=== PATIENT | female | born 1990 ===

== ENCOUNTER 2020-10-09 16:36 | Emergency (ER) | payer OTHER, SELFPAY ==
--- NOTE | 2020-10-09 18:41 | PC.NURSE ---
Pt ambulating from the waiting room into room 17 with a ortiz/steady gait. Pt changing into hospital attire. Pt assisted to the bathroom to provide a UA. Awaiting primary MD montoya.
--- NOTE | 2020-10-09 18:50 | PC.NURSE ---
at bedside for primary eval.
[2020-10-09 18:51] VITALS: PULSE 90; RESP 16; TEMP 36.7; O2SAT 97; BMI 36.1
--- NOTE | 2020-10-09 19:01 | ED.GENADULT ---
HPI - General Adult General Chief complaint: General Medical Stated complaint: fatique Time Seen by Provider: 10/09/20 18:41 Source: patient Mode of arrival: ambulatory Limitations: no limitations History of Present Illness HPI narrative: Patient been complaining of weakness body aches headache for last 6 months been followed up by her primary care doctor done the labs as outpatient coming here for further evaluation as she is not feeling better complaining of headache for last 5 days. Patient had detail workup with her primary care doctor along with plan to see your under sheriff for positive ARAVIND in 2017 according to records patient has been to different hospital in different doctors for same condition without strict follow-up. Patient denied any rash no fever no joint swelling. Patient has chronic leukocytosis for last 2 years etiology not clear Onset (ago): month(s) (Several) Related Data Allergies Allergy/AdvReac Type Severity Reaction Status Date / Time No Known Allergies Allergy Unverified 08/05/20 15:58 Review of Systems Review of Systems: REVIEW OF SYSTEMS: Pertinent positives and negatives are stated above in the history. GEN: no fevers, chills, fatigue++ HEENT: no nasal congestion, sore throat, ear pain NEURO: no dizziness, focal weakness PULM: no cough, shortness of breath CV: no chest pain, palpitations, LE edema ABD: no abdominal pain, nausea, vomiting, diarrhea : no dysuria, urgency, frequency SKIN: no rash ROS otherwise negative x [facility] Social History Social History Advance Directives: No Advance Directives Information Provided: Yes Physical Exam Vital Signs: Vital Signs: Last Vital Signs Temp 98.1 F 10/09/20 18:51 Pulse 81 10/09/20 20:33 Resp 16 10/09/20 20:33 BP 128/79 10/09/20 20:33 Pulse Ox 100 10/09/20 20:33 Body Mass Index 36.1 Appearance: Alert. Oriented X3. No acute distress. Eyes: Pupils equal, round and reactive to light. ENT: Pharynx normal. Neck: Normal inspection. Neck supple. CVS: Normal heart rate and rhythm. Pulses normal. Respiratory: No respiratory distress. Breath sounds normal. Abdomen: Soft and nontender. Skin: Skin warm and dry. Normal skin color. Normal skin turgor. Extremities: No lower extremity edema. Good range of movement Neuro: Oriented X 3. No motor deficit. No sensory deficit. Course Course Course Narrative: patient detailed workup [place] [address] and positive CRP looks like patient has mixed connective tissue disorder with previous ARAVIND positive in 2017. Patient has a follow-up plan with her primary care doctor and clothing worker advised to follow-up with them at this time patient does not have any bacterial source of infection causing the leukocytosis will add Lyme titers. Also advised patient to follow-up with PCP next week Medical Decision Making Lab Data Result diagrams: 10/09/20 18:57 10/09/20 18:57 Labs: Lab Results 10/09/20 10/09/20 10/09/20 Range/Units 18:57 18:57 18:57 WBC 17.0 H (4.8-10.8) X10*3/uL RBC 5.47 (4.20-5.50) X10*6/uL Hgb 15.5 (12.0-16.0) g/dl Hct 46.6 (37-47) % MCV 85.2 (80-98) fL MCH 28.3 (27.0-33.0) pg MCHC 33.3 (31.0-35.0) g/dl RDW 11.9 (11.0-16.0) % Plt Count 365 (160-400) X10*3/uL MPV 9.3 L (9.4-12.3) fL Immature Gran % (Auto) 0.5 H (0.0-0.4) % Neut % (Auto) 72.6 (45-73) % Lymph % (Auto) 20.9 (20-40) % [place] % (Auto) 5.5 (2-11) % Eos % (Auto) 0.2 (0-4) % Baso % (Auto) 0.3 (0-2) % Lymph # (Auto) 3.6 (1.2-4.9) X10*3/uL [place] # (Auto) 0.9 (0.1-1.2) X10*3/uL Eos # (Auto) 0.0 (0.0-0.4) X10*3/uL Baso # (Auto) 0.1 (0.0-0.2) X10*3/uL Abs Immat Gran (auto) 0.08 H (0.00-0.03) X10*3/uL Absolute Neuts (auto) 12.4 H (2.0-8.3) X10*3/uL Absolute Nucleated RBC 0.000 (0.0-0.012) X10*3/uL Nucleated RBC % (auto) 0.0 (0.0-0.2) /100WBC ESR 29 H (0-20) MM/HR Sodium 137 (135-145) mmol/L Potassium 4.2 (3.3-5.1) mmol/l Chloride 102 (96-108) mmol/L Carbon Dioxide 23 (22-29) mmol/L Anion Gap 16 (12-20) BUN 15 (9-16) mg/dL Creatinine 0.94 (0.5-1.4) mg/dL Estim Creat Clear Calc 117.3 Estimated GFR > 60 Random Glucose 80 (60-115) mg/dL Calcium 9.0 (8.4-10.2) mg/dL C-Reactive Protein 0.80 H (< or = 0.50) mg/dL Urine Color Urine Appearance Urine pH (5.0-8.0) Ur Specific [place] (1.005-1.025) Urine Protein (NEG-TRACE) MG/DL Urine Glucose (UA) (NEG) MG/DL Urine Ketones (NEG) MG/DL Urine Blood (NEG) Urine Nitrite (NEG) Ur Leukocyte Esterase (NEG) Urine RBC (0) /HPF Urine WBC (0-4) /HPF Ur Squamous Epith Cells /LPF Urine Bacteria /LPF Monoscreen (Negative) 10/09/20 10/09/20 Range/Units 19:03 19:52 WBC (4.8-10.8) X10*3/uL RBC (4.20-5.50) X10*6/uL Hgb (12.0-16.0) g/dl Hct (37-47) % MCV (80-98) fL MCH (27.0-33.0) pg MCHC (31.0-35.0) g/dl RDW (11.0-16.0) % Plt Count (160-400) X10*3/uL MPV (9.4-12.3) fL Immature Gran % (Auto) (0.0-0.4) % Neut % (Auto) (45-73) % Lymph % (Auto) (20-40) % [place] % (Auto) (2-11) % Eos % (Auto) (0-4) % Baso % (Auto) (0-2) % Lymph # (Auto) (1.2-4.9) X10*3/uL [place] # (Auto) (0.1-1.2) X10*3/uL Eos # (Auto) (0.0-0.4) X10*3/uL Baso # (Auto) (0.0-0.2) X10*3/uL Abs Immat Gran (auto) (0.00-0.03) X10*3/uL Absolute Neuts (auto) (2.0-8.3) X10*3/uL Absolute Nucleated RBC (0.0-0.012) X10*3/uL Nucleated RBC % (auto) (0.0-0.2) /100WBC ESR (0-20) MM/HR Sodium (135-145) mmol/L Potassium (3.3-5.1) mmol/l Chloride (96-108) mmol/L Carbon Dioxide (22-29) mmol/L Anion Gap (12-20) BUN (9-16) mg/dL Creatinine (0.5-1.4) mg/dL Estim Creat Clear Calc Estimated GFR Random Glucose (60-115) mg/dL Calcium (8.4-10.2) mg/dL C-Reactive Protein (< or = 0.50) mg/dL Urine Color DARK YELLOW Urine Appearance HAZY Urine pH 5.5 (5.0-8.0) Ur Specific [place] >= 1.030 H (1.005-1.025) Urine Protein 3+ H (NEG-TRACE) MG/DL Urine Glucose (UA) NEG (NEG) MG/DL Urine Ketones NEG (NEG) MG/DL Urine Blood 3+ H (NEG) Urine Nitrite NEG (NEG) Ur Leukocyte Esterase NEG (NEG) Urine RBC 76-150 H (0) /HPF Urine WBC 15-29 H (0-4) /HPF Ur Squamous Epith Cells 2+ /LPF Urine Bacteria NONE /LPF Monoscreen Negative (Negative) Discharge Plan Discharge Clinical Impression: Musculoskeletal pain Leukocytosis Qualifiers: Leukocytosis type: unspecified Qualified Code(s): D72.829 - Elevated white blood cell count, unspecified Patient Disposition: Home, Self-Care Instructions: Musculoskeletal Pain (ED) Additional Instructions: follow-up with your PCP and under sheriff. Report to the ER if high-grade fever or not getting better Interventions: ED Discharge Assessment Last Done: 10/09/20 21:03 Discharge Date/Time: 10/09/20 21:05
--- NOTE | 2020-10-09 19:08 | PC.NURSE ---
Labs and UA obtained and sent. Pt very emotional, crying, states she knows something is wrong and noarchanae will listen to her. Awaiting lab results.
[2020-10-09 19:36] LABS: MANUAL DIFF FLAG NO
--- NOTE | 2020-10-09 19:51 | PC.NURSE ---
Pt requesting food/drink, given a sandwich and gingerale. Pt awaiting bloodwork results.
[2020-10-09 19:55] LABS: Basophils Absolute Auto 0.1 X10*3/uL (0.0-0.2); Basophils Percent Auto 0.3 % (0-2); Eosinophils Percent Auto 0.2 % (0-4); Hematocrit 46.6 % (37-47); Hemoglobin 15.5 g/dl (12.0-16.0); Imm Gran Abs Auto 0.08 X10*3/uL (0.00-0.03); Imm Gran Pct Auto 0.5 % (0.0-0.4); Lymphocytes Absolute Auto 3.6 X10*3/uL (1.2-4.9); Lymphocytes Percent Auto 20.9 % (20-40); Mean Corpuscular HGB Conc 33.3 g/dl (31.0-35.0); Mean Corpuscular Hemoglobin 28.3 pg (27.0-33.0); Mean Corpuscular Volume 85.2 fL (80-98); Mean Platelet Volume 9.3 fL (9.4-12.3); Monocytes Absolute Auto 0.9 X10*3/uL (0.1-1.2); Monocytes Percent Auto 5.5 % (2-11); Neutrophils Absolute Auto 12.4 X10*3/uL (2.0-8.3); Neutrophils Percent Auto 72.6 % (45-73); Platelet Count 365 X10*3/uL (160-400); Red Blood Count 5.47 X10*6/uL (4.20-5.50); Red Cell Distribution Width 11.9 % (11.0-16.0)
[2020-10-09 20:00] LABS: Anion Gap 16 (12-20); Blood Urea Nitrogen 15 mg/dL (9-16); Carbon Dioxide 23 mmol/L (22-29); Chloride 102 mmol/L (96-108); Creatinine Clr Calc Pharmacy 117.3; Estimated Glomerular Filt Rate > 60; Glucose Random 80 mg/dL (60-115); Potassium 4.2 mmol/l (3.3-5.1); Sodium 137 mmol/L (135-145)
[2020-10-09 20:14] LABS: Glucose Urine UA NEG (NEG); Leukocyte Esterase Urine NEG (NEG); Nitrite Urine NEG (NEG); PH 5.5 (5.0-8.0); Specific Gravity - Urine >= 1.030 (1.005-1.025); Urine Blood 3+ (NEG); Urine Ketones NEG (NEG); Urine Protein 3+ MG/DL (NEG-TRACE)
[2020-10-09 20:17] LABS: Monotest Negative (Negative)
[2020-10-09 20:20] LABS: Appearance Urine HAZY; Color Urine DARK YELLOW
[2020-10-09 20:33] VITALS: BP 128/79; PULSE 81; RESP 16; O2SAT 100
[2020-10-09 20:50] LABS: Erythrocyte Sedimentation Rate 29 MM/HR (0-20)
--- NOTE | 2020-10-09 20:53 | PC.NURSE ---
at bedside discussing previous outpatient lab results and plan of care to DC to an infectious disease specialist to f/u regarding +ARAVIND for Lupus.
[2020-10-09 20:58] LABS: Squamous Epithelial Cell Urine 2+ /LPF; UACC CULT YES
[2020-10-13 22:12] LABS: Lyme Abs Screen <0.90 index
== END 2020-10-09 21:05 | disposition home or self-care (01) ==
PROVIDERS: Emergency Provider Internal Medicine
DX: M79.10 Myalgia, unspecified site (principal); D72.829 Elevated white blood cell count, unspecified; R53.83 Other fatigue; Z79.899 Other long term (current) drug therapy
CPT/HCPCS: 36415; 80048; 81001; 81003; 85025; 85652; 86140; 86308; 86618; 87086; 99283; 99284

== ENCOUNTER 2020-10-10 06:14 | Emergency (ER) | payer OTHER, SELFPAY ==
[2020-10-10 06:20] VITALS: BP 117/87; PULSE 116; RESP 20; TEMP 36.2; O2SAT 98; BMI 36.1
--- NOTE | 2020-10-10 06:43 | XR_ITS ---
EXAMINATION: CHEST 2 VIEWS CLINICAL INFORMATION: SOB . COMPARISON: 08/16/2020. TECHNIQUE: PA and lateral views of the chest obtained. FINDINGS: The lungs are well expanded. No focal infiltrate, effusion, edema, or pneumothorax. Cardiac and mediastinal silhouettes are within normal limits for technique. No acute bony abnormality seen XR/XR chest 2V IMPRESSION: No evidence of acute disease
--- NOTE | 2020-10-10 06:45 | ED_ITS ---
HPI - General Adult General Chief complaint: General Medical Stated complaint: Sob Time Seen by Provider: 10/10/20 06:39 Source: patient Mode of arrival: ambulatory Limitations: no limitations History of Present Illness HPI narrative: This is a 29 years old female seen yesterday in the emergency department return today complaining of generalized weakness, shortness of breath, dry throat, she has a history of a chronic elevated white cell count, she has history of elevated ARAVIND she is waiting for rheumatology consult. She appeared to be an anxius Onset (ago): day(s) (1) Severity: moderate Relieving factors: none Exacerbating factors: none Associated symptoms: denies other symptoms Treatments prior to arrival: none Related Data Previous Rx's Medication Instructions Recorded lorazepam 1 mg PO BEDTIME PRN #3 tab 10/10/20 Allergies Allergy/AdvReac Type Severity Reaction Status Date / Time No Known Allergies Allergy Verified 10/10/20 06:20 Review of Systems Review of Systems: Denies any nausea, vomiting, diarrhea, denied any cough denies any fever, denies any genital urinary symptoms Yes all other systems are reviewed and are negative [facility] Past Medical History Attestation statement: The following information was validated with the patient. Social History Social History Smoking Status: Former smoker Smoked in Last 30 Days: No Use of substances other than those prescribed or required for medical reasons: No Advance Directives: No Physical Exam Vital Signs: Vital Signs: Last Vital Signs Temp 98.2 F 10/10/20 08:47 Pulse 80 10/10/20 08:47 Resp 16 10/10/20 08:47 BP 104/64 10/10/20 08:47 Pulse Ox 99 10/10/20 08:47 Body Mass Index 36.1 Const: Other: Awake and alert in no acute distress and anxious appearing Orientation/consciousness: oriented to person, oriented to place and oriented to time HENMT: Head: Yes normal to inspection and Yes normocephalic Eyes: General: appearance normal, both eyes and all related structures Neck: Neck: Yes normal visual inspection, Yes full ROM and Yes no lymphadenopathy Chest: Chest palpation & inspection: normal inspection of the chest and normal palpation of entire chest wall Resp: Effort & Inspection: normal respiratory effort and able to speak in complete sentences Cardio: Rate: regular rate GI: Palpation (GI): Soft to palpation, nontender and no guarding Skin: General skin exam: no rashes or lesions noted and no erythema Neuro: General: oriented to person, oriented to place, oriented to time and CN's II-XI intact bilaterally Psych: Appearance: well kempt Mental Status: mental status grossly normal Speech and movement: Clear speech present Affect: Anxious affect present Thought process: Normal thought process present Insight: Good insight present (Psych) Medical Decision Making Lab Data Result diagrams: 10/10/20 06:54 10/10/20 06:54 Labs: Lab Results 10/10/20 10/10/20 10/10/20 Range/Units 06:54 06:54 06:54 WBC 12.9 H (4.8-10.8) X10*3/uL RBC 5.01 (4.20-5.50) X10*6/uL Hgb 14.4 (12.0-16.0) g/dl Hct 42.5 (37-47) % MCV 84.8 (80-98) fL MCH 28.7 (27.0-33.0) pg MCHC 33.9 (31.0-35.0) g/dl RDW 11.9 (11.0-16.0) % Plt Count 334 (160-400) X10*3/uL MPV 9.1 L (9.4-12.3) fL Immature Gran % (Auto) 0.4 (0.0-0.4) % Neut % (Auto) 69.3 (45-73) % Lymph % (Auto) 23.0 (20-40) % [place] % (Auto) 6.6 (2-11) % Eos % (Auto) 0.3 (0-4) % Baso % (Auto) 0.4 (0-2) % Lymph # (Auto) 3.0 (1.2-4.9) X10*3/uL [place] # (Auto) 0.9 (0.1-1.2) X10*3/uL Eos # (Auto) 0.0 (0.0-0.4) X10*3/uL Baso # (Auto) 0.1 (0.0-0.2) X10*3/uL Abs Immat Gran (auto) 0.05 H (0.00-0.03) X10*3/uL Absolute Neuts (auto) 9.0 H (2.0-8.3) X10*3/uL Absolute Nucleated RBC 0.000 (0.0-0.012) X10*3/uL Nucleated RBC % (auto) 0.0 (0.0-0.2) /100WBC D-Dimer NG/ML Sodium 138 (135-145) mmol/L Potassium 4.1 (3.3-5.1) mmol/l Chloride 104 (96-108) mmol/L Carbon Dioxide 26 (22-29) mmol/L Anion Gap 12 (12-20) BUN 14 (9-16) mg/dL Creatinine 0.88 (0.5-1.4) mg/dL Estim Creat Clear Calc 125.3 Estimated GFR > 60 Random Glucose 102 (60-115) mg/dL Calcium 8.8 (8.4-10.2) mg/dL Total Bilirubin 0.4 (0.0-1.0) mg/dL AST 15 (5-31) U/L ALT 22 (0-31) U/L Alkaline Phosphatase 62 (39-117) U/L Total Protein 6.3 L (6.5-8.0) g/dL Albumin 3.6 (3.5-5.0) g/dL Beta HCG, Quant < 2 mIU/mL Coronavirus (PCR) (Negative) Influenza Type A (PCR) (Negative) Influenza Type B (PCR) (Negative) RSV RNA Qual (PCR) (Negative) 10/10/20 10/10/20 Range/Units 06:54 07:50 WBC (4.8-10.8) X10*3/uL RBC (4.20-5.50) X10*6/uL Hgb (12.0-16.0) g/dl Hct (37-47) % MCV (80-98) fL MCH (27.0-33.0) pg MCHC (31.0-35.0) g/dl RDW (11.0-16.0) % Plt Count (160-400) X10*3/uL MPV (9.4-12.3) fL Immature Gran % (Auto) (0.0-0.4) % Neut % (Auto) (45-73) % Lymph % (Auto) (20-40) % [place] % (Auto) (2-11) % Eos % (Auto) (0-4) % Baso % (Auto) (0-2) % Lymph # (Auto) (1.2-4.9) X10*3/uL [place] # (Auto) (0.1-1.2) X10*3/uL Eos # (Auto) (0.0-0.4) X10*3/uL Baso # (Auto) (0.0-0.2) X10*3/uL Abs Immat Gran (auto) (0.00-0.03) X10*3/uL Absolute Neuts (auto) (2.0-8.3) X10*3/uL Absolute Nucleated RBC (0.0-0.012) X10*3/uL Nucleated RBC % (auto) (0.0-0.2) /100WBC D-Dimer < 200 NG/ML Sodium (135-145) mmol/L Potassium (3.3-5.1) mmol/l Chloride (96-108) mmol/L Carbon Dioxide (22-29) mmol/L Anion Gap (12-20) BUN (9-16) mg/dL Creatinine (0.5-1.4) mg/dL Estim Creat Clear Calc Estimated GFR Random Glucose (60-115) mg/dL Calcium (8.4-10.2) mg/dL Total Bilirubin (0.0-1.0) mg/dL AST (5-31) U/L ALT (0-31) U/L Alkaline Phosphatase (39-117) U/L Total Protein (6.5-8.0) g/dL Albumin (3.5-5.0) g/dL Beta HCG, Quant mIU/mL Coronavirus (PCR) NEGATIVE (Negative) Influenza Type A (PCR) NEGATIVE (Negative) Influenza Type B (PCR) NEGATIVE (Negative) RSV RNA Qual (PCR) NEGATIVE (Negative) Discharge Plan Discharge Clinical Impression: Shortness of breath Patient Disposition: Home, Self-Care Instructions: Shortness of Breath (ED) Prescriptions: New lorazepam 1 mg tablet 1 mg PO BEDTIME PRN (Reason: imsomnia) Qty: 3 RF: 0 Interventions: ED Discharge Assessment Last Done: 10/10/20 10:09 Discharge Date/Time: 10/10/20 10:16
[2020-10-10] MEDS: LORazepam 1 MG TABLET PO (06:58)
[2020-10-10 07:01] LABS: MANUAL DIFF FLAG NO
[2020-10-10 07:02] LABS: Basophils Absolute Auto 0.1 X10*3/uL (0.0-0.2); Basophils Percent Auto 0.4 % (0-2); Eosinophils Percent Auto 0.3 % (0-4); Hematocrit 42.5 % (37-47); Hemoglobin 14.4 g/dl (12.0-16.0); Imm Gran Abs Auto 0.05 X10*3/uL (0.00-0.03); Imm Gran Pct Auto 0.4 % (0.0-0.4); Mean Corpuscular HGB Conc 33.9 g/dl (31.0-35.0); Mean Corpuscular Hemoglobin 28.7 pg (27.0-33.0); Mean Corpuscular Volume 84.8 fL (80-98); Mean Platelet Volume 9.1 fL (9.4-12.3); Monocytes Absolute Auto 0.9 X10*3/uL (0.1-1.2); Monocytes Percent Auto 6.6 % (2-11); Neutrophils Percent Auto 69.3 % (45-73); Platelet Count 334 X10*3/uL (160-400); Red Blood Count 5.01 X10*6/uL (4.20-5.50); Red Cell Distribution Width 11.9 % (11.0-16.0); White Blood Count 12.9 X10*3/uL (4.8-10.8)
[2020-10-10 07:17] LABS: D Dimer < 200 NG/ML
[2020-10-10 07:31] LABS: Alanine Aminotransferase 22 U/L (0-31); Albumin Level 3.6 g/dL (3.5-5.0); Alkaline Phosphatase 62 U/L (39-117); Anion Gap 12 (12-20); Aspartate Amino Transferase 15 U/L (5-31); Bilirubin Total 0.4 mg/dL (0.0-1.0); Blood Urea Nitrogen 14 mg/dL (9-16); Calcium 8.8 mg/dL (8.4-10.2); Carbon Dioxide 26 mmol/L (22-29); Chloride 104 mmol/L (96-108); Creatinine Clr Calc Pharmacy 125.3; Estimated Glomerular Filt Rate > 60; Glucose Random 102 mg/dL (60-115); Potassium 4.1 mmol/l (3.3-5.1); Sodium 138 mmol/L (135-145); Total Protein 6.3 g/dL (6.5-8.0)
[2020-10-10 07:33] LABS: HCG Quantitative < 2 mIU/mL
[2020-10-10 08:47] VITALS: BP 104/64; PULSE 80; RESP 16; TEMP 36.8; O2SAT 99
[2020-10-10] MEDS: 0.9 % Sodium Chloride 1,000 ML 999 ML IVCONT (08:49)
[2020-10-10 09:43] LABS: Influenza A PCR NEGATIVE (Negative); Influenza B PCR NEGATIVE (Negative); Resp Syncy Virus RNA Qual PCR NEGATIVE (Negative); SARS COV2 PCR INHOUSE NEGATIVE (Negative)
== END 2020-10-10 10:16 | disposition home or self-care (01) ==
PROVIDERS: Emergency Provider Emergency Medicine
DX: R06.02 Shortness of breath (principal); Z79.899 Other long term (current) drug therapy; Z87.891 Personal history of nicotine dependence; Z20.828 Contact with and (suspected) exposure to other viral communicable diseases
CPT/HCPCS: 0241U; 36415; 71046; 80053; 84702; 85025; 85379; 87040; 96360; 99284

== ENCOUNTER 2020-10-11 21:25 | Emergency (ER) | payer OTHER, SELFPAY ==
[2020-10-11 21:28] VITALS: BP 145/80; PULSE 101; RESP 18; TEMP 37.3; O2SAT 98; BMI 36.1
[2020-10-11 22:36] LABS: MANUAL DIFF FLAG NO
[2020-10-11 22:37] LABS: Basophils Absolute Auto 0.1 X10*3/uL (0.0-0.2); Basophils Percent Auto 0.3 % (0-2); Eosinophils Absolute Auto 0.1 X10*3/uL (0.0-0.4); Eosinophils Percent Auto 0.5 % (0-4); Hematocrit 41.5 % (37-47); Hemoglobin 13.8 g/dl (12.0-16.0); Imm Gran Abs Auto 0.07 X10*3/uL (0.00-0.03); Imm Gran Pct Auto 0.4 % (0.0-0.4); Lymphocytes Absolute Auto 3.8 X10*3/uL (1.2-4.9); Lymphocytes Percent Auto 24.3 % (20-40); Mean Corpuscular HGB Conc 33.3 g/dl (31.0-35.0); Mean Corpuscular Hemoglobin 28.7 pg (27.0-33.0); Mean Corpuscular Volume 86.3 fL (80-98); Mean Platelet Volume 8.9 fL (9.4-12.3); Monocytes Absolute Auto 1.1 X10*3/uL (0.1-1.2); Monocytes Percent Auto 6.7 % (2-11); Neutrophils Absolute Auto 10.7 X10*3/uL (2.0-8.3); Neutrophils Percent Auto 67.8 % (45-73); Platelet Count 318 X10*3/uL (160-400); Red Blood Count 4.81 X10*6/uL (4.20-5.50); Red Cell Distribution Width 11.9 % (11.0-16.0); White Blood Count 15.7 X10*3/uL (4.8-10.8)
--- NOTE | 2020-10-11 22:56 | ED_ITS ---
HPI - General Adult General Chief complaint: General Medical Stated complaint: Multiple complaints Time Seen by Provider: 10/11/20 22:00 Source: patient Mode of arrival: ambulatory History of Present Illness HPI narrative: 29-year-old female seen here multiple times this week secondary to lower back pain generalized weakness. Patient denies urinary symptoms denies fevers or chills denies nausea vomiting. Patient states worsening with m ovement. Denies urinary incontinence denies bowel incontinence or constipation. Patient states has gotten COVID test which was negative. Patient states has been dealing with this for months to years secondary to possible rheumatologic illness. Patient also has a chronic elevation in white blood cells. Patient states went to primary care doctor today and got laboratory work. Patient states just tired of this Onset (ago): month(s) Severity: mild Severity scale (1-10): 3 Related Data Previous Rx's Medication Instructions Recorded lorazepam 1 mg PO BEDTIME PRN #3 tab 10/10/20 Allergies Allergy/AdvReac Type Severity Reaction Status Date / Time No Known Allergies Allergy Verified 10/11/20 21:28 Review of Systems Review of Systems: Constitutional : No Weight loss, No Fever, No Chills, No Night Sweats, No Fatigue, No Malaise ENT/Mouth : No Hearing loss, No Ear Pain, No Nasal Congestion, No Sinus Pain, No Hoarseness, No sore throat, No Rhinorrhea, No Swallowing Difficulty Eyes: No Eye Pain, No Swelling, No Redness, No Foreign Body, No Discharge, No Vision Changes Cardiovascular : No Chest Pain, No SOB, No Dyspnea on Exertion, No Orthopnea, No Edema, No Palpitations Respiratory : No Cough, No Sputum, No Wheezing, No Smoke Exposure, No Dyspnea Gastrointestinal : No Nausea, No Vomiting, No Diarrhea, No Constipation, No a bdominal Pain, No Hematochezia, No Melena Genitourinary : no irregular bleeding, No Dysuria, No Urinary Frequency, No Hematuria, No Urinary Incontinence, No Urgency, No Flank Pain, No Urinary Flow Changes, No Hesitancy Musculoskeletal : No joint pain, No Myalgias, No Joint Swelling positive back pain Skin : No Skin Lesions, No rash Neuro : No Weakness, No Numbness, No Paresthesias, No Loss of Consciousness, No Dizziness, No Headache Psych : No Anxiety/Panic, No Depression, No SI/HI/AH/VH, No Social Issues, Heme/Lymph: No Bruising, No Bleeding,No Lymphadenopathy Endocrine : No Polyuria, No Polydipsia, No Temperature Intolerance [facility] Past Medical History Medical History Healthy adult Family History Family History (Updated 10/11/20 @ 22:58 by Nj Hernandez DO) Other Family history non-contributory Social History Social History Alcohol intake: never Smoking Status: Former smoker Smoked in Last 30 Days: No Use of substances other than those prescribed or required for medical reasons: No Advance Directives: No Advance Directives Information Provided: Yes Physical Exam 2 Vital Signs: Vital Signs: Last Vital Signs Temp 98.2 F 10/11/20 23:18 Pulse 73 10/11/20 23:18 Resp 20 10/11/20 23:18 BP 107/60 10/11/20 23:18 Pulse Ox 98 10/11/20 21:28 Body Mass Index 36.1 Melody signs reviewed 98% room air pulse ox. Interpreted by me. Normal Appearance: Alert. Oriented X3. No acute distress. Eyes: Pupils equal, round and reactive to light. ENT: Pharynx normal. Neck: Normal inspection. Neck supple. No lymph nodes noted. No crepitus CVS: Normal heart rate and rhythm. Pulses normal. Normal S1 and S2 Respiratory: No respiratory distress. Breath sounds normal. No Wheezing. No rales Abdomen: Soft and nontender. No rigidity. No distention. good BS x4 Skin: Skin warm and dry. Normal skin color. Normal skin turgor. Extremities: No lower extremity edema. Neurovascular intact to all extremities. No Lacerations. No Rash Neuro: Oriented X 3. No motor deficit. No sensory deficit. Moving all extermities. No slurred speech. Back: No CVA tenderness no midline tenderness no step-off no abscess Course Course Course Narrative: Differential diagnosis includes UTI pyelonephritis Medical Decision Making MDM Narrative Medical decision making narrative: 29-year-old female with chronic leukocytosis. Labs and urine negative. Recent blood culture done negative at 24 hours. Patient's shows no signs of current infection however could be acute exacerbation of her chronic illness that needs to be followed up in diagnosed by her primary care doctor patient tolerating p.o. his ambulatory without dysfunction Medical Records Medical records reviewed: Yes I reviewed the patient's medical records. Medical records narrative: Reviewed previous 2 ER visits with similar complaints. Reviewed and compare laboratory work w today. Lab Data Lab results reviewed: Yes I reviewed the patient's lab results. Result diagrams: 10/11/20 22:29 10/11/20 22:29 Labs: Lab Results 10/11/20 10/11/20 10/11/20 Range/Units 22:29 22:29 23:24 WBC 15.7 H (4.8-10.8) X10*3/uL RBC 4.81 (4.20-5.50) X10*6/uL Hgb 13.8 (12.0-16.0) g/dl Hct 41.5 (37-47) % MCV 86.3 (80-98) fL MCH 28.7 (27.0-33.0) pg MCHC 33.3 (31.0-35.0) g/dl RDW 11.9 (11.0-16.0) % Plt Count 318 (160-400) X10*3/uL MPV 8.9 L (9.4-12.3) fL Immature Gran % (Auto) 0.4 (0.0-0.4) % Neut % (Auto) 67.8 (45-73) % Lymph % (Auto) 24.3 (20-40) % [place] % (Auto) 6.7 (2-11) % Eos % (Auto) 0.5 (0-4) % Baso % (Auto) 0.3 (0-2) % Lymph # (Auto) 3.8 (1.2-4.9) X10*3/uL [place] # (Auto) 1.1 (0.1-1.2) X10*3/uL Eos # (Auto) 0.1 (0.0-0.4) X10*3/uL Baso # (Auto) 0.1 (0.0-0.2) X10*3/uL Abs Immat Gran (auto) 0.07 H (0.00-0.03) X10*3/uL Absolute Neuts (auto) 10.7 H (2.0-8.3) X10*3/uL Absolute Nucleated RBC 0.000 (0.0-0.012) X10*3/uL Nucleated RBC % (auto) 0.0 (0.0-0.2) /100WBC Sodium 138 (135-145) mmol/L Potassium 3.8 (3.3-5.1) mmol/l Chloride 105 (96-108) mmol/L Carbon Dioxide 24 (22-29) mmol/L Anion Gap 13 (12-20) BUN 12 (9-16) mg/dL Creatinine 0.81 (0.5-1.4) mg/dL Estim Creat Clear Calc 136.2 Estimated GFR > 60 Random Glucose 82 (60-115) mg/dL Calcium 8.4 (8.4-10.2) mg/dL Total Bilirubin 0.4 (0.0-1.0) mg/dL Direct Bilirubin 0.2 (0.0-0.5) mg/dL AST 13 (5-31) U/L ALT 20 (0-31) U/L Alkaline Phosphatase 56 (39-117) U/L Total Protein 6.0 L (6.5-8.0) g/dL Albumin 3.4 L (3.5-5.0) g/dL Lipase 20 (8-78) U/L Urine Color YELLOW Urine Appearance CLEAR Urine pH 6.0 (5.0-8.0) Ur Specific [place] 1.015 (1.005-1.025) Urine Protein 2+ H (NEG-TRACE) MG/DL Urine Glucose (UA) NEG (NEG) MG/DL Urine Ketones NEG (NEG) MG/DL Urine Blood 1+ H (NEG) Urine Nitrite NEG (NEG) Ur Leukocyte Esterase NEG (NEG) Urine RBC 0 (0) /HPF Urine WBC 0-2 (0-4) /HPF Ur Squamous Epith Cells 2+ /LPF Urine Bacteria TRACE /LPF Urine Mucus TRACE /LPF Urine Test NEGATIVE (NEGATIVE) Discharge Plan Discharge Clinical Impression: Malaise Back pain Qualifiers: Back pain location: low back pain Chronicity: unspecified Back pain laterality: bilateral Patient Disposition: Home, Self-Care Instructions: Weakness (ED) Additional Instructions: Thank you for visiting the emergency department today. If your symptoms worsen or do not resolve completely please return to the emergency department immediately or call 911. if he have any questions please call your primary care physician Prescriptions: No Action lorazepam 1 mg tablet 1 mg PO BEDTIME PRN (Reason: imsomnia) Qty: 3 RF: 0 Referrals: [facility] [Provider Group] - 2 days
[2020-10-11 23:15] LABS: Alanine Aminotransferase 20 U/L (0-31); Albumin Level 3.4 g/dL (3.5-5.0); Alkaline Phosphatase 56 U/L (39-117); Anion Gap 13 (12-20); Aspartate Amino Transferase 13 U/L (5-31); Bilirubin Direct 0.2 mg/dL (0.0-0.5); Bilirubin Total 0.4 mg/dL (0.0-1.0); Blood Urea Nitrogen 12 mg/dL (9-16); Calcium 8.4 mg/dL (8.4-10.2); Carbon Dioxide 24 mmol/L (22-29); Chloride 105 mmol/L (96-108); Creatinine Clr Calc Pharmacy 136.2; Estimated Glomerular Filt Rate > 60; Glucose Random 82 mg/dL (60-115); Lipase 20 U/L (8-78); Potassium 3.8 mmol/l (3.3-5.1); Sodium 138 mmol/L (135-145)
[2020-10-11 23:18] VITALS: BP 107/60; PULSE 73; RESP 20; TEMP 36.8
[2020-10-11 23:38] LABS: Appearance Urine CLEAR; Color Urine YELLOW; Glucose Urine UA NEG (NEG); Leukocyte Esterase Urine NEG (NEG); Nitrite Urine NEG (NEG); Specific Gravity - Urine 1.015 (1.005-1.025); Urine Blood 1+ (NEG); Urine Ketones NEG (NEG); Urine Protein 2+ MG/DL (NEG-TRACE)
[2020-10-11 23:40] LABS: UPreg QC Valid YES; Urine Pregnancy NEGATIVE (NEGATIVE)
[2020-10-11 23:48] LABS: Bacteria Urine TRACE /LPF; Mucus Urine TRACE /LPF; RBC Urine 0 /HPF (0); Squamous Epithelial Cell Urine 2+ /LPF; WBC Urine 0-2 /HPF (0-4)
[2020-10-12] MEDS: Ibuprofen 600 MG TABLET PO (00:44)
== END 2020-10-12 00:51 | disposition home or self-care (01) ==
PROVIDERS: Emergency Provider Emergency Medicine
DX: R53.81 Other malaise (principal); M54.5 Low back pain; Z87.891 Personal history of nicotine dependence; Z79.899 Other long term (current) drug therapy
CPT/HCPCS: 36415; 80048; 80076; 81001; 81025; 83690; 85025; 96372; 99284

== ENCOUNTER 2020-10-15 20:54 | Emergency (ER) | payer OTHER, SELFPAY ==
[2020-10-15 20:57] VITALS: BP 149/67; PULSE 92; RESP 18; TEMP 37.1; O2SAT 99; BMI 36.1
--- NOTE | 2020-10-15 21:51 | ECG_ITS ---
Test Reason : ANXIETY Blood Pressure : / mmHG Vent. Rate : 084 BPM Atrial Rate : 084 BPM P-R Int : 164 ms QRS Dur : 082 ms QT Int : 378 ms P-R-T Axes : 034 043 039 degrees QTc Int : 446 ms Normal sinus rhythm RSR' or QR pattern in V1 suggests right ventricular conduction delay Low voltage QRS Borderline ECG When compared with ECG of 16-AUG-2020 16:59, No significant change was found Referred By: Ysabel Veliz Electronically Signed By:ABIGAIL VALE MD
[2020-10-15] MEDS: Ketorolac Tromethamine 15 MG/ML VIAL IVPUSH (22:40)
[2020-10-15] MEDS: hydrOXYzine HCL 50 MG TABLET PO (22:40)
[2020-10-15] MEDS: 0.9 % Sodium Chloride 1,000 ML 1000 ML IV (22:40)
--- NOTE | 2020-10-15 22:40 | PC.NURSE ---
PT REFUSED TYLENOL STATING IT GIVES ME THE JITTERS . PT C/O CHEST PRESSURE, L SIDED ABD AND ARM PAIN, BUT STATES ONGOING FATIGUE IS WHAT CONTINUES TO BOTHER HER THE MOST.
[2020-10-15 22:46] LABS: Basophils Absolute Auto 0.1 X10*3/uL (0.0-0.2); Basophils Percent Auto 0.4 % (0-2); Eosinophils Absolute Auto 0.1 X10*3/uL (0.0-0.4); Eosinophils Percent Auto 0.6 % (0-4); Hematocrit 42.4 % (37-47); Hemoglobin 14.2 g/dl (12.0-16.0); Imm Gran Abs Auto 0.09 X10*3/uL (0.00-0.03); Imm Gran Pct Auto 0.5 % (0.0-0.4); Mean Corpuscular HGB Conc 33.5 g/dl (31.0-35.0); Mean Corpuscular Hemoglobin 28.6 pg (27.0-33.0); Mean Corpuscular Volume 85.3 fL (80-98); Monocytes Absolute Auto 1.1 X10*3/uL (0.1-1.2); Neutrophils Absolute Auto 12.2 X10*3/uL (2.0-8.3); Neutrophils Percent Auto 65.5 % (45-73); Platelet Count 364 X10*3/uL (160-400); Red Blood Count 4.97 X10*6/uL (4.20-5.50); Red Cell Distribution Width 11.8 % (11.0-16.0); SCAN SMEAR FLAG 1; White Blood Count 18.6 X10*3/uL (4.8-10.8)
[2020-10-15 22:48] LABS: MANUAL DIFF FLAG NO
--- NOTE | 2020-10-15 22:59 | ED.GENADULT ---
HPI - General Adult General Chief complaint: Anxiety Stated complaint: ?Anxiety Time Seen by Provider: 10/15/20 21:48 Source: patient Mode of arrival: ambulatory Limitations: no limitations History of Present Illness HPI narrative: This is a 29-year-old female who presents with persistent concerns regarding fatigue, chest pressure, few episodes diarrhea yesterday that have improved in consistency today and is not associated with any fevers, chills, sore throat, recent travel, palpitations, shortness of breath, nausea, vomiting, urinary pain/ burning / frequency. Patient has been seen here on 10/10 and 10/11 on the review of documentation at that time was not found to have pneumonia or PE at that time and has a chronically elevated leukocytosis. In addition, patient has had chronic proteinuria for which she has previously been evaluated by Nephrology. She is currently being referred to Rheumatology for possible autoimmune etiology. Related Data Previous Rx's Medication Instructions Recorded lorazepam 1 mg PO BEDTIME PRN #3 tab 10/10/20 Allergies Allergy/AdvReac Type Severity Reaction Status Date / Time No Known Allergies Allergy Verified 10/15/20 20:56 Review of Systems Review of Systems: Pertinent positives and negatives as stated in HPI 10 point review of systems is otherwise negative. PMFSH Past Medical History Source: nursing notes reviewed Medical History Healthy adult Family History Family History Other Family history non-contributory Social History Social History Alcohol intake: current Alcohol intake frequency: holidays/special occasions only Smoking Status: Former smoker Smoked in Last 30 Days: No Use of substances other than those prescribed or required for medical reasons: No Advance Directives: No Advance Directives Information Provided: Yes Physical Exam Vital Signs: Vital Signs: Last Vital Signs Temp 98.8 F 10/15/20 20:57 Pulse 76 10/16/20 00:54 Resp 16 10/16/20 00:54 BP 114/64 10/16/20 00:54 Pulse Ox 100 10/16/20 00:54 Body Mass Index 36.1 VITAL SIGNS: Reviewed. GENERAL: Well developed, well nourished, in no acute distress. HEAD: Normocephalic/atraumatic, EYES: PERRLA, EOMI intact without pain, no nystagmus/pallor/icterus noted EARS: Ext canals without abnormality, TMs non-bulging and non-erythematous NOSE: Nares patent bilateral OROPHARYNX: no oral lesions noted, posterior pharynx clear and non-erythematous without noted tonsillar enlargement/erythema/exudates NECK: Supple, no adenopathy LUNGS: Normal breath sounds. No adventitious sounds or accessory muscle use. SpO2<100> CARDIOVASCULAR: Regular rate and rhythm without noted murmurs, no JVD or lower extremity edema. ABDOMEN: Soft, non-tender, non-distended with bowel sounds. No rigidity. No guarding. No palpable masses or hernias noted MUSCULOSKELETAL: No tenderness, deformities, or effusions noted on gross inspection. EXTREMITIES: No cyanosis, clubbing or edema. SKIN: Inspection of the skin reveals no rashes, ulcerations, jaundice, pallor, or petechiae. NEUROLOGIC: Alert and oriented x 4. Strength and sensation to light touch were grossly intact x 4. Course Course Course Narrative: This is a 29-year-old female with history and clinical presentation and will have infection, anemia, electrolyte, and metabolic etiologies to be ruled out. on review of all investigations patient has chronically elevated leukocytes and chemistries are within normal limits as well as chronically stable urinalysis results without evidence of infection. TSH results reviewed and will be followed up by primary care provider. EKG is without acute findings when compared to EKG 07/2020. All results and findings were discussed with the patient at bedside. Medical Decision Making Lab Data Result diagrams: 10/15/20 22:30 10/15/20 22:30 Labs: Lab Results 10/15/20 10/15/20 10/16/20 Range/Units 22:30 22:30 00:19 WBC 18.6 H (4.8-10.8) X10*3/uL RBC 4.97 (4.20-5.50) X10*6/uL Hgb 14.2 (12.0-16.0) g/dl Hct 42.4 (37-47) % MCV 85.3 (80-98) fL MCH 28.6 (27.0-33.0) pg MCHC 33.5 (31.0-35.0) g/dl RDW 11.8 (11.0-16.0) % Plt Count 364 (160-400) X10*3/uL MPV 9.0 L (9.4-12.3) fL Immature Gran % (Auto) 0.5 H (0.0-0.4) % Neut % (Auto) 65.5 (45-73) % Lymph % (Auto) 27.0 (20-40) % Kimball % (Auto) 6.0 (2-11) % Eos % (Auto) 0.6 (0-4) % Baso % (Auto) 0.4 (0-2) % Lymph # (Auto) 5.0 H (1.2-4.9) X10*3/uL Kimball # (Auto) 1.1 (0.1-1.2) X10*3/uL Eos # (Auto) 0.1 (0.0-0.4) X10*3/uL Baso # (Auto) 0.1 (0.0-0.2) X10*3/uL Abs Immat Gran (auto) 0.09 H (0.00-0.03) X10*3/uL Absolute Neuts (auto) 12.2 H (2.0-8.3) X10*3/uL Absolute Nucleated RBC 0.000 (0.0-0.012) X10*3/uL Nucleated RBC % (auto) 0.0 (0.0-0.2) /100WBC Sodium 139 (135-145) mmol/L Potassium 4.0 (3.3-5.1) mmol/l Chloride 107 (96-108) mmol/L Carbon Dioxide 23 (22-29) mmol/L Anion Gap 13 (12-20) BUN 14 (9-16) mg/dL Creatinine 0.95 (0.5-1.4) mg/dL Estim Creat Clear Calc 116.0 Estimated GFR > 60 Random Glucose 83 (60-115) mg/dL Calcium 8.4 (8.4-10.2) mg/dL Total Bilirubin 0.4 (0.0-1.0) mg/dL AST 13 (5-31) U/L ALT 20 (0-31) U/L Alkaline Phosphatase 58 (39-117) U/L Total Protein 6.5 (6.5-8.0) g/dL Albumin 3.7 (3.5-5.0) g/dL TSH 6.98 H (0.32-4.0) mIU/mL Free T4 0.89 (0.71-1.85) ng/dL Urine Color YELLOW Urine Appearance CLEAR Urine pH 6.0 (5.0-8.0) Ur Specific [place] >= 1.030 H (1.005-1.025) Urine Protein 2+ H (NEG-TRACE) MG/DL Urine Glucose (UA) NEG (NEG) MG/DL Urine Ketones NEG (NEG) MG/DL Urine Blood 1+ H (NEG) Urine Nitrite NEG (NEG) Ur Leukocyte Esterase NEG (NEG) Urine RBC 0-2 (0) /HPF Urine WBC 1-4 (0-4) /HPF Ur Squamous Epith Cells 3+ /LPF Urine Bacteria 2+ /LPF Urine Mucus 2+ /LPF ECG Data Attestation: I personally reviewed and interpreted this ECG as follows: Prior ECG tracings: available for review ( 08/16/2020 no acute changes on comparison) Interpretation: sinus rhythm, HR - 84, no evidence of acute ischemia, ND/QRS/QTC are within normal limits Discharge Plan Discharge Clinical Impression: History of leukocytosis Fatigue Qualifiers: Fatigue type: unspecified Qualified Code(s): R53.83 - Other fatigue Patient Disposition: Home, Self-Care Instructions: Chronic Fatigue Syndrome (ED) Additional Instructions: 1. Resume all home medications as prescribed. 2. Increase fluid hydration especially with water. 3. Please call both the specialist as well as your primary care provider on Sunday morning to arrange for follow-up. The patient and/or family acknowledge understanding of results (as applicable), diagnosis, treatment plan, need for follow up, and symptoms that should prompt a return to the emergency room. Prescriptions: No Action lorazepam 1 mg tablet 1 mg PO BEDTIME PRN (Reason: imsomnia) Qty: 3 RF: 0 Referrals: [facility] [Outside] - 2 days (Re-evaluation management of patient's symptoms of fatigue.)
[2020-10-15 23:06] LABS: Alanine Aminotransferase 20 U/L (0-31); Albumin Level 3.7 g/dL (3.5-5.0); Alkaline Phosphatase 58 U/L (39-117); Anion Gap 13 (12-20); Aspartate Amino Transferase 13 U/L (5-31); Bilirubin Total 0.4 mg/dL (0.0-1.0); Blood Urea Nitrogen 14 mg/dL (9-16); Calcium 8.4 mg/dL (8.4-10.2); Carbon Dioxide 23 mmol/L (22-29); Chloride 107 mmol/L (96-108); Estimated Glomerular Filt Rate > 60; Glucose Random 83 mg/dL (60-115); Sodium 139 mmol/L (135-145); Total Protein 6.5 g/dL (6.5-8.0)
[2020-10-15 23:26] LABS: TSH reflex Free T4 6.98 mIU/mL (0.32-4.0)
[2020-10-15 23:59] LABS: Free T4 (Free Thyroxine) 0.89 ng/dL (0.71-1.85)
[2020-10-16 00:27] LABS: Glucose Urine UA NEG (NEG); Leukocyte Esterase Urine NEG (NEG); Nitrite Urine NEG (NEG); Specific Gravity - Urine >= 1.030 (1.005-1.025); Urine Blood 1+ (NEG); Urine Ketones NEG (NEG); Urine Protein 2+ MG/DL (NEG-TRACE)
--- NOTE | 2020-10-16 00:27 | PC.NURSE ---
PT A&O, COMPLAINING OF WEAK AND NOT HER SELF LATELY. PT HAS ANXIETY . CARE TEAM IN TO SPEAK TO PT. LABS AND UA SENT. PT RESTING IN BED.
[2020-10-16 00:28] LABS: Appearance Urine CLEAR; Color Urine YELLOW
[2020-10-16 00:33] LABS: Bacteria Urine 2+ /LPF; Mucus Urine 2+ /LPF; RBC Urine 0-2 /HPF (0); Squamous Epithelial Cell Urine 3+ /LPF
[2020-10-16 00:54] VITALS: BP 114/64; PULSE 76; RESP 16; O2SAT 100
--- NOTE | 2020-10-16 01:15 | MHC.CARE ---
CARE team support requested for 29 year old female who has presented to ED 3x in the past week for complaints of chest tightness, shortness of breath, palpitations, and general discomfort. Pt had contacted hospital following her previous ED visit and was transferred to CARE team due to pt requesting support. This screen writer spoke with pt at that time and is familiar with pt's situation. Pt reported that she has been experiencing various medical complaints for the past 6 years, and as they have been worsening pt's PCP has been running labs and tests to rule out various causes for the symptoms she has been experiencing. Pt has been referred to a fbi sharpshooter to determine if pt has an autoimmune disorder. Pt stated that she has been dealing with this for years, however the past two weeks have been awful. For example, seemingly without a particular cause pt will become significantly fatigued, heart racing, and like there's a heavy weight on her chest. Pt does not feel that she is experiencing anxiety, stating that she knows what anxiety feels like. This screen writer discussed the possibility that pt may be having a panic attack, which pt is hesitant to accept as a possible cause. Pt reported that her doctor recently prescribed her hydroxyzine to help with the anxiety, however pt hadn't taken it yet out of fear for what possible side effects there may be. Pt was administered hydroxyzine earlier in the ED visit, and remarked I guess it didn't help then when told that she had been given the medication already. Pt recently began working with a therapist, after being told several times that the cause of her physical distress is anxiety, which pt has not found to be helpful despite practicing coping skills and techniques that her therapist has been working with her on. This screen writer discussed recent changes to pt's life, with regards to the current pandemic and life events in general. Pt identified that she has always worked two jobs, however when covid-19 began to accelerate it's impact pt was unable to work at one of her jobs. Pt reported that she enjoys working, and in addition to losing one of her jobs that there is also the financial loss. 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 After identifying main stressors, the link between stress and mental health and physical well being was discussed, as well as the role that stress can play in the exacerbation of a possible autoimmune disorder. FMLA was discussed with pt, and information and paperwork were provided to pt. Pt was encouraged to schedule an appt with her PCP to begin the process of applying for FMLA (intermittent). Pt was previously given the phone number for [facility] crisis and the CARE team, which pt stated she has in her phone.
== END 2020-10-16 01:33 | disposition home or self-care (01) ==
PROVIDERS: Emergency Provider Student in an Organized Health Care Education/Training Program
DX: R53.82 Chronic fatigue, unspecified (principal); R19.7 Diarrhea, unspecified; Z87.891 Personal history of nicotine dependence; Z79.899 Other long term (current) drug therapy
CPT/HCPCS: 36415; 80053; 81001; 84439; 84443; 85025; 93005; 96361; 96374; 99284; J1885

== ENCOUNTER 2020-10-18 15:32 | Outpatient (REF) | payer OTHER, SELFPAY ==
--- NOTE | 2020-10-18 15:37 | US_ITS ---
EXAMINATION: PELVIC ULTRASOUND CLINICAL INFORMATION: Irregular menses COMPARISON: None TECHNIQUE: Transabdominal and transvaginal pelvic ultrasound was performed. Transvaginal exam was performed for better visualization of the uterus and ovaries. FINDINGS: The uterus is anteverted and measures 8.5 x 3.5 x 4.9 cm in dimension. There is a 0.5 x 0.5 x 0.7 cm hypoechoic lesion in the anterior lower uterine segment/upper cervix with low-level echoes questionable for a small fibroid versus complex nabothian cyst. No other focal uterine lesion is seen. There may be an arcuate type uterus. Endometrial thickness measures 0.4 to 0.5 cm. The right ovary is normal-appearing and measures 3 x 1.7 x 1.8 cm. The left ovary is enlarged and measures 4 x 3.3 x 4.5 cm. There is a 2.7 x 2.3 x 3.1 cm slightly complex left ovarian cyst with thickened wall and some internal echoes. There is no fluid in the pelvis. US/US transvaginal IMPRESSION: Question arcuate-type uterus. Small anterior lower uterine segment fibroid versus complex nabothian cyst. Enlarged left ovary. 2.7 x 2.3 x 3.1 cm complex left ovarian cyst.
--- NOTE | 2020-10-18 15:37 | US_ITS ---
EXAMINATION: PELVIC ULTRASOUND CLINICAL INFORMATION: Irregular menses COMPARISON: None TECHNIQUE: Transabdominal and transvaginal pelvic ultrasound was performed. Transvaginal exam was performed for better visualization of the uterus and ovaries. FINDINGS: The uterus is anteverted and measures 8.5 x 3.5 x 4.9 cm in dimension. There is a 0.5 x 0.5 x 0.7 cm hypoechoic lesion in the anterior lower uterine segment/upper cervix with low-level echoes questionable for a small fibroid versus complex nabothian cyst. No other focal uterine lesion is seen. There may be an arcuate type uterus. Endometrial thickness measures 0.4 to 0.5 cm. The right ovary is normal-appearing and measures 3 x 1.7 x 1.8 cm. The left ovary is enlarged and measures 4 x 3.3 x 4.5 cm. There is a 2.7 x 2.3 x 3.1 cm slightly complex left ovarian cyst with thickened wall and some internal echoes. There is no fluid in the pelvis. US/US pelvic complete IMPRESSION: Question arcuate-type uterus. Small anterior lower uterine segment fibroid versus complex nabothian cyst. Enlarged left ovary. 2.7 x 2.3 x 3.1 cm complex left ovarian cyst.
== END 2020-10-18 15:33 | disposition home or self-care (01) ==
LOC: HO.HMGCX 15:32
PROVIDERS: PCP Emergency Medicine; Visit Provider Emergency Medicine
DX: N92.6 Irregular menstruation, unspecified (principal)
CPT/HCPCS: 76830; 76856

== ENCOUNTER 2020-10-22 11:31 | Outpatient (REF) | payer OTHER, SELFPAY ==
[2020-10-22 12:33] LABS: Rheumatoid Factor < 15.0 IU/mL (<15.0)
== END 2020-10-22 11:32 | disposition home or self-care (01) ==
LOC: HO.LAB 11:31
PROVIDERS: PCP Nurse Practitioner Family; Visit Provider Nurse Practitioner Family
DX: M19.90 Unspecified osteoarthritis, unspecified site (principal); D89.9 Disorder involving the immune mechanism, unspecified
CPT/HCPCS: 36415; 86038; 86039; 86431

== ENCOUNTER 2020-11-03 10:08 | Outpatient (REF) | payer OTHER, SELFPAY | END 2020-11-03 10:09 | disposition home or self-care (01) | LOC: HO.LAB 10:08 | PROVIDERS: Visit Provider Internal Medicine | DX: Z20.828 Contact with and (suspected) exposure to other viral communicable diseases (principal) | CPT/HCPCS: C9803; U0003 ==

== ENCOUNTER → 2020-11-08 15:08 | Outpatient (REF) | payer OTHER, SELFPAY ==
--- NOTE | 2020-11-08 15:00 | CA_ITS ---
Transthoracic Echocardiogram Patient (Last, First, Middle): Krupa Santos Y Gender: Female Date of : 1990 Age: 29 Procedure Date: 11/08/2020 Procedure Type: Transthoracic Echocardiogram Location: OP Height: 175.26 cm Weight: 108.86 kg BSA: 2.23 m2 Heart Rate: bpm BP: 134 / [address] Sales [address] Driver: GLEN Referring MD: Ade Wallace NP Aeronautical Project Engineer: Thomas Harris MD Symptoms: UN SPEC CHEST PAIN R07.9 Study Quality: Fair,good view on Apical ECG Rhythm: Sinus Conclusions: - Overall normal study with possibility of PFO. Findings Left Ventricle Normal left ventricular size, thickness, systolic function, and wall motion. The visually estimated ejection fraction is between 60-65%. Diastolic function is normal for age. Right Ventricle Normal right ventricular cavity size and systolic function. Atria Both atria are normal in size. Patent foramen ovale detected using by color Doppler. There is evidence of a patent foramen ovale with left to right shunting. Aortic Valve Normal aortic valve structure and function. There is no aortic valve stenosis. There is no aortic valve regurgitation. Mitral Valve Normal mitral valve structure and function. There is trace mitral valve regurgitation. There is no mitral valve stenosis. Pulmonic Valve The pulmonic valve is normal. There is trace pulmonic valve regurgitation. Tricuspid Valve Normal tricuspid valve structure. There is trace tricuspid valve regurgitation. The right ventricular systolic pressure is normal. The right ventricular systolic pressure is 17 mmHg. Normal right atrial pressure. There is no evidence of pulmonary hypertension. Great Vessels All visible segments of the aorta are normal in size. The pulmonary artery was not well visualized. Venous The inferior vena cava is normal in size and collapses greater than 50% with inspiration. Pericardium/Pleural There is no evidence of pericardial effusion. Prior Study Comparison No prior study available for comparison. Recommendations, Care & Conclusions Recommend contrast study to evaluate intracardiac shunting. Measurements 2D Linear Measurements IVSd: 0.86 0.6-0.9/0.6-1.0 cm LVIDd: 5.10 3.9-5.3/4.2-5.9 cm LVIDd Index: 2.29 2.4-3.2/2.2-3.1 cm/m2 LVIDs: 3.24 2.0-3.6 cm LVPWd: 0.80 0.7-1.1 cm Ao Root: 3.40 2.1-3.5 cm LA Diam: 3.30 2.7-3.8/3.0-4.0 cm LAIDs Index: 1.48 1.5-2.3 cm/m2 LV Mass: 183.60 67-162/88-224 g LV Mass Index: 82.33 43-95/49-115 g/m2 LVOT Diam: 2.40 3.0+(-)1.3 cm 2D Systolic Function EF 4C: 67.30 >55% EF 2C: 60.70 >55% EF BiP: 63.60 >55% Mitral Valve MV Pk E: 0.86 MV PK A: 0.71 MV Decel Time: 194.00 E/A: 1.20 E'Lateral: 11.90 E'Medial: 6.77 E/E' Med: 12.70 E/E' Lat: 7.20 PHT: 57.00 MVA PHT: 3.86 Decel Comanche: 4.43 Aortic Valve AoV Pk Nestor: 1.50 AoV Mn Nestor: 0.90 AoV VTI: 0.29 AoV Pk Grad: 9.00 Aov Mn Grad: 4.00 VÍCTOR Cont.VTI: 3.56 LVOT LVOT Pk Nestor: 1.16 LVOT Mn Nestor: 0.75 LVOT VTI: 0.23 LVOT Pk Grad: 5.00 LVOT Mn Grad: 3.00 LVOT Diam: 2.40 LVOT Area: 4.52 Diastolic Function MV Pk E: 0.86 MV Pk A: 0.71 E/A: 1.20 E'Medial: 6.77 E/E' Med: 12.70 E' Laterial: 11.90 E/E' Lat: 7.20 Tricuspid Valve TR Pk Nestor: 1.85 TR Pk Grad: 14.00 RA Press: 3.00 RVSP: 17.00 Great Vessels Aorta Ao Root-2D: 3.40 2.0-3.7 cm Ao Asc: 3.10 2.1-3.4 cm Pulmonary Valve PV Pk Nestor: 1.08 Peak PV Grad: 5.00 Updated in Other Vendor System with Status of Final Thomas Harris MD electronically signed on 11/08/2020 6:42:03 PM with status of Final
[2020-11-08 16:14] LABS: MANUAL DIFF FLAG NO
[2020-11-08 16:19] LABS: Basophils Absolute Auto 0.1 X10*3/uL (0.0-0.2); Basophils Percent Auto 0.4 % (0-2); Eosinophils Absolute Auto 0.1 X10*3/uL (0.0-0.4); Eosinophils Percent Auto 0.6 % (0-4); Hematocrit 42.7 % (37-47); Hemoglobin 14.1 g/dl (12.0-16.0); Imm Gran Abs Auto 0.06 X10*3/uL (0.00-0.03); Imm Gran Pct Auto 0.4 % (0.0-0.4); Lymphocytes Absolute Auto 4.5 X10*3/uL (1.2-4.9); Mean Corpuscular Hemoglobin 28.3 pg (27.0-33.0); Mean Corpuscular Volume 85.7 fL (80-98); Mean Platelet Volume 9.1 fL (9.4-12.3); Monocytes Percent Auto 7.1 % (2-11); Neutrophils Absolute Auto 8.3 X10*3/uL (2.0-8.3); Neutrophils Percent Auto 59.5 % (45-73); Platelet Count 358 X10*3/uL (160-400); Red Blood Count 4.98 X10*6/uL (4.20-5.50); Red Cell Distribution Width 11.9 % (11.0-16.0)
[2020-11-08 16:41] LABS: Alanine Aminotransferase 17 U/L (0-31); Albumin Level 3.6 g/dL (3.5-5.0); Alkaline Phosphatase 60 U/L (39-117); Anion Gap 10 (12-20); Aspartate Amino Transferase 16 U/L (5-31); Bilirubin Total 0.5 mg/dL (0.0-1.0); Blood Urea Nitrogen 10 mg/dL (9-16); Carbon Dioxide 29 mmol/L (22-29); Chloride 105 mmol/L (96-108); Estimated Glomerular Filt Rate > 60; Glucose Fasting 82 mg/dL (60-99); Potassium 3.8 mmol/l (3.3-5.1); Sodium 140 mmol/L (135-145); Total Protein 6.3 g/dL (6.5-8.0)
[2020-11-08 17:00] LABS: TSH reflex Free T4 3.16 mIU/mL (0.32-4.0)
== END | disposition home or self-care (01) ==
LOC: HO.CARD 15:08
PROVIDERS: Nurse Practitioner Family; Visit Provider Emergency Medicine
DX: R07.9 Chest pain, unspecified (principal); E03.9 Hypothyroidism, unspecified
CPT/HCPCS: 36415; 80053; 84443; 85025; 93306

== ENCOUNTER → 2020-11-22 08:04 | Outpatient (BNVA) | payer OTHER, SELFPAY | PROVIDERS: PCP Internal Medicine; Visit Provider Advanced Practice Midwife | DX: Z30.09 Encounter for other general counseling and advice on contraception (principal); N93.9 Abnormal uterine and vaginal bleeding, unspecified; N83.202 Unspecified ovarian cyst, left side | CPT/HCPCS: Q3014 ==

== ENCOUNTER → 2020-11-29 11:47 | Outpatient (BNVA) | payer OTHER, SELFPAY | PROVIDERS: PCP Internal Medicine; Visit Provider Advanced Practice Midwife | DX: Z30.09 Encounter for other general counseling and advice on contraception (principal) | CPT/HCPCS: Q3014 ==

== ENCOUNTER → 2020-12-14 14:11 | Outpatient (BNVA) | payer OTHER, SELFPAY | PROVIDERS: PCP Internal Medicine; Visit Provider Internal Medicine | DX: Q21.1 Atrial septal defect (principal); R00.2 Palpitations | CPT/HCPCS: 99202 ==

== ENCOUNTER 2020-12-31 11:14 | Outpatient (REF) | payer OTHER, SELFPAY ==
[2020-12-31 12:23] LABS: SARS COV2 IgG Negative (Negative)
== END 2020-12-31 11:15 | disposition home or self-care (01) ==
LOC: HO.LAB 11:14
PROVIDERS: PCP Internal Medicine; Visit Provider Internal Medicine
DX: Z11.9 Encounter for screening for infectious and parasitic diseases, unspecified (principal); Z20.822 Contact with and (suspected) exposure to COVID-19
CPT/HCPCS: 36415; 86769

== ENCOUNTER → 2021-01-14 07:40 | Outpatient (REF) | payer OTHER, SELFPAY ==
--- NOTE | 2021-01-14 07:44 | ECG_ITS ---
Hook-up date: 2021-01-14 09:03:00 Duration: 47:59:00 Test Indications: Palpitations Medications: [id number] QRS complexes 1 Ventricular ectopics which represent <1 % of total QRS comp. 1 Supraventricular ectopics which represent <1 % of total QRS comp. * Paced QRS complexs which represent % of total QRS comp. VENTRICULAR ECTOPY 1 Isolated 0 Bigeminal Cycles 0 Couplets 0 Runs 0 Beats in Runs * Beats LONGEST at * BPM at :: -- * Beats FASTEST at * BPM at :: -- SUPRAVENTRICULAR ECTOPY 1 Isolated 0 Couplets 0 Runs 0 Beats in Runs * Beats LONGEST at * BPM at :: -- * Beats FASTEST at * BPM at :: -- HEART RATES 57 MIN at 08:19:57 2021-01-15 87 AVG 169 MAX at 16:22:52 2021-01-14 LONGEST RR 1.1200 secs at 06:04:30 2021-01-15 S-T LEVELS Channel 1 - 128 mm at 09:03:00 2021-01-14 - 128 mm at 09:03:00 2021-01-14 Channel 2 - 128 mm at 09:03:00 2021-01-14 - 128 mm at 09:03:00 2021-01-14 Channel 3 - 128 mm at 02:82:21 -- - 128 mm at 02:82:21 Basic rhythm Normal sinus rhythm No long pause or profound bradycardia No dangerous dysrhythm periods Patient did not report any symptoms in the diary Referred By: Gallito Fisher Overread By: MISAEL BALTAZAR MD
--- NOTE | 2021-01-14 07:44 | CA_ITS ---
Transthoracic Echocardiogram Patient (Last, First, Middle): Krupa Santos Y Gender: Female Date of : 1990 Age: 30 Procedure Date: 01/14/2021 Procedure Type: Transthoracic Echocardiogram Location: OP Height: 175.26 cm Weight: 111.13 kg BSA: 2.25 m2 Heart Rate: bpm BP: 122 / 60 mmHg Wood Carver: Referring MD: Gallito Fisher MD Symptoms: Q21.1 - Atrial septal defect, BUBBLE STUDY TO BE DONE Study Quality: Good ECG Rhythm: Sinus Conclusions: - No evidence of PFO Findings Atria There is no evidence of interatrial shunt by agitated saline. Updated in Other Vendor System with Status of Final Thomas Harris MD electronically signed on 01/15/2021 2:05:11 PM with status of Final
== END ==
LOC: HO.CARD 07:40
PROVIDERS: Visit Provider Internal Medicine
DX: Q21.1 Atrial septal defect (principal); R00.2 Palpitations; Z30.46 Encounter for surveillance of implantable subdermal contraceptive
CPT/HCPCS: 11982; 93225; 93226; 93308

== ENCOUNTER → 2021-01-21 09:53 | Outpatient (BNVA) | payer OTHER, SELFPAY | PROVIDERS: PCP Internal Medicine; Visit Provider Nurse Practitioner Family | DX: Z13.89 Encounter for screening for other disorder (principal) | CPT/HCPCS: 99212 ==

== ENCOUNTER → 2021-01-21 09:53 | Outpatient (BNVA) | payer OTHER, SELFPAY | PROVIDERS: PCP Internal Medicine; Visit Provider Nurse Practitioner Family | DX: R00.2 Palpitations (principal); Q21.1 Atrial septal defect ==

== ENCOUNTER → 2021-01-21 09:53 | Outpatient (BNVA) | payer OTHER, SELFPAY | PROVIDERS: PCP Internal Medicine; Visit Provider Nurse Practitioner Family | DX: R00.2 Palpitations (principal); Q21.1 Atrial septal defect ==

== ENCOUNTER 2021-01-31 10:56 | Outpatient (REF) | payer OTHER, SELFPAY ==
--- NOTE | ~2021-01-31 | US_ITS ---
EXAMINATION: PELVIC ULTRASOUND CLINICAL INFORMATION: Follow-up left ovarian cyst COMPARISON: Previous pelvic ultrasound September 2020 TECHNIQUE: Transabdominal and transvaginal pelvic ultrasound was performed. Transvaginal exam was performed for better visualization of the uterus and ovaries. FINDINGS: The uterus is anteverted and measures 8 x 3.4 x 4.2 cm in dimension. No focal uterine lesion is seen. Endometrial thickness is normal measuring 0.5 cm. There is a nabothian cyst in the cervix. The ovaries are normal-appearing. The right ovary measures 3.5 x 2.4 x 2.4 cm and the left ovary measures 3.2 x 2.9 x 2 cm. The previously identified complex left ovarian cyst on September 2020 exam has resolved. There is no fluid in the pelvis. US/US pelvic complete IMPRESSION: Normal pelvic ultrasound.
--- NOTE | ~2021-01-31 | US_ITS ---
EXAMINATION: PELVIC ULTRASOUND CLINICAL INFORMATION: Follow-up left ovarian cyst COMPARISON: Previous pelvic ultrasound September 2020 TECHNIQUE: Transabdominal and transvaginal pelvic ultrasound was performed. Transvaginal exam was performed for better visualization of the uterus and ovaries. FINDINGS: The uterus is anteverted and measures 8 x 3.4 x 4.2 cm in dimension. No focal uterine lesion is seen. Endometrial thickness is normal measuring 0.5 cm. There is a nabothian cyst in the cervix. The ovaries are normal-appearing. The right ovary measures 3.5 x 2.4 x 2.4 cm and the left ovary measures 3.2 x 2.9 x 2 cm. The previously identified complex left ovarian cyst on September 2020 exam has resolved. There is no fluid in the pelvis. US/US transvaginal IMPRESSION: Normal pelvic ultrasound.
== END 2021-01-31 10:57 | disposition home or self-care (01) ==
LOC: HO.US 10:56
PROVIDERS: Visit Provider Advanced Practice Midwife
DX: N83.202 Unspecified ovarian cyst, left side (principal)
CPT/HCPCS: 76830; 76856

== ENCOUNTER 2021-02-02 09:28 | Outpatient (REF) | payer OTHER, SELFPAY ==
[2021-02-02 14:23] LABS: CT PCR NOT DETECTED (Not Detect.); NG PCR NOT DETECTED (Not Detect.)
[2021-02-03 09:52] LABS: BV Int Neg Control Negative (Negative); BV Int Pos Control Positive (Positive)
== END 2021-02-02 09:29 | disposition home or self-care (01) ==
LOC: HO.LAB 09:28
PROVIDERS: PCP Internal Medicine; Visit Provider Advanced Practice Midwife
DX: R10.2 Pelvic and perineal pain (principal); Z71.2 Person consulting for explanation of examination or test findings; Z20.2 Contact with and (suspected) exposure to infections with a predominantly sexual mode of transmission
CPT/HCPCS: 87480; 87491; 87510; 87591; 87660; 99212

== ENCOUNTER → 2021-02-17 12:50 | Outpatient (REF) | payer OTHER, SELFPAY ==
--- NOTE | 2021-02-17 12:55 | HM_ITS ---
REQUESTING PROVIDER: Margy Lagos NP. INDICATION FOR THE TEST: Palpitation. TECHNIQUE: The patient was hooked up to cardiac event monitor from 02/17/2021 to 03/19/2021. The patient was continuously monitored during this time. FINDINGS: Baseline rhythm was normal sinus rhythm with heart rate varying from 80 beats per minute to 132 beats per minute, sinus tachycardia. There are no ectopies noted. There are no tachy or bradyarrhythmias noted. The patient reported multiple events of chest pain, shortness of breath, and palpitations, all of this correlated with sinus rhythm. CONCLUSION: Event monitor is remarkable. 1. Baseline normal sinus rhythm. 2. No significant arrhythmias. 3. Patient reported symptoms correlated with sinus rhythm. Thomas Harris MD NRS/MODL / [id number]
[2021-02-24 12:11] LABS: Vitamin D 25-OH, D2 <4 ng/mL; Vitamin D 25-OH, D3 19 ng/mL; Vitamin D 25-OH, Total 19 ng/mL (30-100)
== END ==
LOC: HO.CARD 12:50
PROVIDERS: Absent Provider Internal Medicine; PCP Internal Medicine; Visit Provider Nurse Practitioner Family
DX: R00.2 Palpitations (principal)
CPT/HCPCS: 36415; 82306; 93270; 93272

== ENCOUNTER 2021-03-04 09:03 | Outpatient (REF) | payer OTHER, SELFPAY ==
--- NOTE | ~2021-03-04 | CT_ITS ---
CT head/brain wo con CLINICAL INFORMATION: Reason for Exam R51.9 - Headache, unspecified COMPARISON: No prior CT scan available for comparison. TECHNIQUE: Department standard protocol. This CT examination was performed using dose optimization techniques as appropriate, variously including the following: *Automated exposure control *Adjustment of mA and/or kV according to patient size (this includes techniques or standardized protocols for targeted exams where dose is matched to indication/reason for exam; i.e. extremities or head) *Use of iterative reconstruction technique DLP: 729 mGy-cm FINDINGS: CEREBRAL HEMISPHERES: There is no evidence of intra-axial or extra-axial mass, hemorrhage or acute infarct. BRAIN PARENCHYMA: Normal amanda-white matter differentiation. SUBDURAL SPACE: No bleed. BASAL GANGLIA AND PINEAL GLAND: Unremarkable VENTRICLES: Symmetric and normal in size. CEREBELLUM AND BRAINSTEM: No space-occupying mass, hemorrhage or acute infarct. CEREBELLOPONTINE ANGLES: No lesion found. ORBITS: No intraorbital mass. VESSELS: Unremarkable SKULL BASE: Unremarkable INCLUDED SINUSES AT SKULL BASE: Clear SKULL AND SKIN: No fracture or bone lesion found. CT/CT head/brain wo con IMPRESSION: Normal CT head. No CT evidence of intracranial space-occupying mass, bleed or infarct.
== END 2021-03-04 09:04 | disposition home or self-care (01) ==
LOC: HO.CT 09:03
PROVIDERS: Visit Provider Internal Medicine
DX: R51.9 Headache, unspecified (principal)
CPT/HCPCS: 70450

== ENCOUNTER 2021-03-16 17:00 | Outpatient (RCR) | payer OTHER, SELFPAY | END 2021-03-30 17:29 | disposition home or self-care (01) | LOC: HO.PT 17:00 | PROVIDERS: Visit Provider Internal Medicine | DX: M54.2 Cervicalgia (principal) | CPT/HCPCS: 97110; 97140; 97161 ==

== ENCOUNTER → 2021-04-04 10:10 | Outpatient (BNVA) | payer OTHER, SELFPAY | PROVIDERS: PCP Internal Medicine; Visit Provider Nurse Practitioner Family | DX: R00.2 Palpitations (principal); Q21.1 Atrial septal defect; R07.9 Chest pain, unspecified | CPT/HCPCS: Q3014 ==

== ENCOUNTER 2021-05-27 21:36 | Emergency (ER) | payer OTHER, SELFPAY ==
--- NOTE | ~2021-05-27 | CT_ITS ---
EXAMINATION: CT ABDOMEN AND PELVIS WITH CONTRAST CLINICAL INFORMATION: Right lower quadrant abdominal pain COMPARISON: 113 7 2 TECHNIQUE: Multidetector volumetric images were obtained from the superior aspect of the liver through the pubic symphysis following administration 137 mL of Omnipaque 350 intravenous contrast. Sagittal and coronal reformatted images were obtained on the technologist's workstation. Oral contrast: No This CT examination was performed using dose optimization techniques as appropriate, variously including the following: *Automated exposure control *Adjustment of mA and/or kV according to patient size (this includes techniques or standardized protocols for targeted exams where dose is matched to indication/reason for exam; i.e. extremities or head) *Use of iterative reconstruction technique DLP: 762 mGy-cm FINDINGS: LUNG BASES: The visualized lung bases are unremarkable. LIVER, GALLBLADDER, AND BILIARY TREE: The liver is normal in size, shape, and attenuation. No focal hepatic lesion or biliary ductal dilatation is present. The gallbladder is unremarkable with no evidence of radiopaque gallstones, gallbladder wall thickening, or obvious pericholecystic inflammatory changes. PANCREAS: Unremarkable. SPLEEN: Unremarkable. ADRENAL GLANDS: Unremarkable. KIDNEYS AND URETERS: The kidneys are normal in size, shape, and attenuation. No hydronephrosis, hydroureter, or calculi seen. No perinephric stranding. There is a right upper pole 0.8 cm fat attenuation lesion, likely an angiomyolipoma. BLADDER: Unremarkable. GASTROINTESTINAL TRACT: The stomach is unremarkable. Normal caliber small bowel. There is no obstruction. Normal appendix. No colonic wall thickening or acute inflammatory change. No free air or free fluid. ABDOMINAL WALL: No significant hernia is appreciated. LYMPH NODES: Normal. VASCULAR: Unremarkable. PELVIC VISCERA: Anteverted uterus. No adnexal mass. OSSEOUS STRUCTURES: No acute or suspicious osseous abnormality. CT/CT abdomen pelvis w con IMPRESSION: No acute findings of the abdomen or pelvis. No inflammatory changes. Normal appendix.
[2021-05-27 22:11] VITALS: BP 131/77; PULSE 96; RESP 16; TEMP 36.9; O2SAT 98; BMI 38.2
[2021-05-27 23:07] LABS: Glucose Urine UA NEG (NEG); Leukocyte Esterase Urine NEG (NEG); Nitrite Urine NEG (NEG); PH 6.5 (5.0-8.0); Specific Gravity - Urine 1.025 (1.005-1.025); Urine Blood TRACE (NEG); Urine Ketones NEG (NEG); Urine Protein 3+ MG/DL (NEG-TRACE)
[2021-05-27 23:08] LABS: Appearance Urine CLEAR; Color Urine YELLOW
[2021-05-27 23:13] LABS: Bacteria Urine 1+ /LPF; Mucus Urine 1+ /LPF; RBC Urine 0-2 /HPF (0); Squamous Epithelial Cell Urine 2+ /LPF; WBC Urine 0-2 /HPF (0-4)
[2021-05-28] VITALS: BP 130/70; PULSE 82; RESP 18; TEMP 36.9; O2SAT 97
--- NOTE | 2021-05-28 00:07 | ED.ABDPAIN ---
HPI - Abdominal Pain General Chief Complaint: Abdominal Pain Stated Complaint: Lower abdominal pain Time Seen by Provider: 05/28/21 00:04 History of Present Illness HPI narrative: Patient is 30 years old complaining of abdominal pain in the right lower quadrant radiating to the back. Patient never had kidney stones in the past. Positive decreased appetite. No vomiting. Positive bowel movement. No cough no congestion or upper respiratory symptom. Patient's pain wraps around goes from the right lower quadrant to the right flank subsequently radiates to the left flank. There is no history of kidney stone. Patient denies any fever chills. No vaginal bleeding. Patient is not sexually active. No vaginal discharge. Pain is been ongoing for about a day. Related Data Previous Rx's Medication Instructions Recorded levothyroxine 25 mcg capsule 25 mcg PO DAILY 90 Days #90 cap 03/31/21 doxycycline hyclate 100 mg tablet 100 mg PO BID #14 tab 04/29/21 prednisone 20 mg tablet 20 mg PO .COMPLEX #18 tab 04/29/21 Allergies Allergy/AdvReac Type Severity Reaction Status Date / Time No Known Allergies Allergy Verified 05/27/21 22:16 Review of Systems Review of Systems Constitutional: No Weight loss, No Fever, No Chills, No Night Sweats, No Fatigue, No Malaise ENT/Mouth: No Hearing loss, No Ear Pain, No Nasal Congestion, No Sinus Pain, No Hoarseness, No sore throat, No Rhinorrhea, No Swallowing Difficulty Eyes: No Eye Pain, No Swelling, No Redness, No Foreign Body, No Discharge, No Vision Changes Cardiovascular: No Chest Pain, No SOB, No Dyspnea on Exertion, No Orthopnea, No Edema, No Palpitations Respiratory: No Cough, No Sputum, No Wheezing, No Smoke Exposure, No Dyspnea Gastrointestinal: Positive Nausea, No Vomiting, No Diarrhea, No Constipation, positive abdominal Pain, No Hematochezia, No Melena Genitourinary: no irregular bleeding, No Dysuria, No Urinary Frequency, No Hematuria, No Urinary Incontinence, No Urgency, No Flank Pain, No Urinary Flow Changes, No Hesitancy Musculoskeletal: No joint pain, No Myalgias, No Joint Swelling Skin: No Skin Lesions, No rash Neuro: No Weakness, No Numbness, No Paresthesias, No Loss of Consciousness, No Dizziness, No Headache Psych: No Anxiety/Panic, No Depression, No SI/HI/AH/VH, No Social Issues, Heme/Lymph: No Bruising, No Bleeding,No Lymphadenopathy Endocrine: No Polyuria, No Polydipsia, No Temperature Intolerance Physical Exam Vital Signs: Vital Signs: Last Vital Signs Temp 98.4 F 05/27/21 22:11 Pulse 96 05/27/21 22:11 Resp 16 05/27/21 22:11 BP 131/77 05/27/21 22:11 Pulse Ox 98 05/27/21 22:11 Body Mass Index 38.2 Appearance: Alert. Oriented X3. No acute distress. Eyes: Pupils equal, round and reactive to light. ENT: Pharynx normal. Neck: Normal inspection. Neck supple. No lymph nodes noted. No crepitus CVS: Normal heart rate and rhythm. Pulses normal. Normal S1 and S2 Respiratory: No respiratory distress. Breath sounds normal. No Wheezing. No rales Abdomen: Soft and nontender. No rigidity. No distention. good BS x4 Skin: Skin warm and dry. Normal skin color. Normal skin turgor. Extremities: No lower extremity edema. Neurovascular intact to all extremities. No Lacerations. No Rash Neuro: Oriented X 3. No motor deficit. No sensory deficit. Moving all extermities. No slurred speech MDM - Abdominal Pain MDM Narrative Medical decision making narrative: Well-appearing no acute distress will get CT scan of the abdomen to check for appendicitis. Will monitor carefully. Will check status. Liver profile pending. test negative. Urine negative for infection. CT scan of the abdomen showed no evidence of appendicitis, kidney stone. Kidney functions normal. Will discharge patient home. Close follow-up outpatient basis. Lab Data Result diagrams: 05/28/21 01:41 05/28/21 01:41 Labs: Lab Results 05/27/21 05/28/21 05/28/21 Range/Units 23:02 01:41 01:41 WBC 15.7 H (4.8-10.8) X10*3/uL RBC 5.18 (4.20-5.50) X10*6/uL Hgb 14.6 (12.0-16.0) g/dl Hct 44.2 (37-47) % MCV 85.3 (80-98) fL MCH 28.2 (27.0-33.0) pg MCHC 33.0 (31.0-35.0) g/dl RDW 11.9 (11.0-16.0) % Plt Count 364 (160-400) X10*3/uL MPV 9.1 L (9.4-12.3) fL Immature Gran % (Auto) 0.4 (0.0-0.4) % Neut % (Auto) 62.0 (45-73) % Lymph % (Auto) 30.5 (20-40) % [place] % (Auto) 5.8 (2-11) % Eos % (Auto) 1.0 (0-4) % Baso % (Auto) 0.3 (0-2) % Lymph # (Auto) 4.8 (1.2-4.9) X10*3/uL [place] # (Auto) 0.9 (0.1-1.2) X10*3/uL Eos # (Auto) 0.2 (0.0-0.4) X10*3/uL Baso # (Auto) 0.0 (0.0-0.2) X10*3/uL Abs Immat Gran (auto) 0.07 H (0.00-0.03) X10*3/uL Absolute Neuts (auto) 9.8 H (2.0-8.3) X10*3/uL Absolute Nucleated RBC 0.000 (0.0-0.012) X10*3/uL Nucleated RBC % (auto) 0.0 (0.0-0.2) /100WBC Sodium 139 (135-145) mmol/L Potassium 4.7 (3.3-5.1) mmol/L Chloride 106 (96-108) mmol/L Carbon Dioxide 24 (22-29) mmol/L Anion Gap 14 (12-20) BUN 14 (9-16) mg/dL Creatinine 0.86 (0.5-1.4) mg/dL Estim Creat Clear Calc 130.9 Estimated GFR > 60 Random Glucose 93 (60-115) mg/dL Calcium 9.2 (8.4-10.2) mg/dL Total Bilirubin (0.0-1.0) mg/dL Direct Bilirubin (0.0-0.5) mg/dL AST (5-31) U/L ALT (0-31) U/L Alkaline Phosphatase (39-117) U/L Total Protein (6.5-8.0) g/dL Albumin (3.5-5.0) g/dL Lipase (8-78) U/L Beta HCG, Quant mIU/mL Urine Color YELLOW Urine Appearance CLEAR Urine pH 6.5 (5.0-8.0) Ur Specific [place] 1.025 (1.005-1.025) Urine Protein 3+ H (NEG-TRACE) MG/DL Urine Glucose (UA) NEG (NEG) MG/DL Urine Ketones NEG (NEG) MG/DL Urine Blood TRACE (NEG) Urine Nitrite NEG (NEG) Ur Leukocyte Esterase NEG (NEG) Urine RBC 0-2 (0) /HPF Urine WBC 0-2 (0-4) /HPF Ur Squamous Epith Cells 2+ /LPF Urine Bacteria 1+ /LPF Urine Mucus 1+ /LPF 05/28/21 Range/Units 01:41 WBC (4.8-10.8) X10*3/uL RBC (4.20-5.50) X10*6/uL Hgb (12.0-16.0) g/dl Hct (37-47) % MCV (80-98) fL MCH (27.0-33.0) pg MCHC (31.0-35.0) g/dl RDW (11.0-16.0) % Plt Count (160-400) X10*3/uL MPV (9.4-12.3) fL Immature Gran % (Auto) (0.0-0.4) % Neut % (Auto) (45-73) % Lymph % (Auto) (20-40) % [place] % (Auto) (2-11) % Eos % (Auto) (0-4) % Baso % (Auto) (0-2) % Lymph # (Auto) (1.2-4.9) X10*3/uL [place] # (Auto) (0.1-1.2) X10*3/uL Eos # (Auto) (0.0-0.4) X10*3/uL Baso # (Auto) (0.0-0.2) X10*3/uL Abs Immat Gran (auto) (0.00-0.03) X10*3/uL Absolute Neuts (auto) (2.0-8.3) X10*3/uL Absolute Nucleated RBC (0.0-0.012) X10*3/uL Nucleated RBC % (auto) (0.0-0.2) /100WBC Sodium (135-145) mmol/L Potassium (3.3-5.1) mmol/L Chloride (96-108) mmol/L Carbon Dioxide (22-29) mmol/L Anion Gap (12-20) BUN (9-16) mg/dL Creatinine (0.5-1.4) mg/dL Estim Creat Clear Calc Estimated GFR Random Glucose (60-115) mg/dL Calcium (8.4-10.2) mg/dL Total Bilirubin 0.4 (0.0-1.0) mg/dL Direct Bilirubin < 0.2 (0.0-0.5) mg/dL AST 14 (5-31) U/L ALT 15 (0-31) U/L Alkaline Phosphatase 57 (39-117) U/L Total Protein 6.5 (6.5-8.0) g/dL Albumin 3.5 (3.5-5.0) g/dL Lipase 31 (8-78) U/L Beta HCG, Quant < 2 mIU/mL Urine Color Urine Appearance Urine pH (5.0-8.0) Ur Specific [place] (1.005-1.025) Urine Protein (NEG-TRACE) MG/DL Urine Glucose (UA) (NEG) MG/DL Urine Ketones (NEG) MG/DL Urine Blood (NEG) Urine Nitrite (NEG) Ur Leukocyte Esterase (NEG) Urine RBC (0) /HPF Urine WBC (0-4) /HPF Ur Squamous Epith Cells /LPF Urine Bacteria /LPF Urine Mucus /LPF Discharge Plan Discharge Clinical Impression: Abdominal pain in female Patient Disposition: Home, Self-Care Instructions: Abdominal Pain (ED) Prescriptions: No Action levothyroxine [Tirosint] 25 mcg capsule 25 mcg PO DAILY 90 Days Qty: 90 RF: 0 prednisone 20 mg tablet 20 mg PO .COMPLEX Qty: 18 RF: 0 doxycycline hyclate 100 mg tablet 100 mg PO BID Qty: 14 RF: 0 Referrals: Terrell Short MD [Primary Care Provider] - 2 days [facility] Past Medical History Medical History Abnormal laboratory test Arthritis Depression Healthy adult History of cardiac disorder Hypothyroidism Immune disorder Insomnia Migraine Surgical History History of delivery Family History Family History Mother Diabetes Maternal Grandmother Diabetes Sister HTN (hypertension) Social History Social History Housing: Apartment Alcohol intake: former Tobacco use type: Smokeless Tobacco (vaping) e-Cigarette/Vaping Use: Currently Using Advance Directives: No Advance Directives Information Provided: No Patient : No Current occupational status: employed
[2021-05-28 01:46] LABS: MANUAL DIFF FLAG NO
[2021-05-28 01:47] LABS: Basophils Percent Auto 0.3 % (0-2); Eosinophils Absolute Auto 0.2 X10*3/uL (0.0-0.4); Hematocrit 44.2 % (37-47); Hemoglobin 14.6 g/dl (12.0-16.0); Imm Gran Abs Auto 0.07 X10*3/uL (0.00-0.03); Imm Gran Pct Auto 0.4 % (0.0-0.4); Lymphocytes Absolute Auto 4.8 X10*3/uL (1.2-4.9); Lymphocytes Percent Auto 30.5 % (20-40); Mean Corpuscular Hemoglobin 28.2 pg (27.0-33.0); Mean Corpuscular Volume 85.3 fL (80-98); Mean Platelet Volume 9.1 fL (9.4-12.3); Monocytes Absolute Auto 0.9 X10*3/uL (0.1-1.2); Monocytes Percent Auto 5.8 % (2-11); Neutrophils Absolute Auto 9.8 X10*3/uL (2.0-8.3); Platelet Count 364 X10*3/uL (160-400); Red Blood Count 5.18 X10*6/uL (4.20-5.50); Red Cell Distribution Width 11.9 % (11.0-16.0); White Blood Count 15.7 X10*3/uL (4.8-10.8)
[2021-05-28] MEDS: Ketorolac Tromethamine 15 MG/ML VIAL IVPUSH (01:47)
[2021-05-28 02:09] LABS: Anion Gap 14 (12-20); Blood Urea Nitrogen 14 mg/dL (9-16); Calcium 9.2 mg/dL (8.4-10.2); Carbon Dioxide 24 mmol/L (22-29); Chloride 106 mmol/L (96-108); Creatinine Clr Calc Pharmacy 130.9; Estimated Glomerular Filt Rate > 60; Glucose Random 93 mg/dL (60-115); Potassium 4.7 mmol/L (3.3-5.1); Sodium 139 mmol/L (135-145)
[2021-05-28 02:10] LABS: Alanine Aminotransferase 15 U/L (0-31); Albumin Level 3.5 g/dL (3.5-5.0); Alkaline Phosphatase 57 U/L (39-117); Aspartate Amino Transferase 14 U/L (5-31); Bilirubin Direct < 0.2 mg/dL (0.0-0.5); Bilirubin Total 0.4 mg/dL (0.0-1.0); Lipase 31 U/L (8-78); Total Protein 6.5 g/dL (6.5-8.0)
[2021-05-28 03:18] LABS: HCG Quantitative < 2 mIU/mL
[2021-05-28 04:00] VITALS: BP 129/72; PULSE 72; RESP 18; O2SAT 98
[2021-05-28] MEDS: iohexoL 350 MG/ML 100 ML INFUS..BTL 85 ML IV (04:19)
== END 2021-05-28 05:38 | disposition home or self-care (01) ==
PROVIDERS: Emergency Provider Emergency Medicine Emergency Medical Services; PCP Internal Medicine
DX: R10.31 Right lower quadrant pain (principal); F17.290 Nicotine dependence, other tobacco product, uncomplicated; Z79.899 Other long term (current) drug therapy; Z71.6 Tobacco abuse counseling
CPT/HCPCS: 36415; 74177; 80048; 80076; 81001; 83690; 84702; 85025; 96365; 96375; 99284; J1885; Q9967

== ENCOUNTER 2021-11-21 12:52 | Outpatient (REF) | payer OTHER, SELFPAY ==
--- NOTE | ~2021-11-21 | XR_ITS ---
EXAMINATION: XR LUMBOSACRAL SPINE CLINICAL INFORMATION: Low back pain. COMPARISON: CT abdomen and pelvis 05/28/2021 TECHNIQUE: Three views of the lumbosacral spine. FINDINGS: The vertebral bodies and posterior elements are normal. The disc spaces are preserved and the vertebral alignment is normal. There is mild straightening of the thoracolumbar curvature which may be positional. The paraspinal soft tissues are normal. XR/XR lumbar spine 2-3V IMPRESSION: Unremarkable examination.
== END 2021-11-21 12:53 | disposition home or self-care (01) ==
LOC: HO.XRAY 12:52
PROVIDERS: PCP Internal Medicine; Visit Provider Physician Assistant
DX: M54.50 Low back pain, unspecified (principal)
CPT/HCPCS: 72100

== ENCOUNTER 2021-11-27 09:14 | Emergency (ER) | payer OTHER, SELFPAY ==
--- NOTE | ~2021-11-27 | CT_ITS ---
EXAMINATION: CT ANGIOGRAM OF THE CHEST WITH AND WITHOUT CONTRAST (CT PULMONARY ANGIOGRAM FOR PE) CLINICAL INFORMATION: Reason for Exam sob, covid, hypoxic COMPARISON: None TECHNIQUE: Prior to contrast administration, noncontrast localization images were obtained. Subsequently, multidetector volumetric imaging was performed from the thoracic inlet to below the diaphragms following the administration of 80 mL Omnipaque 350 intravenous contrast. No contrast reaction reported Sagittal, coronal, and MIP oblique sagittal reformatted images were obtained on the CT workstation, uploaded to PACS, and reviewed. This CT examination was performed using dose optimization techniques as appropriate, variously including the following: *Automated exposure control *Adjustment of mA and/or kV according to patient size (this includes techniques or standardized protocols for targeted exams where dose is matched to indication/reason for exam; i.e. extremities or head) *Use of iterative reconstruction technique Total exam dose-length product 300 mGy-cm FINDINGS: QUALITY OF STUDY/CONTRAST BOLUS: Satisfactory. PULMONARY ARTERIES: No central or segmental pulmonary emboli. THORACIC AORTA: No aneurysm or dissection. LUNG: The lungs are well-expanded without acute pneumonic process. There is patchy groundglass attenuation seen in both lower lobes and both upper lobes with no consolidation. No pulmonary nodule or mass. PLEURA: No pleural effusion or pneumothorax. MEDIASTINUM: Heart size and the great vessels are normal caliber. No pericardial effusion seen. Central trachea and the bronchi widely patent. The thyroid lobes are symmetric and normal. No abnormal size mediastinal or hilar lymphadenopathy seen. No evidence of septal bowing or right heart strain. CHEST WALL/AXILLA: No axillary or internal mammary lymphadenopathy. OSSEOUS STRUCTURES: No lytic or sclerotic process seen. The paravertebral soft tissues are normal. UPPER ABDOMEN: Visualized liver, spleen, pancreas and bilateral adrenal glands unremarkable. No radiopaque gallstone seen. No reflux of contrast into the hepatic veins to suggest elevated right heart pressures. CT/CT angio chest PE protocol IMPRESSION: No evidence of PE. No evidence aortic dissection or aneurysm. Groundglass attenuation seen in both upper and lower lobes, nonspecific. This may represent developing underlying inflammatory or infectious process. No consolidation seen. VTE: negative i.e.
[2021-11-27 09:30] VITALS: BP 123/82; PULSE 108; RESP 18; TEMP 36.7; O2SAT 95; BMI 36.9
--- NOTE | 2021-11-27 10:49 | ED_ITS ---
HPI - URI/Sore Throat General Chief Complaint: Upper Respiratory Symptoms Stated Complaint: Covid+, SOB Time Seen by Provider: 11/27/21 10:47 Source: patient Mode of arrival: ambulatory Limitations: no limitations History of Present Illness HPI Narrative: This is a 31-year-old female who presents to the emergency de partment with shortness of breath, chest pain, malaise and body aches X3 days she tells me that yesterday she tested positive for COVID at home. She tells me that she is also experiencing pleuritic chest pain, she tells me it is worse with inspiration. She also mentions that she has been having a fever since yesterday. Nobody else at home is sick. She is partially vaccinated, she has 1 dose of the [employer] vaccine. Patient denies headache, dizziness, vision changes, weakness, nausea, vomiting, abdominal pain. No known medical history MD elicited complaint: fever Onset (ago): day(s) (3) Consistency: constant Severity: moderate Able to tolerate fluids by mouth: Yes Exacerbating factors: nothing Relieving factors: nothing Associated symptoms: fever, chills, myalgias and sore throat Treatments prior to arrival: none Related Data Previous Rx's Medication Instructions Recorded diclofenac sodium 50 mg 50 mg PO BID 7 Days #14 tab 11/17/21 tablet,delayed release azithromycin 250 mg tablet See Rx Instructions .ROUTE 11/27/21 .COMPLEX #6 tab Allergies Allergy/AdvReac Type Severity Reaction Status Date / Time No Known Allergies Allergy Verified 11/17/21 09:06 Review of Systems Review of Systems: Constitutional : No Weight loss, No Fever, No Chills, + Fatigue, + Malaise ENT/Mouth : + sore throat, No Rhinorrhea Eyes: No Eye Pain, No Swelling, No Redness Cardiovascular : + Chest Pain, + SOB, + Dyspnea on Exertion, No Orthopnea, No Edema, No Palpitations Respiratory : No Cough, No Sputum, No Wheezing Gastrointestinal : No Nausea, No Vomiting, No Diarrhea, No Constipation, No abdominal Pain, No Hematochezia, No Melena Genitourinary : No Dysuria, No Urinary Frequency, No Hematuria, Musculoskeletal : No joint pain, + Myalgias, No Joint Swelling Skin : No Skin Lesions, No rash Neuro : No Weakness, No Numbness, No Dizziness, No Headache All other systems reviewed and are negative Yes all other systems are reviewed and are negative [facility] Past Medical History Attestation statement: The following information was validated with the patient. Source: old records reviewed and nursing notes reviewed Medical History Abnormal laboratory test Arthritis Depression Healthy adult History of cardiac disorder Hypothyroidism Immune disorder Insomnia Migraine Surgical History History of delivery Family History Family History Mother Diabetes Maternal Grandmother Diabetes Sister HTN (hypertension) Social History Social History Housing: Apartment Alcohol intake: current Alcohol intake frequency: holidays/special occasions only Tobacco use type: Smokeless Tobacco (vaping) e-Cigarette/Vaping Use: Currently Using Advance Directives: No Advance Directives Information Provided: Yes Patient : No Current occupational status: employed Physical Exam Vital Signs: Vital Signs: Last Vital Signs Temp 98.5 F 11/27/21 12:34 Pulse 83 11/27/21 12:34 Resp 16 11/27/21 12:34 BP 120/77 11/27/21 12:34 Pulse Ox 97 11/27/21 12:34 BMI result Body Mass Index 36.9 VSS Appearance: Alert.? Oriented X3.? No acute distress.? Head: Normocephalic, atraumatic, no step-offs or deformities Eyes: Pupils equal, round and reactive to light.? ENT: Pharynx normal.? Neck: Normal inspection.? Neck supple.? CVS: raid heart rate and normal rhythm.? Pulses normal.? Respiratory: No respiratory distress.? Breath sounds normal.? Abdomen: Soft and nontender.? Skin: Skin warm and dry.? Normal skin color.? Normal skin turgor.? Extremities: No lower extremity edema.? No calf ttp. 5/5 strength to bilateral upper and lower extremities Back: No midline tenderness, no C-spine tenderness, full range of motion, no CV A tenderness bilaterally Neuro: Oriented X 3.? No motor deficit.? No sensory deficit. Course Reevaluation(s) Reevaluation #1: No acute findings on laboratory studies. No acute electrolyte abnormalities. Troponin negative. EKG without ischemia. Unlikely ACS. Time: 11:51 Reevaluation #2: CTA shows no PE/VTE, there are ground-glass opacities noted consistent with COVID pneumonia. Patient saturating well on room air she is now 97-98% on room air. In no acute distress. At this time I feel comfortable with discharging patient home. I will give her a Z-Jett for viral pneumonia. I have given her strict return precautions and have advised her to return if new or worsening symptoms. Time: 14:05 MDM - URI/Sore Throat MDM Narrative Medical decision making narrative: 1129 31 yo F no pmhx presents to ed w/ pleuritic CP, SOB, malaise, covid + at home yesterday. Partially vaccinated. Physical examination significant for rapid regular rhythm likely sinus tachycardia. Lungs clear. Abdomen soft nontender nondistended. No calf tenderness on palpation Plan at this time is to obtain a CTA, basic labs, EKG and troponin. Medical Records Attestation: I reviewed the patient's medical records. Lab Data Attestation: I reviewed the patient's lab results. Result diagrams: 11/27/21 11:10 11/27/21 11:11 Labs: Lab Results 11/27/21 11/27/21 11/27/21 Range/Units 11:10 11:10 11:10 WBC 7.0 (4.8-10.8) X10*3/uL RBC 5.51 H (4.20-5.50) X10*6/uL Hgb 15.5 (12.0-16.0) g/dl Hct 47.6 H (37.0-47.0) % MCV 86.4 (80.0-98.0) fL MCH 28.1 (27.0-33.0) pg MCHC 32.6 (31.0-35.0) g/dl RDW 12.4 (11.0-16.0) % Plt Count 309 (160-400) X10*3/uL MPV 8.9 L (9.4-12.3) fL Immature Gran % (Auto) 0.4 (0.0-0.4) % Neut % (Auto) 53.4 (45-73) % Lymph % (Auto) 32.2 (20-40) % [place] % (Auto) 13.5 H (2-11) % Eos % (Auto) 0.1 (0-4) % Baso % (Auto) 0.4 (0-2) % Lymph # (Auto) 2.3 (1.2-4.9) X10*3/uL [place] # (Auto) 0.9 (0.1-1.2) X10*3/uL Eos # (Auto) 0.0 (0.0-0.4) X10*3/uL Baso # (Auto) 0.0 (0.0-0.2) X10*3/uL Abs Immat Gran (auto) 0.03 (0.00-0.03) X10*3/uL Absolute Neuts (auto) 3.7 (2.0-8.3) x10*3/uL Absolute Nucleated RBC 0.000 (0.0-0.012) X10*3/uL Nucleated RBC % (auto) 0.0 (0.0-0.2) /100WBC Sodium (135-145) mmol/L Potassium (3.3-5.1) mmol/L Chloride (96-108) mmol/L Carbon Dioxide (22-29) mmol/L Anion Gap (12-20) BUN (9-16) mg/dL Creatinine (0.5-1.4) mg/dL Estim Creat Clear Calc Estimated GFR Random Glucose (60-115) mg/dL Calcium (8.4-10.2) mg/dL Total Bilirubin (0.0-1.0) mg/dL AST (5-31) U/L ALT (0-31) U/L Alkaline Phosphatase (39-117) U/L Troponin I High Sens < 3.5 (<3.5-17.0) ng/L Total Protein (6.5-8.0) g/dL Albumin (3.5-5.0) g/dL Beta HCG, Quant mIU/mL COVID-19 ([facility]) Positive A (Negative) COVID-19 Clin Com See Note 11/27/21 Range/Units 11:11 WBC (4.8-10.8) X10*3/uL RBC (4.20-5.50) X10*6/uL Hgb (12.0-16.0) g/dl Hct (37.0-47.0) % MCV (80.0-98.0) fL MCH (27.0-33.0) pg MCHC (31.0-35.0) g/dl RDW (11.0-16.0) % Plt Count (160-400) X10*3/uL MPV (9.4-12.3) fL Immature Gran % (Auto) (0.0-0.4) % Neut % (Auto) (45-73) % Lymph % (Auto) (20-40) % [place] % (Auto) (2-11) % Eos % (Auto) (0-4) % Baso % (Auto) (0-2) % Lymph # (Auto) (1.2-4.9) X10*3/uL [place] # (Auto) (0.1-1.2) X10*3/uL Eos # (Auto) (0.0-0.4) X10*3/uL Baso # (Auto) (0.0-0.2) X10*3/uL Abs Immat Gran (auto) (0.00-0.03) X10*3/uL Absolute Neuts (auto) (2.0-8.3) x10*3/uL Absolute Nucleated RBC (0.0-0.012) X10*3/uL Nucleated RBC % (auto) (0.0-0.2) /100WBC Sodium 137 (135-145) mmol/L Potassium 4.9 (3.3-5.1) mmol/L Chloride 105 (96-108) mmol/L Carbon Dioxide 24 (22-29) mmol/L Anion Gap 13 (12-20) BUN 13 (9-16) mg/dL Creatinine 0.88 (0.5-1.4) mg/dL Estim Creat Clear Calc 124.4 Estimated GFR > 60 Random Glucose 92 (60-115) mg/dL Calcium 9.4 (8.4-10.2) mg/dL Total Bilirubin 0.2 (0.0-1.0) mg/dL AST 25 D (5-31) U/L ALT 24 (0-31) U/L Alkaline Phosphatase 60 (39-117) U/L Troponin I High Sens (<3.5-17.0) ng/L Total Protein 6.8 (6.5-8.0) g/dL Albumin 3.5 (3.5-5.0) g/dL Beta HCG, Quant < 2 mIU/mL COVID-19 ([facility]) (Negative) COVID-19 Clin Com Imaging Data CTA: Attestation: I personally reviewed and interpreted this imaging study as follows: Radiologist's impression: CT/CT angio chest PE protocol IMPRESSION: No evidence of PE. No evidence aortic dissection or aneurysm. ? Groundglass attenuation seen in both upper and lower lobes, nonspecific. This may represent developing underlying inflammatory or infectious process. No consolidation seen. ? VTE: negative i.e. Critical Care Time Critical Care Time Critical Care Time: No Discharge Plan Discharge Clinical Impression: COVID-19 Patient Disposition: Home, Self-Care Instructions: COVID-19 (Coronavirus Disease 2019) (ED) Additional Instructions: Take your medications as prescribed. If you were prescribed antibiotics today, it is important that you take your medication to their entirety, do not skip any doses, do not finish them early. Today you tested positive for COVID-19. Take Ibuprofen or Tylenol as needed for fevers or body aches. Quarantine for 7 days and ensure you wear a mask. After 7 days you should wear a mask for 3 days after that. Practice social distancing and good hand hygiene. Drink plenty of fluids. Follow-up with your primary care provider this week. Return to the emergency department with new or worsening symptoms. Such as chest pain, shortness of breath, fevers, chills, nausea or vomiting. In case of emergency call 911 You can purchase a pulse oximeter from your local pharmacy or grocery store, and monitor your oxygen saturation if it goes below 94% you should return to the emergency department for further evaluation. If You Test Positive for COVID-19 (Isolate) Everyone, regardless of vaccination status. * Stay home for 5 days. * If you have no symptoms or your symptoms are resolving after 5 days, you can leave your house. * Continue to wear a mask around others for 5 additional days. If you have a fever, continue to stay home until your fever resolves. If You Were Exposed to Someone with COVID-19 (Quarantine) If you: Have been boosted OR Completed the primary series of Pfizer or Moderna vaccine within the last 6 months OR Completed the primary series of J&J vaccine within the last 2 months * Wear a mask around others for 10 days. * Test on day 5, if possible. If you develop symptoms get a test and stay home. If you: Completed the primary series of Pfizer or Moderna vaccine over 6?months ago and are not boosted OR Completed the primary series of J&J over 2 months ago and are not boosted OR Are unvaccinated * Stay home for 5 days. After that continue to wear a mask around others for 5 additional days. * If you can?t quarantine you must wear a mask for 10 days. * Test on day 5 if possible. If you develop symptoms get a test and stay home Prescriptions: New azithromycin 250 mg tablet See Rx Instructions .ROUTE .COMPLEX Qty: 6 RF: 0 No Action diclofenac sodium 50 mg tablet,delayed release (DR/EC) 50 mg PO BID 7 Days Qty: 14 RF: 0 Referrals: Terrell Short MD [Primary Care Provider] - 2 days Stand Alone Forms: Work/School Release
--- NOTE | 2021-11-27 10:50 | ECG_ITS ---
Test Reason : upper respiratory Blood Pressure : / mmHG Vent. Rate : 087 BPM Atrial Rate : 087 BPM P-R Int : 164 ms QRS Dur : 080 ms QT Int : 344 ms P-R-T Axes : 034 036 035 degrees QTc Int : 413 ms Normal sinus rhythm Normal ECG When compared with ECG of 15-OCT-2020 22:19, No significant change was found Referred By: Rica Caballero Electronically Signed By:MICHAEL NEWBY
[2021-11-27 11:16] LABS: MANUAL DIFF FLAG NO
[2021-11-27 11:17] LABS: Basophils Percent Auto 0.4 % (0-2); Eosinophils Percent Auto 0.1 % (0-4); Hematocrit 47.6 % (37.0-47.0); Hemoglobin 15.5 g/dl (12.0-16.0); Imm Gran Abs Auto 0.03 X10*3/uL (0.00-0.03); Imm Gran Pct Auto 0.4 % (0.0-0.4); Lymphocytes Absolute Auto 2.3 X10*3/uL (1.2-4.9); Lymphocytes Percent Auto 32.2 % (20-40); Mean Corpuscular HGB Conc 32.6 g/dl (31.0-35.0); Mean Corpuscular Hemoglobin 28.1 pg (27.0-33.0); Mean Corpuscular Volume 86.4 fL (80.0-98.0); Mean Platelet Volume 8.9 fL (9.4-12.3); Monocytes Absolute Auto 0.9 X10*3/uL (0.1-1.2); Monocytes Percent Auto 13.5 % (2-11); Neutrophils Absolute Auto 3.7 x10*3/uL (2.0-8.3); Neutrophils Percent Auto 53.4 % (45-73); Platelet Count 309 X10*3/uL (160-400); Red Blood Count 5.51 X10*6/uL (4.20-5.50); Red Cell Distribution Width 12.4 % (11.0-16.0)
[2021-11-27 11:20] VITALS: BP 111/84; PULSE 92; RESP 15; TEMP 37.1; O2SAT 98
[2021-11-27 11:26] LABS: COVID-19 Test Positive (Negative)
[2021-11-27 11:40] LABS: Troponin-I High Sensitivity < 3.5 ng/L (<3.5-17.0)
[2021-11-27 11:42] LABS: Alanine Aminotransferase 24 U/L (0-31); Albumin Level 3.5 g/dL (3.5-5.0); Alkaline Phosphatase 60 U/L (39-117); Anion Gap 13 (12-20); Aspartate Amino Transferase 25 U/L (5-31); Bilirubin Total 0.2 mg/dL (0.0-1.0); Blood Urea Nitrogen 13 mg/dL (9-16); Calcium 9.4 mg/dL (8.4-10.2); Carbon Dioxide 24 mmol/L (22-29); Chloride 105 mmol/L (96-108); Creatinine Clr Calc Pharmacy 124.4; Estimated Glomerular Filt Rate > 60; Glucose Random 92 mg/dL (60-115); Potassium 4.9 mmol/L (3.3-5.1); Sodium 137 mmol/L (135-145); Total Protein 6.8 g/dL (6.5-8.0)
[2021-11-27 12:16] LABS: HCG Quantitative < 2 mIU/mL
[2021-11-27 12:34] VITALS: BP 120/77; PULSE 83; RESP 16; TEMP 36.9; O2SAT 97
[2021-11-27] MEDS: iohexoL 350 MG/ML 100 ML INFUS..BTL IV (13:19)
== END 2021-11-27 14:26 | disposition home or self-care (01) ==
PROVIDERS: Physician Assistant; Emergency Provider Internal Medicine; PCP Internal Medicine
DX: U07.1 COVID-19 (principal); R06.02 Shortness of breath
CPT/HCPCS: 36415; 71275; 80053; 84484; 84702; 85025; 87635; 93005; 99284; Q9967

== ENCOUNTER 2021-11-28 20:11 | Emergency (ER) | payer OTHER, SELFPAY ==
--- NOTE | ~2021-11-28 | XR_ITS ---
EXAMINATION: XR CHEST CLINICAL INFORMATION: Chest tightness. Shortness of breath. COMPARISON: Chest x-ray 10/10/2020 TECHNIQUE: Frontal view of the chest was obtained. 8:34 PM FINDINGS: No significant abnormality is noted involving the heart, lungs, mediastinum, bony thorax or soft tissues. XR/XR chest 1V IMPRESSION: Unremarkable examination.
[2021-11-28 20:19] VITALS: BP 146/88; PULSE 97; RESP 20; TEMP 36.1; O2SAT 97; BMI 36.9
--- NOTE | 2021-11-28 20:25 | ECG_ITS ---
Test Reason : dyspnea Blood Pressure : / mmHG Vent. Rate : 088 BPM Atrial Rate : 088 BPM P-R Int : 176 ms QRS Dur : 080 ms QT Int : 370 ms P-R-T Axes : 067 032 033 degrees QTc Int : 447 ms Normal sinus rhythm Normal ECG When compared with ECG of 27-NOV-2021 11:14, No significant change was found Referred By: Generic ED Physician Electronically Signed By:MICHAEL NEWBY
[2021-11-28 21:37] LABS: Basophils Percent Auto 0.1 % (0-2); Eosinophils Percent Auto 0.4 % (0-4); Hematocrit 44.2 % (37.0-47.0); Hemoglobin 14.7 g/dl (12.0-16.0); Imm Gran Abs Auto 0.03 X10*3/uL (0.00-0.03); Imm Gran Pct Auto 0.3 % (0.0-0.4); Lymphocytes Absolute Auto 2.7 X10*3/uL (1.2-4.9); MANUAL DIFF FLAG NO; Mean Corpuscular HGB Conc 33.3 g/dl (31.0-35.0); Mean Corpuscular Hemoglobin 28.5 pg (27.0-33.0); Mean Corpuscular Volume 85.7 fL (80.0-98.0); Mean Platelet Volume 8.9 fL (9.4-12.3); Monocytes Percent Auto 9.8 % (2-11); Neutrophils Absolute Auto 6.5 x10*3/uL (2.0-8.3); Neutrophils Percent Auto 63.4 % (45-73); Platelet Count 322 X10*3/uL (160-400); Red Blood Count 5.16 X10*6/uL (4.20-5.50); Red Cell Distribution Width 12.3 % (11.0-16.0); White Blood Count 10.2 X10*3/uL (4.8-10.8)
[2021-11-28 21:37] LABS: COVID-19 Test Positive (Negative)
[2021-11-28 21:44] LABS: D Dimer High Sensitivity 247 NG/ML
[2021-11-28 21:49] LABS: Anion Gap 10 (12-20); Blood Urea Nitrogen 13 mg/dL (9-16); Calcium 8.4 mg/dL (8.4-10.2); Carbon Dioxide 26 mmol/L (22-29); Chloride 107 mmol/L (96-108); Creatinine Clr Calc Pharmacy 124.4; Estimated Glomerular Filt Rate > 60; Glucose Random 107 mg/dL (60-115); Potassium 3.9 mmol/L (3.3-5.1); Sodium 139 mmol/L (135-145)
[2021-11-28 21:53] LABS: Troponin-I High Sensitivity < 3.5 ng/L (<3.5-17.0)
[2021-11-28 22:59] VITALS: BP 123/87; PULSE 91; RESP 16; TEMP 36.8; O2SAT 98
--- NOTE | 2021-11-28 22:59 | ED_ITS ---
HPI - SOB/Dyspnea General Chief Complaint: Dyspnea Stated Complaint: Covid + Time Seen by Provider: 11/28/21 20:28 Source: patient Mode of arrival: ambulatory Limitations: no limitations History of Present Illness HPI Narrative: 31-year-old female who is known COVID positive here with reports of chest tightness, shortness of breath noted over the last few days. Patient tells me on Sunday she started to have symptoms of COVID. She did a home test Sunday morning and then was seen here in our emergency department for further evaluation. She had labs and a CT of the chest which was negative for PE. She was discharged home with strict return precautions. Patient tells me that she has some shortness of breath when she is moving around with associated chest tightness. She also has a slight cough. She reports she had fever the 1st day but no fever since then. No vomiting, diarrhea, leg swelling or pain. Related Data Previous Rx's Medication Instructions Recorded diclofenac sodium 50 mg 50 mg PO BID 7 Days #14 tab 11/17/21 tablet,delayed release azithromycin 250 mg tablet See Rx Instructions .ROUTE 11/27/21 .COMPLEX #6 tab Allergies Allergy/AdvReac Type Severity Reaction Status Date / Time No Known Allergies Allergy Verified 11/17/21 09:06 Review of Systems Review of Systems: Yes all other systems are reviewed and are negative Constitutional: Constitutional: Reports no additional constitutional complaints, Denies body ache(s), Denies chills, Denies fever(s), Denies headache(s) and Denies weakness Eyes: Eyes: Reports no additional eye complaints and Denies change in vision ENT: Reports system reviewed and no additional complaints, except as documented, Denies dizziness, Denies headache(s), Denies nasal congestion, Denies nasal discharge and Denies neck pain Cardiovascular: Cardiovascular: Reports no additional cardiovascular complaints, Reports chest pain (Tightness), Denies leg edema and Reports dyspnea Respiratory: Respiratory: Reports no additional respiratory complaints, Denies cough and Reports dyspnea Gastrointestinal: Gastrointestinal: Reports no additional gastrointestinal complaints, Denies abdominal pain, Denies diarrhea, Denies nausea and Denies vomiting Genitourinary: Genitourinary: Reports no additional female genitourinary complaints and Denies urinary incontinence Musculoskeletal: Musculoskeletal: Reports no additional musculoskeletal complaints, Denies back pain, Denies arthralgias, Denies joint swelling, Denies neck pain, Denies numbness and Denies tingling Integumentary/Breasts: Skin/Breast: Reports system reviewed and no additional complaints, except as docu and Denies rash Neurologic: Reports system reviewed and no additional complaints, except as documented, Denies Abnormal speech present, Denies dizziness, Denies headache(s), Denies numbness, Denies tingling and Denies weakness PMF Past Medical History Attestation statement: The following information was validated with the patient. Source: old records reviewed and nursing notes reviewed Medical History Abnormal laboratory test Arthritis Depression Healthy adult History of cardiac disorder Hypothyroidism Immune disorder Insomnia Migraine Surgical History History of delivery Family History Family History Mother Diabetes Maternal Grandmother Diabetes Sister HTN (hypertension) Social History Social History Housing: Apartment Alcohol intake: current Alcohol intake frequency: holidays/special occasions only Tobacco use type: Smokeless Tobacco (vaping) e-Cigarette/Vaping Use: Currently Using Advance Directives: No Advance Directives Information Provided: Yes Patient : No Current occupational status: employed Physical Exam Vital Signs: Vital Signs: Last Vital Signs Temp 97 F 11/28/21 20:19 Pulse 97 11/28/21 20:19 Resp 20 11/28/21 20:19 BP 146/88 H 11/28/21 20:19 Pulse Ox 97 11/28/21 20:19 BMI result Body Mass Index 36.9 Const: General: cooperative, healthy appearing, comfortable and no acute distress Orientation/consciousness: patient oriented x3 Limitations: no limitations HENMT: Head: Yes normal to inspection Ears: hearing grossly normal bilaterally and TM's normal bilaterally General nose exam: Normal external nose present Face and sinus: Yes normal facial exam Mouth: Normal oral and palatal mucosa present Throat: Yes posterior oropharynx normal, Yes tonsils normal and Yes uvula midline Eyes: General: appearance normal, both eyes and all related structures Pupils: Equal, round and reactive pupils present Neck: Neck: Yes normal visual inspection, Yes full ROM and Yes no lymphadenopathy Chest: Chest palpation & inspection: normal inspection of the chest Resp: Effort & Inspection: normal respiratory effort Auscultation: clear to auscultation bilaterally Cardio: Rate: regular rate Rhythm: regular rhythm Peripheral pulses: Peripheral pulses 2+ throughout GI: Inspection: Yes normal to inspection Palpation (GI): Soft to palpation and nontender Auscultation: normal bowel sounds Back/Spine/Pelvis: Thoracic/Lumbar Spine: thoracic and lumbar spine normal to inspection Skin: General skin exam: no rashes or lesions noted Neuro: General: patient oriented x3, no focal motor deficits and normal sensation to monofilament Cranial nerves: Yes Equal, round and reactive pupils present Cognition (Neuro): normal cognition Speech: No Abnormal speech present Gait exam (Neuro): Normal gait present Motor exam (neuro): 5/5 motor strength present throughout Extrem: General: Yes normal to inspection, Yes no pedal edema and Yes no calf tenderness Course Course Course Narrative: 31-year-old female known COVID positive here with reports of chest tightness, shortness of breath with exertion and cough. Patient diagnosed on November 26 since seen here in the emergency department on November 27. She had labs and a CT of the chest which was negative for pulmonary embolism. It did show some ground-glass opacities on the left consistent with a viral pneumonia. Patient was discharged home with a course of azithromycin. Patient returns today for continued symptoms. On arrival the patient's vital signs are stable. Her labs and chest x-ray show no acute finding. She does continue to past positive for COVID. She has received COVID vaccine x1 of [employer]. The patient is ambulatory oxygen saturation is 98%. I did recommend she p urchase a pulse oximeter which she tells me she does have home. I explained to her that her symptoms are likely secondary to the ground glass opacities seen on CT scan and I do not think the patient needs to have a repeat CT scan less than 24 hours later. Recommend she continue her quarantine and antibiotics. Reviewed worrisome signs and symptoms of when to return to the emergency department. Comfortable discharge home. MDM - SOB/Dyspnea MDM Narrative Medical decision making narrative: Less likely PE with negative CTA less than 24 hours ago, with no hypoxia or tachypnea or clinical findings concerning for DVT Medical Records Attestation: I reviewed the patient's medical records. Lab Data Attestation: I reviewed the patient's lab results. Result diagrams: 11/28/21 21:28 11/28/21 21:28 Labs: Lab Results 11/28/21 11/28/21 11/28/21 Range/Units 21:01 21:20 21:28 WBC 10.2 (4.8-10.8) X10*3/uL RBC 5.16 (4.20-5.50) X10*6/uL Hgb 14.7 (12.0-16.0) g/dl Hct 44.2 (37.0-47.0) % MCV 85.7 (80.0-98.0) fL MCH 28.5 (27.0-33.0) pg MCHC 33.3 (31.0-35.0) g/dl RDW 12.3 (11.0-16.0) % Plt Count 322 (160-400) X10*3/uL MPV 8.9 L (9.4-12.3) fL Immature Gran % (Auto) 0.3 (0.0-0.4) % Neut % (Auto) 63.4 (45-73) % Lymph % (Auto) 26.0 (20-40) % [place] % (Auto) 9.8 (2-11) % Eos % (Auto) 0.4 (0-4) % Baso % (Auto) 0.1 (0-2) % Lymph # (Auto) 2.7 (1.2-4.9) X10*3/uL [place] # (Auto) 1.0 (0.1-1.2) X10*3/uL Eos # (Auto) 0.0 (0.0-0.4) X10*3/uL Baso # (Auto) 0.0 (0.0-0.2) X10*3/uL Abs Immat Gran (auto) 0.03 (0.00-0.03) X10*3/uL Absolute Neuts (auto) 6.5 (2.0-8.3) x10*3/uL Absolute Nucleated RBC 0.000 (0.0-0.012) X10*3/uL Nucleated RBC % (auto) 0.0 (0.0-0.2) /100WBC D-Dimer High Sensitivty NG/ML Sodium (135-145) mmol/L Potassium (3.3-5.1) mmol/L Chloride (96-108) mmol/L Carbon Dioxide (22-29) mmol/L Anion Gap (12-20) BUN (9-16) mg/dL Creatinine (0.5-1.4) mg/dL Estim Creat Clear Calc Estimated GFR Random Glucose (60-115) mg/dL Calcium (8.4-10.2) mg/dL Troponin I High Sens < 3.5 (<3.5-17.0) ng/L COVID-19 ([facility]) Positive A (Negative) COVID-19 Clin Com See Note 11/28/21 11/28/21 Range/Units 21:28 21:28 WBC (4.8-10.8) X10*3/uL RBC (4.20-5.50) X10*6/uL Hgb (12.0-16.0) g/dl Hct (37.0-47.0) % MCV (80.0-98.0) fL MCH (27.0-33.0) pg MCHC (31.0-35.0) g/dl RDW (11.0-16.0) % Plt Count (160-400) X10*3/uL MPV (9.4-12.3) fL Immature Gran % (Auto) (0.0-0.4) % Neut % (Auto) (45-73) % Lymph % (Auto) (20-40) % [place] % (Auto) (2-11) % Eos % (Auto) (0-4) % Baso % (Auto) (0-2) % Lymph # (Auto) (1.2-4.9) X10*3/uL [place] # (Auto) (0.1-1.2) X10*3/uL Eos # (Auto) (0.0-0.4) X10*3/uL Baso # (Auto) (0.0-0.2) X10*3/uL Abs Immat Gran (auto) (0.00-0.03) X10*3/uL Absolute Neuts (auto) (2.0-8.3) x10*3/uL Absolute Nucleated RBC (0.0-0.012) X10*3/uL Nucleated RBC % (auto) (0.0-0.2) /100WBC D-Dimer High Sensitivty 247 NG/ML Sodium 139 (135-145) mmol/L Potassium 3.9 D (3.3-5.1) mmol/L Chloride 107 (96-108) mmol/L Carbon Dioxide 26 (22-29) mmol/L Anion Gap 10 L (12-20) BUN 13 (9-16) mg/dL Creatinine 0.88 (0.5-1.4) mg/dL Estim Creat Clear Calc 124.4 Estimated GFR > 60 Random Glucose 107 (60-115) mg/dL Calcium 8.4 D (8.4-10.2) mg/dL Troponin I High Sens (<3.5-17.0) ng/L COVID-19 ([facility]) (Negative) COVID-19 Clin Com Imaging Data Chest x-ray: Attestation: I personally reviewed and interpreted this imaging study as follows: Radiologist's impression: ion Number(s): [id number] cc: Generic ED Physician~ EXAMINATION: XR CHEST CLINICAL INFORMATION: Chest tightness. Shortness of breath. COMPARISON: Chest x-ray 10/10/2020 TECHNIQUE: Frontal view of the chest was obtained. 8:34 PM FINDINGS: No significant abnormality is noted involving the heart, lungs, mediastinum, bony thorax or soft tissues. XR/XR chest 1V IMPRESSION: Unremarkable examination. ? ECG Data Attestation: I personally reviewed and interpreted this ECG as follows: ECG interpretation date: 11/28/21 ECG interpretation time: 20:55 Interpretation: Normal sinus rhythm with a rate 88, normal MI, normal QRS, normal QT Discharge Plan Discharge Clinical Impression: COVID-19 Patient Disposition: Home, Self-Care Instructions: COVID-19 (Coronavirus Disease 2019) (ED) Additional Instructions: Continue quarantine Increase fluids, rest Motrin or tylenol for pain or fever Prescriptions: No Action azithromycin 250 mg tablet See Rx Instructions .ROUTE .COMPLEX Qty: 6 RF: 0 diclofenac sodium 50 mg tablet,delayed release (DR/EC) 50 mg PO BID 7 Days Qty: 14 RF: 0 Referrals: Terrell Short MD [Primary Care Provider] - 2 days
--- NOTE | 2021-11-28 23:05 | PC.NURSE ---
WALKING 02SAT 98%.
== END 2021-11-28 23:10 | disposition home or self-care (01) ==
PROVIDERS: Emergency Provider Internal Medicine; PCP Internal Medicine
DX: U07.1 COVID-19 (principal); R06.02 Shortness of breath; F17.290 Nicotine dependence, other tobacco product, uncomplicated
CPT/HCPCS: 36415; 71045; 80048; 84484; 85025; 85379; 87635; 93005; 99284

== ENCOUNTER 2021-12-04 09:19 | Emergency (ER) | payer OTHER, SELFPAY ==
--- NOTE | ~2021-12-04 | XR_ITS ---
EXAMINATION: XR CHEST CLINICAL INFORMATION: Cough COMPARISON: 11/28/2021 TECHNIQUE: 2 views of the chest were obtained. FINDINGS: No significant abnormality is noted involving the heart, lungs, mediastinum, bony thorax or soft tissues. XR/XR chest 2V IMPRESSION: Normal examination.
[2021-12-04 09:26] VITALS: BP 139/83; PULSE 82; RESP 18; TEMP 36.1; O2SAT 99; BMI 36.9
--- NOTE | 2021-12-04 09:34 | ED_ITS ---
HPI - URI/Sore Throat General Chief Complaint: Upper Respiratory Symptoms Stated Complaint: covid symptoms Time Seen by Provider: 12/04/21 09:34 Source: patient Mode of arrival: ambulatory Limitations: no limitations History of Present Illness HPI Narrative: 31-year-old female who was diagnosed with COVID on November 27, 2021 presents to the emergency department with chest tightness, malaise, fatigue, intermittent dry cough, nausea and diarrhea times 7 days. Patient tells me that she has been doing a lot of research about COVID online, and she knows that COVID can cause permanent damage so she would like a workup to ensure that COVID has not caused any damage. She also wants to ensure that she does not have a pneumonia. She also tells me she is having diffuse abdominal pain, worse when she has diarrhea. She does not smoke. She has 1 dose of the Pfizer vaccine. She denies shortness of breath, chest pain, calf pain,vomiting, headache, dizziness, leg swelling. She states this diagnosis is making her very anxious. MD elicited complaint: cough and other (diarrhea) Onset (ago): day(s) (8) Consistency: constant Severity: mild Able to tolerate fluids by mouth: Yes Exacerbating factors: nothing Relieving factors: nothing Associated symptoms: denies other symptoms Treatments prior to arrival: none Related Data Previous Rx's Medication Instructions Recorded diclofenac sodium 50 mg 50 mg PO BID 7 Days #14 tab 11/17/21 tablet,delayed release azithromycin 250 mg tablet See Rx Instructions .ROUTE 11/27/21 .COMPLEX #6 tab benzonatate 100 mg capsule 100 mg PO BID PRN #20 cap 12/04/21 ondansetron 4 mg disintegrating 4 mg PO BEDTIME #8 tab 12/04/21 tablet Allergies Allergy/AdvReac Type Severity Reaction Status Date / Time No Known Allergies Allergy Verified 11/17/21 09:06 Review of Systems Review of Systems: Constitutional : + Fever, + Chills, + fatigue, + Malaise ENT/Mouth : No sore throat, No runny nose Eyes: No Discharge Cardiovascular : No Chest Pain, No SOB, + chest tightness Respiratory : No Cough, No Sputum Gastrointestinal : No Nausea, No Vomiting, + Diarrhea, + abdominal pain Genitourinary : No Dysuria, No Urinary Frequency Musculoskeletal : positive Myalgia Skin : No rash Neuro : No Headache Yes all other systems are reviewed and are negative [facility] Past Medical History Attestation statement: The following information was validated with the patient. Source: old records reviewed and nursing notes reviewed Medical History Abnormal laboratory test Arthritis Depression Healthy adult History of cardiac disorder Hypothyroidism Immune disorder Insomnia Migraine Surgical History History of delivery Family History Family History Mother Diabetes Maternal Grandmother Diabetes Sister HTN (hypertension) Social History Social History Housing: Apartment Alcohol intake: current Alcohol intake frequency: holidays/special occasions only Tobacco use type: Smokeless Tobacco (vaping) e-Cigarette/Vaping Use: Currently Using Current occupational status: employed Physical Exam Vital Signs: Vital Signs: Last Vital Signs Temp 97 F 12/04/21 09:26 Pulse 82 12/04/21 09:26 Resp 18 12/04/21 09:26 BP 139/83 12/04/21 09:26 Pulse Ox 99 12/04/21 09:26 BMI result Body Mass Index 36.9 VSS Appearance: Alert.? Oriented X3.? No acute distress.? No use of accessory muscles. Patient appears anxious however. Head: Normocephalic, atraumatic, no step-offs or deformities Eyes: Pupils equal, round and reactive to light.? Neck: Normal inspection.? Neck supple.? CVS: Normal heart rate and rhythm.? Pulses normal.? Respiratory: No respiratory distress.? Breath sounds normal.? Abdomen: Soft and nontender.? Skin: Skin warm and dry.? Normal skin color.? Normal skin turgor.? Extremities: No lower extremity edema.? No calf ttp. 5/5 strength to bilateral upper and lower extremities Neuro: Oriented X 3.? No motor deficit.? No sensory deficit. Course Reevaluation(s) Reevaluation #1: CXR neagative. Patient is known to be COVID positive on 11/27/2021.? Vital signs are stable however.? I have given patient strict return precautions.? I have educated on diagnosis and treatment plan.? I have given them red flag symptoms and have told him to return with new or worsening symptoms.? I have outlined these on their discharge. Unlikely that this is ACS, patient denies chest pain. Lungs are clear unlikely pneumonia and negative CXR Patient's vital signs stable, patient is not tachycardic, tachypneic or hypoxic, no calf tenderness to palpation, unlikely PE. Time: 10:08 MDM - URI/Sore Throat MDM Narrative Medical decision making narrative: 09 31 year old female presents with COVID like symptoms x8 days. Vaccinated with 1 dose of Pfizer. She was seen here on 2 different occasions with similar symptoms on November 27, 2021 and November 28, 2021. She has gotten a CTA with no evidence of PE/DVT she is also going chest x-rays. She also got a full cardiac workup which was also negative. At this time there is no need for further evaluation as the symptoms are likely secondary to COVID- 19. No risk factors for ACS. PERC 0, < 2% change of PE. Physical examination benign. Negative makayla bilaterally. VSS. Plan at this time is to obtain a chest x-ray to rule out pneumonia Medical Records Attestation: I reviewed the patient's medical records. Lab Data Attestation: I reviewed the patient's lab results. Critical Care Time Critical Care Time Critical Care Time: No Discharge Plan Discharge Clinical Impression: COVID, Gastroenteritis Patient Disposition: Home, Self-Care Instructions: Gastroenteritis (ED), COVID-19 (Coronavirus Disease 2019) (ED) Additional Instructions: Take your medications as prescribed. If you were prescribed antibiotics today, it is important that you take your medication to their entirety, do not skip any doses, do not finish them early. On 11/27/2021 you tested positive for COVID-19 however you are still symptomatic. Take Ibuprofen or Tylenol as needed for fevers or body aches. Quarantine for 5 days and ensure you wear a mask. After 5 days you should wear a mask for 5 days after that. Practice social distancing and good hand hygiene. Drink plenty of fluids. Follow-up with your primary care provider this week. Return to the emergency department with new or worsening symptoms. In case of emergency call 911 You can purchase a pulse oximeter from your local pharmacy or grocery store, and monitor your oxygen saturation if it goes below 94% you should return to the emergency department for further evaluation. Prescriptions: New benzonatate 100 mg capsule 100 mg PO BID PRN (Reason: cough) Qty: 20 RF: 0 ondansetron 4 mg tablet,disintegrating 4 mg PO BEDTIME Qty: 8 RF: 0 No Action azithromycin 250 mg tablet See Rx Instructions .ROUTE .COMPLEX Qty: 6 RF: 0 diclofenac sodium 50 mg tablet,delayed release (DR/EC) 50 mg PO BID 7 Days Qty: 14 RF: 0
[2021-12-04 10:27] LABS: OBS Int Ctl Valid YES; OBS1 NEGATIVE (NEGATIVE)
[2021-12-04 10:45] LABS: COVID-19 Test Negative (Negative)
== END 2021-12-04 10:37 | disposition home or self-care (01) ==
LOC: HO.ED 10:18
PROVIDERS: Physician Assistant; Emergency Provider Emergency Medicine; PCP Internal Medicine
DX: U07.1 COVID-19 (principal); R05.9 Cough, unspecified; M79.10 Myalgia, unspecified site; Z79.899 Other long term (current) drug therapy
CPT/HCPCS: 71046; 82272; 87635; 99283

== ENCOUNTER 2021-12-22 12:09 | Outpatient (REF) | payer OTHER, SELFPAY ==
[2021-12-22 18:28] LABS: CT PCR NOT DETECTED (Not Detect.); NG PCR NOT DETECTED (Not Detect.)
[2021-12-23 08:47] LABS: BV Int Neg Control Negative (Negative); BV Int Pos Control Positive (Positive)
== END 2021-12-22 12:10 | disposition home or self-care (01) ==
LOC: HO.LAB 12:09
PROVIDERS: Visit Provider Obstetrics & Gynecology
DX: Z30.09 Encounter for other general counseling and advice on contraception (principal); N39.0 Urinary tract infection, site not specified
CPT/HCPCS: 87086; 87088; 87186; 87480; 87491; 87510; 87591; 87660; 99212

== ENCOUNTER 2021-12-30 07:57 | Outpatient (REF) | payer OTHER, SELFPAY ==
[2021-12-30 08:22] LABS: MANUAL DIFF FLAG NO
[2021-12-30 08:42] LABS: Basophils Absolute Auto 0.1 X10*3/uL (0.0-0.2); Basophils Percent Auto 0.5 % (0-2); Eosinophils Absolute Auto 0.1 X10*3/uL (0.0-0.4); Eosinophils Percent Auto 0.9 % (0-4); Hematocrit 44.6 % (37.0-47.0); Hemoglobin 14.9 g/dl (12.0-16.0); Imm Gran Abs Auto 0.09 X10*3/uL (0.00-0.03); Imm Gran Pct Auto 0.7 % (0.0-0.4); Lymphocytes Absolute Auto 3.7 X10*3/uL (1.2-4.9); Lymphocytes Percent Auto 29.7 % (20-40); Mean Corpuscular HGB Conc 33.4 g/dl (31.0-35.0); Mean Corpuscular Hemoglobin 28.6 pg (27.0-33.0); Mean Corpuscular Volume 85.6 fL (80.0-98.0); Monocytes Absolute Auto 0.8 X10*3/uL (0.1-1.2); Neutrophils Absolute Auto 7.8 x10*3/uL (2.0-8.3); Neutrophils Percent Auto 62.2 % (45-73); Platelet Count 340 X10*3/uL (160-400); Red Blood Count 5.21 X10*6/uL (4.20-5.50); Red Cell Distribution Width 12.3 % (11.0-16.0); White Blood Count 12.6 X10*3/uL (4.8-10.8)
[2021-12-30 08:59] LABS: Alanine Aminotransferase 22 U/L (0-31); Albumin Level 3.5 g/dL (3.5-5.0); Alkaline Phosphatase 58 U/L (39-117); Anion Gap 10 (12-20); Aspartate Amino Transferase 13 U/L (5-31); Bilirubin Total 0.6 mg/dL (0.0-1.0); Blood Urea Nitrogen 10 mg/dL (9-16); Calcium 9.1 mg/dL (8.4-10.2); Carbon Dioxide 24 mmol/L (22-29); Chloride 108 mmol/L (96-108); Estimated Glomerular Filt Rate > 60; Glucose Random 99 mg/dL (60-115); Potassium 4.2 mmol/L (3.3-5.1); Sodium 138 mmol/L (135-145); Total Protein 6.3 g/dL (6.5-8.0)
[2021-12-30 09:17] LABS: HBsAGNum1 0.22 S/CO (0.00-0.99); Hepatitis B Surface Antigen Negative (Negative); ~HepC Num1 0.11 S/CO (0.00-0.79); ~Hepatitis C Antibody Nonreactive (Nonreactive)
[2021-12-30 09:21] LABS: HIV AB/AG Nonreactive (Nonreactive); HIV Num 1 0.05 S/CO (0.00-0.99)
[2021-12-30 10:38] LABS: Syphilis Screen Nonreactive (Nonreactive)
[2021-12-31 14:24] LABS: BV Int Neg Control Negative (Negative); BV Int Pos Control Positive (Positive)
[2021-12-31 18:32] LABS: CT PCR NOT DETECTED (Not Detect.); NG PCR NOT DETECTED (Not Detect.)
== END 2021-12-30 07:58 | disposition home or self-care (01) ==
LOC: HO.LAB 07:57
PROVIDERS: Advanced Practice Midwife; Absent Provider Nurse Practitioner Acute Care; PCP Internal Medicine; Visit Provider Obstetrics & Gynecology
DX: Z01.419 Encounter for gynecological examination (general) (routine) without abnormal findings (principal); N39.0 Urinary tract infection, site not specified; N36.8 Other specified disorders of urethra; N36.1 Urethral diverticulum; N76.0 Acute vaginitis; B96.89 Other specified bacterial agents as the cause of diseases classified elsewhere; K64.9 Unspecified hemorrhoids; Z79.899 Other long term (current) drug therapy; Z87.448 Personal history of other diseases of urinary system; Z20.2 Contact with and (suspected) exposure to infections with a predominantly sexual mode of transmission
CPT/HCPCS: 36415; 80053; 85025; 86780; 86803; 87340; 87389; 87480; 87491; 87510; 87591; 87660; 99212

== ENCOUNTER → 2022-01-04 10:13 | Outpatient (BNVA) | payer OTHER, SELFPAY | PROVIDERS: PCP Internal Medicine; Visit Provider Obstetrics & Gynecology | DX: N36.1 Urethral diverticulum (principal) | CPT/HCPCS: 99212 ==

== ENCOUNTER 2022-01-04 10:45 | Emergency (ER) | payer OTHER, SELFPAY ==
--- NOTE | ~2022-01-04 | FL_ITS ---
EXAMINATION: XR URETHROCYSTOGRAPHY CLINICAL INFORMATION: Cyst versus urethral diverticulum. Difficulty voiding uterine. COMPARISON: Ultrasound pelvis 01/04/2022 performed earlier today. TECHNIQUE: Through an existing Suarez's catheter approximately 500 mL of Urografin was inserted by Dr. Bhandari. Images were obtained in AP and oblique view. Subsequently the Suarez's catheter is deflated and removed. A voiding cystourethrogram was performed in upright view with patient semierect right. FINDINGS: There is lateral without any intraluminal filling defects seen. On voiding cystourethrogram there is a good ossification of the entire urethra with no extravasation of contrast or diverticulum visualized. No mass effect or narrowing identified within the urethra. FLUOROSCOPY TIME: 5.0 minutes DOSE AREA PRODUCT: 71 Gy-cm2 (cm squared) FL/FL cystogram IMPRESSION: Normal widely urethrogram with no urethral diverticulum or extravasation of contrast seen. The bladder is unremarkable.
--- NOTE | ~2022-01-04 | US_ITS ---
EXAMINATION: US PELVIS, LIMITED/FOLLOW UP CLINICAL INFORMATION: Urethral diverticulum. Unable to urinate COMPARISON: None TECHNIQUE: Transabdominal and translabial ultrasound FINDINGS: There appears be slight prominence of the urethra. There is noted to be a complex cystic structure adjacent to the urethra measuring approximately 1.3 x 1.2 x 1.6 cm in size consistent with a Matthew's cyst. There may be small amount of mass effect on the urethra related to this. No definite urethral diverticulum identified. US/US pelvic limited IMPRESSION: Complex Cystic structure adjacent to the left side of the urethra with the appearance of a Matthew's cyst.
[2022-01-04 10:59] VITALS: BP 130/93; PULSE 94; RESP 16; TEMP 36.6; O2SAT 98; BMI 36.9
[2022-01-04 11:48] LABS: MANUAL DIFF FLAG NO
[2022-01-04 11:52] LABS: Basophils Percent Auto 0.3 % (0-2); Eosinophils Absolute Auto 0.1 X10*3/uL (0.0-0.4); Eosinophils Percent Auto 0.4 % (0-4); Hematocrit 44.2 % (37.0-47.0); Hemoglobin 14.5 g/dl (12.0-16.0); Imm Gran Abs Auto 0.07 X10*3/uL (0.00-0.03); Imm Gran Pct Auto 0.5 % (0.0-0.4); Lymphocytes Absolute Auto 3.7 X10*3/uL (1.2-4.9); Lymphocytes Percent Auto 26.5 % (20-40); Mean Corpuscular HGB Conc 32.8 g/dl (31.0-35.0); Mean Corpuscular Hemoglobin 28.3 pg (27.0-33.0); Mean Corpuscular Volume 86.2 fL (80.0-98.0); Mean Platelet Volume 8.7 fL (9.4-12.3); Monocytes Absolute Auto 0.8 X10*3/uL (0.1-1.2); Monocytes Percent Auto 5.8 % (2-11); Neutrophils Absolute Auto 9.3 x10*3/uL (2.0-8.3); Neutrophils Percent Auto 66.5 % (45-73); Platelet Count 341 X10*3/uL (160-400); Red Blood Count 5.13 X10*6/uL (4.20-5.50); Red Cell Distribution Width 12.2 % (11.0-16.0); White Blood Count 13.9 X10*3/uL (4.8-10.8)
[2022-01-04 11:53] VITALS: BP 126/69; PULSE 84; RESP 18; TEMP 37; O2SAT 100
--- NOTE | 2022-01-04 11:56 | PC.NURSE ---
patient a&ox3, pt c/o abd/back pain 07/29, bladder scanned for 87, ultrasound at bedside, vitals stable, call hogan within reach will continue to monitor.
[2022-01-04 12:06] LABS: Alanine Aminotransferase 19 U/L (0-31); Albumin Level 3.6 g/dL (3.5-5.0); Alkaline Phosphatase 59 U/L (39-117); Anion Gap 12 (12-20); Aspartate Amino Transferase 16 U/L (5-31); Bilirubin Total 0.4 mg/dL (0.0-1.0); Blood Urea Nitrogen 12 mg/dL (9-16); Calcium 9.4 mg/dL (8.4-10.2); Carbon Dioxide 26 mmol/L (22-29); Chloride 106 mmol/L (96-108); Creatinine Clr Calc Pharmacy 131.8; Estimated Glomerular Filt Rate > 60; Glucose Random 95 mg/dL (60-115); Magnesium 1.8 mg/dL (1.6-2.6); Potassium 4.7 mmol/L (3.3-5.1); Sodium 139 mmol/L (135-145); Total Protein 6.6 g/dL (6.5-8.0)
[2022-01-04 12:12] LABS: HCG Quantitative < 2 mIU/mL
--- NOTE | 2022-01-04 12:52 | ED_ITS ---
HPI - Female Genitourinary General Chief complaint: Urogenital-Female Stated complaint: unable to urinate abscess Time Seen by Provider: 01/04/22 11:23 Source: patient Mode of arrival: ambulatory Limitations: no limitations History of Present Illness HPI Narrative: 31-year-old female with a past medical history of arthritis, depression, hypothyroidism, immune disorder, insomnia, migraine headaches who was just seen by Dr. 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 She also reports microscopic hematuria Reports that Dr. Vaca be told her to come here for further evaluation treatment if she was having worsening pain. Although I discussed this patient with Dr. Lio Clements and he reported to me that he told her if she was having severe pain to go to the emergency department although he did not tell her to come here today and he told her that she would need urology follow-up. Although patient reports that she did not want await for a long time for urology follow-up therefore this is why she came here right after seeing Dr. Vaca at the OBGYN office. She denies any fevers, chills, dizziness, headaches, neck pain/stiffness, trouble swallowing or breathing, sore throat, cough, chest pain or shortness of breath, dizziness or cecum orthopnea, palpitations from paresthesias, nausea/vomiting/diarrhea constipation, black or bloody stools, dysuria, abnormal vaginal discharge, rashes or any other symptoms complaints or concerns at this time MD elicited complaint: other (Possible urethral diverticulum pain) Onset (ago): day(s) Location of symptoms: urethra Severity: moderate Female Urogenital Radiation: Non-Radiating Quality of pain: sharp Consistency: constant and progressively worsening Vaginal discharge: none Vaginal bleeding: none Urinary symptoms: Hematuria Exacerbating factors: urination Relieving factors: none Associated symptoms: denies other symptoms Treatment prior to arrival: none Patient : No Related Data Previous Rx's Medication Instructions Recorded metronidazole 0.75 % vaginal gel 1 appful VAGINAL BEDTIME 5 Days 12/23/21 (Metrogel Vaginal) #70 g metronidazole 500 mg tablet 500 mg PO BID 7 Days #14 tab 12/23/21 sitz bath (Carex Sitz Bath) #1 ea 12/26/21 doxycycline hyclate 100 mg tablet 100 mg PO BID 14 Days #28 tab 01/04/22 ibuprofen 800 mg tablet 800 mg PO Q8H PRN #14 tab 01/04/22 oxycodone 5 mg tablet 5 mg PO Q6H PRN #14 tab 01/04/22 Allergies Allergy/AdvReac Type Severity Reaction Status Date / Time No Known Allergies Allergy Verified 12/30/21 09:27 Review of Systems Review of Systems: Constitutional : No Weight loss, No Fever, No Chills, No Night Sweats, No Fatigue, No Malaise ENT/Mouth : No Hearing loss, No Ear Pain, No Nasal Congestion, No Sinus Pain, No Hoarseness, No sore throat, No Rhinorrhea, No Swallowing Difficulty Eyes: No Eye Pain, No Swelling, No Redness, No Foreign Body, No Discharge, No Vision Changes Cardiovascular : No Chest Pain, No SOB, No Dyspnea on Exertion, No Orthopnea, No Edema, No Palpitations Respiratory : No Cough, No Sputum, No Wheezing, No Smoke Exposure, No Dyspnea Gastrointestinal : No Nausea, No Vomiting, No Diarrhea, No Constipation, No abdominal Pain, No Hematochezia, No Melena Genitourinary : + hematuria/urethral swelling/with urinary flow changes unable to urinate like she normally does, no irregular bleeding, No Dysuria, No Urinary Frequency, No Urinary Incontinence, No Urgency, No Flank Pain, No Hesitancy Musculoskeletal : No joint pain, No Myalgias, No Joint Swelling Skin : No Skin Lesions, No rash Neuro : No Weakness, No Numbness, No Paresthesias, No Loss of Consciousness, No Dizziness, No Headache Psych : No Anxiety/Panic, No Depression, No SI/HI/AH/VH, No Social Issues, Heme/Lymph: No Bruising, No Bleeding,No Lymphadenopathy Endocrine : No Polyuria, No Polydipsia, No Temperature Intolerance Yes all other systems are reviewed and are negative [facility] Past Medical History Attestation statement: The following information was validated with the patient. Medical History Abnormal laboratory test Arthritis Depression Healthy adult History of cardiac disorder Hypothyroidism Immune disorder Insomnia Migraine Surgical History History of delivery Family History Family History Mother Diabetes Maternal Grandmother Diabetes Sister HTN (hypertension) Social History Social History Housing: Apartment Alcohol intake: never Patient Tobacco Use Status: Current everyday Tobacco user Tobacco use type: Smokeless Tobacco (vaping) Smoked in Last 30 Days: Yes e-Cigarette/Vaping Use: Currently Using Use of substances other than those prescribed or required for medical reasons: No Advance Directives: No Advance Directives Information Provided: Yes Patient : No service: No Current occupational status: employed Cognitive needs: No Hearing needs: No Vision needs: No Physical Exam Vital Signs: Vital Signs: Last Vital Signs Temp 98.9 F 01/04/22 14:22 Pulse 96 01/04/22 15:47 Resp 18 01/04/22 15:47 BP 123/76 01/04/22 15:47 Pulse Ox 96 01/04/22 15:47 BMI result Body Mass Index 36.9 Vital signs reviewed and blood pressure 130/93. Pulse 94. Respirations 16. Temperature 98.0 degrees. Oxygen 98% on room air. Appearance: Alert. Oriented X3. No acute distress. Head: Normal external exam. Normocephalic. Atraumatic. Eyes: PERRLA. EOMI. Conjunctiva and sclera normal. Eyelids normal. ENT: Pharynx normal. Uvula midline. Moist mucous membranes. Neck: Normal inspection. Neck supple. FROM. No adenopathy. Thyroid Normal. No meningeal signs. No neck mass noted. CVS: Normal heart rate and rhythm. Heart sound normal. No murmurs noted. Pulses normal throughout. Respiratory: No respiratory distress. Painless inspiration. Breath sounds normal. No wheezes/rales/rhonchi noted. Chest nontender. No accessory muscle usage noted or decreased air movement noted. Abdomen: Soft and nontender. Bowel sounds normal in all 4 quadrants. No distention noted. No organomegaly noted. No visible injury noted. : Supervised by BOBBY Grace. Normal appearance of vagina, normal palpation, normal vaginal discharge, not erythematous although patient is noted to have a 3 cm anterior vaginal wall urethral diverticulum, nontender. Otherwise no other abnormalities are noted. Back: No CVA tenderness. Full range of motion noted. Skin: Skin warm and dry. Normal skin color. Normal skin turgor. No rashes/lesions/lacerations noted. Extremities: Extremities exhibit normal range of motion. Extremities nontender. Neuro: Oriented X 3. No motor deficit. No sensory deficit. Reflexes normal. Course Course Course Narrative: 11:30am - 31-year-old female with a past medical history of arthritis, depression, hypothyroidism, immune disorder, insomnia, migraine headaches who was just seen by Dr. 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 She also reports microscopic hematuria. Patient was seen by Dr. Vaca and referred to urologist although patient came here for further evaluation treatment due to she was unable to urinate since 03:00 Plan: Bladder scan, labs, UA, UHCG, ultrasound. I also discussed this case with Dr. Lio Clements and he reported that as she discussed this case with Dr. Kenney the urologist and I discussed this case with Dr. Kenney and he recommended placing a catheter and outpatient follow-up along with p.o. antibiotics. Reevaluation(s) Reevaluation #1: - labs reviewed and patient with an elevated white blood cell count at 13,000. Otherwise all other labs are within normal limits. She has +2 protein in her urine otherwise no evidence of UTI. Patient negative for by blood test. - pelvic ultrasound revealed complex cystic structure adjacent to the left side of the urethra with the appearance of a Matthew's Cyst. - although I discussed this with Dr. Vaca and he does not agree with this diagnosis therefore he recommended further imaging therefore will obtain an MRI with and without contrast for further evaluation treatment. Patient was updated at this time - patient is much more comfortable now that she has a Suarez catheter in place Time: 14:03 Reevaluation #2: - I discussed this with the radiology Dr. Caputo and they are going to do an IR intervention to differentiate. patient is updated and she agrees with this plan Time: 14:26 Reevaluation #3: Patient is now status post drainage of Matthew's cyst. She had purulent drainage. I cultured this. She tolerated procedure well. No complications. Dr. Kenney reports that he will still come and see the patient. Otherwise will re-evaluate and possible discharge with p.o. antibiotics and symptomatic treatment along with instructions follow-up with Dr. Vaca and Dr. Kenney as an outpatient basis. Patient understands agrees with this plan Time: 16:[address] [facility] - Female Genitourinary Medical Records Attestation: I reviewed the patient's medical records. Lab Data Attestation: I reviewed the patient's lab results. Result diagrams: 01/04/22 11:45 01/04/22 11:45 Labs: Lab Results 01/04/22 01/04/22 01/04/22 Range/Units 11:45 11:45 13:15 WBC 13.9 H (4.8-10.8) X10*3/uL RBC 5.13 (4.20-5.50) X10*6/uL Hgb 14.5 (12.0-16.0) g/dl Hct 44.2 (37.0-47.0) % MCV 86.2 (80.0-98.0) fL MCH 28.3 (27.0-33.0) pg MCHC 32.8 (31.0-35.0) g/dl RDW 12.2 (11.0-16.0) % Plt Count 341 (160-400) X10*3/uL MPV 8.7 L (9.4-12.3) fL Immature Gran % (Auto) 0.5 H (0.0-0.4) % Neut % (Auto) 66.5 (45-73) % Lymph % (Auto) 26.5 (20-40) % Ramsey % (Auto) 5.8 (2-11) % Eos % (Auto) 0.4 (0-4) % Baso % (Auto) 0.3 (0-2) % Lymph # (Auto) 3.7 (1.2-4.9) X10*3/uL Ramsey # (Auto) 0.8 (0.1-1.2) X10*3/uL Eos # (Auto) 0.1 (0.0-0.4) X10*3/uL Baso # (Auto) 0.0 (0.0-0.2) X10*3/uL Abs Immat Gran (auto) 0.07 H (0.00-0.03) X10*3/uL Absolute Neuts (auto) 9.3 H (2.0-8.3) x10*3/uL Absolute Nucleated RBC 0.000 (0.0-0.012) X10*3/uL Nucleated RBC % (auto) 0.0 (0.0-0.2) /100WBC Sodium 139 (135-145) mmol/L Potassium 4.7 (3.3-5.1) mmol/L Chloride 106 (96-108) mmol/L Carbon Dioxide 26 (22-29) mmol/L Anion Gap 12 (12-20) BUN 12 (9-16) mg/dL Creatinine 0.83 (0.5-1.4) mg/dL Estim Creat Clear Calc 131.8 Estimated GFR > 60 Random Glucose 95 (60-115) mg/dL Calcium 9.4 (8.4-10.2) mg/dL Magnesium 1.8 (1.6-2.6) mg/dL Total Bilirubin 0.4 (0.0-1.0) mg/dL AST 16 (5-31) U/L ALT 19 (0-31) U/L Alkaline Phosphatase 59 (39-117) U/L Total Protein 6.6 (6.5-8.0) g/dL Albumin 3.6 (3.5-5.0) g/dL Beta HCG, Quant < 2 mIU/mL Urine Color YELLOW Urine Appearance CLEAR Urine pH 6.0 (5.0-8.0) Ur Specific [place] >= 1.030 H (1.005-1.025) Urine Protein 2+ H (NEG-TRACE) MG/DL Urine Glucose (UA) NEG (NEG) MG/DL Urine Ketones NEG (NEG) MG/DL Urine Blood TRACE (NEG) Urine Nitrite NEG (NEG) Ur Leukocyte Esterase NEG (NEG) Urine RBC 0-2 (0) /HPF Urine WBC 0 (0-4) /HPF Ur Squamous Epith Cells 1+ /LPF Urine Bacteria NONE /LPF Urine Mucus 1+ /LPF Imaging Data Pelvis ultrasound limited: Attestation: I personally reviewed and interpreted this imaging study as follows: Radiologist's impression: FINDINGS: There appears be slight prominence of the urethra. There is noted to be a complex cystic structure adjacent to the urethra measuring approximately 1.3 x 1.2 x 1.6 cm in size consistent with a Matthew's cyst. There may be small amount of mass effect on the urethra related to this. No definite urethral diverticulum identified.? US/US pelvic limited IMPRESSION: Complex Cystic structure adjacent to the left side of the urethra with the appearance of a Matthew's cyst.? XR Urethrocystography: Attestation: I personally reviewed and interpreted this imaging study as follows: Radiologist's impression: FINDINGS: There is lateral without any intraluminal filling defects seen. On voiding cystourethrogram there is a good ossification of the entire urethra with no extravasation of contrast or diverticulum visualized. No mass effect or narrowing identified within the urethra. FLUOROSCOPY TIME: 5.0 minutes DOSE AREA PRODUCT: 71 Gy-cm2 (cm squared) FL/FL cystogram IMPRESSION: Normal widely urethrogram with no urethral diverticulum or extravasation of contrast seen. The bladder is unremarkable. Critical Care Time Critical Care Time Critical Care Time: Yes Total Critical Care Time: 60 Attestation: I personally attest to this time spent taking care of the patient Discharge Plan Discharge Clinical Impression: Matthew's duct cyst Patient Disposition: Home, Self-Care Instructions: Cyst (ED) Prescriptions: New oxycodone 5 mg tablet 5 mg PO Q6H PRN (Reason: pain) Qty: 14 0RF ibuprofen 800 mg tablet 800 mg PO Q8H PRN (Reason: pain) Qty: 14 0RF doxycycline hyclate 100 mg tablet 100 mg PO BID 14 Days Qty: 28 0RF No Action metronidazole 500 mg tablet 500 mg PO BID 7 Days Qty: 14 0RF metronidazole [Metrogel Vaginal] 0.75 % gel 1 appful vaginal BEDTIME 5 Days Qty: 70 0RF (DME) Carex Sitz Bath Kit See Rx Instructions .Route Qty: 1 0RF Rx Instructions: As directed, twice a day Referrals: Miles Kenney MD [Physician] - 2 days Terrell Short MD [Primary Care Provider] - 2 days Chris Vaca MD [Physician] - 2 days Stand Alone Forms: Work/School Release Print Language: Tamazight
[2022-01-04 13:29] LABS: Appearance Urine CLEAR; Color Urine YELLOW; Glucose Urine UA NEG (NEG); Leukocyte Esterase Urine NEG (NEG); Nitrite Urine NEG (NEG); Specific Gravity - Urine >= 1.030 (1.005-1.025); UACC Culture Trigger NO; Urine Blood TRACE (NEG); Urine Ketones NEG (NEG); Urine Protein 2+ MG/DL (NEG-TRACE)
[2022-01-04 13:38] LABS: Mucus Urine 1+ /LPF; RBC Urine 0-2 /HPF (0); Squamous Epithelial Cell Urine 1+ /LPF; WBC Urine 0 /HPF (0-4)
[2022-01-04 14:22] VITALS: BP 128/74; PULSE 87; RESP 14; TEMP 37.2; O2SAT 99
--- NOTE | 2022-01-04 14:30 | PC.NURSE ---
patient to intervential radiology
--- NOTE | 2022-01-04 15:28 | PM.GYNCN ---
[employer] - CN: HPI Data of Consult Consult date: 01/04/22 Primary Care Provider: Terrell Short MD Consult Narrative Narrative: Krupa Santos is a 31 year old female presented emergency room after her office visit complaining of vaginal lump of a week duration associated with difficulty voiding. Patient was diagnosed recently with a UTI and finished a course of Macrobid and her dysuria has improved markedly. cc:: CC: [employer] - Review of Systems Review of Systems ROS Unobtainable: All systems reviewed & are unremarkable except as noted in HPI and below Cardiovascular: Denies Palpatations, Loss of consciousness or Chest pain Respiratory: Denies Cough, Wheezing or Shortness of breath Musculoskeletal: Denies Low back pain Gastrointestinal: Denies Heartburn, Constipation, Diarrhea, Nausea or Vomiting Genitourinary: Denies Pain with urination, Burning with urination or Urinary frequency Neurological: Denies Migranes Psychological: Denies Depression OB PMFSH Past Medical History Medical History Abnormal laboratory test Arthritis Depression Healthy adult History of cardiac disorder Hypothyroidism Immune disorder Insomnia Migraine Family History Family History Mother Diabetes Maternal Grandmother Diabetes Sister HTN (hypertension) Surgical History Surgical History History of delivery Social History Social History Housing: Apartment Alcohol intake: never Patient Tobacco Use Status: Current everyday Tobacco user Tobacco use type: Smokeless Tobacco (vaping) Smoked in Last 30 Days: Yes e-Cigarette/Vaping Use: Currently Using Use of substances other than those prescribed or required for medical reasons: No Advance Directives: No Advance Directives Information Provided: Yes Patient : No service: No Current occupational status: employed Cognitive needs: No Hearing needs: No Vision needs: No Meds Allergies Allergy/AdvReac Type Severity Reaction Status Date / Time No Known Allergies Allergy Verified 12/30/21 09:27 [employer] Physical Exam Vitals Vital signs: Temp Pulse Resp BP Pulse Ox 98.9 F 87 14 128/74 99 01/04/22 14:22 01/04/22 14:22 01/04/22 14:22 01/04/22 14:22 01/04/22 14:22 BMI result Body Mass Index 36.9 Constitutional General Appearance: Healthy appearing, Well-nourished and Well-developed Psychiatric Mood and Affect: active and alert, normal mood and normal affect Skin Appearance: No rashes and No lesions Lungs Respiratory Effort: No intercostal retractions Auscultation: Clear to auscultation Cardiovascular Auscultation: RRR Abdomen Auscultation/Inspection/Palpation: Normal bowel sounds, Soft, Non-distended and No tenderness Female Genitalia (Pelvic) Bladder/Urethra: Normal meatus Vagina: Cyst (Anterior vaginal wall cyst 2 cm tender posterior to the urethra) Adnexa/Parametria: Adnexal Tenderness: None, Adnexal Mass: None and Parametrial Tenderness: None [employer] - Results Labs CBC & Chem 7: 01/04/22 11:45 01/04/22 11:45 Labs: Short CBC 01/04/22 Range/Units 11:45 WBC 13.9 H (4.8-10.8) X10*3/uL Hgb 14.5 (12.0-16.0) g/dl Hct 44.2 (37.0-47.0) % Plt Count 341 (160-400) X10*3/uL BMP 01/04/22 11:45 Sodium 139 Potassium 4.7 Chloride 106 Carbon Dioxide 26 BUN 12 Creatinine 0.83 Calcium 9.4 Liver Function 01/04/22 Range/Units 11:45 Total Bilirubin 0.4 (0.0-1.0) mg/dL AST 16 (5-31) U/L ALT 19 (0-31) U/L Alkaline Phosphatase 59 (39-117) U/L Albumin 3.6 (3.5-5.0) g/dL Urine 01/04/22 Range/Units 13:15 Urine Color YELLOW Urine Appearance CLEAR Urine pH 6.0 (5.0-8.0) Ur Specific [place] >= 1.030 H (1.005-1.025) Urine Protein 2+ H (NEG-TRACE) MG/DL Urine Glucose (UA) NEG (NEG) MG/DL Imaging US - abdomen: Radiologist's impression: ITS Impressions Pelvis Ultrasound 01/04/22 11:59 IMPRESSION: Complex Cystic structure adjacent to the left side of the urethra with the appearance of a Matthew's cyst. Assessment and Plan (1) Vaginal cyst: Status: Acute Discussed with the patient differential diagnosis of anterior vaginal wall posterior to the urethra including vaginal wall inclusion cyst and urethral diverticulum. Discussed the case with Dr. Caputo, interventional radiologist, he recommended retrograde voiding urethrogram to rule out urethral diverticulum. I assisted on the retrograde voiding urethrogram which ruled out urethral diverticulum. Recommended to Mikael Omalley in the emergency room vaginal cyst aspiration with a syringe or I&D, if no fluid drained out and it is not deflated to refer back to the office for vaginal wall mass biopsy to rule out possible vaginal myoma or neoplastic process
[2022-01-04] MEDS: Ibuprofen 400 MG TABLET PO (15:44)
[2022-01-04] MEDS: Lidocaine HCl 2 % MPF 5 ML VIAL SUBCUT (15:45)
[2022-01-04 15:47] VITALS: BP 123/76; PULSE 96; RESP 18; O2SAT 96
== END 2022-01-04 17:04 | disposition home or self-care (01) ==
PROVIDERS: Physician Assistant Medical; Emergency Provider Emergency Medicine; PCP Internal Medicine
DX: Q52.4 Other congenital malformations of vagina (principal); B95.1 Streptococcus, group B, as the cause of diseases classified elsewhere; N76.0 Acute vaginitis; R39.11 Hesitancy of micturition; F17.200 Nicotine dependence, unspecified, uncomplicated
CPT/HCPCS: 36415; 51600; 51702; 51798; 56405; 74455; 76857; 80053; 81001; 83735; 84702; 85025; 87071; 87147; 87205; 99285; 99291

== ENCOUNTER 2022-01-09 11:20 | Outpatient (REF) | payer OTHER, SELFPAY ==
--- NOTE | 2022-01-09 11:24 | ECG_ITS ---
Test Reason : palpitations Blood Pressure : / mmHG Vent. Rate : 082 BPM Atrial Rate : 082 BPM P-R Int : 166 ms QRS Dur : 080 ms QT Int : 360 ms P-R-T Axes : 068 055 043 degrees QTc Int : 420 ms Normal sinus rhythm Normal ECG When compared with ECG of 28-NOV-2021 20:55, No significant change was found Referred By: Clyde Davalos Electronically Signed By:MICHAEL NEWBY
[2022-01-09 11:47] LABS: MANUAL DIFF FLAG NO
[2022-01-09 12:36] LABS: Basophils Percent Auto 0.3 % (0-2); Eosinophils Absolute Auto 0.1 X10*3/uL (0.0-0.4); Eosinophils Percent Auto 0.7 % (0-4); Hematocrit 45.8 % (37.0-47.0); Imm Gran Abs Auto 0.05 X10*3/uL (0.00-0.03); Imm Gran Pct Auto 0.4 % (0.0-0.4); Lymphocytes Absolute Auto 3.3 X10*3/uL (1.2-4.9); Lymphocytes Percent Auto 27.8 % (20-40); Mean Corpuscular HGB Conc 32.8 g/dl (31.0-35.0); Mean Corpuscular Hemoglobin 28.2 pg (27.0-33.0); Mean Corpuscular Volume 86.3 fL (80.0-98.0); Mean Platelet Volume 9.2 fL (9.4-12.3); Monocytes Absolute Auto 0.8 X10*3/uL (0.1-1.2); Monocytes Percent Auto 6.2 % (2-11); Neutrophils Absolute Auto 7.8 x10*3/uL (2.0-8.3); Neutrophils Percent Auto 64.6 % (45-73); Platelet Count 402 X10*3/uL (160-400); Red Blood Count 5.31 X10*6/uL (4.20-5.50); Red Cell Distribution Width 12.2 % (11.0-16.0)
[2022-01-09 12:59] LABS: Alanine Aminotransferase 20 U/L (0-31); Albumin Level 3.8 g/dL (3.5-5.0); Alkaline Phosphatase 59 U/L (39-117); Anion Gap 12 (12-20); Aspartate Amino Transferase 16 U/L (5-31); Bilirubin Total 0.6 mg/dL (0.0-1.0); Blood Urea Nitrogen 15 mg/dL (9-16); Calcium 9.6 mg/dL (8.4-10.2); Carbon Dioxide 27 mmol/L (22-29); Chloride 104 mmol/L (96-108); Estimated Glomerular Filt Rate > 60; Glucose Random 89 mg/dL (60-115); Potassium 4.5 mmol/L (3.3-5.1); Sodium 138 mmol/L (135-145); Total Protein 6.9 g/dL (6.5-8.0)
[2022-01-09 13:16] LABS: HBsAGNum1 0.22 S/CO (0.00-0.99); Hepatitis B Surface Antigen Negative (Negative)
[2022-01-09 13:17] LABS: Syphilis Screen Nonreactive (Nonreactive)
[2022-01-09 13:18] LABS: HIV AB/AG Nonreactive (Nonreactive); HIV Num 1 0.07 S/CO (0.00-0.99); ~HepC Num1 0.13 S/CO (0.00-0.79); ~Hepatitis C Antibody Nonreactive (Nonreactive)
[2022-01-09 13:20] LABS: TSH reflex Free T4 2.85 uIU/mL (0.32-4.0)
[2022-01-09 13:35] LABS: Erythrocyte Sedimentation Rate 26 MM/HR (0-20)
== END 2022-01-09 11:21 | disposition home or self-care (01) ==
LOC: HO.LAB 11:20
PROVIDERS: Obstetrics & Gynecology; PCP Internal Medicine; Visit Provider Internal Medicine
DX: R00.2 Palpitations (principal); D72.829 Elevated white blood cell count, unspecified; N76.0 Acute vaginitis; B96.89 Other specified bacterial agents as the cause of diseases classified elsewhere; Z11.3 Encounter for screening for infections with a predominantly sexual mode of transmission
CPT/HCPCS: 36415; 80053; 84443; 85025; 85652; 86780; 86803; 87340; 87389; 93005

== ENCOUNTER 2022-01-11 09:52 | Outpatient (REF) | payer OTHER, SELFPAY ==
[2022-01-11 15:36] LABS: CT PCR NOT DETECTED (Not Detect.); NG PCR NOT DETECTED (Not Detect.)
== END 2022-01-11 09:53 | disposition home or self-care (01) ==
LOC: HO.LAB 09:52
PROVIDERS: Visit Provider Obstetrics & Gynecology
DX: Z11.3 Encounter for screening for infections with a predominantly sexual mode of transmission (principal); N89.8 Other specified noninflammatory disorders of vagina
CPT/HCPCS: 87491; 87591; 99212

== ENCOUNTER 2022-01-15 22:29 | Emergency (ER) | payer OTHER, SELFPAY ==
[2022-01-15 22:42] VITALS: BP 134/88; PULSE 100; RESP 16; TEMP 36.6; O2SAT 98; BMI 36.9
[2022-01-16 00:45] VITALS: BP 129/84; PULSE 83; RESP 16; O2SAT 99
--- NOTE | 2022-01-16 00:54 | ED_ITS ---
HPI - Abdominal Pain General Chief Complaint: Abdominal Pain Stated Complaint: right side pain Time Seen by Provider: 01/16/22 00:53 Source: patient Mode of arrival: ambulatory Limitations: no limitations History of Present Illness HPI narrative: Patient recently has taken multiple antibiotics for Matthew duct cyst, urethral diverticulum since she should patient has taken antibiotics feeling stomach upset with nausea increased gas and diarrhea no vomiting seen her PCP on 01/09 advised to stop antibiotics patient still feeling same complaining of pain in epigastric right upper quadrant area. Patient has CT scan done earlier last year which was negative for any gallstones no fever no chills no urinary symptoms Related Data Previous Rx's Medication Instructions Recorded metronidazole 0.75 % vaginal gel 1 appful VAGINAL BEDTIME 5 Days 12/23/21 (Metrogel Vaginal) #70 g sitz bath ([facility] Sitz Bath) #1 ea 12/26/21 amoxicillin 500 mg tablet 500 mg PO TID 10 Days #30 tab 01/07/22 metronidazole 500 mg tablet 500 mg PO BID 10 Days #20 tab 01/07/22 cefuroxime axetil 500 mg tablet 500 mg PO BID 7 Days #14 tab 01/09/22 omeprazole 40 mg capsule,delayed 40 mg PO DAILY #20 cap 01/16/22 release sucralfate 1 gram tablet 1 g PO TID #30 tab 01/16/22 tramadol 50 mg tablet 50 mg PO Q6H PRN #20 tab 01/16/22 Allergies Allergy/AdvReac Type Severity Reaction Status Date / Time No Known Allergies Allergy Verified 01/15/22 22:42 Review of Systems Review of Systems Yes all other systems are reviewed and are negative [facility] Past Medical History Medical History Abnormal laboratory test Arthritis Depression Healthy adult History of cardiac disorder Hypothyroidism Immune disorder Insomnia Migraine Obesity (BMI 30-39.9) Smoker Surgical History History of delivery Family History Family History Mother Diabetes Maternal Grandmother Diabetes Sister HTN (hypertension) Social History Social History Housing: Apartment Alcohol intake: never Patient Tobacco Use Status: Former Tobacco user Tobacco use type: Cigarette e-Cigarette/Vaping Use: Currently Using Second Hand Smoke Exposure: Yes Advance Directives: No Advance Directives Information Provided: Yes Patient : No service: No Current occupational status: employed Cognitive needs: No Hearing needs: No Vision needs: No Physical Exam ED Vital Signs: Vital Signs - 24 hr 01/15/22 22:42 01/16/22 00:45 Temperature 97.8 F Pulse Rate 100 83 Respiratory Rate 16 16 Blood Pressure 134/88 129/84 Pulse Oximetry 98 99 BMI result Body Mass Index 36.9 Appearance: Alert. Oriented X3. No acute distress. Eyes: No pallor or icterus ENT: Pharynx normal. Oral Mucosa moist Neck: Normal inspection. Neck supple. CVS: Normal heart rate and rhythm. Pulses normal. Respiratory: No respiratory distress. Equal air entry bilateral, no wheezing/rales/rhonchi Abdomen: Soft and mild tenderness epigastric and right upper quadrant area no rebound tenderness guarding Bowel sounds are present, no mass palpable, no CVA tenderness Skin: Skin warm and dry. Normal skin color. Normal skin turgor. Extremities: No lower extremity edema. No calf tenderness Neuro: Oriented X 3. 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 Labs: Lab Results 01/16/22 Range/Units 01:09 Urine Color YELLOW Urine Appearance HAZY Urine pH 6.0 (5.0-8.0) Ur Specific Rogers >= 1.030 H (1.005-1.025) Urine Protein 3+ H (NEG-TRACE) MG/DL Urine Glucose (UA) NEG (NEG) MG/DL Urine Ketones NEG (NEG) MG/DL Urine Blood TRACE (NEG) Urine Nitrite NEG (NEG) Ur Leukocyte Esterase NEG (NEG) Discharge Plan Discharge Clinical Impression: Gastritis Patient Disposition: Home, Self-Care Instructions: Gastritis (ED) Additional Instructions: Take medication as advised and follow with PCP if not better Prescriptions: New omeprazole 40 mg capsule,delayed release(DR/EC) 40 mg PO DAILY Qty: 20 0RF sucralfate 1 gram tablet 1 g PO TID Qty: 30 0RF tramadol 50 mg tablet 50 mg PO Q6H PRN (Reason: pain) Qty: 20 0RF No Action metronidazole [Metrogel Vaginal] 0.75 % gel 1 appful vaginal BEDTIME 5 Days Qty: 70 0RF metronidazole 500 mg tablet 500 mg PO BID 10 Days Qty: 20 0RF amoxicillin 500 mg tablet 500 mg PO TID 10 Days Qty: 30 0RF (DME) [facility]x Sitz Bath Kit See Rx Instructions .Route Qty: 1 0RF Rx Instructions: As directed, twice a day cefuroxime axetil 500 mg tablet 500 mg PO BID 7 Days Qty: 14 0RF
[2022-01-16] MEDS: Magnesium Hydrox/Alum Hydrox 30 ML ORAL.SUSP PO (01:15)
[2022-01-16] MEDS: Omeprazole 40 MG CAPSULE.DR PO (01:15)
[2022-01-16 01:16] LABS: Appearance Urine HAZY; Color Urine YELLOW; Glucose Urine UA NEG (NEG); Leukocyte Esterase Urine NEG (NEG); Nitrite Urine NEG (NEG); Specific Gravity - Urine >= 1.030 (1.005-1.025); UACC Culture Trigger NO; Urine Blood TRACE (NEG); Urine Ketones NEG (NEG); Urine Protein 3+ MG/DL (NEG-TRACE)
[2022-01-16 01:25] LABS: Bacteria Urine 2+ /LPF; Hyaline Casts Urine 0-2 /LPF; Mucus Urine 2+ /LPF; Squamous Epithelial Cell Urine 2+ /LPF; UACC CULT YES
[2022-01-16] MEDS: traMADoL HCL 50 MG TABLET PO (01:30)
--- NOTE | 2022-01-16 01:39 | PC.NURSE ---
pt a&o, no sob or chest pain. pt reports having a bowel movement today. no n/v. Medicated per jan. Reviewed discharge instructions. Pt verbalized understanding.
== END 2022-01-16 01:42 | disposition home or self-care (01) ==
PROVIDERS: Emergency Provider Internal Medicine
DX: K29.70 Gastritis, unspecified, without bleeding (principal); R10.11 Right upper quadrant pain; F17.210 Nicotine dependence, cigarettes, uncomplicated; Z79.899 Other long term (current) drug therapy; Z71.6 Tobacco abuse counseling
CPT/HCPCS: 81001; 87086; 87147; 99284; 99285

== ENCOUNTER → 2022-01-17 13:06 | Outpatient (BNVA) | payer OTHER, SELFPAY | PROVIDERS: PCP Internal Medicine; Visit Provider Urology | DX: N39.0 Urinary tract infection, site not specified (principal); R39.12 Poor urinary stream | CPT/HCPCS: 99202 ==

== ENCOUNTER 2022-01-25 09:54 | Outpatient (REF) | payer OTHER, SELFPAY ==
[2022-01-25 10:57] LABS: Leukocytes Stool Qualitative NEGATIVE (NEGATIVE)
== END 2022-01-25 09:55 | disposition home or self-care (01) ==
LOC: HO.LNP 09:54
PROVIDERS: Visit Provider Nurse Practitioner Family
DX: R10.84 Generalized abdominal pain (principal); R19.8 Other specified symptoms and signs involving the digestive system and abdomen; R14.2 Eructation; R14.0 Abdominal distension (gaseous)
CPT/HCPCS: 87045; 87046; 87338; 89055

== ENCOUNTER → 2022-01-30 08:05 | Outpatient (BNVA) | payer OTHER, SELFPAY | PROVIDERS: PCP Physician Assistant; Visit Provider Obstetrics & Gynecology | DX: N89.8 Other specified noninflammatory disorders of vagina (principal) | CPT/HCPCS: 99212 ==

== ENCOUNTER → 2022-02-01 08:45 | Outpatient (REF) | payer OTHER, SELFPAY ==
--- NOTE | 2022-02-01 08:51 | ECG_ITS ---
Test Reason : ck rhyrhm Blood Pressure : / mmHG Vent. Rate : 091 BPM Atrial Rate : 091 BPM P-R Int : 166 ms QRS Dur : 082 ms QT Int : 358 ms P-R-T Axes : 060 048 036 degrees QTc Int : 440 ms Normal sinus rhythm Normal ECG When compared with ECG of 09-JAN-2022 11:25, No significant change was found Referred By: Francisca Rehman Electronically Signed By:MICHAEL NEWBY
== END ==
LOC: HO.CARD 08:45
PROVIDERS: PCP Physician Assistant; Visit Provider Nurse Practitioner Family
DX: R07.9 Chest pain, unspecified (principal); K64.9 Unspecified hemorrhoids
CPT/HCPCS: 46600; 93005; 99202

== ENCOUNTER → 2022-02-06 11:04 | Outpatient (BNVA) | payer OTHER, SELFPAY | PROVIDERS: PCP Physician Assistant; Visit Provider Obstetrics & Gynecology | DX: Z30.09 Encounter for other general counseling and advice on contraception (principal); N89.8 Other specified noninflammatory disorders of vagina | CPT/HCPCS: 99212 ==

== ENCOUNTER 2022-02-09 08:35 | Outpatient (REF) | payer OTHER, SELFPAY ==
--- NOTE | ~2022-02-09 | CT_ITS ---
EXAMINATION: CT ABDOMEN AND PELVIS WITH CONTRAST CLINICAL INFORMATION: Abdominal pain. COMPARISON: Previous CT of the abdomen and pelvis May 2021. TECHNIQUE: Multidetector volumetric images were obtained from the superior aspect of the liver through the pubic symphysis following administration 85 mL of Omnipaque 350 intravenous contrast. Sagittal and coronal reformatted images were obtained on the technologist's workstation. Oral contrast: Yes This CT examination was performed using dose optimization techniques as appropriate, variously including the following: *Automated exposure control *Adjustment of mA and/or kV according to patient size (this includes techniques or standardized protocols for targeted exams where dose is matched to indication/reason for exam; i.e. extremities or head) *Use of iterative reconstruction technique DLP: 674 mGy-cm FINDINGS: LUNG BASES: The visualized lung bases are unremarkable. LIVER, GALLBLADDER, AND BILIARY TREE: The liver is normal in size, shape, and attenuation. No focal hepatic lesion or biliary ductal dilatation is present. The gallbladder is unremarkable with no evidence of radiopaque gallstones, gallbladder wall thickening, or obvious pericholecystic inflammatory changes. PANCREAS: Unremarkable. SPLEEN: Unremarkable. ADRENAL GLANDS: Unremarkable. KIDNEYS AND URETERS: There is a 1 cm predominately fatty lesion in the upper pole of the right kidney. This may be slightly increased in size from previous exam when this measured 8 mm. There are areas of bilateral upper pole renal cortical thinning or scarring. The kidneys are otherwise unremarkable. BLADDER: Not optimally distended. GASTROINTESTINAL TRACT: The small and large bowel are unremarkable. The appendix is unremarkable. ABDOMINAL WALL: No significant hernia is appreciated. LYMPH NODES: Normal. VASCULAR: Unremarkable. PELVIC VISCERA: Unremarkable. OSSEOUS STRUCTURES: Unremarkable. CT/CT abdomen pelvis w con IMPRESSION: Question slight interval increase in size in the now 1 cm fatty lesion in the upper pole of the right kidney probably representing an angiomyolipoma. Fleischner guidelines were followed.
[2022-02-09] MEDS: iohexoL 350 MG/ML 100 ML INFUS..BTL IV (11:17)
[2022-02-09] MEDS: Barium Sulfate Oral (Vanilla) 450 ML ORAL.SUSP 900 ML PO (11:18)
== END 2022-02-09 08:36 | disposition home or self-care (01) ==
LOC: HO.CT 08:35
PROVIDERS: Visit Provider Nurse Practitioner Family
DX: R10.84 Generalized abdominal pain (principal); R14.0 Abdominal distension (gaseous); R14.2 Eructation; R19.8 Other specified symptoms and signs involving the digestive system and abdomen
CPT/HCPCS: 74177; Q9967

== ENCOUNTER → 2022-02-16 10:32 | Outpatient (BNVA) | payer OTHER, SELFPAY | PROVIDERS: PCP Physician Assistant; Visit Provider Urology | DX: N39.0 Urinary tract infection, site not specified (principal) | CPT/HCPCS: Q3014 ==

== ENCOUNTER 2022-02-27 15:59 | Outpatient (REF) | payer OTHER, SELFPAY ==
[2022-02-27 16:52] LABS: Hematocrit 47.4 % (37.0-47.0); Hemoglobin 15.4 g/dl (12.0-16.0); Mean Corpuscular HGB Conc 32.5 g/dl (31.0-35.0); Mean Corpuscular Hemoglobin 28.2 pg (27.0-33.0); Mean Corpuscular Volume 86.7 fL (80.0-98.0); Platelet Count 396 X10*3/uL (160-400); Red Blood Count 5.47 X10*6/uL (4.20-5.50); Red Cell Distribution Width 12.1 % (11.0-16.0); White Blood Count 13.8 X10*3/uL (4.8-10.8)
[2022-02-27 17:24] LABS: Lipase 30 U/L (8-78); Rheumatoid Factor < 15.0 IU/mL (<15.0)
[2022-02-28 10:01] LABS: Complement C3 140 mg/dL (83-193)
[2022-03-01 15:06] LABS: Anti Nuclear Antibody Screen NEGATIVE (NEGATIVE)
[2022-03-02 16:05] LABS: Cyclic Citrullinated Peptide <16 UNITS
== END 2022-02-27 16:00 | disposition home or self-care (01) ==
LOC: HO.LAB 15:59
PROVIDERS: PCP Physician Assistant; Visit Provider Physician Assistant
DX: R14.0 Abdominal distension (gaseous) (principal); D89.9 Disorder involving the immune mechanism, unspecified
CPT/HCPCS: 36415; 83690; 85027; 86038; 86039; 86160; 86200; 86431

== ENCOUNTER → 2022-02-28 08:45 | Outpatient (BNVA) | payer OTHER, SELFPAY | PROVIDERS: PCP Physician Assistant; Visit Provider Obstetrics & Gynecology | DX: Z30.430 Encounter for insertion of intrauterine contraceptive device (principal) | CPT/HCPCS: 58300; 81025 ==

== ENCOUNTER 2022-03-01 14:45 | Emergency (ER) | payer OTHER, SELFPAY | END 2022-03-01 19:32 | disposition left against medical advice (07) | PROVIDERS: Emergency Provider Emergency Medicine; PCP Physician Assistant | DX: T83.9XXA Unspecified complication of genitourinary prosthetic device, implant and graft, initial encounter (principal); Y76.8 Miscellaneous obstetric and gynecological devices associated with adverse incidents, not elsewhere classified; Y92.9 Unspecified place or not applicable | CPT/HCPCS: 99212 ==

== ENCOUNTER 2022-03-01 15:50 | Outpatient (REF) | payer OTHER, SELFPAY ==
--- NOTE | ~2022-03-01 | US_ITS ---
EXAMINATION: US PELVIC AND TRANSVAGINAL CLINICAL INFORMATION: Pelvic and perineal pain. IUD inserted yesterday. COMPARISON: None TECHNIQUE: Ultrasound of the pelvis is performed using both transabdominal and transvaginal transducers along with Doppler. Transvaginal imaging is performed due to inadequate visualization transabdominally. FINDINGS: UTERUS: The uterus is anteverted, anteflexed and measures 7.7 x 3.6 x 4.2 cm. The double wall endometrial thickness is not visualized due to IUD. IUD appears to be in correct position within the endometrial canal.. The uterus is smooth in contour and has normal myometrial echogenicity. No visible fibroid. There is a complex nabothian cyst in the cervix measuring 0.8 x 0.7 x 0.7 cm. ADNEXA: Both ovaries are visualized. There is normal color flow to the adnexa. There is no ovarian torsion. There is no pelvic ascites or fluid collection. Right ovary measures 3.4 x 2.8 x 3.1 cm and volume 15.5 mL. There are small follicular cysts seen. Previously right ovary measured 3.5 x 2.4 x 2.4 cm. Left ovary measures 3.1 x 1.8 x 2.0 cm and volume 5.8 mL. There is a complex cyst with septation measuring 1.0 x 1.3 x 0.8 cm. US/US pelvic and transvaginal IMPRESSION: IUD is in correct position within the endometrial canal. Endometrial thickness cannot be measured due to IUD. The uterus is unremarkable. Small follicular cysts seen in the right ovary. There is a complex cyst with septation in the left ovary. There is no free fluid in cul-de-sac.
== END 2022-03-01 15:51 | disposition home or self-care (01) ==
LOC: HO.US 15:50
PROVIDERS: PCP Physician Assistant; Visit Provider Obstetrics & Gynecology
DX: R10.2 Pelvic and perineal pain (principal)
CPT/HCPCS: 76830; 76856

== ENCOUNTER 2022-03-09 16:14 | Outpatient (REF) | payer OTHER, SELFPAY ==
[2022-03-11 09:31] LABS: CA 125 New Method 9 U/mL (<35); CA-125 9 U/mL (<35)
== END 2022-03-09 16:15 | disposition home or self-care (01) ==
LOC: HO.LAB 16:14
PROVIDERS: PCP Physician Assistant; Visit Provider Obstetrics & Gynecology
DX: N83.299 Other ovarian cyst, unspecified side (principal)
CPT/HCPCS: 36415; 86304

== ENCOUNTER → 2022-03-13 14:29 | Outpatient (BNVA) | payer OTHER, SELFPAY | PROVIDERS: Visit Provider Obstetrics & Gynecology | DX: Z13.89 Encounter for screening for other disorder (principal) ==

== ENCOUNTER 2022-03-21 17:16 | Outpatient (REF) | payer OTHER, SELFPAY ==
[2022-03-21 17:31] LABS: MANUAL DIFF FLAG NO
[2022-03-21 17:54] LABS: Appearance Urine HAZY; Color Urine YELLOW; Glucose Urine UA NEG (NEG); Leukocyte Esterase Urine NEG (NEG); Nitrite Urine NEG (NEG); PH 5.5 (5.0-8.0); Specific Gravity - Urine >= 1.030 (1.005-1.025); UACC Culture Trigger NO; Urine Blood 3+ (NEG); Urine Ketones NEG (NEG); Urine Protein 3+ MG/DL (NEG-TRACE)
[2022-03-21 18:02] LABS: Squamous Epithelial Cell Urine 2+ /LPF
[2022-03-21 18:03] LABS: Bacteria Urine 1+ /LPF
[2022-03-21 18:04] LABS: WBC Urine 0 /HPF (0-4)
[2022-03-21 18:10] LABS: Creatinine Urine 240.58 mg/dL
[2022-03-21 18:11] LABS: Anion Gap 13 (12-20); Blood Urea Nitrogen 16 mg/dL (9-16); Calcium 9.5 mg/dL (8.4-10.2); Carbon Dioxide 23 mmol/L (22-29); Chloride 107 mmol/L (96-108); Estimated Glomerular Filt Rate > 60; Iron 36 mcg/dL (30-160); Percent Iron Saturation 14 % (15-50); Potassium 4.3 mmol/L (3.3-5.1); Sodium 139 mmol/L (135-145); Total Iron Binding Capacity 266 mcg/dL (228-428); Total Protein 6.7 g/dL (6.5-8.0); Unsaturated Iron Binding 230 ug/dL
[2022-03-21 18:17] LABS: Basophils Absolute Auto 0.1 X10*3/uL (0.0-0.2); Basophils Percent Auto 0.4 % (0-2); Eosinophils Absolute Auto 0.1 X10*3/uL (0.0-0.4); Eosinophils Percent Auto 0.7 % (0-4); Hematocrit 43.3 % (37.0-47.0); Hemoglobin 14.5 g/dl (12.0-16.0); Imm Gran Abs Auto 0.09 X10*3/uL (0.00-0.03); Imm Gran Pct Auto 0.6 % (0.0-0.4); Lymphocytes Absolute Auto 4.5 X10*3/uL (1.2-4.9); Lymphocytes Percent Auto 30.5 % (20-40); Mean Corpuscular HGB Conc 33.5 g/dl (31.0-35.0); Mean Corpuscular Hemoglobin 28.5 pg (27.0-33.0); Mean Corpuscular Volume 85.2 fL (80.0-98.0); Mean Platelet Volume 9.2 fL (9.4-12.3); Monocytes Absolute Auto 0.9 X10*3/uL (0.1-1.2); Monocytes Percent Auto 6.1 % (2-11); Neutrophils Absolute Auto 9.2 x10*3/uL (2.0-8.3); Neutrophils Percent Auto 61.7 % (45-73); Platelet Count 393 X10*3/uL (160-400); Red Blood Count 5.08 X10*6/uL (4.20-5.50); Red Cell Distribution Width 12.1 % (11.0-16.0); White Blood Count 14.8 X10*3/uL (4.8-10.8)
[2022-03-21 18:32] LABS: Ferritin 45 ng/mL (10-122)
== END 2022-03-21 17:17 | disposition home or self-care (01) ==
LOC: HO.LAB 17:16
PROVIDERS: PCP Physician Assistant; Visit Provider Internal Medicine Nephrology
DX: R80.8 Other proteinuria (principal)
CPT/HCPCS: 36415; 80051; 81001; 82310; 82565; 82728; 83540; 84155; 84520; 85025

== ENCOUNTER → 2022-03-29 08:40 | Outpatient (BNVA) | payer OTHER, SELFPAY | PROVIDERS: PCP Physician Assistant; Visit Provider Obstetrics & Gynecology | DX: Z30.431 Encounter for routine checking of intrauterine contraceptive device (principal) | CPT/HCPCS: 81025; 99212 ==

== ENCOUNTER 2022-04-26 08:47 | Outpatient (REF) | payer OTHER, SELFPAY ==
[2022-04-26 15:10] LABS: CT PCR NOT DETECTED (Not Detect.); NG PCR NOT DETECTED (Not Detect.)
[2022-04-27 12:29] LABS: BV Int Neg Control Negative (Negative); BV Int Pos Control Positive (Positive)
== END 2022-04-26 08:48 | disposition home or self-care (01) ==
LOC: HO.LAB 08:47
PROVIDERS: PCP Physician Assistant; Visit Provider Advanced Practice Midwife
DX: R30.0 Dysuria (principal); R35.0 Frequency of micturition; Z30.431 Encounter for routine checking of intrauterine contraceptive device; Z32.02 Encounter for pregnancy test, result negative; Z87.440 Personal history of urinary (tract) infections; Z20.2 Contact with and (suspected) exposure to infections with a predominantly sexual mode of transmission
CPT/HCPCS: 81003; 81025; 87086; 87480; 87491; 87510; 87591; 87660; 99212

== ENCOUNTER 2022-05-01 14:40 | Outpatient (REF) | payer OTHER, SELFPAY ==
[2022-05-01 15:08] LABS: Binax Internal Control QC Valid; Binax Now Covid-19 Ag Negative (Negative)
== END 2022-05-01 14:41 | disposition home or self-care (01) ==
LOC: HO.HMGCLDS 14:40
PROVIDERS: Visit Provider Physician Assistant
DX: J02.9 Acute pharyngitis, unspecified (principal); Z20.822 Contact with and (suspected) exposure to COVID-19
CPT/HCPCS: 87811; C9803

== ENCOUNTER 2022-05-05 10:24 | Outpatient (REF) | payer OTHER, SELFPAY ==
--- NOTE | ~2022-05-05 | XR_ITS ---
EXAMINATION: XR ABDOMEN WITH DECUBITUS VIEWS CLINICAL INDICATION: Chronic idiopathic constipation. COMPARISON: None TECHNIQUE: CT abdomen 02/09/2022. FINDINGS: There is moderate stool and gas seen throughout the colon without any significant distention. There is no organomegaly. No radiopaque calculi. No gross bony abnormality. Incidental finding of an IUD in the pelvis is noted. XR/XR abdomen w decubitus IMPRESSION: Unremarkable KUB.
[2022-05-05 13:00] LABS: Alanine Aminotransferase 18 U/L (0-31); Albumin Level 3.7 g/dL (3.5-5.0); Alkaline Phosphatase 54 U/L (39-117); Anion Gap 11 (12-20); Aspartate Amino Transferase 13 U/L (5-31); Bilirubin Total 0.7 mg/dL (0.0-1.0); Blood Urea Nitrogen 13 mg/dL (9-16); Calcium 9.3 mg/dL (8.4-10.2); Carbon Dioxide 26 mmol/L (22-29); Chloride 105 mmol/L (96-108); Estimated Glomerular Filt Rate > 60; Glucose Random 84 mg/dL (60-115); Lipase 31 U/L (8-78); Potassium 4.3 mmol/L (3.3-5.1); Sodium 138 mmol/L (135-145); Total Protein 6.5 g/dL (6.5-8.0)
[2022-05-05 13:07] LABS: TSH reflex Free T4 2.06 uIU/mL (0.32-4.0)
== END 2022-05-05 10:25 | disposition home or self-care (01) ==
LOC: HO.LAB 10:24
PROVIDERS: PCP Physician Assistant; Visit Provider Nurse Practitioner
DX: R11.2 Nausea with vomiting, unspecified (principal); R63.4 Abnormal weight loss; K59.04 Chronic idiopathic constipation
CPT/HCPCS: 36415; 74021; 80053; 83690; 84443; 99202

== ENCOUNTER 2022-05-15 12:51 | Outpatient (REF) | payer OTHER, SELFPAY ==
--- NOTE | ~2022-05-15 | US_ITS ---
EXAMINATION: US PELVIS CLINICAL INFORMATION: Ovarian cyst. COMPARISON: 03/01/2022. TECHNIQUE: Ultrasound of the pelvis is performed using both transabdominal and transvaginal transducers along with Doppler. Transvaginal imaging is performed due to inadequate visualization transabdominally. FINDINGS: Uterus: The uterus is anteverted and measures 8.2 x 3.9 x 4.5 cm. Numerous nabothian cysts are present with a few containing some echoes consistent with complex cysts. IUD is seen in place and appears to be normal in position. The uterus is smooth in contour and has normal myometrial echogenicity. No visible fibroid. Adnexa: Both ovaries are visualized. There is normal color flow to the adnexa. There is no ovarian torsion. There is no pelvic ascites or fluid collection. Right ovary measures 3.4 x 2.0 x 2.5 cm. Volume of 8.9 mL with no abnormality appreciated. Left ovary measures 3.5 x 1.9 x 2.5 cm. Volume of 8.7 mL. No remarkable left adnexal findings. US/US pelvic and transvaginal IMPRESSION: Complex nabothian cyst. No adnexal cysts identified.
== END 2022-05-15 12:52 | disposition home or self-care (01) ==
LOC: HO.US 12:51
PROVIDERS: Visit Provider Obstetrics & Gynecology
DX: N83.299 Other ovarian cyst, unspecified side (principal)
CPT/HCPCS: 76830; 76856

== ENCOUNTER 2022-06-16 10:25 | Outpatient (REF) | payer MEDICAID, SELFPAY ==
[2022-06-20 07:32] LABS: Transglutaminase Ab IgG <1.0 U/mL; Transglutaminase IgA <1.0 U/mL
== END 2022-06-16 10:26 | disposition home or self-care (01) ==
LOC: HO.LAB 10:25
PROVIDERS: Absent Provider Nurse Practitioner; PCP Physician Assistant; Visit Provider Physician Assistant
DX: K59.04 Chronic idiopathic constipation (principal); K21.9 Gastro-esophageal reflux disease without esophagitis; K64.9 Unspecified hemorrhoids; R63.4 Abnormal weight loss; R14.0 Abdominal distension (gaseous)
CPT/HCPCS: 36415; 86003; 86364; 99212

== ENCOUNTER → 2022-07-03 11:05 | Outpatient (BNVA) | payer OTHER, SELFPAY | PROVIDERS: PCP Physician Assistant; Visit Provider Obstetrics & Gynecology | DX: N94.6 Dysmenorrhea, unspecified (principal); Z30.9 Encounter for contraceptive management, unspecified | CPT/HCPCS: 99212 ==

== ENCOUNTER → 2022-07-07 11:00 | Outpatient (BNVA) | payer OTHER, SELFPAY | PROVIDERS: PCP Physician Assistant; Visit Provider Nurse Practitioner | DX: R14.0 Abdominal distension (gaseous) (principal); K59.04 Chronic idiopathic constipation; K21.9 Gastro-esophageal reflux disease without esophagitis; K64.9 Unspecified hemorrhoids | CPT/HCPCS: 99212 ==

== ENCOUNTER → 2022-07-13 14:34 | Outpatient (BNVA) | payer OTHER, SELFPAY | PROVIDERS: PCP Physician Assistant; Visit Provider Obstetrics & Gynecology | DX: Z30.432 Encounter for removal of intrauterine contraceptive device (principal); F33.2 Major depressive disorder, recurrent severe without psychotic features | CPT/HCPCS: 58301; 99212 ==

== ENCOUNTER → 2022-08-18 10:45 | Outpatient (BNVA) | payer OTHER, SELFPAY | PROVIDERS: PCP Physician Assistant; Referring Provider Physician Assistant; Visit Provider Nurse Practitioner | DX: K59.04 Chronic idiopathic constipation (principal); K21.9 Gastro-esophageal reflux disease without esophagitis; R14.0 Abdominal distension (gaseous); K64.9 Unspecified hemorrhoids; R10.10 Upper abdominal pain, unspecified | CPT/HCPCS: 99212 ==

== ENCOUNTER → 2022-08-25 07:55 | Outpatient (REF) | payer OTHER, SELFPAY ==
--- NOTE | ~2022-08-25 | NM_ITS ---
EXAMINATION: BILIARY TRACT IMAGING STUDY WITH CCK CLINICAL INFORMATION: Upper abdominal pain, unspecified.. COMPARISON: CT of the abdomen and pelvis done on 02/09/2022.. TECHNIQUE: Serial gamma scintillation camera images were obtained over the abdomen for a total observation period of 60 minutes following the intravenous administration of 5 mCi Tc-99m mebrofenin. FINDINGS: There is good concentration of activity in the liver by 5 minutes post injection. Biliary activity is visualized by 15 minutes. The gallbladder is well visualized by 61 minutes. Small bowel is well visualized by 20 minutes. At 120 minutes post radiopharmaceutical injection, a 30-minute infusion of 2.1 micrograms Sincalide was then begun and an additional 40 minutes of images were obtained. There is good emptying of the gallbladder. By the end of the study there is good clearance of activity from the liver and visualization of diffuse small bowel activity. The calculated gallbladder ejection fraction is 80% (normal gallbladder ejection fraction is greater than 35%). NM/NM hepatobiliary w pharm IMPRESSION: Visualization of the gallbladder is evidence of a patent cystic duct and strong evidence against the diagnosis of acute cholecystitis. The common bile duct is patent. Gallbladder emptying and ejection fraction are normal. Liver function appears normal.
--- NOTE | ~2022-08-25 | XR_ITS ---
EXAMINATION: XR CERVICAL SPINE CLINICAL INFORMATION: Segment on somatic dysfunction COMPARISON: None TECHNIQUE: 3 views of the cervical spine were obtained. FINDINGS: There is normal cervical lordosis. The vertebral heights, alignment and disc heights are normal. On oblique view the neural foramina are patent. No lytic or sclerotic process seen. The prevertebral soft tissues are normal. XR/XR cervical spine 4V IMPRESSION: Unremarkable cervical spine exam.
== END ==
LOC: HO.NUCMED 07:55
PROVIDERS: Absent Provider Physician Assistant; PCP Physician Assistant; Visit Provider Nurse Practitioner
DX: M99.01 Segmental and somatic dysfunction of cervical region (principal); R10.10 Upper abdominal pain, unspecified
CPT/HCPCS: 72050; 78227; A9537; J2805

== ENCOUNTER 2022-08-27 15:40 | Emergency (ER) | payer OTHER, SELFPAY ==
--- NOTE | ~2022-08-27 | CT_ITS ---
EXAMINATION: NONCONTRAST HEAD CT NONCONTRAST CERVICAL SPINE CT INDICATION INFORMATION: Headache and chronic neck pain and numbness COMPARISON: Head CT 03/04/2021 TECHNIQUE: Separate noncontrast CT examinations of the head and cervical spine were performed. Coronal and sagittal images were created for each examination at the technologist workstation. This CT examination was performed using dose optimization techniques as appropriate, variously including the following: *Automated exposure control *Adjustment of mA and/or kV according to patient size (this includes techniques or standardized protocols for targeted exams where dose is matched to indication/reason for exam; i.e. extremities or head) *Use of iterative reconstruction technique DLP: 1226 mGy-cm FINDINGS: HEAD: No intra or extra-axial fluid collection, hemorrhage, or mass. No ventriculomegaly. No midline shift or herniation. Basal cisterns are patent. Simpson-white matter differentiation is maintained. No territorial encephalomalacia. No significant volume loss. There is no abnormal attenuation within the brain parenchyma. No calvarial fracture or soft tissue abnormality. The mastoid air cells and visualized portions of the paranasal sinuses are well aerated. CERVICAL SPINE: Alignment: Normal. No subluxation. Vertebra: No acute fracture. No prevertebral soft tissue swelling. Degenerative disc disease: No significant. Preserved intervertebral disc heights. No gross disc herniation-limited assessment. Other findings: No cervical lymphadenopathy. Visualized lung apices are clear. Irregular hypoattenuation throughout the thyroid gland. CT/CT cervical spine wo IV con IMPRESSION: 1. No acute intracranial pathology. 2. No subluxation or fracture in the cervical spine. 3. No cervical disc degenerative change. No gross disc herniation and the cervical spine-limited assessment. 4. Abnormal thyroid gland which may be due to multinodular goiter or underlying diffuse thyroid disease. Correlate with history and prior workup.
[2022-08-27 15:43] VITALS: BP 132/76; PULSE 103; RESP 18; TEMP 36.3; O2SAT 98; BMI 34.7
[2022-08-27 21:40] LABS: MANUAL DIFF FLAG NO
[2022-08-27 21:41] LABS: Basophils Absolute Auto 0.1 X10*3/uL (0.0-0.2); Basophils Percent Auto 0.5 % (0-2); Eosinophils Absolute Auto 0.1 X10*3/uL (0.0-0.4); Hematocrit 43.6 % (37.0-47.0); Hemoglobin 14.6 g/dl (12.0-16.0); Imm Gran Abs Auto 0.03 X10*3/uL (0.00-0.03); Imm Gran Pct Auto 0.2 % (0.0-0.4); Lymphocytes Absolute Auto 4.4 X10*3/uL (1.2-4.9); Mean Corpuscular HGB Conc 33.5 g/dl (31.0-35.0); Mean Corpuscular Hemoglobin 28.2 pg (27.0-33.0); Mean Corpuscular Volume 84.2 fL (80.0-98.0); Mean Platelet Volume 8.7 fL (9.4-12.3); Monocytes Absolute Auto 0.7 X10*3/uL (0.1-1.2); Monocytes Percent Auto 5.9 % (2-11); Neutrophils Absolute Auto 7.2 x10*3/uL (2.0-8.3); Neutrophils Percent Auto 57.4 % (45-73); Platelet Count 361 X10*3/uL (160-400); Red Blood Count 5.18 X10*6/uL (4.20-5.50); Red Cell Distribution Width 12.1 % (11.0-16.0); White Blood Count 12.6 X10*3/uL (4.8-10.8)
[2022-08-27 21:57] LABS: Alanine Aminotransferase 16 U/L (0-31); Albumin Level 3.8 g/dL (3.5-5.0); Alkaline Phosphatase 56 U/L (39-117); Anion Gap 14 (12-20); Aspartate Amino Transferase 15 U/L (5-31); Bilirubin Total 0.4 mg/dL (0.0-1.0); Blood Urea Nitrogen 14 mg/dL (9-16); Calcium 8.9 mg/dL (8.4-10.2); Carbon Dioxide 24 mmol/L (22-29); Chloride 106 mmol/L (96-108); Creatinine Clr Calc Pharmacy 124.6; Estimated Glomerular Filt Rate > 60; Glucose Random 96 mg/dL (60-115); Potassium 4.1 mmol/L (3.3-5.1); Sodium 140 mmol/L (135-145); Total Protein 6.7 g/dL (6.5-8.0)
[2022-08-27 22:38] VITALS: BP 117/74; PULSE 76; RESP 14; TEMP 36.8; O2SAT 100
--- NOTE | 2022-08-27 22:40 | ED.GENADULT ---
HPI - General Adult General Chief complaint: General Medical Stated complaint: Severe neck pain Time Seen by Provider: 08/27/22 22:40 Source: patient Mode of arrival: ambulatory Limitations: no limitations History of Present Illness HPI narrative: 31-year-old female presents for evaluation of shooting pain to bilateral sides of her neck and back, loss of balance, brain fog, and overall feeling of unwellness. She states that she does have some numbness going down her arms, and feels that her chronic neck pain has been worsening. She does have chronic abdominal pain with bloating, and she follows with Gastroenterology on a regular basis. She does have a history of recurrent UTIs. she does not report fevers or chills, denies chest pain and pressure, palpitations, shortness of breath, abdominal distention, dysuria, hematuria, symptoms indicating cauda equina, recent viral syndrome, or trauma. Onset (ago): week(s) Location: neck, back and abdomen Radiation: extremity Severity: severe Severity scale (1-10): 9 Quality: stabbing and aching Pain Consistency: intermittent and colicky Relieving factors: none Exacerbating factors: movement Treatments prior to arrival: NSAID Related Data Home Medications Medication Instructions Recorded Confirmed dicyclomine 20 mg tablet 20 mg PO TID PRN abdominal pain 07/07/22 Previous Rx's Medication Instructions Recorded ondansetron 8 mg disintegrating 8 mg PO Q12H PRN nausea and 06/08/22 tablet vomiting 10 days #20 tabs hydrocortisone 2.5 % topical cream 1 appl [place] BID hemorrhoids #30 grams 06/16/22 with perineal applicator (Proctosol HC) linaclotide 145 mcg capsule 145 mcg PO QAM #30 caps 06/16/22 (Linzess) pantoprazole 40 mg tablet,delayed 40 mg PO DAILY 30 days #30 tabs 06/16/22 release nitrofurantoin 100 mg PO Q12H 5 days #10 caps 08/28/22 monohydrate/macrocrystals 100 mg capsule (Macrobid) Allergies Allergy/AdvReac Type Severity Reaction Status Date / Time codeine Allergy Intermediate Shakiness Verified 08/18/22 10:59 bees Allergy Unknown Swelling Uncoded 08/14/22 15:10 hornet Allergy Unknown Swelling Uncoded 08/14/22 15:10 Review of Systems Review of Systems: Constitutional: Positive brain fog, No Fever, No Chills ENT/Mouth: No Ear Pain, No Hoarseness, No sore throat Eyes: No Eye Pain, No Swelling, No Redness, No Foreign Body Cardiovascular: No Chest Pain, No SOB Respiratory: No Cough, No Dyspnea Gastrointestinal: No Nausea, No Vomiting, No Diarrhea, No abdominal Pain Genitourinary: No Dysuria, No Hematuria Musculoskeletal: positive neck, back pain, No Myalgias, No Joint Swelling Skin: No Skin lacerations, No rash Neuro: No Weakness, positive bilateral upper extremity intermittent Numbness, positive loss of balance, No Paresthesias, No Loss of Consciousness, No Dizziness, No Headache Psych: No Anxiety/Panic, No Depression Heme/Lymph: no easy bruising, no Lymphadenopathy Endocrine: No Polyuria, No Polydipsia Yes all other systems are reviewed and are negative [facility] Past Medical History Attestation statement: The following information was validated with the patient. Source: old records reviewed Medical History Abnormal laboratory test Arthritis Bleeding hemorrhoids Depression Healthy adult History of cardiac disorder Hypothyroidism Immune disorder Insomnia Migraine Obesity (BMI 30-39.9) Postprandial abdominal bloating Smoker Surgical History History of delivery Family History Family History Mother Diabetes Maternal Grandmother Diabetes Sister HTN (hypertension) Social History Social History Housing: Apartment Alcohol intake: never Patient Tobacco Use Status: Current everyday Tobacco user Tobacco use type: Cigarette Years Smoked: 10 years e-Cigarette/Vaping Use: Currently Using Second Hand Smoke Exposure: Yes Advance Directives: No Advance Directives Information Provided: No service: No Current occupational status: employed Current occupational exposures/hazards: No Cognitive needs: No Hearing needs: No Vision needs: Yes Physical Exam ED Vital Signs: Vital Signs - 24 hr 08/27/22 15:43 08/27/22 22:38 Temperature 97.4 F 98.3 F Pulse Rate 103 H 76 Respiratory Rate 18 14 Blood Pressure 132/76 117/74 Pulse Oximetry 98 100 Oxygen Delivery Method Room Air Room Air BMI result Body Mass Index 34.7 Appearance: Alert. Oriented X3. No acute distress. Eyes: Pupils equal, round and reactive to light. ENT: Pharynx normal. Neck: Normal inspection. Neck supple. CVS: Normal heart rate and rhythm. Pulses normal. Respiratory: No respiratory distress. Breath sounds normal. Abdomen: Soft and nontender. Skin: Skin warm and dry. Normal skin color. Normal skin turgor. Extremities: No lower extremity edema. Gait well-balanced well coordinated. Neuro: No motor deficit. No sensory deficit. Cranial nerves 2-12 intact. Course Course Course Narrative: 31-year-old female presents with chronic worsening neck and back pain, upper extremity numbness that radiates from her neck to her shoulders, loss of balance, brain fog, and chronic abdominal pain. Review of records indicates the patient has had several neck pain evaluations over the past few years . Patient is neurovascularly intact, is able to move all extremities without difficulty, and has even and steady gait. Patient's lab values are within normal limits, urinalysis indicates UTI. At this time will order CT scan of neck and head as she does report a [place]ner neuro complaints the upper extremities. CT scan of head and neck are negative for acute findings. 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 However she must follow-up with Endocrine for primary care for further evaluation to rule out possibility of malignancy. While patient's CT scan is negative, I do feel that patient's chronic pain and numbness, that patient should have an outpatient MRI. Will treat for UTI with Macrobid, I did discuss nonsurgical options for pain management, like yoga and to continue with measures that she states alleviates her symptoms like chiropractic treatments. Patient verbalized understanding of and agrees to plan of care discharge home. Verbalized understanding of signs and symptoms indicating need for emergent intervention. Medical Decision Making Differential Diagnosis Differential Diagnosis: Degenerative disc disease, disc herniation, muscle spasm Medical Records Medical records reviewed: Yes I reviewed the patient's medical records. Lab Data Lab results reviewed: Yes I reviewed the patient's lab results. Result diagrams: 08/27/22 21:36 08/27/22 21:36 Labs: Lab Results 08/27/22 08/27/22 08/27/22 Range/Units 21:36 21:36 22:46 WBC 12.6 H (4.8-10.8) X10*3/uL RBC 5.18 (4.20-5.50) X10*6/uL Hgb 14.6 (12.0-16.0) g/dl Hct 43.6 (37.0-47.0) % MCV 84.2 (80.0-98.0) fL MCH 28.2 (27.0-33.0) pg MCHC 33.5 (31.0-35.0) g/dl RDW 12.1 (11.0-16.0) % Plt Count 361 (160-400) X10*3/uL MPV 8.7 L (9.4-12.3) fL Immature Gran % (Auto) 0.2 (0.0-0.4) % Neut % (Auto) 57.4 (45-73) % Lymph % (Auto) 35.0 (20-40) % [place] % (Auto) 5.9 (2-11) % Eos % (Auto) 1.0 (0-4) % Baso % (Auto) 0.5 (0-2) % Lymph # (Auto) 4.4 (1.2-4.9) X10*3/uL [place] # (Auto) 0.7 (0.1-1.2) X10*3/uL Eos # (Auto) 0.1 (0.0-0.4) X10*3/uL Baso # (Auto) 0.1 (0.0-0.2) X10*3/uL Abs Immat Gran (auto) 0.03 (0.00-0.03) X10*3/uL Absolute Neuts (auto) 7.2 (2.0-8.3) x10*3/uL Absolute Nucleated RBC 0.000 (0.0-0.012) X10*3/uL Nucleated RBC % (auto) 0.0 (0.0-0.2) /100WBC Sodium 140 (135-145) mmol/L Potassium 4.1 (3.3-5.1) mmol/L Chloride 106 (96-108) mmol/L Carbon Dioxide 24 (22-29) mmol/L Anion Gap 14 (12-20) BUN 14 (9-16) mg/dL Creatinine 0.85 (0.5-1.4) mg/dL Estim Creat Clear Calc 124.6 Estimated GFR > 60 Random Glucose 96 (60-115) mg/dL Calcium 8.9 (8.4-10.2) mg/dL Total Bilirubin 0.4 (0.0-1.0) mg/dL AST 15 (5-31) U/L ALT 16 (0-31) U/L Alkaline Phosphatase 56 (39-117) U/L Total Protein 6.7 (6.5-8.0) g/dL Albumin 3.8 (3.5-5.0) g/dL Urine Color Yellow Urine Appearance Cloudy Urine pH 5.5 (5.0-9.0) Ur Specific [place] 1.020 (1.005-1.025) Urine Protein 300 (3+) H (Neg-Trace) mg/dL Urine Glucose (UA) Negative (Negative) mg/dL Urine Ketones Negative (Negative) mg/dL Urine Blood Trace H (Negative) Urine Nitrite Negative (Negative) Ur Leukocyte Esterase Moderate (2+) H (Negative) Urine RBC 0-2 (0-2) /HPF Urine WBC >50 H (0-5) /HPF Urine WBC Clumps Ur Squamous Epith Cells 11-20 (0-2) /HPF Ur Transition Epith Cell Ur Renal Epithelial Cell Calcium Oxalate Crystal Leucine Crystals Cystine Crystals Tyrosine Crystals Other Crystals Urine Bacteria 3+ (None Seen) Urine Parasites Bilirubin Casts Epithelial Casts Fatty Casts Hyaline Casts 0-2 (0-2) /LPF Granular Casts Waxy Casts Broad Casts RBC Casts WBC Casts Other Casts Urine Trichomonas Urine Yeast 08/27/22 Range/Units 22:46 WBC (4.8-10.8) X10*3/uL RBC (4.20-5.50) X10*6/uL Hgb (12.0-16.0) g/dl Hct (37.0-47.0) % MCV (80.0-98.0) fL MCH (27.0-33.0) pg MCHC (31.0-35.0) g/dl RDW (11.0-16.0) % Plt Count (160-400) X10*3/uL MPV (9.4-12.3) fL Immature Gran % (Auto) (0.0-0.4) % Neut % (Auto) (45-73) % Lymph % (Auto) (20-40) % [place] % (Auto) (2-11) % Eos % (Auto) (0-4) % Baso % (Auto) (0-2) % Lymph # (Auto) (1.2-4.9) X10*3/uL [place] # (Auto) (0.1-1.2) X10*3/uL Eos # (Auto) (0.0-0.4) X10*3/uL Baso # (Auto) (0.0-0.2) X10*3/uL Abs Immat Gran (auto) (0.00-0.03) X10*3/uL Absolute Neuts (auto) (2.0-8.3) x10*3/uL Absolute Nucleated RBC (0.0-0.012) X10*3/uL Nucleated RBC % (auto) (0.0-0.2) /100WBC Sodium (135-145) mmol/L Potassium (3.3-5.1) mmol/L Chloride (96-108) mmol/L Carbon Dioxide (22-29) mmol/L Anion Gap (12-20) BUN (9-16) mg/dL Creatinine (0.5-1.4) mg/dL Estim Creat Clear Calc Estimated GFR Random Glucose (60-115) mg/dL Calcium (8.4-10.2) mg/dL Total Bilirubin (0.0-1.0) mg/dL AST (5-31) U/L ALT (0-31) U/L Alkaline Phosphatase (39-117) U/L Total Protein (6.5-8.0) g/dL Albumin (3.5-5.0) g/dL Urine Color Cancelled Urine Appearance Cancelled Urine pH Cancelled (5.0-9.0) Ur Specific [place] Cancelled (1.005-1.025) Urine Protein Cancelled (Neg-Trace) mg/dL Urine Glucose (UA) Cancelled (Negative) mg/dL Urine Ketones Cancelled (Negative) mg/dL Urine Blood Cancelled (Negative) Urine Nitrite Cancelled (Negative) Ur Leukocyte Esterase Cancelled (Negative) Urine RBC Cancelled (0-2) /HPF Urine WBC Cancelled (0-5) /HPF Urine WBC Clumps Cancelled Ur Squamous Epith Cells Cancelled (0-2) /HPF Ur Transition Epith Cell Cancelled Ur Renal Epithelial Cell Cancelled Calcium Oxalate Crystal Cancelled Leucine Crystals Cancelled Cystine Crystals Cancelled Tyrosine Crystals Cancelled Other Crystals Cancelled Urine Bacteria Cancelled (None Seen) Urine Parasites Cancelled Bilirubin Casts Cancelled Epithelial Casts Cancelled Fatty Casts Cancelled Hyaline Casts Cancelled (0-2) /LPF Granular Casts Cancelled Waxy Casts Cancelled Broad Casts Cancelled RBC Casts Cancelled WBC Casts Cancelled Other Casts Cancelled Urine Trichomonas Cancelled Urine Yeast Cancelled Imaging Data CT head neck: Attestation: I personally reviewed and interpreted this imaging study as follows: Radiologist's impression: HEAD: No intra or extra-axial fluid collection, hemorrhage, or mass. No ventriculomegaly. No midline shift or herniation. Basal cisterns are patent. Simpson-white matter differentiation is maintained. No territorial encephalomalacia. ?No significant volume loss. There is no abnormal attenuation within the brain parenchyma. No calvarial fracture or soft tissue abnormality. ?The mastoid air cells and visualized portions of the paranasal sinuses are well aerated. CERVICAL SPINE: Alignment: Normal. No subluxation. Vertebra: No acute fracture. No prevertebral soft tissue swelling. Degenerative disc disease: No significant. Preserved intervertebral disc heights. No gross disc herniation-limited assessment. Other findings: No cervical lymphadenopathy. Visualized lung apices are clear. Irregular hypoattenuation throughout the thyroid gland. CT/CT cervical spine wo IV con IMPRESSION: ? 1. No acute intracranial pathology. 2. No subluxation or fracture in the cervical spine. 3. No cervical disc degenerative change. No gross disc herniation and the cervical spine-limited assessment. 4. Abnormal thyroid gland which may be due to multinodular goiter or underlying diffuse thyroid disease. Correlate with history and prior workup. Discharge Plan Discharge Clinical Impression: Chronic pain, Neck pain, UTI (urinary tract infection) Patient Disposition: Home, Self-Care Instructions: Urinary Tract Infection in Women (ED), Chronic Pain (ED) Additional Instructions: You were evaluated for neck pain, loss of balance, and brain fog. CT scan of head and neck are negative for acute findings requiring emergent intervention. They did find incidental findings of an abnormal thyroid. Please follow-up with your primary care physician and endocrinology for further workup. 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 Given that your CT scan of her head and neck are negative for acute findings, please follow-up with primary care physician for outpatient MRI of your neck. Urinalysis is positive for UTI. We will treat you with Macrobid 100 mg twice a day for the next 5 days. Please drink plenty of fluids. Your white count is mildly elevated at 12.6, which is consistent with and better than your prior values. Thank you for choosing this emergency department for evaluation. Please follow-up with primary care physician as needed. Return to the emergency department for any new, concerning, or worsening symptoms. Prescriptions: New nitrofurantoin monohyd/m-cryst [Macrobid] 100 mg capsule 100 mg PO Q12H 5 Days Qty: 10 0RF Rx Instructions: must administer with a meal/food No Action ondansetron 8 mg tablet,disintegrating 8 mg PO Q12H PRN (Reason: nausea and vomiting) 10 Days Qty: 20 0RF Mirena 20 mcg/24 hours (7 yrs) 52 mg intrauterine device 1 device intrauterine ONCE Qty: 1 0RF dicyclomine 20 mg tablet 20 mg PO TID PRN (Reason: abdominal pain) Linzess 145 mcg capsule 145 mcg PO QAM Qty: 30 3RF hydrocortisone [Proctosol HC] 2.5 % cream with perineal applicator 1 appl [place] BID Qty: 30 3RF pantoprazole 40 mg tablet,delayed release (DR/EC) 40 mg PO DAILY 30 Days Qty: 30 3RF Interventions: ED Discharge Assessment Last Done: 08/28/22 00:47 Discharge Date/Time: 08/28/22 00:48
[2022-08-27 22:56] LABS: Appearance Urine Cloudy; Color Urine Yellow; Glucose Urine UA Negative (Negative); Leukocyte Esterase Urine Moderate (2+) (Negative); Nitrite Urine Negative (Negative); PH 5.5 (5.0-9.0); UMIC TRIGGER UACC YES; Urine Blood Trace (Negative); Urine Ketones Negative (Negative); Urine Protein 300 (3+) mg/dL (Neg-Trace)
[2022-08-27 23:01] LABS: Bacteria Urine 3+ (None Seen); Hyaline Casts Urine 0-2 /LPF (0-2); RBC Urine 0-2 /HPF (0-2); UACC Culture Trigger YES; WBC Urine >50 /HPF (0-5)
[2022-08-28] MEDS: Nitrofurantoin Monohyd/M-Cryst 100 MG CAPSULE PO (00:46)
== END 2022-08-28 00:48 | disposition home or self-care (01) ==
PROVIDERS: Emergency Provider Emergency Medicine; PCP Physician Assistant
DX: M54.2 Cervicalgia (principal); N39.0 Urinary tract infection, site not specified; R51.9 Headache, unspecified; Z79.899 Other long term (current) drug therapy; F17.210 Nicotine dependence, cigarettes, uncomplicated; Z71.6 Tobacco abuse counseling
CPT/HCPCS: 36415; 70450; 72125; 80053; 81001; 85025; 87086; 99283

== ENCOUNTER 2022-09-08 12:04 | Outpatient (REF) | payer OTHER, SELFPAY ==
[2022-09-08 13:32] LABS: Appearance Urine Clear; Color Urine Yellow; Glucose Urine UA Negative (Negative); Leukocyte Esterase Urine Trace (Negative); Nitrite Urine Negative (Negative); PH 5.5 (5.0-9.0); UMIC TRIGGER UACC YES; Urine Blood Trace (Negative); Urine Ketones Negative (Negative); Urine Protein 300 (3+) mg/dL (Neg-Trace)
[2022-09-08 13:37] LABS: Bacteria Urine 1+ (None Seen); Hyaline Casts Urine 0-2 /LPF (0-2); RBC Urine 0-2 /HPF (0-2); WBC Urine 0-5 /HPF (0-5)
[2022-09-08 14:05] LABS: TSH reflex Free T4 2.38 uIU/mL (0.32-4.0)
== END 2022-09-08 12:05 | disposition home or self-care (01) ==
LOC: HO.LAB 12:04
PROVIDERS: Absent Provider Obstetrics & Gynecology; PCP Physician Assistant; Visit Provider Physician Assistant
DX: F33.2 Major depressive disorder, recurrent severe without psychotic features (principal)
CPT/HCPCS: 36415; 81001; 84443

== ENCOUNTER 2022-09-13 11:03 | Outpatient (REF) | payer OTHER, SELFPAY ==
--- NOTE | ~2022-09-13 | MR_ITS ---
EXAMINATION: MR CERVICAL SPINE WITHOUT CONTRAST CLINICAL INFORMATION: Neck pain. COMPARISON: None. TECHNIQUE: MRI of the cervical spine was obtained using routine sequences without contrast. FINDINGS: There are very mild posterior disc bulges at the C5-C6 and C6-C7 levels. The remaining cervical discs are well hydrated and normal in appearance. There is no central canal stenosis or foraminal narrowing. No focal disc protrusions are visible. The imaged upper thoracic spine is unremarkable. The facet joints are normal. There are no subluxations. The craniovertebral junction and imaged portions of the brain parenchyma appear normal. No cord signal abnormality is seen. The marrow signal is homogeneous. The vertebral artery flow voids are maintained. The paraspinal soft tissues are unremarkable. The imaged lung apices are grossly clear. MR/MR cervical spine wo con IMPRESSION: Very mild posterior disc bulges at the C5-C6 and C6-C7 levels. Otherwise, relatively normal MRI of the cervical spine.
[2022-09-13 13:15] LABS: Appearance Urine Clear; Color Urine Yellow; Glucose Urine UA Negative (Negative); Leukocyte Esterase Urine Trace (Negative); Nitrite Urine Negative (Negative); Specific Gravity - Urine 1.015 (1.005-1.025); UMIC TRIGGER UACC YES; Urine Blood Negative (Negative); Urine Ketones Negative (Negative); Urine Protein 300 (3+) mg/dL (Neg-Trace)
[2022-09-13 13:20] LABS: Bacteria Urine 1+ (None Seen); Hyaline Casts Urine 0-2 /LPF (0-2); RBC Urine 0-2 /HPF (0-2); UACC Culture Trigger YES
[2022-09-13 13:40] LABS: Anion Gap 17 (12-20); Blood Urea Nitrogen 13 mg/dL (9-16); Calcium 9.8 mg/dL (8.4-10.2); Carbon Dioxide 22 mmol/L (22-29); Chloride 105 mmol/L (96-108); Estimated Glomerular Filt Rate > 60; Glucose Random 85 mg/dL (60-115); Potassium 4.5 mmol/L (3.3-5.1); Sodium 139 mmol/L (135-145)
== END 2022-09-13 11:04 | disposition home or self-care (01) ==
LOC: HO.MRI 11:03
PROVIDERS: Physician Assistant; Visit Provider Nurse Practitioner Family
DX: M54.2 Cervicalgia (principal); N39.0 Urinary tract infection, site not specified; N06 Isolated proteinuria with specified morphological lesion
CPT/HCPCS: 36415; 72141; 80048; 81001; 87086

== ENCOUNTER → 2022-09-20 15:23 | Outpatient (BNVA) | payer OTHER, SELFPAY | PROVIDERS: PCP Physician Assistant; Visit Provider Obstetrics & Gynecology | DX: F32.81 Premenstrual dysphoric disorder (principal); F17.210 Nicotine dependence, cigarettes, uncomplicated; U07.0 Vaping-related disorder | CPT/HCPCS: 99212 ==

== ENCOUNTER 2022-10-09 15:36 | Outpatient (REF) | payer OTHER, SELFPAY ==
--- NOTE | ~2022-10-09 | US_ITS ---
EXAMINATION: US THYROID CLINICAL INFORMATION: Abnormal thyroid function test. COMPARISON: None TECHNIQUE: Linear transducer grayscale and color Doppler examination with attention to the region of the thyroid. FINDINGS: SIZE: Measurements of the thyroid lobes and nodules are given in sagittal, anteroposterior and transverse dimensions respectively. Right Thyroid Lobe: 5.6 x 2.1 x 2.3 cm, volume 14.6 mL. Previously measured 5.8 x 2.2 x 2.1 cm and volume 13.5 mL. Parenchyma: The gland echotexture is heterogeneous. Thyroid vascularity is hypervascular. Left Thyroid Lobe: 5.7 x 1.9 x 2.0 cm, volume 10.9 mL. Previously measured 5.4 x 2.1 x 2.4 cm and volume 14.5 mL. Parenchyma: The gland echotexture is heterogeneous. Thyroid vascularity is hypervascular. Isthmus: 0.6 cm in maximum AP dimension. Previously measured 0.8 cm. Estimated total number of nodules greater than or equal to 1 cm: None Director Ship nodules are described as follows: 1. Location: Left Midpole. Size: 0.5 x 0.4 x 0.5 cm, volume 0.05 mL. Previously measured 0.5 x 0.4 x 0.5 cm and volume 0.05 mL Nodule characteristics: Composition: Solid (2). Echogenicity: Hyperechoic (1). Shape: Wider Margins: Smooth (0). Echogenic Foci: None (0). ACR TI-RADS total points: 3 ACR TI-RADS category: 3 2. Location: Left Lower pole. Size: 0.7 x 0.5 x 0.5 cm, volume 0.09 mL. Previously measured 1.1 x 1.0 x 1.5 cm and volume 0.9 mL Nodule characteristics: Composition: Solid (2). Echogenicity: Isoechoic (1). Shape: Wider Margins: Smooth (0). Echogenic Foci: None (0). ACR TI-RADS total points: 3 ACR TI-RADS category: 3 3. Location: Left Lower pole. Size: 0.8 x 0.7 x 1.1 cm, volume 0.3 mL. Previously measured 0.7 x 0.6 x 1.2 cm and volume 0.3 mL. Nodule characteristics: Composition: Solid (2). Echogenicity: Isoechoic (1). Shape: Wider Margins: Smooth (0). Echogenic Foci: None (0). ACR TI-RADS total points: 3 ACR TI-RADS category: 3 4. Location: Left upper pole. Size: 0.9 x 0.6 x 0.5 cm, volume 0.13 mL. New nodule Nodule characteristics: Composition: Solid (2). Echogenicity: Hyperechoic (1). Shape: Taller Margins: Smooth (0). Echogenic Foci: Macrocalcifications (1). ACR TI-RADS total points: 7 ACR TI-RADS category: 5 NODES: No lymphadenopathy is seen in the tissue surrounding the thyroid gland. US/US thyroid IMPRESSION: Stable nodules left lower and midpole with new nodules seen in the mid and upper pole. The new nodule in the midpole is suspicious based on TI-RADS category. However it is smaller than 1 cm and can be followed up. ACR TI-RADS RECOMMENDATION REFERENCE: Ultrasound-guided fine-needle aspiration, followup ultrasound, no further follow up. * TR1 (0 point) and TR 2 (2 points): No FNA or follow up. * TR3 (3 points): FNA if more than or equal to 2.5 cm in maximum dimension, followup ultrasound in 1, 3 and 5 years if 1.5 to 2.4 cm in maximum dimension. * TR4 (4-6 points): FNA if more than or equal to 1.5 cm in maximum dimension, followup ultrasound in 1, 2, 3 and 5 years if 1 to 1.4 cm in maximum dimension. * TR5 (more than or equal to 7 points): FNA if more than or equal to 1 cm in maximum dimension, followup ultrasound every year for 5 years if 0.5 to 0.9 cm in maximum dimension. * TR3, TR4 or TR5 nodules that are below the size threshold for followup receive no follow up.
== END 2022-10-09 15:37 | disposition home or self-care (01) ==
LOC: HO.US 15:36
PROVIDERS: Visit Provider Nurse Practitioner Family
DX: R94.6 Abnormal results of thyroid function studies (principal)
CPT/HCPCS: 76536

== ENCOUNTER 2022-10-11 14:55 | Outpatient (REF) | payer OTHER, SELFPAY ==
--- NOTE | ~2022-10-11 | US_ITS ---
EXAMINATION: US PELVIS LIMITED (BLADDER) CLINICAL INFORMATION: Isolated proteinuria with C3 glomerulonephritis. COMPARISON: X-ray abdomen 05/05/2022. CT abdomen and pelvis 02/09/2022. TECHNIQUE: Real-time imaging of the bladder. FINDINGS: BLADDER: Well distended and normal. Bilateral ureteral jets are demonstrated. Prevoid bladder volume is 124 mL. Postvoid bladder volume is 13.9 mL. No bladder wall thickening or focal lesion seen. The kidney US/US bladder IMPRESSION: Small postvoid residual bladder volume.
== END 2022-10-11 14:56 | disposition home or self-care (01) ==
LOC: HO.US 14:55
PROVIDERS: Visit Provider Physician Assistant
DX: N06 Isolated proteinuria with specified morphological lesion (principal)
CPT/HCPCS: 76857; 99212

== ENCOUNTER 2022-10-30 13:28 | Emergency (ER) | payer OTHER, SELFPAY ==
[2022-10-30 13:45] VITALS: BP 136/79; PULSE 92; RESP 18; TEMP 36.6; O2SAT 99; BMI 36.0
--- NOTE | 2022-10-30 13:45 | ECG_ITS ---
Test Reason : palpitations Blood Pressure : / mmHG Vent. Rate : 096 BPM Atrial Rate : 096 BPM P-R Int : 158 ms QRS Dur : 076 ms QT Int : 332 ms P-R-T Axes : 044 024 035 degrees QTc Int : 419 ms Normal sinus rhythm Normal ECG When compared with ECG of 01-FEB-2022 08:53, No significant change was found Referred By: Dorothy Fuller Electronically Signed By:MICHAEL NEWBY
--- NOTE | 2022-10-30 13:45 | ED.ARRPALP ---
HPI - Arrhythmia/Palpitations General Chief Complaint: Arrhythmia/Palpitations <Dorothy Fuller NP - Last Filed: 10/30/22 13:48> Stated Complaint: palpitations <Dorothy Fuller NP - Last Filed: 10/30/22 13:48> Time Seen by Provider: 10/30/22 15:51 <Dorothy Fuller NP - Last Filed: 10/30/22 13:48> Source: patient <Joie Martinez MD - Last Filed: 10/30/22 17:00> Mode of arrival: ambulatory <Joie Martinez MD - Last Filed: 10/30/22 17:00> Limitations: no limitations <Joie Martinez MD - Last Filed: 10/30/22 17:00> History of Present Illness HPI narrative: Patient comes to the emergency room complaining palpitations. Patient states that she has a multiple times palpitations, she has had a Holter monitor evaluation that lasted for a month. 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 When patient arrived, patient's heart rate was in the low 90s, patient asymptomatic. Patient denies chest pain or shortness of breath. <Joie Martinez MD - Last Filed: 10/30/22 17:00> Related Data Home Medications: Previous Rx's Medication Instructions Recorded sennosides 8.6 mg capsule (senna) 17.2 mg PO BEDTIME constipation 30 10/11/22 days #60 caps <Dorothy Fuller NP - Last Filed: 10/30/22 13:48> Allergies/Adverse Reactions: Allergies Allergy/AdvReac Type Severity Reaction Status Date / Time codeine Allergy Intermediate Shakiness Verified 10/30/22 13:43 bees Allergy Unknown Swelling Uncoded 10/30/22 13:10 hornet Allergy Unknown Swelling Uncoded 10/30/22 13:10 <Dorothy Fuller NP - Last Filed: 10/30/22 13:48> Review of Systems Review of Systems: Constitutional : No Weight loss, No Fever, No Chills, No Night Sweats, No Fatigue, No Malaise ENT/Mouth : No Hearing loss, No Ear Pain, No Nasal Congestion, No Sinus Pain, No Hoarseness, No sore throat, No Rhinorrhea, No Swallowing Difficulty Eyes: No Eye Pain, No Swelling, No Redness, No Foreign Body, No Discharge, No Vision Changes Cardiovascular : No Chest Pain, No SOB, No Dyspnea on Exertion, No Orthopnea, no edema, complaining of palpitations and rapid heart rate intermittently Respiratory : No Cough, No Sputum, No Wheezing, No Smoke Exposure, No Dyspnea Gastrointestinal : No Nausea, No Vomiting, No Diarrhea, No Constipation, No abdominal Pain, No Hematochezia, No Melena Genitourinary : no irregular bleeding, No Dysuria, No Urinary Frequency, No Hematuria, No Urinary Incontinence, No Urgency, No Flank Pain, No Urinary Flow Changes, No Hesitancy Musculoskeletal : No joint pain, No Myalgias, No Joint Swelling Skin : No Skin Lesions, No rash Neuro : No Weakness, No Numbness, No Paresthesias, No Loss of Consciousness, No Dizziness, No Headache Psych : No Anxiety/Panic, No Depression, No SI/HI/AH/VH, No Social Issues, Heme/Lymph: No Bruising, No Bleeding,No Lymphadenopathy Endocrine : No Polyuria, No Polydipsia, No Temperature Intolerance <Joie Martinez MD - Last Filed: 10/30/22 17:00> [facility] Past Medical History Medical History: Medical History Abdominal bloating Abnormal laboratory test Arthritis Bleeding hemorrhoids Chest pain Depression Healthy adult History of cardiac disorder Hypothyroidism Immune disorder Insomnia Migraine Multinodular thyroid Obesity (BMI 30-39.9) Postprandial abdominal bloating Smoker <Dorothy Fuller NP - Last Filed: 10/30/22 13:48> Surgical History: Surgical History History of delivery <Dorothy Fuller NP - Last Filed: 10/30/22 13:48> Family History Family History: Family History Mother Diabetes Maternal Grandmother Diabetes Sister HTN (hypertension) Maternal Uncle Thyroid cancer <Dorothy Fuller NP - Last Filed: 10/30/22 13:48> Social History Social History: Social History Housing: Apartment Alcohol intake: never Patient Tobacco Use Status: Current everyday Tobacco user Tobacco use type: Cigarette Years Smoked: 10 years e-Cigarette/Vaping Use: Currently Using Second Hand Smoke Exposure: Yes Advance Directives: No Advance Directives Information Provided: No service: No Current occupational status: employed Current occupational exposures/hazards: No Cognitive needs: No Hearing needs: No Vision needs: Yes <Dorothy Fuller NP - Last Filed: 10/30/22 13:48> Physical Exam Vital Signs: Vital Signs: Last Vital Signs Temp 97.8 F 10/30/22 13:45 Pulse 86 10/30/22 15:53 Resp 18 10/30/22 15:53 BP 136/79 10/30/22 13:45 Pulse Ox 100 10/30/22 15:53 O2 Del Method 10/30/22 15:53 BMI result Body Mass Index 36.0 <Dorothy Fuller NP - Last Filed: 10/30/22 13:48> Vital Signs: Last Vital Signs Temp 97.8 F 10/30/22 13:45 Pulse 86 10/30/22 15:53 Resp 18 10/30/22 15:53 BP 136/79 10/30/22 13:45 Pulse Ox 100 10/30/22 15:53 O2 Del Method 10/30/22 15:53 BMI result Body Mass Index 36.0 <Joie Martinez MD - Last Filed: 10/30/22 17:00> Const: Other: Appearance: Alert. Oriented X3. No acute distress. Eyes: Pupils equal, round and reactive to light. ENT: Pharynx normal. Neck: Normal inspection. Neck supple. No lymph nodes noted. No crepitus CVS: Normal heart rate and rhythm. Pulses normal. Normal S1 and S2 Respiratory: No respiratory distress. Breath sounds normal. No Wheezing. No rales Abdomen: Soft and nontender. No rigidity. No distention. Skin: Skin warm and dry. Normal skin color. Normal skin turgor. Extremities: No lower extremity edema. No Lacerations. No Rash Neuro: Oriented X 3. No motor deficit. No sensory deficit. Moving all extremities. No slurred speech. CN 2 through 12 grossly intact Psych: calm, cooperative, normal affect <Joie Martinez MD - Last Filed: 10/30/22 17:00> Course Course Course Narrative: This is a rapid medical exam. Deferred additional HPI, ROS, PE to primary provider. 31 yo female with history of thyroid nodules coming from endocrine office and sent in for elevated hear rate of 120's. HR here 90's. Patient reprots intermittent episodes of heart fluttering. No other symptoms. VSS. WIll check labs, EKG. <Dorothy Fuller NP - Last Filed: 10/30/22 13:48> This is a rapid medical exam. Deferred additional HPI, ROS, PE to primary provider. 31 yo female with history of thyroid nodules coming from endocrine office and sent in for elevated hear rate of 120's. HR here 90's. Patient reprots intermittent episodes of heart fluttering. No other symptoms. VSS. WIll check labs, EKG. In the emergency room, patient's heart rate has been controlled, all labs within normal limits. I discussed with the patient that she tended to be started on metoprolol low dose and follow-up with Cardiology. However, patient states that at this time she prefers not to be started on any medications. Also, I discussed with the patient that she may need another Holter monitor evaluation and possible follow-up with Cardiology. Patient requesting to have her urine tested for UTI, states that she is prone to UTIs. I discussed the results with the patient, shows a mild UTI but patient has no symptoms. I reviewed patient's urinalysis reports, patient always has protein and leukocyte esterase in the urine. I reviewed the patient's last 5 urine cultures, which are all grew mixed jaciel. The last 2 urinary tract infection was in December of this year. At this time, patient has no UTI symptoms such as hematuria, dysuria, abdominal or flank pain, fever for chills. Antibiotics not indicated. <Joie Martinez MD - Last Filed: 10/30/22 17:00> Medical Decision Making Differential Diagnosis Differential Diagnoses: The differential diagnosis associated with the presentation includes (Hyperthyroidism, SVT, normal sinus tachycardia) <Joie Martinez MD - Last Filed: 10/30/22 17:00> Lab Data MDM Lab Attestation statement: I reviewed the patient's lab results. <Joie Martinez MD - Last Filed: 10/30/22 17:00> Result Diagrams: : 10/30/22 14:06 10/30/22 14:06 <Dorothy Fuller, SUPERINTENDENT STEVEDORING - Last Filed: 10/30/22 13:48> Labs: Lab Results 10/30/22 10/30/22 10/30/22 Range/Units 14:06 14:06 14:06 WBC 13.2 H (4.8-10.8) X10*3/uL RBC 5.26 (4.20-5.50) X10*6/uL Hgb 15.1 (12.0-16.0) g/dl Hct 44.5 (37.0-47.0) % MCV 84.6 (80.0-98.0) fL MCH 28.7 (27.0-33.0) pg MCHC 33.9 (31.0-35.0) g/dl RDW 12.1 (11.0-16.0) % Plt Count 358 (160-400) X10*3/uL MPV 8.8 L (9.4-12.3) fL Immature Gran % (Auto) 0.4 (0.0-0.4) % Neut % (Auto) 65.4 (45-73) % Lymph % (Auto) 27.3 (20-40) % [place] % (Auto) 6.0 (2-11) % Eos % (Auto) 0.5 (0-4) % Baso % (Auto) 0.4 (0-2) % Lymph # (Auto) 3.6 (1.2-4.9) X10*3/uL [place] # (Auto) 0.8 (0.1-1.2) X10*3/uL Eos # (Auto) 0.1 (0.0-0.4) X10*3/uL Baso # (Auto) 0.1 (0.0-0.2) X10*3/uL Abs Immat Gran (auto) 0.05 H (0.00-0.03) X10*3/uL Absolute Neuts (auto) 8.7 H (2.0-8.3) x10*3/uL Absolute Nucleated RBC 0.000 (0.0-0.012) X10*3/uL Nucleated RBC % (auto) 0.0 (0.0-0.2) /100WBC Sodium 139 (135-145) mmol/L Potassium 4.4 (3.3-5.1) mmol/L Chloride 106 (96-108) mmol/L Carbon Dioxide 26 (22-29) mmol/L Anion Gap 11 L (12-20) BUN 13 (9-16) mg/dL Creatinine 1.14 (0.5-1.4) mg/dL Estim Creat Clear Calc 94.8 Estimated GFR 56 Random Glucose 87 (60-115) mg/dL Calcium 9.3 (8.4-10.2) mg/dL Magnesium 1.7 (1.6-2.6) mg/dL Total Bilirubin 0.7 (0.0-1.0) mg/dL Direct Bilirubin 0.2 (0.0-0.5) mg/dL AST 14 (5-31) U/L ALT 18 (0-31) U/L Alkaline Phosphatase 62 (39-117) U/L Troponin I High Sens < 3.5 (<3.5-17.0) ng/L Total Protein 6.6 (6.5-8.0) g/dL Albumin 3.8 (3.5-5.0) g/dL TSH 2.67 (0.32-4.0) uIU/mL Urine Color Urine Appearance Urine pH (5.0-9.0) Ur Specific [place] (1.005-1.025) Urine Protein (Neg-Trace) mg/dL Urine Glucose (UA) (Negative) mg/dL Urine Ketones (Negative) mg/dL Urine Blood (Negative) Urine Nitrite (Negative) Ur Leukocyte Esterase (Negative) Urine RBC (0-2) /HPF Urine WBC (0-5) /HPF Ur Squamous Epith Cells (0-2) /HPF Urine Bacteria (None Seen) Hyaline Casts (0-2) /LPF Urine Test (NEGATIVE) COVID-19 ([facility]) (Negative) COVID-19 Clin Com 10/30/22 10/30/22 10/30/22 Range/Units 14:06 16:34 16:34 WBC (4.8-10.8) X10*3/uL RBC (4.20-5.50) X10*6/uL Hgb (12.0-16.0) g/dl Hct (37.0-47.0) % MCV (80.0-98.0) fL MCH (27.0-33.0) pg MCHC (31.0-35.0) g/dl RDW (11.0-16.0) % Plt Count (160-400) X10*3/uL MPV (9.4-12.3) fL Immature Gran % (Auto) (0.0-0.4) % Neut % (Auto) (45-73) % Lymph % (Auto) (20-40) % [place] % (Auto) (2-11) % Eos % (Auto) (0-4) % Baso % (Auto) (0-2) % Lymph # (Auto) (1.2-4.9) X10*3/uL [place] # (Auto) (0.1-1.2) X10*3/uL Eos # (Auto) (0.0-0.4) X10*3/uL Baso # (Auto) (0.0-0.2) X10*3/uL Abs Immat Gran (auto) (0.00-0.03) X10*3/uL Absolute Neuts (auto) (2.0-8.3) x10*3/uL Absolute Nucleated RBC (0.0-0.012) X10*3/uL Nucleated RBC % (auto) (0.0-0.2) /100WBC Sodium (135-145) mmol/L Potassium (3.3-5.1) mmol/L Chloride (96-108) mmol/L Carbon Dioxide (22-29) mmol/L Anion Gap (12-20) BUN (9-16) mg/dL Creatinine (0.5-1.4) mg/dL Estim Creat Clear Calc Estimated GFR Random Glucose (60-115) mg/dL Calcium (8.4-10.2) mg/dL Magnesium (1.6-2.6) mg/dL Total Bilirubin (0.0-1.0) mg/dL Direct Bilirubin (0.0-0.5) mg/dL AST (5-31) U/L ALT (0-31) U/L Alkaline Phosphatase (39-117) U/L Troponin I High Sens (<3.5-17.0) ng/L Total Protein (6.5-8.0) g/dL Albumin (3.5-5.0) g/dL TSH (0.32-4.0) uIU/mL Urine Color Yellow Urine Appearance Clear Urine pH 5.5 (5.0-9.0) Ur Specific [place] 1.020 (1.005-1.025) Urine Protein 300 (3+) H (Neg-Trace) mg/dL Urine Glucose (UA) Negative (Negative) mg/dL Urine Ketones Trace (Negative) mg/dL Urine Blood Negative (Negative) Urine Nitrite Negative (Negative) Ur Leukocyte Esterase Small (1+) H (Negative) Urine RBC 0-2 (0-2) /HPF Urine WBC 21-50 H (0-5) /HPF Ur Squamous Epith Cells 3-5 (0-2) /HPF Urine Bacteria 2+ (None Seen) Hyaline Casts 0-2 (0-2) /LPF Urine Test NEGATIVE (NEGATIVE) COVID-19 ([facility]) Negative (Negative) COVID-19 Clin Com See Note <Dorothy Fuller NP - Last Filed: 10/30/22 13:48> Lab Results 10/30/22 10/30/22 10/30/22 Range/Units 14:06 14:06 14:06 WBC 13.2 H (4.8-10.8) X10*3/uL RBC 5.26 (4.20-5.50) X10*6/uL Hgb 15.1 (12.0-16.0) g/dl Hct 44.5 (37.0-47.0) % MCV 84.6 (80.0-98.0) fL MCH 28.7 (27.0-33.0) pg MCHC 33.9 (31.0-35.0) g/dl RDW 12.1 (11.0-16.0) % Plt Count 358 (160-400) X10*3/uL MPV 8.8 L (9.4-12.3) fL Immature Gran % (Auto) 0.4 (0.0-0.4) % Neut % (Auto) 65.4 (45-73) % Lymph % (Auto) 27.3 (20-40) % [place] % (Auto) 6.0 (2-11) % Eos % (Auto) 0.5 (0-4) % Baso % (Auto) 0.4 (0-2) % Lymph # (Auto) 3.6 (1.2-4.9) X10*3/uL [place] # (Auto) 0.8 (0.1-1.2) X10*3/uL Eos # (Auto) 0.1 (0.0-0.4) X10*3/uL Baso # (Auto) 0.1 (0.0-0.2) X10*3/uL Abs Immat Gran (auto) 0.05 H (0.00-0.03) X10*3/uL Absolute Neuts (auto) 8.7 H (2.0-8.3) x10*3/uL Absolute Nucleated RBC 0.000 (0.0-0.012) X10*3/uL Nucleated RBC % (auto) 0.0 (0.0-0.2) /100WBC Sodium 139 (135-145) mmol/L Potassium 4.4 (3.3-5.1) mmol/L Chloride 106 (96-108) mmol/L Carbon Dioxide 26 (22-29) mmol/L Anion Gap 11 L (12-20) BUN 13 (9-16) mg/dL Creatinine 1.14 (0.5-1.4) mg/dL Estim Creat Clear Calc 94.8 Estimated GFR 56 Random Glucose 87 (60-115) mg/dL Calcium 9.3 (8.4-10.2) mg/dL Magnesium 1.7 (1.6-2.6) mg/dL Total Bilirubin 0.7 (0.0-1.0) mg/dL Direct Bilirubin 0.2 (0.0-0.5) mg/dL AST 14 (5-31) U/L ALT 18 (0-31) U/L Alkaline Phosphatase 62 (39-117) U/L Troponin I High Sens < 3.5 (<3.5-17.0) ng/L Total Protein 6.6 (6.5-8.0) g/dL Albumin 3.8 (3.5-5.0) g/dL TSH 2.67 (0.32-4.0) uIU/mL Urine Color Urine Appearance Urine pH (5.0-9.0) Ur Specific [place] (1.005-1.025) Urine Protein (Neg-Trace) mg/dL Urine Glucose (UA) (Negative) mg/dL Urine Ketones (Negative) mg/dL Urine Blood (Negative) Urine Nitrite (Negative) Ur Leukocyte Esterase (Negative) Urine RBC (0-2) /HPF Urine WBC (0-5) /HPF Ur Squamous Epith Cells (0-2) /HPF Urine Bacteria (None Seen) Hyaline Casts (0-2) /LPF Urine Test (NEGATIVE) COVID-19 ([facility]) (Negative) COVID-19 Clin Com 10/30/22 10/30/22 10/30/22 Range/Units 14:06 16:34 16:34 WBC (4.8-10.8) X10*3/uL RBC (4.20-5.50) X10*6/uL Hgb (12.0-16.0) g/dl Hct (37.0-47.0) % MCV (80.0-98.0) fL MCH (27.0-33.0) pg MCHC (31.0-35.0) g/dl RDW (11.0-16.0) % Plt Count (160-400) X10*3/uL MPV (9.4-12.3) fL Immature Gran % (Auto) (0.0-0.4) % Neut % (Auto) (45-73) % Lymph % (Auto) (20-40) % [place] % (Auto) (2-11) % Eos % (Auto) (0-4) % Baso % (Auto) (0-2) % Lymph # (Auto) (1.2-4.9) X10*3/uL [place] # (Auto) (0.1-1.2) X10*3/uL Eos # (Auto) (0.0-0.4) X10*3/uL Baso # (Auto) (0.0-0.2) X10*3/uL Abs Immat Gran (auto) (0.00-0.03) X10*3/uL Absolute Neuts (auto) (2.0-8.3) x10*3/uL Absolute Nucleated RBC (0.0-0.012) X10*3/uL Nucleated RBC % (auto) (0.0-0.2) /100WBC Sodium (135-145) mmol/L Potassium (3.3-5.1) mmol/L Chloride (96-108) mmol/L Carbon Dioxide (22-29) mmol/L Anion Gap (12-20) BUN (9-16) mg/dL Creatinine (0.5-1.4) mg/dL Estim Creat Clear Calc Estimated GFR Random Glucose (60-115) mg/dL Calcium (8.4-10.2) mg/dL Magnesium (1.6-2.6) mg/dL Total Bilirubin (0.0-1.0) mg/dL Direct Bilirubin (0.0-0.5) mg/dL AST (5-31) U/L ALT (0-31) U/L Alkaline Phosphatase (39-117) U/L Troponin I High Sens (<3.5-17.0) ng/L Total Protein (6.5-8.0) g/dL Albumin (3.5-5.0) g/dL TSH (0.32-4.0) uIU/mL Urine Color Yellow Urine Appearance Clear Urine pH 5.5 (5.0-9.0) Ur Specific [place] 1.020 (1.005-1.025) Urine Protein 300 (3+) H (Neg-Trace) mg/dL Urine Glucose (UA) Negative (Negative) mg/dL Urine Ketones Trace (Negative) mg/dL Urine Blood Negative (Negative) Urine Nitrite Negative (Negative) Ur Leukocyte Esterase Small (1+) H (Negative) Urine RBC 0-2 (0-2) /HPF Urine WBC 21-50 H (0-5) /HPF Ur Squamous Epith Cells 3-5 (0-2) /HPF Urine Bacteria 2+ (None Seen) Hyaline Casts 0-2 (0-2) /LPF Urine Test NEGATIVE (NEGATIVE) COVID-19 ([facility]) Negative (Negative) COVID-19 Clin Com See Note <Joie Martinez MD - Last Filed: 10/30/22 17:00> External Record Review External record reviewed: Office record <Joie Martinez MD - Last Filed: 10/30/22 17:00> Endocrinology notes reviewed, patient has history of multinodular thyroid, patient will need a fine-needle biopsy. <Joie Martinez MD - Last Filed: 10/30/22 17:00> Prescription Management I considered prescription management with: Other (Low-dose metoprolol was consider. However, patient prefers to follow-up with her primary care physician, she has an appointment tomorrow, patient states that she does not like to take medications and would like to avoid doing so.) <Joie Martinez MD - Last Filed: 10/30/22 17:00> Chronic Conditions Patient?s care impacted by: Other (Multinodular thyroid) <Joie Martinez MD - Last Filed: 10/30/22 17:00> Patient will need a fine-needle biopsy, already addressed by Endocrinology <Joie Martinez MD - Last Filed: 10/30/22 17:00> Discharge Plan Discharge Clinical Impression: Palpitation <Dorothy Fuller NP - Last Filed: 10/30/22 13:48> Patient Disposition: Home, Self-Care <Dorothy Fuller NP - Last Filed: 10/30/22 13:48> Instructions: Heart Palpitations (ED) <Dorothy Fuller NP - Last Filed: 10/30/22 13:48> Additional Instructions: Please follow-up with your primary care physician tomorrow. If you have any worsening or new symptoms, please return to the emergency room or call 911 <Dorothy Fuller NP - Last Filed: 10/30/22 13:48> Prescriptions: No Action Mirena 20 mcg/24 hours (7 yrs) 52 mg intrauterine device 1 device intrauterine ONCE Qty: 1 0RF senna 8.6 mg capsule 17.2 mg PO BEDTIME 30 Days Qty: 60 3RF <Dorothy uFller NP - Last Filed: 10/30/22 13:48>
[2022-10-30 14:20] LABS: MANUAL DIFF FLAG NO
[2022-10-30 14:23] LABS: Basophils Absolute Auto 0.1 X10*3/uL (0.0-0.2); Basophils Percent Auto 0.4 % (0-2); Eosinophils Absolute Auto 0.1 X10*3/uL (0.0-0.4); Eosinophils Percent Auto 0.5 % (0-4); Hematocrit 44.5 % (37.0-47.0); Hemoglobin 15.1 g/dl (12.0-16.0); Imm Gran Abs Auto 0.05 X10*3/uL (0.00-0.03); Imm Gran Pct Auto 0.4 % (0.0-0.4); Lymphocytes Absolute Auto 3.6 X10*3/uL (1.2-4.9); Lymphocytes Percent Auto 27.3 % (20-40); Mean Corpuscular HGB Conc 33.9 g/dl (31.0-35.0); Mean Corpuscular Hemoglobin 28.7 pg (27.0-33.0); Mean Corpuscular Volume 84.6 fL (80.0-98.0); Mean Platelet Volume 8.8 fL (9.4-12.3); Monocytes Absolute Auto 0.8 X10*3/uL (0.1-1.2); Neutrophils Absolute Auto 8.7 x10*3/uL (2.0-8.3); Neutrophils Percent Auto 65.4 % (45-73); Platelet Count 358 X10*3/uL (160-400); Red Blood Count 5.26 X10*6/uL (4.20-5.50); Red Cell Distribution Width 12.1 % (11.0-16.0); White Blood Count 13.2 X10*3/uL (4.8-10.8)
[2022-10-30 14:42] LABS: Troponin-I High Sensitivity < 3.5 ng/L (<3.5-17.0)
[2022-10-30 14:50] LABS: COVID-19 Test Negative (Negative); IDNOW Serial# 16C4AD1C
[2022-10-30 15:02] LABS: Alanine Aminotransferase 18 U/L (0-31); Albumin Level 3.8 g/dL (3.5-5.0); Alkaline Phosphatase 62 U/L (39-117); Anion Gap 11 (12-20); Aspartate Amino Transferase 14 U/L (5-31); Bilirubin Direct 0.2 mg/dL (0.0-0.5); Bilirubin Total 0.7 mg/dL (0.0-1.0); Blood Urea Nitrogen 13 mg/dL (9-16); Calcium 9.3 mg/dL (8.4-10.2); Carbon Dioxide 26 mmol/L (22-29); Chloride 106 mmol/L (96-108); Creatinine Clr Calc Pharmacy 94.8; Estimated Glomerular Filt Rate 56; Glucose Random 87 mg/dL (60-115); Magnesium 1.7 mg/dL (1.6-2.6); Potassium 4.4 mmol/L (3.3-5.1); Sodium 139 mmol/L (135-145); Thyroid Stimulating Hormone 2.67 uIU/mL (0.32-4.0); Total Protein 6.6 g/dL (6.5-8.0)
[2022-10-30 15:53] VITALS: PULSE 86; RESP 18; O2SAT 100
[2022-10-30 16:44] LABS: Appearance Urine Clear; Color Urine Yellow; Glucose Urine UA Negative (Negative); Leukocyte Esterase Urine Small (1+) (Negative); Nitrite Urine Negative (Negative); PH 5.5 (5.0-9.0); UMIC TRIGGER UACC YES; Urine Blood Negative (Negative); Urine Ketones Trace mg/dL (Negative); Urine Protein 300 (3+) mg/dL (Neg-Trace)
[2022-10-30 16:47] LABS: UPreg QC Valid YES; Urine Pregnancy NEGATIVE (NEGATIVE)
[2022-10-30 16:49] LABS: Bacteria Urine 2+ (None Seen); Hyaline Casts Urine 0-2 /LPF (0-2); RBC Urine 0-2 /HPF (0-2); UACC Culture Trigger YES; WBC Urine 21-50 /HPF (0-5)
== END 2022-10-30 17:10 | disposition home or self-care (01) ==
PROVIDERS: Nurse Practitioner Family; Emergency Provider Emergency Medicine; PCP Physician Assistant
DX: R00.2 Palpitations (principal); Z20.822 Contact with and (suspected) exposure to COVID-19; F17.210 Nicotine dependence, cigarettes, uncomplicated
CPT/HCPCS: 80048; 80076; 81001; 81025; 83735; 84443; 84484; 85025; 87086; 87635; 93005; 99202; 99283

== ENCOUNTER → 2022-11-09 07:54 | Outpatient (REF) | payer OTHER, SELFPAY ==
--- NOTE | ~2022-11-09 | NM_ITS ---
EXAMINATION: NM RADIONUCLIDE SOLID FOOD GASTRIC EMPTYING 4-HOUR STUDY CLINICAL INFORMATION: Chronic idiopathic constipation. COMPARISON: None TECHNIQUE: A standard meal consisting of 4 oz of Egg Beaters brand tagged with 860 ingestion counts.
== END ==
LOC: HO.NUCMED 07:54
PROVIDERS: PCP Physician Assistant; Visit Provider Nurse Practitioner
DX: K59.04 Chronic idiopathic constipation (principal)
CPT/HCPCS: 78264; A9541

== ENCOUNTER → 2022-11-14 09:41 | Outpatient (BNVA) | payer OTHER, SELFPAY | PROVIDERS: PCP Physician Assistant; Visit Provider Nurse Practitioner | DX: K59.04 Chronic idiopathic constipation (principal); K21.9 Gastro-esophageal reflux disease without esophagitis; R14.0 Abdominal distension (gaseous) | CPT/HCPCS: 99212 ==

== ENCOUNTER 2022-11-22 15:28 | Outpatient (REF) | payer OTHER, SELFPAY | END 2022-11-22 15:29 | disposition home or self-care (01) | LOC: HO.LNP 15:28 | PROVIDERS: PCP Physician Assistant; Visit Provider Obstetrics & Gynecology | DX: Z30.012 Encounter for prescription of emergency contraception (principal) | CPT/HCPCS: 99212 ==

== ENCOUNTER 2022-11-22 16:12 | Outpatient (REF) | payer OTHER, SELFPAY ==
[2022-11-23 09:30] LABS: CT PCR NOT DETECTED (Not Detect.); NG PCR NOT DETECTED (Not Detect.)
[2022-11-24 08:57] LABS: Syphilis Screen Nonreactive (Nonreactive)
[2022-11-24 09:24] LABS: HBsAGNum1 0.29 S/CO (0.00-0.99); HIV AB/AG Nonreactive (Nonreactive); HIV Num 1 0.05 S/CO (0.00-0.99); Hepatitis B Surface Antigen Negative (Negative); ~Hepatitis C Antibody Nonreactive (Nonreactive)
[2022-11-24 14:06] LABS: BV Int Neg Control Negative (Negative); BV Int Pos Control Positive (Positive)
== END 2022-11-22 16:13 | disposition home or self-care (01) ==
LOC: HO.LAB 16:12
PROVIDERS: PCP Physician Assistant; Visit Provider Obstetrics & Gynecology
DX: Z11.3 Encounter for screening for infections with a predominantly sexual mode of transmission (principal); Z11.4 Encounter for screening for human immunodeficiency virus [HIV]
CPT/HCPCS: 0353U; 86780; 86803; 87340; 87389; 87480; 87510; 87660

== ENCOUNTER → 2022-12-05 13:55 | Outpatient (BNVA) | payer OTHER, SELFPAY | PROVIDERS: PCP Physician Assistant; Visit Provider Urology | DX: N39.0 Urinary tract infection, site not specified (principal); R80.9 Proteinuria, unspecified; F17.210 Nicotine dependence, cigarettes, uncomplicated; U07.0 Vaping-related disorder | CPT/HCPCS: 99212 ==

== ENCOUNTER → 2022-12-20 14:41 | Outpatient (BNVA) | payer OTHER, SELFPAY | PROVIDERS: PCP Physician Assistant; Visit Provider Urology | DX: Z13.89 Encounter for screening for other disorder (principal) ==

== ENCOUNTER → 2023-01-10 15:31 | Outpatient (BNVA) | payer OTHER, SELFPAY | PROVIDERS: PCP Physician Assistant; Visit Provider Nurse Practitioner | DX: R10.31 Right lower quadrant pain (principal); R14.0 Abdominal distension (gaseous); K59.04 Chronic idiopathic constipation; K21.9 Gastro-esophageal reflux disease without esophagitis; K58.9 Irritable bowel syndrome, unspecified | CPT/HCPCS: 99212 ==

== ENCOUNTER 2023-01-11 07:51 | Outpatient (REF) | payer OTHER, SELFPAY ==
--- NOTE | 2023-01-11 08:47 | PM.OP ---
Brief Operative Note Date of Service: 01/11/23 Pre-op diagnosis: Multinodular Thyroid Procedure: This is doctor Natali Greenberg. This is an ultrasound-guided fine-needle aspiration report. Date of Examination: 01/11/2023 Indication: Multinodular Thyroid Porcedure: Procedure was explained to the patient. Alternatives, the risk and benefits were discussed. Written consent was obtained. A time-out was also obtained. After sterile preparation, fine-needle aspiration of a right mid pole 1.0 cm thyroid nodule was performed using direct ultrasound guidance to confirm accurate needle placement. Four aspirations were made using 27 gauge needles. Samples were submitted for cytology. One pass was dedicated for [employer] Gene sequencing manager heavy duty testing. The patient tolerated the procedure well. Aftercare instructions were provided. Impression: Uncomplicated fine needle aspiration biopsy of a right mid pole 1.0 cm thyroid nodule under ultrasound guidance. Surgeon: Natali Greenberg, DO Was an Senior Materials Planner used for this Procedure?: No Estimated blood loss (mL): 0
[2023-01-11] MEDS: Lidocaine HCl 1 % MPF 5 ML VIAL SUBCUT (09:05)
== END 2023-01-11 07:52 | disposition home or self-care (01) ==
LOC: HO.US 07:51
PROVIDERS: Visit Provider Internal Medicine
DX: E04.2 Nontoxic multinodular goiter (principal)
CPT/HCPCS: 10005; 88172; 88173; 88177

== ENCOUNTER → 2023-01-12 11:00 | Outpatient (BNVA) | payer OTHER, SELFPAY | PROVIDERS: PCP Physician Assistant; Visit Provider Urology | DX: Z13.89 Encounter for screening for other disorder (principal) ==

== ENCOUNTER → 2023-01-17 15:46 | Outpatient (BNVA) | payer OTHER, SELFPAY | PROVIDERS: PCP Physician Assistant; Visit Provider Urology | DX: N39.0 Urinary tract infection, site not specified (principal); D72.828 Other elevated white blood cell count; R80.9 Proteinuria, unspecified; N05.9 Unspecified nephritic syndrome with unspecified morphologic changes; U07.0 Vaping-related disorder; F17.210 Nicotine dependence, cigarettes, uncomplicated | CPT/HCPCS: 99212 ==

== ENCOUNTER → 2023-01-25 12:48 | Outpatient (BNVA) | payer OTHER, SELFPAY | PROVIDERS: PCP Physician Assistant; Visit Provider Internal Medicine | DX: E04.2 Nontoxic multinodular goiter (principal); R13.10 Dysphagia, unspecified; U07.0 Vaping-related disorder; F17.210 Nicotine dependence, cigarettes, uncomplicated | CPT/HCPCS: 99212 ==

== ENCOUNTER 2023-01-26 08:20 | Emergency (ER) | payer OTHER, SELFPAY ==
[2023-01-26 08:28] VITALS: BP 134/93; PULSE 118; RESP 18; TEMP 36.6; O2SAT 98; BMI 36.9
--- NOTE | 2023-01-26 08:37 | MHC.EDTECH ---
Labs collected and sent
[2023-01-26 08:41] LABS: MANUAL DIFF FLAG NO
[2023-01-26 08:46] LABS: Basophils Absolute Auto 0.1 X10*3/uL (0.0-0.2); Basophils Percent Auto 0.6 % (0-2); Eosinophils Absolute Auto 0.1 X10*3/uL (0.0-0.4); Eosinophils Percent Auto 0.8 % (0-4); Hematocrit 47.1 % (37.0-47.0); Hemoglobin 15.6 g/dl (12.0-16.0); Imm Gran Abs Auto 0.05 X10*3/uL (0.00-0.03); Imm Gran Pct Auto 0.4 % (0.0-0.4); Lymphocytes Absolute Auto 3.3 X10*3/uL (1.2-4.9); Lymphocytes Percent Auto 28.2 % (20-40); Mean Corpuscular HGB Conc 33.1 g/dl (31.0-35.0); Mean Corpuscular Hemoglobin 28.4 pg (27.0-33.0); Mean Corpuscular Volume 85.6 fL (80.0-98.0); Mean Platelet Volume 8.8 fL (9.4-12.3); Monocytes Absolute Auto 0.6 X10*3/uL (0.1-1.2); Monocytes Percent Auto 5.5 % (2-11); Neutrophils Absolute Auto 7.4 x10*3/uL (2.0-8.3); Neutrophils Percent Auto 64.5 % (45-73); Platelet Count 358 X10*3/uL (160-400); White Blood Count 11.5 X10*3/uL (4.8-10.8)
--- NOTE | 2023-01-26 09:05 | ED.GENADULT ---
HPI - General Adult General Chief complaint: Headache Stated complaint: severe headache Time Seen by Provider: 01/26/23 09:03 Source: patient Mode of arrival: ambulatory Limitations: no limitations History of Present Illness HPI narrative: Patient is a 32 year old assigned female at with a history of PMDD, GERD, chronic UTI, and migraines presenting to the emergency department today with left sided neck pain and a left sided headache. Patient states that for a week she has had left sided neck pain that radiates up the left side of her head to behind her eye. Patient states that at times, even her eye alanis. Patient states that she has been having minimal relief from OTC pain relievers but the pain comes back. Patient denies any dizziness, lightheadedness, abdominal pain, nausea, vomiting, fever, chills, blurry vision, double vision, loss of vision, chest pain, difficulty breathing, shortness of breath, back pain, night sweats, pain with urination, increased urinary frequency, increased urinary urgency, blood in her urine or stool, syncope or a near syncopal episode, recent trauma or falls, bowel incontinence, bladder incontinence, bowel retention, bladder retention, or any other complaints at this time. Onset (ago): week(s) (1) Location: head and neck Severity: mild Severity scale (1-10): 3 Relieving factors: none Exacerbating factors: none Associated symptoms: denies other symptoms Treatments prior to arrival: none Related Data Previous Rx's Medication Instructions Recorded peg 3350-electrolytes 236 240 ml PO Q10M 1 day #4,000 mL 01/10/23 gram-22.74 gram-6.74 gram-5.86 gram solution (Golytely) levofloxacin 500 mg tablet 500 mg PO daily 5 days #5 tabs 01/17/23 nitrofurantoin macrocrystal 50 mg 50 mg PO BEDTIME 90 days #90 caps 01/17/23 capsule cyclobenzaprine 5 mg tablet 5 mg PO TID PRN muscle spasm 7 01/26/23 days #21 tabs Allergies Allergy/AdvReac Type Severity Reaction Status Date / Time codeine Allergy Intermediate Shakiness Verified 01/25/23 13:00 bees Allergy Unknown Swelling Uncoded 01/25/23 13:00 hornet Allergy Unknown Swelling Uncoded 01/25/23 13:00 Review of Systems Constitutional: Constitutional: Reports no additional constitutional complaints, Denies chills, Denies fever(s), Reports headache(s) and Denies night sweats Eyes: Eyes: Reports no additional eye complaints, Denies blurry vision, Denies change in vision, Denies diplopia, Denies eye discharge, Denies loss of vision and Denies eye pain ENT: Denies dizziness, Reports headache(s) and Reports neck pain Cardiovascular: Cardiovascular: Reports no additional cardiovascular complaints, Denies chest pain, Denies lightheadedness, Denies Loss of Consciousness and Denies dyspnea Respiratory: Respiratory: Reports no additional respiratory complaints and Denies dyspnea Gastrointestinal: Gastrointestinal: Reports no additional gastrointestinal complaints, Denies abdominal pain, Denies melena, Denies hematochezia, Denies change in bowel habits and Denies change in stool character Genitourinary: Genitourinary: Denies hematuria, Denies urinary frequency, Denies dysuria, Denies urinary incontinence, Denies urinary hesitancy and Denies urinary urgency Musculoskeletal: Musculoskeletal: Reports no additional musculoskeletal complaints, Reports neck pain, Denies numbness and Denies tingling Neurologic: Denies dizziness, Reports headache(s), Denies loss of vision, Denies numbness and Denies tingling Psychiatric: Psychiatric: Reports no additional psychiatric complaints Endocrine: Endocrine: Reports no additional endocrine complaints Hematologic/Lymphatic: Hematologic/Lymphatic: Reports no additional hematologic/lymphatic complaints Allergic/Immunologic: Allergic/Immunologic: Reports no additional allergic/immunologic complaints [facility] Past Medical History Attestation statement: The following information was validated with the patient. Source: old records reviewed and nursing notes reviewed Medical History Abdominal bloating Abnormal laboratory test Abnormal thyroid scan Arthritis control counseling Bleeding hemorrhoids Cellulitis Chest pain Complex ovarian cyst Contraceptive management COVID COVID-19 Depression Dog bite Encounter for IUD insertion Encounter for IUD removal Family planning Family planning Matthew's duct cyst Generalized abdominal pain Headache Healthy adult Heart palpitations Hemorrhoids History of cardiac disorder History of leukocytosis Hx of hematuria Hypothyroidism Immune disorder Insomnia IUD check up Migraine Morning after pill advice and prescription Multinodular thyroid Neck pain Obese Obesity (BMI 30-39.9) Palpitation Pelvic cramping Postprandial abdominal bloating Rash Recurrent UTI Screen for STD (sexually transmitted disease) Screen for STD (sexually transmitted disease) Screening examination for infectious disease Smoker Thyroid nodule Urethral diverticulum UTI (urinary tract infection) Vaginal cyst Surgical History History of delivery Hx of ultrasound guided needle biopsy Family History Family History Mother Diabetes Maternal Grandmother Diabetes Sister HTN (hypertension) Maternal Uncle Thyroid cancer Social History Social History Housing: Apartment Alcohol intake: never Patient Tobacco Use Status: Current everyday Tobacco user Tobacco use type: Cigarette Years Smoked: 10 years e-Cigarette/Vaping Use: Currently Using Second Hand Smoke Exposure: Yes Advance Directives: No Advance Directives Information Provided: Yes service: No Current occupational status: employed Current occupational exposures/hazards: No Cognitive needs: No Hearing needs: No Vision needs: Yes Physical Exam ED Vital Signs: Vital Signs - 24 hr 01/26/23 08:28 Temperature 98 F Pulse Rate 118 H Respiratory Rate 18 Blood Pressure 134/93 H Pulse Oximetry 98 Oxygen Delivery Method Room Air BMI result Body Mass Index 36.9 Const General: cooperative, no acute distress, alert and awake Nutritional Appearance: well nourished Orientation/consciousness: patient oriented x3 Limitations: no limitations HENMT Head: Yes normal to inspection and Yes atraumatic Ears: hearing grossly normal bilaterally and external ears normal General nose exam: Normal external nose present, no nasal discharge noted and no epistaxis Face and sinus: Yes normal facial exam, No abrasion and No laceration Mouth: Normal oral and palatal mucosa present, no drooling and no muffled voice Eyes General: appearance normal, both eyes and all related structures Periorbital: periorbital findings normal Eyelids: Yes eyelids normal Conjunctivae: conjunctivae normal Pupils: Equal, round and reactive pupils present EOM: EOMs intact bilaterally Neck Neck: Yes normal visual inspection, Yes full ROM and Yes no lymphadenopathy Chest Chest palpation & inspection: normal inspection of the chest Resp Effort & Inspection: normal respiratory effort and able to speak in complete sentences GI Inspection: Yes normal to inspection Back/Spine/Pelvis Cervical Spine: normal cervical lordosis and cervical ROM normal Thoracic/Lumbar Spine: thoraco-lumbar ROM normal Neuro General: patient oriented x3 and moves all extremities Cranial nerves: Yes Equal, round and reactive pupils present Cognition (Neuro): normal cognition Motor exam (neuro): 5/5 motor strength present throughout Sensory Exam: Normal double simultaneous stimulation for sensation Coordination: [id number] test normal Extrem General: Yes normal to inspection, Yes full ROM and Yes capillary refill normal Psych Appearance: grossly normal Mental Status: mental status grossly normal Affect: normal affect Attitude: cooperative Thought process: Normal thought process present Thought content: Normal thought content present Insight: Good insight present (Psych) Medications Administered Discontinued Medications Generic Name Dose Route Start Last Admin Trade Name Brayan PRN Reason Stop Dose Admin Cyclobenzaprine HCl 5 mg 01/26/23 09:56 01/26/23 10:41 Cyclobenzaprine Hcl 5 Mg Tablet PO 01/26/23 09:57 Not Given ONCE ONE Ketorolac Tromethamine 15 mg 01/26/23 09:56 01/26/23 10:40 Ketorolac Tromethamine 15 Mg/Ml Vial IM 01/26/23 09:57 Not Given ONCE ONE Medical Decision Making Medical Decision Making MDM Narrative: Patient is a 32 year old assigned female at with a history of PMDD, migraines, GERD, and chronic UTIs presenting to the emergency department today with left sided neck pain and left sided headache. Patient's physical exam was unremarkable. Patient's blood work was unremarkable. Patient's clinical presentation is most consistent with cervical radiculopathy. I explained my physical exam findings as well as all test results to the patient. I answered all questions asked by the patient. I offered the patient IM Toradol and PO Flexeril - both of which she refused. I discussed, in depth, all treatment options and testing modalities with the patient. We discussed what an x-ray, CT scan, and MRI would show and that given her current clinical presentation, imaging is not recommended. I stressed the importance of the patient taking her medication as prescribed. I stressed the importance of the patient following up with her primary care provider and a economic specialist. I stressed the importance of the patient returning to the emergency department immediately if her symptoms were to worsen or if she were to develop any dizziness, shortness of breath, difficulty breathing, chest pain, blurry vision, loss of vision, nausea, vomiting, abdominal pain, fever, chills, back pain, or any other complaints. Patient verbalized agreement and understanding with this treatment plan and discharge. Differential Diagnosis Differential Diagnoses: The differential diagnosis associated with the presentation includes neck pain, headache, cervical radiculopathy Lab Data MDM Lab Attestation statement: I reviewed the patient's lab results. 01/26/23 08:35 01/26/23 08:35 Labs: Lab Results 01/26/23 01/26/23 Range/Units 08:35 08:35 WBC 11.5 H (4.8-10.8) X10*3/uL RBC 5.50 (4.20-5.50) X10*6/uL Hgb 15.6 (12.0-16.0) g/dl Hct 47.1 H (37.0-47.0) % MCV 85.6 (80.0-98.0) fL MCH 28.4 (27.0-33.0) pg MCHC 33.1 (31.0-35.0) g/dl RDW 12.0 (11.0-16.0) % Plt Count 358 (160-400) X10*3/uL MPV 8.8 L (9.4-12.3) fL Immature Gran % (Auto) 0.4 (0.0-0.4) % Neut % (Auto) 64.5 (45-73) % Lymph % (Auto) 28.2 (20-40) % [place] % (Auto) 5.5 (2-11) % Eos % (Auto) 0.8 (0-4) % Baso % (Auto) 0.6 (0-2) % Lymph # (Auto) 3.3 (1.2-4.9) X10*3/uL [place] # (Auto) 0.6 (0.1-1.2) X10*3/uL Eos # (Auto) 0.1 (0.0-0.4) X10*3/uL Baso # (Auto) 0.1 (0.0-0.2) X10*3/uL Abs Immat Gran (auto) 0.05 H (0.00-0.03) X10*3/uL Absolute Neuts (auto) 7.4 (2.0-8.3) x10*3/uL Absolute Nucleated RBC 0.000 (0.0-0.012) X10*3/uL Nucleated RBC % (auto) 0.0 (0.0-0.2) /100WBC Sodium 139 (135-145) mmol/L Potassium 4.0 (3.3-5.1) mmol/L Chloride 106 (96-108) mmol/L Carbon Dioxide 24 (22-29) mmol/L Anion Gap 13 (12-20) BUN 12 (9-16) mg/dL Creatinine 0.87 (0.5-1.4) mg/dL Estim Creat Clear Calc 124.6 Estimated GFR > 60 Random Glucose 114 (60-115) mg/dL Calcium 8.8 (8.4-10.2) mg/dL Total Bilirubin 0.7 (0.0-1.0) mg/dL AST 15 (5-31) U/L ALT 21 (0-31) U/L Alkaline Phosphatase 63 (39-117) U/L Total Protein 6.7 (6.5-8.0) g/dL Albumin 3.8 (3.5-5.0) g/dL Beta HCG, Quant < 2 mIU/mL Discharge Plan Discharge Clinical Impression: Cervical radiculopathy Patient Disposition: Home, Self-Care Instructions: Cervical Radiculopathy (ED) Additional Instructions: Follow up with your primary care provider and a economic specialist. Return to the emergency department immediately if your symptoms worsen or if you develop any dizziness, shortness of breath, difficulty breathing, chest pain, blurry vision, loss of vision, nausea, vomiting, abdominal pain, fever, chills, back pain, or any other complaints. Prescriptions: New cyclobenzaprine 5 mg tablet 5 mg PO TID PRN (Reason: muscle spasm) 7 Days Qty: 21 0RF No Action peg 3350-electrolytes [Golytely] 236-22.74-6.74 -5.86 gram recon soln 240 ml PO Q10M 1 Days Qty: 4000 0RF Rx Instructions: until fecal effluent is clear; do not exceed a total volume of 2,000 mL levofloxacin 500 mg tablet 500 mg PO daily 5 Days Qty: 5 0RF nitrofurantoin macrocrystal 50 mg capsule 50 mg PO BEDTIME 90 Days Qty: 90 1RF Rx Instructions: must administer with a meal/food Referrals: [facility] [Provider Group] (Call to establish and follow up with a economic specialist. ) Admas Pereira PA-C [Primary Care Provider] - Interventions: ED Discharge Assessment Last Done: 01/26/23 10:41 Discharge Date/Time: 01/26/23 10:41 Print Language: Cuban
[2023-01-26 09:10] LABS: Alanine Aminotransferase 21 U/L (0-31); Albumin Level 3.8 g/dL (3.5-5.0); Alkaline Phosphatase 63 U/L (39-117); Anion Gap 13 (12-20); Aspartate Amino Transferase 15 U/L (5-31); Bilirubin Total 0.7 mg/dL (0.0-1.0); Blood Urea Nitrogen 12 mg/dL (9-16); Calcium 8.8 mg/dL (8.4-10.2); Carbon Dioxide 24 mmol/L (22-29); Chloride 106 mmol/L (96-108); Creatinine Clr Calc Pharmacy 124.6; Estimated Glomerular Filt Rate > 60; Glucose Random 114 mg/dL (60-115); Sodium 139 mmol/L (135-145); Total Protein 6.7 g/dL (6.5-8.0)
[2023-01-26 09:15] LABS: HCG Quantitative < 2 mIU/mL
== END 2023-01-26 10:41 | disposition home or self-care (01) ==
PROVIDERS: Emergency Provider Emergency Medicine; PCP Physician Assistant
DX: R51.9 Headache, unspecified (principal); M54.12 Radiculopathy, cervical region; M54.2 Cervicalgia; F32.81 Premenstrual dysphoric disorder; K21.9 Gastro-esophageal reflux disease without esophagitis
CPT/HCPCS: 36415; 80053; 84702; 85025; 99282; 99283

== ENCOUNTER → 2023-03-07 13:06 | Outpatient (BNVA) | payer OTHER, SELFPAY | PROVIDERS: PCP Physician Assistant; Visit Provider Nurse Practitioner | DX: K21.9 Gastro-esophageal reflux disease without esophagitis (principal); K59.04 Chronic idiopathic constipation; R14.0 Abdominal distension (gaseous); K64.9 Unspecified hemorrhoids | CPT/HCPCS: 99212 ==

== ENCOUNTER 2023-08-07 11:56 | Outpatient (AMB) | payer OTHER, SELFPAY ==
--- NOTE | 2023-08-07 12:02 | MHC.OFFVIS ---
Intake Intake Visit Reasons: follow up UTI? Intake Note: Patient presents for recurrent uti Urology Medications: macrobid Blood Thinner: none PVR: 38ml's Guitar Instructor Required: No Accompanied by: Self / Same As Patient Allergies codeine Allergy (Intermediate, Verified 08/07/23 19:52) Shakiness bees Allergy (Unknown, Uncoded 08/07/23 19:52) Swelling hornet Allergy (Unknown, Uncoded 08/07/23 19:52) Swelling Medication List - Last Reconciled 08/07/23 by JACKIE Estrada nitrofurantoin macrocrystal 100 mg PO BID 14 days HPI HPI Comments History of Present Illness Details Krupa is a very pleasant 32 year old female patient of Dr. Pereira. She has a past medical history of insomnia, migraines, abnormal uterine bleeding, left ovarian cysts, hypothyroidism, obesity, recurrent chronic urinary tract infections, GERD, bleeding hemorrhoids, chronic pain, chronic idiopathic constipation, depression, anxiety, and abdominal bloating. She presents to the office today for follow-up of her recurrent urinary tract infections. In discussion with the patient today she reports feeling frustrated with her ongoing urological and gastroenterointestinal issues. She reports feeling urinary tract infection like symptoms for approximately 2 months now however was hesitant to call office as she states I was trying to flush it out with some water . She also reports not wanting to follow up because she feels every time she sees medical providers she is always prescribed medications. She reports that although she knows at times medications are needed she does not like taking them. She discusses her frustration regarding her 8-9 year history of constipation, abdominal bloating, and overall gassiness. She reports ever since the of her child she feels she continues with issues related to constipation and recurrent urinary tract infections. In office urinalysis results reviewed with the patient today. 3+ leukocytes negative nitrates. Patient reports noting increased frequency, urgency, and dysuria upon urination for weeks. Discussed at length potential causes for urinary tract infections as well as prevention. Discussed obtaining retroperitoneal ultrasound for further assessment evaluation. Discussed and stressed the importance of following up with Gastroenterology for further assessment evaluation as constipation can lead to recurrent urinary tract infections. She otherwise denies incontinence, hematuria, foul smelling urine, changes to urinary stream, flank pain, fever, and or chills. PVR 38 mLs. [facility] Medical History (Updated 08/07/23 @ 20:02 [facility] UTI (urinary tract infection) Morning after pill advice and prescription Screen for STD (sexually transmitted disease) Chest pain Multinodular thyroid Thyroid nodule Abnormal thyroid scan Hemorrhoids Encounter for IUD removal Contraceptive management Abdominal bloating IUD check up Complex ovarian cyst Pelvic cramping Encounter for IUD insertion Postprandial abdominal bloating Obese Recurrent UTI Family planning Bleeding hemorrhoids Generalized abdominal pain Obesity (BMI 30-39.9) Smoker Matthew's duct cyst Vaginal cyst Urethral diverticulum Hx of hematuria Family planning Screen for STD (sexually transmitted disease) COVID COVID-19 Dog bite Rash Cellulitis Headache Palpitation Neck pain Screening examination for infectious disease Heart palpitations control counseling History of cardiac disorder Depression Migraine Insomnia Abnormal laboratory test Hypothyroidism Arthritis Immune disorder Healthy adult History of leukocytosis Surgical History Hx of ultrasound guided needle biopsy History of delivery Family History Mother Diabetes Maternal Grandmother Diabetes Sister HTN (hypertension) Maternal Uncle Thyroid cancer Social History Housing: Apartment Alcohol intake: current Alcohol intake frequency: holidays/special occasions only Patient Tobacco Use Status: Former Tobacco user Tobacco use type: Cigarette Years Smoked: 10 years e-Cigarette/Vaping Use: Currently Using Second Hand Smoke Exposure: Yes service: No Current occupational status: unemployed Cognitive needs: No Hearing needs: No Vision needs: Yes Female Reproductive History Menstrual Age of Menarche: 11 Review of Systems Const Reports as per HPI Eyes Reports no additional complaints ENT Reports no additional complaints Card Reports no additional complaints Resp Reports no additional complaints GI Reports as per HPI Reports as per HPI Musc Reports as per HPI Neuro Reports as per HPI Psych Reports as per HPI Endo Reports as per HPI Physical Exam Const General: cooperative, comfortable, no acute distress, well developed, alert and awake Nutritional Appearance: overweight Orientation/consciousness: patient oriented x3 Limitations: no limitations HEENT Head: Yes normal to inspection, Yes normocephalic and Yes atraumatic Ears: hearing grossly normal bilaterally Eyes General: appearance normal, both eyes and all related structures Neck Neck: Yes normal visual inspection and Yes trachea midline Chest Chest palpation & inspection: normal inspection of the chest Resp Effort & Inspection: normal respiratory effort and able to speak in complete sentences Cardio Rate: regular rate GI Inspection: Yes normal to inspection General: Yes no CVA tenderness External Female Exam: normal external appearance and normal appearance of the urethra Speculum Exam - Vagina: normal appearance of the vagina Back/Spine/Pelvis Back: no CVA tenderness Skin General skin exam: no rashes or lesions noted Neuro General: patient oriented x3 Extrem General: Yes normal to inspection Psych Appearance: grossly normal and well kempt Mental Status: mental status grossly normal Speech and movement: Normal speech and movement present and Clear speech present Affect: normal affect Attitude: cooperative Thought process: Normal thought process present Thought content: Normal thought content present Office Procedures Post Void Residual Post Residual Void Post Void Residual (PVR): 38 [id number] Void Residual by ultrasound Results AMB Urinalysis, Automated UA Leukoctes 500 Adeel/uL Last Edit by [employer] Albertolatisha on 08/07/23 12:25 UA Nitrite Negative Last Edit by Loki Albertolatisha on 08/07/23 12:25 UA Urobilinogen 0.2 mg/dL Last Edit by Loki Albertolatisha on 08/07/23 12:25 UA Protein 100 mg/dL Last Edit by [employer] on 08/07/23 12:25 UA pH 8.5 Last Edit by Loki Albertolatisha on 08/07/23 12:25 UA Blood 10 Miguel/uL Last Edit by [employer] Dolly[employer] on 08/07/23 12:25 UA Specific [place] 1.015 Last Edit by [employer] on 08/07/23 12:25 UA Ketone Negative Last Edit by Ang[employer]is Albertolatisha on 08/07/23 12:25 UA Bilirubin 0 mg/dL Last Edit by [employer] on 08/07/23 12:25 UA Glucose 0 mg/dL Last Edit by [employer] on 08/07/23 12:25 Results Reviewed Results Reviewed: Laboratory Last Values Urine pH (Auto) 8.5 08/07/23 12:04 Specific [place] (Auto) 1.015 08/07/23 12:04 Urine Protein (Auto) 100 mg/dL 08/07/23 12:04 Glucose (UA)(Auto) 0 mg/dL 08/07/23 12:04 Urine Ketones (Auto) Negative 08/07/23 12:04 Urine Blood (Auto) 10 Miguel/uL 08/07/23 12:04 Urine Nitrite (Auto) Negative 08/07/23 12:04 Urine Bilirubin (Auto) 0 mg/dL 08/07/23 12:04 Urine Urobilinogen (Auto) 0.2 mg/dL 08/07/23 12:04 Leukocyte Esterase (Auto) 500 Adeel/uL 08/07/23 12:04 Assessment & Plan Assessment & Plan (1) Chronic UTI (urinary tract infection): Code(s): N39.0 - Urinary tract infection, site not specified (2) UTI (urinary tract infection): Code(s): N39.0 - Urinary tract infection, site not specified Plan In office urinalysis results reviewed with the patient today; as noted above; will send for urine culture. PVR 38 mLs Will obtain retroperitoneal ultrasound for further assessment evaluation. Start Macrobid as discussed and prescribed. Discussed UTI prevention with D mannose supplement, vitamin-C, increasing fluid intake, behavioral therapy with timed voiding, perineal hygiene and postcoital voiding, and management of constipation with stool softeners and increased fiber intake. Discussed near future in office cystoscopy for further assessment evaluation. Follow-up in 1 month with imaging to be completed prior; or sooner with any issues, concerns, and or questions. Orders: Orders AMB Urinalysis Automated Today Z13.9 - Encounter for screening, unspecified AMB Post Void Residual by ultrasound Today N39.0 - Urinary tract infection, site not specified Urine Culture Today N39.0 - Urinary tract infection, site not specified US retroperitoneal comp Today N39.0 - Urinary tract infection, site not specified Medications: New nitrofurantoin macrocrystal 100 mg PO BID 14 days 28 caps 0RF R32 - Unspecified urinary incontinence Patient Instructions: The patient had an opportunity to ask questions regarding the treatment plan. All questions were answered. Physical exam, labs, and imaging were discussed and reviewed in detail. As well as risks, benefits, and discussion of treatment choices. No major barriers to understanding were identified. The patient expressed understanding and agreement with the above treatment plan. The patient was made aware they should contact our office by phone for worsening of their current condition, the appearance of new symptoms, or with any questions or concerns. Compliance is encouraged with any medications and follow up testing that is ordered. It is a privilege to be allowed the opportunity to participate in? your urological care.? Again, if you have any questions or concerns If you have any questions or concerns please do not hesitate to contact me. The office is [phone]. This note is constructed using voice recognition software. While every effort has been made to ensure accuracy brand designer errors may have been included. Yours sincerely, YOLI Estrada Coding Level of Care Code Est Pt Level 4 (15000) Diagnoses Chronic UTI (urinary tract infection) N39.0 UTI (urinary tract infection) N39.0 CPT Codes Post Residual Void - PVR CPT Code: 62123-Obsm Void Residual by ultrasound ([id number])
== END 2023-08-07 13:29 | disposition home or self-care (01) ==
PROVIDERS: PCP Physician Assistant; Visit Provider Nurse Practitioner Family
DX: Z13.9 Encounter for screening, unspecified (principal); N39.0 Urinary tract infection, site not specified
CPT/HCPCS: 99214

== ENCOUNTER 2023-08-07 11:56 | Outpatient (REF) | payer OTHER, SELFPAY | END 2023-08-07 11:57 | disposition home or self-care (01) | LOC: HO.LNP 11:56 | PROVIDERS: PCP Physician Assistant; Visit Provider Nurse Practitioner Family | DX: N39.0 Urinary tract infection, site not specified (principal) | CPT/HCPCS: 51798; 81003; 87086; 99212 ==

== ENCOUNTER → 2023-08-15 10:58 | Outpatient (BNVA) | payer OTHER, SELFPAY | PROVIDERS: PCP Physician Assistant; Visit Provider Nurse Practitioner Family ==

== ENCOUNTER 2023-08-22 11:52 | Outpatient (AMB) | payer OTHER, SELFPAY ==
--- NOTE | 2023-08-22 11:54 | A.OFFVIS_ITS ---
Intake Vital Signs 08/22/23 11:58 Height 5 ft 9 in Weight 262 lb 5.601 oz BMI 38.7 BP 131/68 Blood Pressure Location Lt brachial Position Sitting Pulse 94 Intake Visit Reasons: pt req appointment Intake Note: Patient presents to clinic today in follow up of abdominal pain and GERD. CC: Pt continues to have constipation, diarrhea, abdominal pain, feeling like the food stays stuck in her esophagus and she has to throw up. Patient reports she was told by urology that she keeps getting UTIs d/t constipation. 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 COLONOSCOPY not yet scheduled BIOPSY ? TODAY'S VISIT The thyroid biopsy was normal. She recently was given abx for a sore throat and she developed thrush. She is using Nystatin swish and swallow. This makes me think about possible systemic sunil, as this can cause bloating and diarrhea as well. she is frequently on and off of abx for UTIs.? I think will try treating her with a 14 day course of Diflucan which of course will help her oral Sunil as well. She has not yet heard re: colonoscopy. She has a lot of rectal bleeding which she assumed was from a hemorrhoid, but could be from systemic sunil. She has intermittent HB and usually takes TUMS. ROV 4 weeks. (2) Abdominal bloating: ?Code(s): R14.0 - Abdominal distension (gaseous) (3) Chronic idiopathic constipation: ?Code(s): K59.04 - Chronic idiopathic constipation (4) Bleeding hemorrhoids: ?Code(s): K64.9 - Unspecified hemorrhoids (5) GERD (gastroesophageal reflux diseas e): ?Code(s): K21.9 - Gastro-esophageal reflux disease without esophagitis ?Qualifiers: ?Esophagitis presence:?without esophagitis? Qualified Code(s):?K21.9 - Gastro-esophageal reflux disease without esophagitis ? ? ? Medications: New fluconazole (Diflu can) 150 mg? PO DAILY 1 4 days 14 tabs 0RF B37.0 - Candidal s tomatitis, B37.81 - Candidal esophag itis ? TODAY'S VISIT She continues to have a great deal of trouble with her stomach. She really struggles with constipation and so far she has tried fiber, MiraLax, and smooth move tea without really good results. When she drinks too much of the smooth move she will have reactive diarrhea. She continues to have a great deal of dyspepsia and belching with heartburn. This is worse when she is constipated. She does not want to take pills and she really feels like there should be ?a test? that tells with the underlying problem is. She expresses concerns that we are simply treating the symptom. I try to educate her that this is, in essence, correct. Because the intestines respond to a variety of micro stimuli internally and externally we just treat constipation as a symptom because finding 1 reversible factor is usually not reasonable. However, I do think an endoscopy and a colonoscopy would put her mind better 80s. I will try to get 1 ordered paola. She has had quite a lot of CT testing for a variety of conditions and asks about a CT, but I think that more radiation would not be in her best interest at this time. I will get an ultrasound of the abdomen to see if there is anything concerning such as a brewing appendicitis. I am also going to get a TSH a RAST panel and pancreatic a last taste. She is very concerned because she has been losing employment because of her frequent bathroom breaks and she had also seems to have a great deal of health anxiety. While she has a variety of reversible factors metabolic in psychogenic contributors should be seriously considered. ROV 6 weeks. ? EGD/COLONOSCOPY not yet scheduled BIOPSY ? [facility] [place] Medical History (Updated 08/22/23 @ 12:23 by JAN Vizcaino) Hypothyroidism UTI (urinary tract infection) Morning after pill advice and prescription Screen for STD (sexually transmitted disease) Chest pain Multinodular thyroid Thyroid nodule Abnormal thyroid scan Hemorrhoids Encounter for IUD removal Contraceptive management Abdominal bloating IUD check up Complex ovarian cyst Pelvic cramping Encounter for IUD insertion Postprandial abdominal bloating Obese Recurrent UTI Family planning Bleeding hemorrhoids Generalized abdominal pain Obesity (BMI 30-39.9) Smoker Matthew's duct cyst Vaginal cyst Urethral diverticulum Hx of hematuria Family planning Screen for STD (sexually transmitted disease) COVID COVID-19 Dog bite Rash Cellulitis Headache Palpitation Neck pain Screening examination for infectious disease Heart palpitations control counseling History of cardiac disorder Depression Migraine Insomnia Abnormal laboratory test Arthritis Immune disorder Healthy adult History of leukocytosis Surgical History Hx of ultrasound guided needle biopsy History of delivery Family History Mother Diabetes Maternal Grandmother Diabetes Sister HTN (hypertension) Maternal Uncle Thyroid cancer Social History Housing: Apartment Alcohol intake: current Alcohol intake frequency: holidays/special occasions only Patient Tobacco Use Status: Former Tobacco user Tobacco use type: Cigarette Years Smoked: 10 years e-Cigarette/Vaping Use: Currently Using Second Hand Smoke Exposure: Yes service: No Current occupational status: unemployed Cognitive needs: No Hearing needs: No Vision needs: Yes Female Reproductive History Menstrual Age of Menarche: 11 Review of Systems Const Denies fatigue, Denies fever(s), Denies night sweats, Denies poor appetite and Denies weight loss Eyes Details: glasses Reports requires corrective lenses ENT Reports Normal hearing present, Denies dental pain, Denies dysphagia, Denies hearing loss, Denies mouth pain, Reports neck pain, Denies odynophagia, Reports disequilibrium, Denies throat swelling, Denies tongue swelling and Reports other (Dentition adequate) Card Reports chest pain and Reports lightheadedness Resp Reports no additional complaints GI Reports abdominal pain, Reports belching, Denies melena, Reports bloating, Denies hematochezia, Reports constipation, Denies GI cramping, Denies dysphagia, Denies excessive flatus, Denies early satiety, Reports heartburn, Reports diarrhea, Reports nausea, Denies odynophagia, Reports vomiting and Denies hematemesis Musc Reports back pain, Reports myalgias and Reports neck pain Skin/Breast Denies pruritus, Denies lesions, Denies rash and Denies jaundice Neuro Reports Normal hearing present, Denies Abnormal speech present, Reports memory loss and Reports disequilibrium Psych Reports anxiety and Reports memory loss Endo Denies fatigue Aller/Immun Denies throat swelling and Denies tongue swelling Physical Exam Vital Signs: Last Vital Signs Pulse 94 08/22/23 11:58 BP 131/68 08/22/23 11:58 BMI result Body Mass Index 38.7 Const General: cooperative, no acute distress, well developed and well groomed Nutritional Appearance: well nourished and obese Orientation/consciousness: oriented to person, oriented to place and oriented to time Limitations: No language barrier HEENT Head: Yes normocephalic and Yes atraumatic Eyes General: appearance normal, both eyes and all related structures Pupils: Equal, round and reactive pupils present Neck Neck: Yes normal visual inspection and Yes no lymphadenopathy Thyroid: Thyroid normal Resp Effort & Inspection: normal respiratory effort and able to speak in complete sentences Auscultation: clear to auscultation bilaterally Cardio Rate: regular rate Rhythm: regular rhythm Heart sounds: Normal, physiologic split S2 sound present Peripheral pulses: radial pulses present and posterior tibial pulses present GI Inspection: No distended, Yes Abdominal panniculus present and Yes obesity Palpation (GI): Soft to palpation, nontender, no guarding, not rigid and No hepatosplenomegaly present Percussion: Yes normal to percussion Auscultation: normal bowel sounds Rectal Exam - Female: deferred Skin General skin exam: no rashes or lesions noted, turgor normal, skin not dry, no jaundice, No spider nevi and no striae Rashes: no rashes Nails: normal Neuro General: oriented to person, oriented to place and oriented to time Cranial nerves: Yes Equal, round and reactive pupils present and Yes Normal hearing present Speech: No Abnormal speech present Extrem General: Yes normal to inspection, No clubbing, No cyanosis and No edema Psych Appearance: grossly normal and well kempt Mental Status: mental status grossly normal Speech and movement: Pressured speech present Affect: Animated affect present and Anxious affect present Attitude: cooperative Thought process: not confabulating, Perseverating thought process present, Tangential thought process present and Racing thoughts present Thought content: Normal thought content present Insight: Limited insight present (Psych) Judgement: Limited judgement present (Psych) Assessment & Plan Assessment & Plan (1) Chronic idiopathic constipation: Code(s): K59.04 - Chronic idiopathic constipation Plan: She continues to have a great deal of trouble with her stomach. She really struggles with constipation and so far she has tried fiber, MiraLax, and smooth move tea without really good results. When she drinks too much of the smooth move she will have reactive diarrhea. She continues to have a great deal of dyspepsia and belching with heartburn. This is worse when she is constipated. She does not want to take pills and she really feels like there should be ?a test? that tells with the underlying problem is. She expresses concerns that we are simply treating the symptom. I try to educate her that this is, in essence, correct. Because the intestines respond to a variety of micro stimuli internally and externally we just treat constipation as a symptom because finding 1 reversible factor is usually not reasonable. However, I do think an endoscopy and a colonoscopy would put her mind better 80s. I will try to get 1 ordered paola. She has had quite a lot of CT testing for a variety of conditions and asks about a CT, but I think that more radiation would not be in her best interest at this time. I will get an ultrasound of the abdomen to see if there is anything concerning such as a brewing appendicitis. I am also going to get a TSH a RAST panel and pancreatic a last taste. She is very concerned because she has been losing employment because of her frequent bathroom breaks and she had also seems to have a great deal of health anxiety. While she has a variety of reversible factors metabolic in psychogenic contributors should be seriously considered. ROV 6 weeks. ? EGD/COLONOSCOPY not yet scheduled BIOPSY ? (2) Abdominal pain: Code(s): R10.9 - Unspecified abdominal pain (3) Nausea and vomiting: Code(s): R11.2 - Nausea with vomiting, unspecified (4) Abdominal bloating: Code(s): R14.0 - Abdominal distension (gaseous) (5) GERD (gastroesophageal reflux disease): Code(s): K21.9 - Gastro-esophageal reflux disease without esophagitis Qualifiers: Esophagitis presence: without esophagitis Qualified Code(s): K21.9 - Gastro-esophageal reflux disease without esophagitis (6) Hypothyroidism: Code(s): E03.9 - Hypothyroidism, unspecified Qualifiers: Hypothyroidism type: unspecified Qualified Code(s): E03.9 - Hypothyroidism, unspecified (7) Upper abdominal pain: Code(s): R10.10 - Upper abdominal pain, unspecified Orders: Orders TSH reflex Free T4 Today E03.9 - Hypothyroidism, unspecified, K59.04 - Chronic idiopathic constipation EGD/[place] Combo - GI Use Only Today K59.04 - Chronic idiopathic constipation, R10.9 - Unspecified abdominal pain, R11.2 - Nausea with vomiting, unspecified US abdomen complete Today K59.04 - Chronic idiopathic constipation, R10.9 - Un specified abdominal pain, R11.2 - Nausea with vomiting, unspecified TSH reflex Free T4 6 Months E04.2 - Nontoxic multinodular goiter Pancreatic Elastase-1 Today E03.9 - Hypothyroidism, unspecified, K59.04 - Chronic idiopathic constipation Rast Allergen Today R10.10 - Upper abdominal pain, unspecified Medications: New bisacodyl (Dulcolax (bisacodyl)) 10 mg (2 x 5 mg) PO BEDTIME 2 days 4 tabs 0RF Coding Level of Care Code Est Pt Level 3 (03836) Diagnoses Chronic idiopathic constipation K59.04 Abdominal pain R10.9 Nausea and vomiting R11.2 Abdominal bloating R14.0 Gastroesophageal reflux disease without esophagitis K21.9 Esophagitis presence: without esophagitis Hypothyroidism, unspecified type E03.9 Hypothyroidism type: unspecified Upper abdominal pain R10.10
[2023-08-22 11:58] VITALS: BP 131/68; PULSE 94; BMI 38.7
== END 2023-08-22 13:15 | disposition home or self-care (01) ==
PROVIDERS: PCP Physician Assistant; Visit Provider Nurse Practitioner
DX: K59.04 Chronic idiopathic constipation (principal); R10.9 Unspecified abdominal pain; R11.2 Nausea with vomiting, unspecified; R14.0 Abdominal distension (gaseous); K21.9 Gastro-esophageal reflux disease without esophagitis; E03.9 Hypothyroidism, unspecified; R10.10 Upper abdominal pain, unspecified
CPT/HCPCS: 99213

== ENCOUNTER → 2023-08-22 11:52 | Outpatient (BNVA) | payer OTHER, SELFPAY | PROVIDERS: PCP Physician Assistant; Visit Provider Nurse Practitioner | DX: R10.10 Upper abdominal pain, unspecified (principal); R11.2 Nausea with vomiting, unspecified; R14.0 Abdominal distension (gaseous); K59.04 Chronic idiopathic constipation; K21.9 Gastro-esophageal reflux disease without esophagitis; E03.9 Hypothyroidism, unspecified | CPT/HCPCS: 99212 ==

== ENCOUNTER 2023-08-23 12:28 | Outpatient (REF) | payer OTHER, SELFPAY ==
[2023-08-23 15:09] LABS: TSH reflex Free T4 2.99 uIU/mL (0.32-4.0)
== END 2023-08-23 12:29 | disposition home or self-care (01) ==
LOC: HO.US 12:28
PROVIDERS: Absent Provider Nurse Practitioner; PCP Physician Assistant; Visit Provider Nurse Practitioner Family
DX: N39.0 Urinary tract infection, site not specified (principal); R10.10 Upper abdominal pain, unspecified; K59.04 Chronic idiopathic constipation; E03.9 Hypothyroidism, unspecified
CPT/HCPCS: 36415; 76770; 84443; 86003

== ENCOUNTER 2023-09-05 10:48 | Outpatient (REF) | payer OTHER, SELFPAY ==
[2023-09-14 02:03] LABS: Pancreatic Elastase-1 >500 mcg/g
== END 2023-09-05 10:49 | disposition home or self-care (01) ==
LOC: HO.LNP 10:48
PROVIDERS: Visit Provider Nurse Practitioner
DX: K59.04 Chronic idiopathic constipation (principal); E03.9 Hypothyroidism, unspecified
CPT/HCPCS: 82656

== ENCOUNTER 2023-09-07 13:25 | Outpatient (AMB) | payer OTHER, SELFPAY ==
--- NOTE | 2023-09-07 13:28 | MHC.OFFVIS ---
Intake Intake Visit Reasons: one month U/S(set) Intake Note: Patient presents for recurrent uti Urology Medications: none Blood Thinner: none PVR: 25ml's Wool Shearer Required: No Accompanied by: Self / Same As Patient Allergies codeine Allergy (Intermediate, Verified 09/09/23 19:37) Shakiness bees Allergy (Unknown, Uncoded 09/09/23 19:37) Swelling hornet Allergy (Unknown, Uncoded 09/09/23 19:37) Swelling Medication List - Last Reconciled 09/09/23 by YOLI Estrada No Known Home Meds HPI HPI Comments History of Present Illness Details Krupa is a very pleasant 32 year old female patient of Dr. Pereira. She has a past medical history of insomnia, migraines, abnormal uterine bleeding, left ovarian cysts, hypothyroidism, obesity, recurrent chronic urinary tract infections, GERD, bleeding hemorrhoids, chronic pain, chronic idiopathic constipation, depression, anxiety, and abdominal bloating. She presents to the office today for follow-up of her recurrent urinary tract infections. In discussion with the patient today she reports continuing to feel frustrated with her ongoing urological and gastroenterointestinal issues. She discusses getting a call from the office regarding her microgen results and recommendations were made for antibiotic therapy however, patient reports she does not wish to take any more antibiotics at this time as she feels they make her worse. She reports feeling frustrated regarding this issue as she does not appreciate treating issues with medications. She expresses at length her approach to all her health issues is over the counter remidies and or vitamins. I discussed at length lifestyle modifications for recurrent urinary tract infections such as avoiding bladder triggers/irritants, D mannose supplement vitamin-C, increasing fluid intake, behavioral therapy with timed voiding, perineal hygiene and postcoital voiding, and management of constipation with stool softeners and increased fiber intake. She discusses having her upcoming endoscopy/colonoscopy. She currently denies any UTI like symptoms. However, she does report having intermittent lower urinary tract symptoms from time to time. She discusses when experiencing lower urinary tract like symptoms she will increase her fluid intake and drink cranberry juice and feels this helps significantly. She continues to discuss disliking prescribed medications and feels this is not a healthy way of taking care of her medical issues as they tend to have many side effects including . Again, reinforced lifestyle modifications patient can practice to assist with UTI prevention. She currently denies urinary urgency, urinary frequency, incontinence, nocturia, hematuria, dysuria, foul smelling urine, changes to urinary stream, flank pain, fever, and or chills. She is happy with her current voiding parameters. In office urinalysis results reviewed with the patient today. PVR 25 mL. Recent retroperitoneal ultrasound results reviewed with the patient today. Right kidney with 1.7 x 1.4 x 1.5 cm echogenic lesion in the upper pole of the right kidney. This corresponds to a partially fatty lesion in the upper pole of the right kidney on January 2022 CT scan and likely represents a benign angiomyolipoma. This measured 1.5 cm January 2022 and is not appreciably changed in size. No calculi or focal parenchymal lesions. No hydronephrosis. Left kidney with no calculi, lesions, and or hydronephrosis. The bladder is well distended and normal. Bilateral ureteral jets are demonstrated. Pre void bladder volume is approximately 200 mL. Postvoid bladder volume is approximately 5 mL. She otherwise offers no other issues or concerns at this time. [facility] Medical History Hypothyroidism UTI (urinary tract infection) Morning after pill advice and prescription Screen for STD (sexually transmitted disease) Chest pain Multinodular thyroid Thyroid nodule Abnormal thyroid scan Hemorrhoids Encounter for IUD removal Contraceptive management Abdominal bloating IUD check up Complex ovarian cyst Pelvic cramping Encounter for IUD insertion Postprandial abdominal bloating Obese Recurrent UTI Family planning Bleeding hemorrhoids Generalized abdominal pain Obesity (BMI 30-39.9) Smoker Matthew's duct cyst Vaginal cyst Urethral diverticulum Hx of hematuria Family planning Screen for STD (sexually transmitted disease) COVID COVID-19 Dog bite Rash Cellulitis Headache Palpitation Neck pain Screening examination for infectious disease Heart palpitations control counseling History of cardiac disorder Depression Migraine Insomnia Abnormal laboratory test Arthritis Immune disorder Healthy adult History of leukocytosis Surgical History Hx of ultrasound guided needle biopsy History of delivery Family History Mother Diabetes Maternal Grandmother Diabetes Sister HTN (hypertension) Maternal Uncle Thyroid cancer Social History Housing: Apartment Alcohol intake: current Alcohol intake frequency: holidays/special occasions only Patient Tobacco Use Status: Former Tobacco user Tobacco use type: Cigarette Years Smoked: 10 years e-Cigarette/Vaping Use: Currently Using Second Hand Smoke Exposure: Yes service: No Current occupational status: unemployed Cognitive needs: No Hearing needs: No Vision needs: Yes Female Reproductive History Menstrual Age of Menarche: 11 Physical Exam Const General: cooperative, comfortable, no acute distress, well developed, alert and awake Nutritional Appearance: overweight Orientation/consciousness: patient oriented x3 Limitations: no limitations HEENT Head: Yes normal to inspection, Yes normocephalic and Yes atraumatic Ears: hearing grossly normal bilaterally Eyes General: appearance normal, both eyes and all related structures Neck Neck: Yes normal visual inspection and Yes trachea midline Chest Chest palpation & inspection: normal inspection of the chest Resp Effort & Inspection: normal respiratory effort and able to speak in complete sentences Cardio Rate: regular rate GI Inspection: Yes normal to inspection General: Yes no CVA tenderness External Female Exam: normal external appearance and normal appearance of the urethra Speculum Exam - Vagina: normal appearance of the vagina Back/Spine/Pelvis Back: no CVA tenderness Skin General skin exam: no rashes or lesions noted Neuro General: patient oriented x3 Extrem General: Yes normal to inspection Psych Appearance: grossly normal and well kempt Mental Status: mental status grossly normal Speech and movement: Normal speech and movement present and Clear speech present Affect: normal affect Attitude: cooperative Thought process: Normal thought process present Thought content: Normal thought content present Office Procedures Post Void Residual Post Residual Void Post Void Residual (PVR): 25 [id number]-[id number] Void Residual by ultrasound Results AMB Urinalysis, Automated UA Leukoctes 0 Adeel/uL Last Edit by The Original SoupManboris Ruiz on 09/07/23 13:59 UA Nitrite Negative Last Edit by The Original SoupManboris Ruiz on 09/07/23 13:59 UA Urobilinogen 0.2 mg/dL Last Edit by The Original SoupManboris Ruiz on 09/07/23 13:59 UA Protein 300 mg/dL Last Edit by OptiSynxleila Ruiz on 09/07/23 13:59 UA pH 6.0 Last Edit by The Original SoupManboris Ruiz on 09/07/23 13:59 UA Blood 0 Miguel/uL Last Edit by AngusZeligsoftboris Ruiz on 09/07/23 13:59 UA Specific [place] 1.025 Last Edit by Loki Dollylatisha on 09/07/23 13:59 UA Ketone Negative Last Edit by Loki Dollylatisha on 09/07/23 13:59 UA Bilirubin 0 mg/dL Last Edit by Loki Dollylatisha on 09/07/23 13:59 UA Glucose 0 mg/dL Last Edit by Loki Ruiz on 09/07/23 13:59 Results Reviewed Results Reviewed: Laboratory Last Values Urine pH (Auto) 6.0 09/07/23 13:32 Specific [place] (Auto) 1.025 09/07/23 13:32 Urine Protein (Auto) 300 mg/dL 09/07/23 13:32 Glucose (UA)(Auto) 0 mg/dL 09/07/23 13:32 Urine Ketones (Auto) Negative 09/07/23 13:32 Urine Blood (Auto) 0 Miguel/uL 09/07/23 13:32 Urine Nitrite (Auto) Negative 09/07/23 13:32 Urine Bilirubin (Auto) 0 mg/dL 09/07/23 13:32 Urine Urobilinogen (Auto) 0.2 mg/dL 09/07/23 13:32 Leukocyte Esterase (Auto) 0 Adeel/uL 09/07/23 13:32 Date of Service: 08/23/23 EXAMINATION: US RETROPERITONEAL COMPLETE (RENAL) Real-time imaging of the kidneys and bladder. FINDINGS: RIGHT KIDNEY: 11.9 x 4.8 x 6.0 cm (SAG x AP x TRV). The kidney is normal in size, contour, and echogenicity. Renal cortical thickness is normal. 1.7 x 1.4 x 1.5 cm echogenic lesion in the upper pole of the right kidney. This corresponds to a partially fatty lesion in the upper pole of the right kidney on January 2022 CT scan and likely represents a benign angiomyolipoma. This measured 1.5 cm January 2022 and is not appreciably changed in size. No calculi or focal parenchymal lesions. No hydronephrosis. LEFT KIDNEY: 11.5 x 5.2 x 5.2 cm (SAG x AP x TRV). The kidney is normal in size, contour, and echogenicity. Renal cortical thickness is normal. No calculi or focal parenchymal lesions. No hydronephrosis. BLADDER: Well distended and normal. Bilateral ureteral jets are demonstrated. Prevoid bladder volume is 203 mL. Postvoid bladder volume is 4.8 mL. ADDITIONAL FINDINGS: There is a 3.2 x 3.2 x 3.3 cm right ovarian cyst with some internal echoes. IMPRESSION: 1.7 x 1.4 x 1.5 cm echogenic lesion in the upper pole of the right kidney suggestive of a benign angiomyolipoma. This is not appreciably changed in size from previous CT January 2022. Assessment & Plan Assessment & Plan (1) Chronic UTI (urinary tract infection): Code(s): N39.0 - Urinary tract infection, site not specified (2) UTI (urinary tract infection): Code(s): N39.0 - Urinary tract infection, site not specified (3) Angiolipoma: Code(s): D17.9 - Benign lipomatous neoplasm, unspecified Plan In office urinalysis results reviewed with the patient today; as noted above PVR 25mLs Recent retroperitoneal ultrasound results reviewed with the patient today; as noted above. Discussed UTI prevention with D mannose supplement, vitamin-C, increasing fluid intake, behavioral therapy with timed voiding, perineal hygiene and postcoital voiding, and management of constipation with stool softeners and increased fiber intake. Discussed near future in office cystoscopy for further assessment evaluation. Follow-up in 3 month with imaging to be completed prior; or sooner with any issues, concerns, and or questions. Orders: Orders AMB Urinalysis Automated 09/07/23 Z13.9 - Encounter for screening, unspecified AMB Post Void Residual by ultrasound 09/07/23 N39.0 - Urinary tract infection, site not specified Patient Instructions: The patient had an opportunity to ask questions regarding the treatment plan. All questions were answered. Physical exam, labs, and imaging were discussed and reviewed in detail. As well as risks, benefits, and discussion of treatment choices. No major barriers to understanding were identified. The patient expressed understanding and agreement with the above treatment plan. The patient was made aware they should contact our office by phone for worsening of their current condition, the appearance of new symptoms, or with any questions or concerns. Compliance is encouraged with any medications and follow up testing that is ordered. It is a privilege to be allowed the opportunity to participate in? your urological care.? Again, if you have any questions or concerns If you have any questions or concerns please do not hesitate to contact me. The office is [phone]. This note is constructed using voice recognition software. While every effort has been made to ensure accuracy pet ambassador errors may have been included. Yours sincerely, TRUDI Estrada-NICOLE Coding Level of Care Code Est Pt Level 3 (00928) Diagnoses Chronic UTI (urinary tract infection) N39.0 UTI (urinary tract infection) N39.0 Angiolipoma D17.9 CPT Codes Post Residual Void - PVR CPT Code: 88562-[id number] Void Residual by ultrasound ([id number])
== END 2023-09-07 15:34 | disposition home or self-care (01) ==
PROVIDERS: PCP Physician Assistant; Visit Provider Nurse Practitioner Family
DX: N39.0 Urinary tract infection, site not specified (principal); D17.9 Benign lipomatous neoplasm, unspecified
CPT/HCPCS: 99213

== ENCOUNTER → 2023-09-07 13:25 | Outpatient (BNVA) | payer OTHER, SELFPAY | PROVIDERS: PCP Physician Assistant; Visit Provider Nurse Practitioner Family | DX: N39.0 Urinary tract infection, site not specified (principal); D17.9 Benign lipomatous neoplasm, unspecified | CPT/HCPCS: 51798; 81003; 99212 ==

== ENCOUNTER 2023-10-02 10:07 | Outpatient (AMB) | payer OTHER, SELFPAY ==
[2023-10-02 10:13] VITALS: BP 118/82; PULSE 86; O2SAT 97; BMI 39.2
--- NOTE | 2023-10-02 10:13 | MHC.PC.OV ---
Vital Signs 10/02/23 10:13 Height 5 ft 9 in Weight 265 lb 8 oz BMI 39.2 BP 118/82 Blood Pressure Location Lt brachial Position Sitting Pulse 86 Pulse Source Pulse Oximeter Pulse Oximetry (%) 97 Oxygen Delivery Method Room Air Intake Visit Reasons: f/u HOWARD/ MDD Slag Dumper Required: No Accompanied by: Self / Same As Patient Allergies codeine Allergy (Intermediate, Verified 10/02/23 10:31) Shakiness bees Allergy (Unknown, Uncoded 09/09/23 19:37) Swelling hornet Allergy (Unknown, Uncoded 09/09/23 19:37) Swelling Medication List - Last Reconciled 10/02/23 by Adams Pereira PA-C No Known Home Meds Tobacco use date assessed: 02/20/23 Dental Screening Dental Screen Date: 10/02/23 Did you have a dental visit in the last 12 months?: Yes Did you have a dental problem in the last 6 months where you did not have access to dental care?: No Was dental information given to patient?: Patient has dentist HPI f/u HOWARD/ MDD HPI Details Patient is a 32-year-old female here today for follow-up visit..? Patient has multiple somatic complaints including abdominal pain to which she sees a agricultural equipment sales engineer, lower pelvic pain to which she sees a clinical care coordinator and has a complex ovarian cyst.? At last visit we started pantoprazole, dicyclomine and ondansetron for her GI issues though seems to have side effects to all medications.. Concerns--> reports having some shortness of breath at rest over the last several weeks. She attributes this to perhaps vaping. Also has noted some weight gain since last office visit. She denies any changes in her diet though attributes her weight gain to a thyroid issue. Also reports bilateral upper flank pain. Has been seeing a urologist and gotten bilateral renal ultrasounds with did not show any nephrolithiasis. Does have a right benign renal mass that has been biopsy in the past. CHRONIC MEDICAL CONDITIONS--> .. Anxiety/ MDD:? Continues to suffer with both anxiety and depression. At this time not working. Not on any mental health medication as she has had side effects to many medications. .. 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 Thyroid nodules:? Most recent ultrasound showing thyroid nodule years and has followed up with endocrinology recommends fine-needle biopsy. * Fine-needle biopsy done in 2013 showing numerous lymphocytes with scattered follicular epithelial cells and rare hurtle cells.? 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 She continues to have abdominal pain and episodes of vomiting over the last 6 months. she reports that this time it is affecting her employment as she often needs to take breaks and is belching ? quite a bit.? She is often taking days off of work due to her continued abdominal pain and nausea.? She reports is taking a toll on her mental health and would like to see a mental health therapist. Patient now on disability and looking for new work. She has been started on PPI therapy, simethicone and dicyclomine for her presumed diagnosis GERD and IBS. She has an upcoming upper GI eval/ gastric emptying study with her agricultural equipment sales engineer --> Tried many? different medications with her agricultural equipment sales engineer and last one was Linzess for chronic constipation though unfortunately? has left her? defecating much more frequently. Patient has had CT abdomen and pelvis along with x-ray abdomen in 2021 which were? unremarkable.? She is due for an endoscopy and colonoscopy in near future. [facility] Medical History Hypothyroidism UTI (urinary tract infection) Morning after pill advice and prescription Screen for STD (sexually transmitted disease) Chest pain Multinodular thyroid Thyroid nodule Abnormal thyroid scan Hemorrhoids Encounter for IUD removal Contraceptive management Abdominal bloating IUD check up Complex ovarian cyst Pelvic cramping Encounter for IUD insertion Postprandial abdominal bloating Obese Recurrent UTI Family planning Bleeding hemorrhoids Generalized abdominal pain Obesity (BMI 30-39.9) Smoker Matthew's duct cyst Vaginal cyst Urethral diverticulum Hx of hematuria Family planning Screen for STD (sexually transmitted disease) COVID COVID-19 Dog bite Rash Cellulitis Headache Palpitation Neck pain Screening examination for infectious disease Heart palpitations control counseling History of cardiac disorder Depression Migraine Insomnia Abnormal laboratory test Arthritis Immune disorder Healthy adult History of leukocytosis Surgical History Hx of ultrasound guided needle biopsy History of delivery Family History Mother Diabetes Maternal Grandmother Diabetes Sister HTN (hypertension) Maternal Uncle Thyroid cancer Social History Housing: Apartment Alcohol intake: current Alcohol intake frequency: holidays/special occasions only Patient Tobacco Use Status: Former Tobacco user Tobacco use type: Cigarette Years Smoked: 10 years e-Cigarette/Vaping Use: Currently Using Second Hand Smoke Exposure: Yes service: No Current occupational status: unemployed Cognitive needs: No Hearing needs: No Vision needs: Yes Female Reproductive History Menstrual Age of Menarche: 11 Questionnaire Thrive Questionnaire Date Thrive assessed: 03/27/23 HOWARD-7 AMB Questionnaire HOWARD-7 Date HOWARD - 7 assessed: 03/27/23 Source: Developed by Drs. Lico Hutchinson, Citlali Mendoza, Frantz Rodas and colleagues, with an educational yaakov from [email or web address]. Review of Systems Const Denies headache(s) Eyes Denies loss of vision ENT Denies vertigo, Denies dizziness, Denies headache(s) and Denies sore throat Card Denies chest pain, Denies leg edema and Denies lightheadedness Resp Denies cough, Denies hemoptysis and Denies wheezing GI Denies abdominal pain, Denies melena, Denies constipation, Denies diarrhea and Denies vomiting Denies urinary frequency, Denies dysuria and Denies urinary urgency Musc Denies arthralgias, Denies joint swelling, Denies numbness and Denies tingling Neuro Denies Abnormal speech present, Denies behavioral changes, Denies vertigo, Denies dizziness, Denies headache(s), Denies loss of vision, Denies memory loss, Denies numbness and Denies tingling Psych Denies anxiety, Denies behavioral changes, Denies depression, Denies memory loss and Denies panic attacks Eliel/Lymph Denies easy bleeding and Denies easy bruising Aller/Immun Denies wheezing Physical exam (Primary Care) Vital Signs: Last Vital Signs Pulse 86 10/02/23 10:13 BP 118/82 10/02/23 10:13 Pulse Ox 97 10/02/23 10:13 Oxygen Delivery Method Room Air 10/02/23 10:13 BMI result Body Mass Index 39.2 Tobacco/Smoking Status: Tobacco use Status Tobacco use date assessed 02/20/23 10/02/23 10:20 Patient Tobacco Use Status Former Tobacco user 10/02/23 10:20 Tobacco use type Cigarette 10/02/23 10:20 e-Cigarette/Vaping Use Currently Using 10/02/23 10:20 Thrive Assessment: Date of Thrive Assessment Date Thrive assessed 03/27/23 10/02/23 10:20 Const General: healthy appearing, no acute distress, alert and awake Nutritional Appearance: well nourished Orientation/consciousness: oriented to person, oriented to place and oriented to time HENMT Ears: TM's normal bilaterally General nose exam: Normal nasal mucous membranes and turbinates present Eyes Conjunctivae: conjunctivae normal Sclerae: sclerae normal Pupils: Equal, round and reactive pupils present Neck Neck: Yes no lymphadenopathy and Yes no JVD Thyroid: Thyroid normal Carotids: no bruits Resp Effort & Inspection: normal respiratory effort and not tachypneic Auscultation: no crackles, no rales, no rhonchi and no wheezes Cardio Rate: regular rate Rhythm: regular rhythm Heart sounds: no murmurs and normal S1 and S2 GI Palpation (GI): Soft to palpation, nontender, no hepatomegaly and no splenomegaly Auscultation: normal bowel sounds Skin General skin exam: no rashes or lesions noted and dry skin Neuro General: oriented to person, oriented to place and oriented to time Cranial nerves: Yes Equal, round and reactive pupils present Speech: No Abnormal speech present Gait exam (Neuro): Normal gait present Motor exam (neuro): no tremor noted Extrem Right upper extremity: full ROM Left upper extremity: full ROM Right lower extremity: full ROM; no edema Left lower extremity: full ROM; no edema Psych Mental Status: mental status grossly normal Speech and movement: Normal speech and movement present Affect: normal affect Attitude: cooperative Thought process: Normal thought process present Assessment and Plan Assessment & Plan (1) Nicotine dependence due to vaping tobacco product: Code(s): F17.290 - Nicotine dependence, other tobacco product, uncomplicated Plan: She does admit to using tobacco vaporized cigarettes. She does admit she is somewhat addicted to this. She has been trying to wean off. She does report some shortness of breath that she attributes may be to vaping. Will get chest x-ray to evaluate lungs. Will supply patient with nicotine lozenge to help with nicotine cravings. (2) Shortness of breath: Code(s): R06.02 - Shortness of breath Plan: As above (3) Obese: Code(s): E66.9 - Obesity, unspecified Qualifiers: Obesity type: due to excess calories Obesity classification: adult class 2 (BMI 35 - 39.9) Serious obesity comorbidity presence: without serious comorbidity Body mass index: BMI 39.0-39.9 Qualified Code(s): E66.09 - Other obesity due to excess calories; Z68.39 - Body mass index [BMI] 39.0-39.9, adult Plan: Patient has gained 11 lb since last office visit. She is interested in speaking with professional weight management program to help her lose weight. She attributes some her weight gain to her thyroid issue though recent TSH testing has been stable. Orders: Orders TSH reflex Free T4 Today E04.2 - Nontoxic multinodular goiter Free T4 (Free Thyroxine) Today E04.2 - Nontoxic multinodular goiter XR chest 2V Today F17.290 - Nicotine dependence, other tobacco product, uncomplicated Referrals Medical Weight Management Referral E66.9 - Obesity, unspecified Medications: New nicotine (polacrilex) 4 mg buccal Q6H 30 days PRN 108 ea 0RF nicotine cravings F17.290 - Nicotine dependence, other tobacco product, uncomplicated Coding Level of Care Code Est Pt Level 4 (36945) Diagnoses Nicotine dependence due to vaping tobacco product F17.290 Shortness of breath R06.02 Class 2 obesity due to excess calories without serious comorbidity with body mass index (BMI) of 39.0 to 39.9 in adult E66.09; Z68.39 Obesity type: due to excess calories Obesity classification: adult class 2 (BMI 35 - 39.9) Serious obesity comorbidity presence: without serious comorbidity Body mass index: BMI 39.0-39.9
== END 2023-10-02 10:54 | disposition home or self-care (01) ==
PROVIDERS: Visit Provider Physician Assistant
DX: R06.02 Shortness of breath (principal); E66.09 Other obesity due to excess calories; F33.2 Major depressive disorder, recurrent severe without psychotic features; Z68.39 Body mass index [BMI] 39.0-39.9, adult; F17.290 Nicotine dependence, other tobacco product, uncomplicated
CPT/HCPCS: 99214

== ENCOUNTER 2023-10-03 09:06 | Outpatient (REF) | payer OTHER, SELFPAY ==
[2023-10-06 13:43] LABS: HPV mRNA E6/E7 rflx Not Detected (Not Detected)
== END 2023-10-03 09:07 | disposition home or self-care (01) ==
LOC: HO.LNP 09:06
PROVIDERS: PCP Physician Assistant; Visit Provider Obstetrics & Gynecology
DX: Z01.419 Encounter for gynecological examination (general) (routine) without abnormal findings (principal)
CPT/HCPCS: 87624; 88142

== ENCOUNTER 2023-10-03 09:06 | Outpatient (AMB) | payer OTHER, SELFPAY ==
--- NOTE | 2023-10-03 09:13 | A.OFFVIS_ITS ---
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 No complaints. Last Pap was negative in 2017 [facility] Medical History Hypothyroidism UTI (urinary tract infection) Morning after pill advice and prescription Screen for STD (sexually transmitted disease) Chest pain Multinodular thyroid Thyroid nodule Abnormal thyroid scan Hemorrhoids Encounter for IUD removal Contraceptive management Abdominal bloating IUD check up Complex ovarian cyst Pelvic cramping Encounter for IUD insertion Postprandial abdominal bloating Obese Recurrent UTI Family planning Bleeding hemorrhoids Generalized abdominal pain Obesity (BMI 30-39.9) Smoker Matthew's duct cyst Vaginal cyst Urethral diverticulum Hx of hematuria Family planning Screen for STD (sexually transmitted disease) COVID COVID-19 Dog bite Rash Cellulitis Headache Palpitation Neck pain Screening examination for infectious disease Heart palpitations control counseling History of cardiac disorder Depression Migraine Insomnia Abnormal laboratory test Arthritis Immune disorder Healthy adult History of leukocytosis Surgical History Hx of ultrasound guided needle biopsy History of delivery Family History Mother Diabetes Maternal Grandmother Diabetes Sister HTN (hypertension) Maternal Uncle Thyroid cancer Social History Housing: Apartment Alcohol intake: current Alcohol intake frequency: holidays/special occasions only Patient Tobacco Use Status: Former Tobacco user Tobacco use type: Cigarette Years Smoked: 10 years e-Cigarette/Vaping Use: Currently Using Second Hand Smoke Exposure: Yes service: No Current occupational status: unemployed Cognitive needs: No Hearing needs: No Vision needs: Yes Female Reproductive History Menstrual Age of Menarche: 11 Date of last menstrual period: 08/30/23 control method: none Total pregnancies: 1 Full term: 1 Number of Living Children: 1 Review of Systems Const All systems reviewed & are unremarkable except as noted in HPI and below Card Reports as per HPI Resp Reports as per HPI GI Reports as per HPI and Reports no additional complaints Reports as per HPI Physical Exam Vital Signs: BMI result Body Mass Index 39.0 Const General: cooperative, healthy appearing and comfortable Chest Chest palpation & inspection: normal inspection of the chest and normal palpation of entire chest wall Breast/axilla inspection: normal inspection of the breasts and normal inspection of the axillae Breast/axilla palpation: normal palpation of the breasts, normal palpation of the axillae and no axillary lymphadenopathy Resp Effort & Inspection: normal respiratory effort Auscultation: clear to auscultation bilaterally Percussion: percussion normal Cardio Palpation: normal PMI Rate: regular rate Rhythm: regular rhythm Heart sounds: no murmurs and no rubs Peripheral pulses: Peripheral pulses 2+ throughout GI Inspection: Yes normal to inspection Palpation (GI): Soft to palpation, nontender, no guarding, not rigid and No hepatosplenomegaly present Percussion: Yes normal to percussion Auscultation: normal bowel sounds Rectal Exam - Female: deferred General: Yes bladder normal to palpation External Female Exam: No lesion Speculum Exam - Vagina: normal appearance of the vagina, normal palpation, normal vaginal discharge and not erythematous Speculum Exam - Cervix: normal appearance of the cervix and normal palpation Bimanual exam- vagina & uterus: normal bimanual exam, normal palpation, uterine size normal, bladder normal to palpation, consistency normal and normal palpation Bimanual Exam- Adnexa, other: normal adnexae, no masses and no tenderness Assessment & Plan Assessment & Plan (1) Well woman exam: Code(s): Z01.419 - Encounter for gynecological examination (general) (routine) without abnormal findings Plan: Cotesting done. Counseled the patient about the recommended dietary allowance of 1000 mg of Calcium & 600 IU of vitamin D. The patient was instructed to perform monthly self-breast exams and to schedule an annual exam in a year; All questions answered and the patient verbalized understanding. Instructed the patient to schedule annual exam in a year Coding Level of Care Code Est Pt Prev Care 18-39y(09036) Diagnoses Well woman exam Z01.419
[2023-10-03 09:14] VITALS: BMI 39.0
== END 2023-10-03 09:35 | disposition home or self-care (01) ==
PROVIDERS: PCP Physician Assistant; Visit Provider Obstetrics & Gynecology
DX: Z01.419 Encounter for gynecological examination (general) (routine) without abnormal findings (principal)
CPT/HCPCS: 99395

== ENCOUNTER 2023-10-03 09:40 | Outpatient (REF) | payer OTHER, SELFPAY ==
--- NOTE | ~2023-10-03 | XR_ITS ---
EXAMINATION: XR CHEST CLINICAL INFORMATION: Shortness of breath chest pain COMPARISON: 12/04/2021 TECHNIQUE: 2 views of the chest were obtained. FINDINGS: No significant abnormality is noted involving the heart, lungs, mediastinum, bony thorax or soft tissues. XR/XR chest 2V IMPRESSION: Unremarkable examination. No interval change
[2023-10-03 11:04] LABS: Free T4 (Free Thyroxine) 0.83 ng/dL (0.71-1.85); TSH reflex Free T4 4.36 uIU/mL (0.32-4.0)
== END 2023-10-03 09:41 | disposition home or self-care (01) ==
LOC: HO.XRAY 09:40
PROVIDERS: PCP Physician Assistant; Visit Provider Physician Assistant
DX: F17.290 Nicotine dependence, other tobacco product, uncomplicated (principal); E04.2 Nontoxic multinodular goiter; K59.04 Chronic idiopathic constipation
CPT/HCPCS: 36415; 71046; 84439; 84443; 99212

== ENCOUNTER 2023-10-03 10:32 | Outpatient (AMB) | payer OTHER, SELFPAY ==
--- NOTE | 2023-10-03 10:39 | MHC.OFFVIS ---
Intake Vital Signs 10/03/23 11:06 Height 5 ft 9 in Weight 267 lb 3.204 oz BMI 39.5 BP 109/54 L Blood Pressure Location Lt brachial Position Sitting Pulse 110 H Intake Visit Reasons: 6 week follow up Intake Note: Patient presents to clinic today in follow up of abdominal pain and GERD. CC: Pt continues to have constipation, diarrhea, abdominal pain, feeling like the food stays stuck in her esophagus and she has to throw up. She is also getting acid reflux worst in the morning, abdominal bloating and burping. 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 She really struggles with constipation and so far she has tried fiber, MiraLax, and smooth move tea without really good results. When she drinks too much of the smooth move she will have reactive diarrhea. She continues to have a great deal of dyspepsia and belching with heartburn. This is worse when she is constipated. She does not want to take pills and she really feels like there should be ?a test? that tells with the underlying problem is. She expresses concerns that we are simply treating the symptom. I try to educate her that this is, in essence, correct. Because the intestines respond to a variety of micro stimuli internally and externally we just treat constipation as a symptom because finding 1 reversible factor is usually not reasonable. However, I do think an endoscopy and a colonoscopy would put her mind better 80s. I will try to get 1 ordered paola. She has had quite a lot of CT testing for a variety of conditions and asks about a CT, but I think that more radiation would not be in her best interest at this time. I will get an ultrasound of the abdomen to see if there is anything concerning such as a brewing appendicitis. I am also going to get a TSH a RAST panel and pancreatic a last taste. She is very concerned because she has been losing employment because of her frequent bathroom breaks and she had also seems to have a great deal of health anxiety. While she has a variety of reversible factors metabolic in psychogenic contributors should be seriously considered. ROV 6 weeks. (2) Abdominal pain: Code(s): R10.9 - Unspecified abdominal pain (3) Nausea and vomiting: Code(s): R11.2 - Nausea with vomiting, unspecified (4) Abdominal bloating: Code(s): R14.0 - Abdominal distension (gaseous) (5) GERD (gastroesophageal reflux disease): Code(s): K21.9 - Gastro-esophageal reflux disease without esophagitis Qualifiers: Esophagitis presence: without esophagitis Qualified Code(s): K21.9 - Gastro-esophageal reflux disease without esophagitis (6) Hypothyroidism: Code(s): E03.9 - Hypothyroidism, unspecified Qualifiers: Hypothyroidism type: unspecified Qualified Code(s): E03.9 - Hypothyroidism, unspecified (7) Upper abdominal pain: Code(s): R10.10 - Upper abdominal pain, unspecified Orders: Orders TSH reflex Free T4 Today E03.9 - Hypothyroi dism, unspecified, K59.04 - Chronic idiopathic constip ation EGD/[place] Combo - G I Use Only Today K59.04 - Chronic i diopathic constipa tion, R10.9 - Unsp ecified abdominal pain, R11.2 - Naus ea with vomiting, unspecified US abdomen complet e Today K59.04 - Chronic i diopathic constipa tion, R10.9 - Unsp ecified abdominal pain, R11.2 - Naus ea with vomiting, unspecified TSH reflex Free T4 6 Months E04.2 - Nontoxic m ultinodular goiter Pancreatic Elastas e-1 Today E03.9 - Hypothyroi dism, unspecified, K59.04 - Chronic idiopathic constip ation Rast Allergen Today R10.10 - Upper abd ominal pain, unspe cified Medications: New bisacodyl (Dulcola x (bisacodyl)) 10 mg (2 x 5 mg) P O BEDTIME 2 days 4 tabs 0RF LABS: Laboratory Tests 09/05/23 10/03/23 09:50 09:49 TSH 4.36 H Free T4 0.83 Stool Pancreat Shanna stase >500 ULTRASOUND OF THE ABDOMEN NOT OBTAINED EGD/COLONOSCOPY not yet scheduled BIOPS CORRESPONDENCE On 08/23/23 @ 09:40 [email or web address] Fisher Wrote To Scheduled patient today for a double per February. Paperwork mailed, patient aware of the need for transportation. Advised patient to call her pharmacy prior to picking up prep. On 08/22/23 @ 12:17 Wrote To [facility] Schedulers Needs above ? TODAY'S VISIT Because her thyroid still looks to be running too low despite the fact they have recently increased her dose and going to offer her some bisacodyl to use as needed until the thyroid stabilized. This is likely contributing to her constipation. She is aware of her upcoming colonoscopy and at this point will keep her appointment already scheduled for follow-up at that time. [facility] Medical History Hypothyroidism UTI (urinary tract infection) Morning after pill advice and prescription Screen for STD (sexually transmitted disease) Chest pain Multinodular thyroid Thyroid nodule Abnormal thyroid scan Hemorrhoids Encounter for IUD removal Contraceptive management Abdominal bloating IUD check up Complex ovarian cyst Pelvic cramping Encounter for IUD insertion Postprandial abdominal bloating Obese Recurrent UTI Family planning Bleeding hemorrhoids Generalized abdominal pain Obesity (BMI 30-39.9) Smoker Matthew's duct cyst Vaginal cyst Urethral diverticulum Hx of hematuria Family planning Screen for STD (sexually transmitted disease) COVID COVID-19 Dog bite Rash Cellulitis Headache Palpitation Neck pain Screening examination for infectious disease Heart palpitations control counseling History of cardiac disorder Depression Migraine Insomnia Abnormal laboratory test Arthritis Immune disorder Healthy adult History of leukocytosis Surgical History Hx of ultrasound guided needle biopsy History of delivery Family History Mother Diabetes Maternal Grandmother Diabetes Sister HTN (hypertension) Maternal Uncle Thyroid cancer Social History Housing: Apartment Alcohol intake: current Alcohol intake frequency: holidays/special occasions only Patient Tobacco Use Status: Current everyday Tobacco user Tobacco use type: Cigarette Years Smoked: 10 years e-Cigarette/Vaping Use: Currently Using Second Hand Smoke Exposure: Yes service: No Current occupational status: unemployed Cognitive needs: No Hearing needs: No Vision needs: Yes Female Reproductive History Menstrual Age of Menarche: 11 Review of Systems Const Reports fatigue, Denies fever(s), Denies night sweats, Denies poor appetite and Denies weight loss Eyes Details: glasses Reports requires corrective lenses ENT Reports Normal hearing present, Denies dental pain, Denies dysphagia, Denies hearing loss, Denies mouth pain, Denies odynophagia, Denies throat swelling, Denies tongue swelling and Reports other (Dentition adequate) Card Reports no additional complaints Resp Reports no additional complaints GI Denies abdominal pain, Denies melena, Reports bloating, Denies hematochezia, Reports constipation, Denies GI cramping, Denies dysphagia, Denies excessive flatus, Denies early satiety, Denies heartburn, Denies diarrhea, Denies nausea, Denies odynophagia, Denies vomiting and Denies hematemesis Skin/Breast Denies pruritus, Denies lesions, Denies rash and Denies jaundice Neuro Reports Normal hearing present and Denies Abnormal speech present Endo Reports fatigue Aller/Immun Denies throat swelling and Denies tongue swelling Physical Exam Vital Signs: Last Vital Signs Pulse 110 H 10/03/23 11:06 BP 109/54 L 10/03/23 11:06 BMI result Body Mass Index 39.5 Const General: cooperative, no acute distress, well developed and well groomed Nutritional Appearance: well nourished and obese morbidly obese Orientation/consciousness: oriented to person, oriented to place and oriented to time Limitations: No language barrier HEENT Head: Yes normocephalic and Yes atraumatic Eyes General: appearance normal, both eyes and all related structures Pupils: Equal, round and reactive pupils present Neck Neck: Yes normal visual inspection and Yes no lymphadenopathy Thyroid: Thyroid normal Resp Effort & Inspection: normal respiratory effort and able to speak in complete sentences Auscultation: clear to auscultation bilaterally Cardio Rate: regular rate Rhythm: regular rhythm Heart sounds: Normal, physiologic split S2 sound present Peripheral pulses: radial pulses present and posterior tibial pulses present GI Inspection: No distended, Yes Abdominal panniculus present and Yes obesity Palpation (GI): Soft to palpation, nontender, no guarding, not rigid and No hepatosplenomegaly present Percussion: Yes normal to percussion Auscultation: normal bowel sounds Rectal Exam - Female: deferred Skin General skin exam: no rashes or lesions noted, turgor normal, skin not dry, no jaundice, No spider nevi and no striae Rashes: no rashes Nails: normal Neuro General: oriented to person, oriented to place and oriented to time Cranial nerves: Yes Equal, round and reactive pupils present and Yes Normal hearing present Speech: No Abnormal speech present Extrem General: Yes normal to inspection, No clubbing, No cyanosis and No edema Psych Appearance: grossly normal and well kempt Mental Status: mental status grossly normal Speech and movement: Normal speech and movement present Affect: normal affect Attitude: cooperative Thought process: Normal thought process present and not confabulating Thought content: Normal thought content present Insight: Limited insight present (Psych) Judgement: Limited judgement present (Psych) Assessment & Plan Assessment & Plan (1) Chronic idiopathic constipation: Code(s): K59.04 - Chronic idiopathic constipation Plan Because her thyroid still looks to be running too low despite the fact they have recently increased her dose and going to offer her some bisacodyl to use as needed until the thyroid stabilized. This is likely contributing to her constipation. She is aware of her upcoming colonoscopy and at this point will keep her appointment already scheduled for follow-up at that time. ULTRASOUND OF THE ABDOMEN NOT OBTAINED EGD/COLONOSCOPY not yet scheduled BIOPS Medications: New bisacodyl (Dulcolax (bisacodyl)) 10 mg (2 x 5 mg) PO BEDTIME 60 tabs 6RF 30 days K59.04 - Chronic idiopathic constipation Coding Level of Care Code Est Pt Level 3 (47407) Diagnoses Chronic idiopathic constipation K59.04
[2023-10-03 11:06] VITALS: BP 109/54; PULSE 110; BMI 39.5
== END 2023-10-03 11:49 | disposition home or self-care (01) ==
PROVIDERS: PCP Physician Assistant; Visit Provider Nurse Practitioner
DX: K59.04 Chronic idiopathic constipation (principal)
CPT/HCPCS: 99213

== ENCOUNTER 2023-10-16 11:34 | Day surgery (SDC) | payer OTHER, SELFPAY ==
--- NOTE | 2023-10-15 09:22 | P.CONAN_ITS ---
HPI - Anesthesia Eval Consult details Narrative: 32yo F for?Upper Endoscopy and Colonoscopy PMF Active Problems Active Problems: All Active Problems (Updated 10/03/23 @ 09:22 by Chris Vaca MD) Well woman exam (Acute) Nicotine dependence due to vaping tobacco product (Acute) Angiolipoma (Acute) Hypothyroidism (Acute) Abdominal pain (Acute) UTI (urinary tract infection) (Acute) HOWARD (generalized anxiety disorder) (Acute) Screening for diabetes mellitus (DM) (Acute) Obese (Acute) Annual physical exam (Acute) Candidiasis of mouth and esophagus (Acute) Thrush (Acute) Multinodular thyroid (Acute) PMDD (premenstrual dysphoric disorder) (Acute) Upper abdominal pain (Acute) Abdominal bloating (Acute) Cervical (neck) region somatic dysfunction (Acute) MDD (major depressive disorder), recurrent episode, severe (Acute) Weight loss (Acute) Nausea and vomiting (Acute) Chronic idiopathic constipation (Acute) Protein, urine, abnormal presence (Acute) Chronic pain (Acute) Bleeding hemorrhoids (Acute) GERD (gastroesophageal reflux disease) (Acute) Intermittent chest pain (Acute) Chronic UTI (urinary tract infection) (Acute) Leukocytosis (leucocytosis) (Acute) Obesity (BMI 30-39.9) (Acute) Smoker (Acute) Paresthesia (Acute) Palpitations with regular cardiac rhythm (Acute) [place]'s gland cyst (Acute) Right hip pain (Acute) Lumbar spine pain (Acute) Acquired hypothyroidism (Acute) Left ovarian cyst (Acute) Abnormal uterine bleeding (AUB) (Acute) PFO (patent foramen ovale) (Acute) Migraine (Acute) Insomnia (Acute) Immune disorder (Acute) Past Medical History Medical History Hypothyroidism UTI (urinary tract infection) Morning after pill advice and prescription Screen for STD (sexually transmitted disease) Chest pain Multinodular thyroid Thyroid nodule Abnormal thyroid scan Hemorrhoids Encounter for IUD removal Contraceptive management Abdominal bloating IUD check up Complex ovarian cyst Pelvic cramping Encounter for IUD insertion Postprandial abdominal bloating Obese Recurrent UTI Family planning Bleeding hemorrhoids Generalized abdominal pain Obesity (BMI 30-39.9) Smoker Matthew's duct cyst Vaginal cyst Urethral diverticulum Hx of hematuria Family planning Screen for STD (sexually transmitted disease) COVID COVID-19 Dog bite Rash Cellulitis Headache Palpitation Neck pain Screening examination for infectious disease Heart palpitations control counseling History of cardiac disorder Depression Migraine Insomnia Abnormal laboratory test Arthritis Immune disorder Healthy adult History of leukocytosis Family History Family History Mother Diabetes Maternal Grandmother Diabetes Sister HTN (hypertension) Maternal Uncle Thyroid cancer Surgical History Surgical History Hx of ultrasound guided needle biopsy History of delivery Social History Social History Housing: Apartment Alcohol intake: current Alcohol intake frequency: holidays/special occasions only Patient Tobacco Use Status: Current everyday Tobacco user Tobacco use type: Cigarette Years Smoked: 10 years e-Cigarette/Vaping Use: Currently Using Second Hand Smoke Exposure: Yes service: No Current occupational status: unemployed Cognitive needs: No Hearing needs: No Vision needs: Yes Meds Allergies Allergy/AdvReac Type Severity Reaction Status Date / Time codeine Allergy Intermediate Shakiness Verified 10/16/23 12:04 bees Allergy Unknown Swelling Uncoded 10/16/23 12:04 hornet Allergy Unknown Swelling Uncoded 10/16/23 12:04 Assessment and Plan Assessment Anesthesia Assessment: Chart Reviewed
[2023-10-16 11:42] VITALS: BMI 39.2
[2023-10-16 12:12] VITALS: BP 124/95; PULSE 107; RESP 16; TEMP 36.1; O2SAT 96
[2023-10-16] MEDS: Lactated Ringers 1,000 ML 100 ML IVCONT (12:19)
[2023-10-16 12:39] LABS: HCG Quantitative < 2 mIU/mL
--- NOTE | 2023-10-16 12:47 | MHC.SHP ---
Pre-Procedural Eval Section A Date of Service: 10/16/23 Section B Chief Complaint: Gastro-esophageal reflux disease without esophagit Relevant Family History (Specify if Yes): No Relevant Social History: None Present Medications: see Short Stay Collaborative assessment Medical History: Significant History (Hypothyroidism UTI (urinary tract infection) Morning after pill advice and prescription Screen for STD (sexually transmitted disease) Chest pain Multinodular thyroid Thyroid nodule Abnormal thyroid scan Hemorrhoids Encounter for IUD removal Contraceptive management Abdominal bloating IUD check up Co) History of Previous Operations: Relevant previous surgery/procedure and date(s) (c section ) Allergies: Allergies Allergy/AdvReac Type Severity Reaction Status Date / Time codeine Allergy Intermediate Shakiness Verified 10/16/23 12:04 bees Allergy Unknown Swelling Uncoded 10/16/23 12:04 hornet Allergy Unknown Swelling Uncoded 10/16/23 12:04 Review of Systems Sugical H&P ROS: Negative: Constitution, Cardiovascular, Respiratory, Neurological, Psychiatric, Hem-Onc, Allergic/Immunologic, Gastrointestinal, Genitourinary, Musculoskeletal, Integumentary, Endocrine and Eyes/Ears/Nose/Throat Exam Surgical H&P Exam: Normal: HEENT, Normal: Heart, Normal: Lungs, Normal: Extremities, Normal: Abdomen, Normal: Skin and Normal: Neurological Plan Diagnosis/Plan: Unchanged I have reviewed the history and physical and performed a pertinent physical examination on my patient. No changes have occurred unless specified. Time Spent With Patient Time: Total time managing care of this patient today ____ minutes.
--- NOTE | 2023-10-16 13:36 | W.PM.OPN ---
Operative Note Operative Note Date of Service: 10/16/23 Narrative: Operative Information Procedure Description: EGD, Colonoscopy Indication: altered bowel habits, abdominal pain Anesthesia: MAC FLEXIBLE TRANSORAL UPPER GASTROINTESTINAL ENDOSCOPY AND COLONOSCOPY PROCEDURE NOTE UPPER ENDOSCOPY Consent: Indications for the procedure and potential complications of bleeding, perforation, reaction to medications and missed diagnosis were discussed with the patient and informed consent was obtained. Instrument: Olympus GIF H 190 J mid size upper endoscope Monitoring: Vital signs and clinical assessment, continuous EKG monitoring, Pulse oximetry, Carbon Dioxide monitoring and blood pressure monitoring were done throughout the procedure. Procedure: The patient was placed in the left lateral decubitis position and pre-procedure medications were administered and a bite block was placed. The endoscope was inserted into the mouth and advanced under direct vision to the third part of duodenum. A careful inspection was made as the upper endoscope was withdrawn including a retroflexed examination of the proximal stomach; Findings and interventions are described below. Findings: Larynx:normal Esophagus: GE junction at 40 cm, diaphragm hiatus at 40 cm, random bx taken Stomach: granularity and patchy erythema. Biopsies were obtained. Grade 2 flap valve on retroflexed examination of the cardia. Duodenum: Normal bulb and descending duodenum, bx taken Intervention: Biopsies as noted above COLONOSCOPY Instrument: Olympus variable stiffness pediatric scope 190L Colonoscopy Monitoring: Vital signs and clinical assessment, continuous EKG monitoring, Pulse oximetry, Carbon Dioxide monitoring and blood pressure monitoring were done throughout the procedure. Colon withdrawal time was 8 minutes. Procedure: The patient was placed in the left lateral decubitis position and pre-procedure medications were administered. After a digital rectal examination of the ano-rectum, the video colonoscope was inserted into the rectum and advanced through the colon to the cecum/TI. The colonoscope was slowly withdrawn in a retrograde panoramic fashion and the colon mucosa was carefully examined including a retroflexed view of the rectum. Findings and interventions are described below. Procedure Difficulty: easy Findings: Terminal Ileum-normal, random bx taken bx taken from right and left colon in separate jars Cecum:normal Ascending Colon: 8-9 mm sessile polyp removed wtih cold snare Transverse Colon -normal Descending Colon:normal Sigmoid Colon: normal Rectum: Retroflexion with small internal hemorrhoids, grade I Anorectum - normal Colon preparation: [place] Bowel Preparation Scale Right colon; 2 Transverse colon: 3 Left colon; 3 (0 = Unprepared colon segment with mucosa not seen due to solid stool that cannot be cleared. 1 = Portion of mucosa of the colon segment seen, but other areas of the colon segment not well seen due to staining, residual stool and/or opaque liquid. 2 = Minor amount of residual staining, small fragments of stool and/or opaque liquid, but mucosa of colon segment seen well. 3 = Entire mucosa of colon segment seen well with no residual staining, small fragments of stool or opaque liquid) Impression and Post Procedure Diagnosis: Endoscopy Findings: gastritis Colonoscopy Findings: polyp internal hemorrhoids Plan: Await Pathology results Repeat Colonoscopy in 5 years due to polyp removed or earlier if clinically indicated High fiber diet leaflet avoid straining at stool, epsom salts and sitz bath, anusol supps or cream if bx and tests neg consider CTe vs VCE Above findings were reviewed with the patient and relevant handouts were provided if indicated.
[2023-10-16 13:43] VITALS: BP 119/87; PULSE 87; RESP 16; TEMP 36.4; O2SAT 96
[2023-10-16 13:58] VITALS: BP 134/96; PULSE 72; RESP 18; TEMP 36.6; O2SAT 99
== END 2023-10-16 14:50 | disposition home or self-care (01) ==
PROVIDERS: Anesthesiology; PCP Physician Assistant; Visit Provider Internal Medicine Gastroenterology
PROC: (CPT 45385; principal; 2023-10-16 13:50)
DX: R19.4 Change in bowel habit (principal); D12.2 Benign neoplasm of ascending colon; K64.0 First degree hemorrhoids; K59.04 Chronic idiopathic constipation; R10.9 Unspecified abdominal pain; K21.9 Gastro-esophageal reflux disease without esophagitis; K29.80 Duodenitis without bleeding; K29.50 Unspecified chronic gastritis without bleeding; K44.9 Diaphragmatic hernia without obstruction or gangrene; E66.9 Obesity, unspecified; Z68.39 Body mass index [BMI] 39.0-39.9, adult; E03.9 Hypothyroidism, unspecified; E04.2 Nontoxic multinodular goiter; F32.A Depression, unspecified; F41.9 Anxiety disorder, unspecified; R00.2 Palpitations; Z87.440 Personal history of urinary (tract) infections; Z88.5 Allergy status to narcotic agent; F17.290 Nicotine dependence, other tobacco product, uncomplicated
CPT/HCPCS: 45385; 45380; 43239; 36415; 84702; 88305; 88342; J2704

== ENCOUNTER → 2023-10-16 11:34 | Outpatient (BNV) | payer OTHER, SELFPAY | PROVIDERS: PCP Physician Assistant; Visit Provider Internal Medicine Gastroenterology | DX: K29.70 Gastritis, unspecified, without bleeding (principal); K31.89 Other diseases of stomach and duodenum; K63.5 Polyp of colon; K64.8 Other hemorrhoids | CPT/HCPCS: 43239; 45380; 45385 ==

== ENCOUNTER 2023-10-30 10:17 | Outpatient (AMB) | payer OTHER, SELFPAY ==
--- NOTE | 2023-10-30 10:20 | A.OFFVIS_ITS ---
Intake Vital Signs 10/30/23 10:26 Height 5 ft 9 in Weight 267 lb 10.259 oz BMI 39.5 BP 122/83 Blood Pressure Location Lt brachial Position Sitting Pulse 93 Intake Visit Reasons: A/P Sherman, EGD; Dr. Infante Intake Note: Patient presents to in office visit today in follow up of Colonoscopy and EGD. CC: Krupa underwent colonoscopy and EGD with Dr. Infante on 10/16/23. PT continues to have constipation, diarrhea, abdominal pain, feeling like the food stays stuck in her esophagus and she has to throw up. She is also getting acid reflux worst in the morning, abdominal bloating and burping. Orthodontic Assistant Required: No Accompanied by: Self / Same As Patient Allergies codeine Allergy (Intermediate, Verified 10/30/23 10:27) Shakiness bees Allergy (Unknown, Uncoded 10/16/23 12:04) Swelling hornet Allergy (Unknown, Uncoded 10/16/23 12:04) Swelling HPI A/P Sherman, EGD; Dr. Infante HPI Details Assessment & Plan (1) Chronic idiopathic constipation: Code(s): K59.04 - Chronic idiopathic constipation Plan: She continues to have a great deal of trouble with her stomach. She really struggles with constipation and so far she has tried fiber, MiraLax, and smooth move tea without really good results. When she drinks too much of the smooth move she will have reactive diarrhea. She continues to have a great deal of dyspepsia and belching with heartburn. This is worse when she is constipated. She does not want to take pills and she really feels like there should be ?a test? that tells with the underlying problem is. She expresses concerns that we are simply treating the symptom. I try to educate her that this is, in essence, correct. Because the intestines respond to a variety of micro stimuli internally and externally we just treat constipation as a symptom because finding 1 reversible factor is usually not reasonable. However, I do think an endoscopy and a colonoscopy would put her mind better 80s. I will try to get 1 ordered paola. She has had quite a lot of CT testing for a variety of conditions and asks about a CT, but I think that more radiation would not be in her best interest at this time. I will get an ultrasound of the abdomen to see if there is anything concerning such as a brewing appendicitis. I am also going to get a TSH a RAST panel and pancreatic a last taste. She is very concerned because she has been losing employment because of her frequent bathroom breaks and she had also seems to have a great deal of health anxiety. While she has a variety of reversible factors metabolic in psychogenic contributors should be seriously considered. ROV 6 weeks. (2) Abdominal pain: Code(s): R10.9 - Unspecified abdominal pain (3) Nausea and vomiting: Code(s): R11.2 - Nausea with vomiting, unspecified (4) Abdominal bloating: Code(s): R14.0 - Abdominal distension (gaseous) (5) GERD (gastroesophageal reflux diseas e): Code(s): K21.9 - Gastro-esophageal reflux disease without esophagitis Qualifiers: Esophagitis presence: without esophagitis Qualified Code(s): K21.9 - Gastro-esophageal reflux disease without esophagitis (6) Hypothyroidism: Code(s): E03.9 - Hypothyroidism, unspecified Qualifiers: Hypothyroidism type: unspecified Qualified Code(s): E03.9 - Hypothyroidism, unspecified (7) Upper abdominal pain: Code(s): R10.10 - Upper abdominal pain, unspecified Orders: Orders TSH reflex Free T4 Today E03.9 - Hypothyroi dism, unspecified, K59.04 - Chronic idiopathic constip ation EGD/Sherman Combo - G I Use Only Today K59.04 - Chronic i diopathic constipa tion, R10.9 - Unsp ecified abdominal pain, R11.2 - Naus ea with vomiting, unspecified US abdomen complet e Today K59.04 - Chronic i diopathic constipa tion, R10.9 - Unsp ecified abdominal pain, R11.2 - Naus ea with vomiting, unspecified TSH reflex Free T4 6 Months E04.2 - Nontoxic m ultinodular goiter Pancreatic Elastas e-1 Today E03.9 - Hypothyroi dism, unspecified, K59.04 - Chronic idiopathic constip ation Rast Allergen Today R10.10 - Upper abd ominal pain, unspe cified Medications: New bisacodyl ([place] x (bisacodyl)) 10 mg (2 x 5 mg) P O BEDTIME 2 days 4 tabs 0RF LABS: Laboratory Tests 09/05/23 10/03/23 09:50 09:49 TSH 4.36 H Free T4 0.83 Stool Pancreat Shanna stase >500 RAST STUDY SHOWED NO SIGNIFICANT FOOD ALLERGIES ULTRASOUND OF THE ABDOMEN NOT OBTAINED EGD/COLONOSCOPY 10/17/23 Findings: Terminal Ileum-normal, random bx taken bx taken from right and left colon in separate jars Cecum:normal Ascending Colon: 8-9 mm sessile polyp removed wtih cold snare Transverse Colon -normal Descending Colon:normal Sigmoid Colon: normal Rectum: Retroflexion with small internal hemorrhoids, grade I Anorectum - normal Impression and Post Procedure Diagnosis: Endoscopy Findings: gastritis Colonoscopy Findings: polyp internal hemorrhoids Plan: Await Pathology results Repeat Colonoscopy in 5 years due to polyp removed or earlier if clinically indicated High fiber diet leaflet avoid straining at stool, epsom salts and sitz bath, anusol supps or cream if bx and tests neg consider CTe vs VCE Above findings were reviewed with the patient and relevant handouts were provided if indicated. BIOPSY Received: 10/17/23 Diagnosis A. Colon, ascending, polypectomy: Fragments of tubular adenoma; negative for high-grade dysplasia or carcinoma. B. Terminal ileum, biopsy: Terminal ileal mucosa within normal limits. C. Colon, right, biopsy: Colonic mucosa within normal limits. D. Colon, left, biopsy: Colonic mucosa within normal limits. E. Duodenum, biopsy: Chronic inactive duodenitis. F. Stomach, biopsy: Antral-type and oxyntic mucosa with mild chronic inactive inflammation; no Helicobacter organisms seen. G. Esophagus, random, biopsy: Squamous epithelium within normal limits; no inflammation seen.? CORRESPONDING On 08/23/23 @ 09:40 Sisi Fiore Wrote To Fink,February Scheduled patient today for a double per February. Paperwork mailed, patient aware of the need for transportation. Advised patient to call her pharmacy prior to picking up prep. On 08/22/23 @ 12:17 Ami Fink Wrote To [facility] Schedulers Needs above TODAY'S VISIT THE PROCEDURE SHOULD BE repeated in 5 years due to the finding of a tubular adenoma. The procedure was well tolerated. The results were explained and the patient is agreeable to the follow-up interval as stated. The bowel pattern has returned to normal. Education was provided to tell any 1st degree relatives about their findings to be sure that they are screened by age 45. Educated that they will be put on a recall list when it is time for their repeat scope but should they move out of state or away from the hospital they will need to remember along with their primary to repeat the procedure in a timely fashion to avoid any adverse complications. She is the same. she just started taking her thyroid medication, she has only been on it for about 2 weeks. She is educated that it takes 4-6 weeks for dosed stabilize. So for now she opts to continue eating a lot of fiber and will give her some milk of magnesia as a p.r.n. and will see if the stooling improves when the thyroid is stabilized. Clearly there is nothing wrong with her GI system so likely this is a response to clinical to subclinical hypothyroidism. 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 Return office visit in 8 weeks FORMERLY [facility], [facility] Medical History Hypothyroidism UTI (urinary tract infection) Morning after pill advice and prescription Screen for STD (sexually transmitted disease) Chest pain Multinodular thyroid Thyroid nodule Abnormal thyroid scan Hemorrhoids Encounter for IUD removal Contraceptive management Abdominal bloating IUD check up Complex ovarian cyst Pelvic cramping Encounter for IUD insertion Postprandial abdominal bloating Obese Recurrent UTI Family planning Bleeding hemorrhoids Generalized abdominal pain Obesity (BMI 30-39.9) Smoker Matthew's duct cyst Vaginal cyst Urethral diverticulum Hx of hematuria Family planning Screen for STD (sexually transmitted disease) COVID COVID-19 Dog bite Rash Cellulitis Headache Palpitation Neck pain Screening examination for infectious disease Heart palpitations control counseling History of cardiac disorder Depression Migraine Insomnia Abnormal laboratory test Arthritis Immune disorder Healthy adult History of leukocytosis Surgical History Hx of ultrasound guided needle biopsy History of delivery Family History Mother Diabetes Maternal Grandmother Diabetes Sister HTN (hypertension) Maternal Uncle Thyroid cancer Social History Housing: Apartment Alcohol intake: current Alcohol intake frequency: holidays/special occasions only Patient Tobacco Use Status: Current everyday Tobacco user Tobacco use type: Cigarette Years Smoked: 10 years e-Cigarette/Vaping Use: Currently Using Second Hand Smoke Exposure: Yes service: No Current occupational status: unemployed Cognitive needs: No Hearing needs: No Vision needs: Yes Female Reproductive History Menstrual Age of Menarche: 11 Review of Systems Const Denies fatigue, Denies fever(s), Denies night sweats, Denies poor appetite and Denies weight loss Eyes Details: glasses Reports requires corrective lenses ENT Reports Normal hearing present, Denies dental pain, Denies dysphagia, Denies hearing loss, Denies mouth pain, Denies odynophagia, Denies throat swelling, Denies tongue swelling and Reports other (Dentition adequate) Card Reports no additional complaints Resp Reports no additional complaints GI Denies abdominal pain, Denies melena, Denies bloating, Denies hematochezia, Reports constipation, Denies GI cramping, Denies dysphagia, Denies excessive flatus, Denies early satiety, Reports heartburn, Denies diarrhea, Denies nausea, Denies odynophagia, Denies vomiting and Denies hematemesis Skin/Breast Denies pruritus, Denies lesions, Denies rash and Denies jaundice Neuro Reports Normal hearing present and Denies Abnormal speech present Endo Denies fatigue Aller/Immun Denies throat swelling and Denies tongue swelling Physical Exam Vital Signs: Last Vital Signs Pulse 93 10/30/23 10:26 BP 122/83 10/30/23 10:26 BMI result Body Mass Index 39.5 Const General: cooperative, no acute distress, well developed and well groomed Nutritional Appearance: well nourished, obese and overweight Orientation/consciousness: oriented to person, oriented to place and oriented to time Limitations: No language barrier, ambulation with cane, ambulation with walker and wheelchair HEENT Head: Yes normocephalic and Yes atraumatic Eyes General: appearance normal, both eyes and all related structures Pupils: Equal, round and reactive pupils present Neck Neck: Yes normal visual inspection and Yes no lymphadenopathy Thyroid: Thyroid normal Resp Effort & Inspection: normal respiratory effort and able to speak in complete sentences Auscultation: clear to auscultation bilaterally Cardio Rate: regular rate Rhythm: regular rhythm Heart sounds: Normal, physiologic split S2 sound present Peripheral pulses: radial pulses present and posterior tibial pulses present GI Inspection: No distended and No Abdominal panniculus present Palpation (GI): Soft to palpation, nontender, no guarding, not rigid, No hepatosplenomegaly present and Hepatosplenomegaly present Percussion: Yes normal to percussion Auscultation: normal bowel sounds Rectal Exam - Female: deferred Skin General skin exam: no rashes or lesions noted, turgor normal, skin not dry, no jaundice, No spider nevi and no striae Rashes: no rashes Nails: normal Neuro General: oriented to person, oriented to place and oriented to time Cranial nerves: Yes Equal, round and reactive pupils present and Yes Normal hearing present Speech: No Abnormal speech present Extrem General: Yes normal to inspection, No clubbing, No cyanosis and No edema Psych Thought process: Normal thought process present and not confabulating Thought content: Normal thought content present Insight: Good insight present (Psych) Judgement: Good judgement present (Psych) Results Reviewed Results Reviewed: Laboratory Tests 09/05/23 10/03/23 09:50 09:49 TSH 4.36 H Free T4 0.83 Stool Pancreat Elastase >500 RAST STUDY SHOWED NO SIGNIFICANT FOOD ALLERGIES EGD/COLONOSCOPY 10/17/23 Findings: Terminal Ileum-normal, random bx taken bx taken from right and left colon in separate jars Cecum:normal Ascending Colon: 8-9 mm sessile polyp removed wtih cold snare Transverse Colon -normal Descending Colon:normal Sigmoid Colon: normal Rectum: Retroflexion with small internal hemorrhoids, grade I Anorectum - normal Impression and Post Procedure Diagnosis: Endoscopy Findings: gastritis Colonoscopy Findings: polyp internal hemorrhoids Plan: Await Pathology results Repeat Colonoscopy in 5 years due to polyp removed or earlier if clinically indicated High fiber diet leaflet avoid straining at stool, epsom salts and sitz bath, anusol supps or cream if bx and tests neg consider CTe vs VCE Above findings were reviewed with the patient and relevant handouts were provided if indicated. BIOPSY Received: 10/17/23 Diagnosis A. Colon, ascending, polypectomy: Fragments of tubular adenoma; negative for high-grade dysplasia or carcinoma. B. Terminal ileum, biopsy: Terminal ileal mucosa within normal limits. C. Colon, right, biopsy: Colonic mucosa within normal limits. D. Colon, left, biopsy: Colonic mucosa within normal limits. E. Duodenum, biopsy: Chronic inactive duodenitis. F. Stomach, biopsy: Antral-type and oxyntic mucosa with mild chronic inactive inflammation; no Helicobacter organisms seen. G. Esophagus, random, biopsy: Squamous epithelium within normal limits; no inflammation seen.? Assessment & Plan Assessment & Plan (1) Tubular adenoma of colon: Comment: 09/2023= 1 TA REPEAT 5 YEARS Code(s): D12.6 - Benign neoplasm of colon, unspecified (2) Chronic idiopathic constipation: Code(s): K59.04 - Chronic idiopathic constipation (3) GERD (gastroesophageal reflux disease): Code(s): K21.9 - Gastro-esophageal reflux disease without esophagitis Qualifiers: Esophagitis presence: without esophagitis Qualified Code(s): K21.9 - Gastro-esophageal reflux disease without esophagitis (4) Hypothyroidism: Code(s): E03.9 - Hypothyroidism, unspecified Qualifiers: Hypothyroidism type: unspecified Qualified Code(s): E03.9 - Hypothyroidism, unspecified Plan THE PROCEDURE SHOULD BE repeated in 5 years due to the finding of a tubular adenoma. The procedure was well tolerated. The results were explained and the patient is agreeable to the follow-up interval as stated. The bowel pattern has returned to normal. Education was provided to tell any 1st degree relatives about their findings to be sure that they are screened by age 45. Educated that they will be put on a recall list when it is time for their repeat scope but should they move out of state or away from the hospital they will need to remember along with their primary to repeat the procedure in a timely fashion to avoid any adverse complications. She is the same. she just started taking her thyroid medication, she has only been on it for about 2 weeks. She is educated that it takes 4-6 weeks for dosed stabilize. So for now she opts to continue eating a lot of fiber and will give her some milk of magnesia as a p.r.n. and will see if the stooling improves when the thyroid is stabilized. Clearly there is nothing wrong with her GI system so likely this is a response to clinical to subclinical hypothyroidism. 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 Return office visit in 8 weeks ULTRASOUND OF THE ABDOMEN NOT OBTAINED Orders: Orders TSH reflex Free T4 12/17/23 E03.9 - Hypothyroidism, unspecified Medications: New magnesium hydroxide (Milk of Magnesia) 5 mL PO BEDTIME 355 mL 3RF K59.04 - Chronic idiopathic constipation Coding Level of Care Code Est Pt Level 3 (51926) Diagnoses Tubular adenoma of colon D12.6 Chronic idiopathic constipation K59.04 Gastroesophageal reflux disease without esophagitis K21.9 Esophagitis presence: without esophagitis Hypothyroidism, unspecified type E03.9 Hypothyroidism type: unspecified
[2023-10-30 10:26] VITALS: BP 122/83; PULSE 93; BMI 39.5
== END 2023-10-30 11:16 | disposition home or self-care (01) ==
PROVIDERS: PCP Physician Assistant; Visit Provider Nurse Practitioner
DX: D12.6 Benign neoplasm of colon, unspecified (principal); K59.04 Chronic idiopathic constipation; K21.9 Gastro-esophageal reflux disease without esophagitis; E03.9 Hypothyroidism, unspecified
CPT/HCPCS: 99213

== ENCOUNTER → 2023-10-30 10:17 | Outpatient (BNVA) | payer OTHER, SELFPAY | PROVIDERS: PCP Physician Assistant; Visit Provider Nurse Practitioner | DX: K59.04 Chronic idiopathic constipation (principal); K21.9 Gastro-esophageal reflux disease without esophagitis; D12.6 Benign neoplasm of colon, unspecified; E03.9 Hypothyroidism, unspecified | CPT/HCPCS: 99212 ==

== ENCOUNTER 2023-12-24 13:37 | Outpatient (REF) | payer OTHER, SELFPAY ==
--- NOTE | ~2023-12-24 | US_ITS ---
EXAMINATION: US THYROID CLINICAL INFORMATION: Nontoxic multinodular goiter. COMPARISON: Ultrasound soft tissue head/neck thyroid dated 10/09/2022. TECHNIQUE: Linear transducer grayscale and color Doppler examination with attention to the region of the thyroid. FINDINGS: SIZE: Measurements of the thyroid lobes and nodules are given in sagittal, anteroposterior and transverse dimensions respectively. Right Thyroid Lobe: 5.5 x 2.4 x 2.3 cm, volume 16.2 mL. Previously 5.6 x 2.1 x 2.3 cm, volume 14.6 mL. Parenchyma: The gland echotexture is heterogeneous. Thyroid vascularity is increased. Left Thyroid Lobe: 5.6 x 2.1 x 2.0 cm, volume 12.3 mL. Previously 5.7 x 1.9 x 2.0 cm, volume 10.9 mL. Parenchyma: The gland echotexture is heterogeneous. Thyroid vascularity is increased. Isthmus: 0.5 cm in maximum AP dimension. Previously 0.6 cm. Estimated total number of nodules greater than or equal to 1 cm: 0. Encephalographer nodules are described as follows: 1. Location: Right mid. Size: 0.7 x 0.9 x 0.6 cm, volume 0.2 mL. Previously: 1.1 x 1.0 x 0.9 cm, volume 0.5 mL. Nodule characteristics: Composition: Solid (2). Echogenicity: Hyperechoic (1). Shape: Taller than wide (3). Margins: Smooth (0). Echogenic Foci: None (0). ACR TI-RADS total points: 6 Previous: Not documented. ACR TI-RADS category: 4 Previous: Not documented. Significant change in size (>/= 20% in 2 dimensions and minimal increase of 2 mm or 50% or greater increase in volume): No Change in features: No Change in ACR TI-RADS risk category: No 2. Location: Right mid isthmus. Size: 0.4 x 0.3 x 0.5 cm, volume 0.03 mL. Previously: 0.4 x 0.4 x 0.3 cm, volume 0.02 mL. Nodule characteristics: Composition: Solid (2). Echogenicity: Hyperechoic (1). Shape: Not taller than wide (0). Margins: Smooth (0). Echogenic Foci: Macrocalcifications (1). ACR TI-RADS total points: 4 Previous: Not documented. ACR TI-RADS category: 4 Previous: Not documented. Significant change in size (>/= 20% in 2 dimensions and minimal increase of 2 mm or 50% or greater increase in volume): No Change in features: No Change in ACR TI-RADS risk category: No 3. Location: Left mid lateral. Size: 0.7 x 0.5 x 0.5 cm, volume 0.09 mL. Previously: 0.9 x 0.6 x 0.5 cm, volume 0.1 mL. Nodule characteristics: Composition: Solid (2). Echogenicity: Hyperechoic (1). Shape: Not taller than wide (0). Margins: Smooth (0). Echogenic Foci: Macrocalcifications (1). ACR TI-RADS total points: 4 Previous: 7 ACR TI-RADS category: 4 Previous: 5 Significant change in size (>/= 20% in 2 dimensions and minimal increase of 2 mm or 50% or greater increase in volume): No Change in features: Yes Change in ACR TI-RADS risk category: Yes 4. Location: Left inferior. Size: 0.8 x 0.6 x 0.7 cm, volume 0.2 mL. Previously: New since the previous study. Nodule characteristics: Composition: Mixed cystic and solid (1). Echogenicity: Hyperechoic (1). Shape: Not taller than wide (0). Margins: Smooth (0). Echogenic Foci: None (0). ACR TI-RADS total points: 3 ACR TI-RADS category: 3 NODES: No lymphadenopathy is seen in the tissue surrounding the thyroid gland. US/US thyroid IMPRESSION: No further routine follow-up is needed ACR TI-RADS RECOMMENDATION REFERENCE: Ultrasound-guided fine-needle aspiration, follow up ultrasound, no further followup. * TR1 (0 point) and TR2 (2 points): No FNA or followup * TR3 (3 points): FNA if more than or equal to 2.5 cm in maximum dimension, follow up ultrasound in 1, 3 and 5 years if 1.5 to 2.4 cm in maximum dimension. * TR4 (4-6 points): FNA if more than or equal to 1.5 cm in maximum dimension, follow up ultrasound in 1, 2, 3 and 5 years if 1 to 1.4 cm in maximum dimension. * TR5 (more than or equal to 7 points): FNA if more than or equal to 1 cm in maximum dimension, follow up ultrasound every year for 5 years if 0.5 to 0.9 cm in maximum dimension. * TR3, TR4 or TR5 nodules that are below the size threshold for follow up receive no followup.
[2023-12-24 16:32] LABS: TSH reflex Free T4 1.29 uIU/mL (0.32-4.0)
== END 2023-12-24 13:38 | disposition home or self-care (01) ==
LOC: HO.US 13:37
PROVIDERS: Absent Provider Nurse Practitioner; PCP Physician Assistant; Visit Provider Internal Medicine Endocrinology, Diabetes & Metabolism
DX: E04.2 Nontoxic multinodular goiter (principal); E03.9 Hypothyroidism, unspecified
CPT/HCPCS: 36415; 76536; 84443

== ENCOUNTER 2023-12-25 08:09 | Outpatient (AMB) | payer OTHER, SELFPAY ==
[2023-12-25 08:29] VITALS: BP 116/70; PULSE 132; TEMP 37.5; O2SAT 97; BMI 40.3
--- NOTE | 2023-12-25 08:29 | AM.OFFWIN_ITS ---
Intake Vital Signs 12/25/23 08:29 Height 5 ft 9 in Weight 273 lb BMI 40.3 BP 116/70 Blood Pressure Location Lt brachial Position Sitting Pulse 132 H Temp 99.5 F Temp Source Temporal Artery Scan Pulse Oximetry (%) 97 Oxygen Delivery Method Room Air Intake Visit Reasons: EP Sore throat, headache, fever Intake Note: pt is here today for sore throat headache fever started 2 days ago Patient Tobacco Use Status: Current everyday Tobacco user Allergies codeine Allergy (Intermediate, Verified 12/25/23 09:12) Shakiness bees Allergy (Unknown, Uncoded 12/25/23 09:12) Swelling hornet Allergy (Unknown, Uncoded 12/25/23 09:12) Swelling Medication List - Last Reconciled 12/25/23 by Terrell Short MD levothyroxine 25 mcg PO DAILY 90 days magnesium hydroxide (Milk of Magnesia) 5 mL PO BEDTIME Do you need a note to return to daycare/school/sports/work: No HPI EP Sore throat, headache, fever HPI Details Patient presents for a sick visit. Reporting symptoms of sinus congestion, sore throat and difficulty swallowing. Low-grade fever. No family member is sick. No recent travel. Patient reports symptoms of malaise and fatigue. [facility] Medical History Hypothyroidism UTI (urinary tract infection) Morning after pill advice and prescription Screen for STD (sexually transmitted disease) Chest pain Multinodular thyroid Thyroid nodule Abnormal thyroid scan Hemorrhoids Encounter for IUD removal Contraceptive management Abdominal bloating IUD check up Complex ovarian cyst Pelvic cramping Encounter for IUD insertion Postprandial abdominal bloating Obese Recurrent UTI Family planning Bleeding hemorrhoids Generalized abdominal pain Obesity (BMI 30-39.9) Smoker Matthew's duct cyst Vaginal cyst Urethral diverticulum Hx of hematuria Family planning Screen for STD (sexually transmitted disease) COVID COVID-19 Dog bite Rash Cellulitis Headache Palpitation Neck pain Screening examination for infectious disease Heart palpitations control counseling History of cardiac disorder Depression Migraine Insomnia Abnormal laboratory test Arthritis Immune disorder Healthy adult History of leukocytosis Surgical History Hx of ultrasound guided needle biopsy History of delivery Family History Mother Diabetes Maternal Grandmother Diabetes Sister HTN (hypertension) Maternal Uncle Thyroid cancer Social History Housing: Apartment Alcohol intake: current Alcohol intake frequency: holidays/special occasions only Patient Tobacco Use Status: Current everyday Tobacco user Tobacco use type: Cigarette Years Smoked: 10 years e-Cigarette/Vaping Use: Currently Using Second Hand Smoke Exposure: Yes service: No Current occupational status: unemployed Cognitive needs: No Hearing needs: No Vision needs: Yes Female Reproductive History Menstrual Age of Menarche: 11 Physical Exam Vital Signs: Last Vital Signs Temp 99.5 F 12/25/23 08:29 Pulse 132 H 12/25/23 08:29 BP 116/70 12/25/23 08:29 Pulse Ox 97 12/25/23 08:29 Oxygen Delivery Method Room Air 12/25/23 08:29 BMI result Body Mass Index 40.3 Const General: cooperative and healthy appearing Nutritional Appearance: well nourished Orientation/consciousness: patient oriented x3 Limitations: no limitations HEENT Head: Yes normal to inspection Eyes General: appearance normal, both eyes and all related structures Neck Neck: Yes normal visual inspection Chest Chest palpation & inspection: normal palpation of entire chest wall Resp Effort & Inspection: normal respiratory effort Neuro General: patient oriented x3 Results AMB Rapid Strep AMB Rapid Strep Negative Last Edit by Marquis Bates CMA on 12/25/23 08 :59 Results Reviewed Results Reviewed: Laboratory Last Values Strep Scn Rapid Clinic Negative 12/25/23 08:58 Assessment & Plan Assessment & Plan (1) Upper respiratory tract infection: Code(s): J06.9 - Acute upper respiratory infection, unspecified Plan: Antivirals ordered. Increase fluid intake. Tylenol for aches and pains. If symptoms worsen, follow-up here for a recheck. Will call with results of the flu swab. Orders: Orders AMB Rapid Strep Screen Today Z13.9 - Encounter for screening, unspecified SARS-CoV2/FLU/RSV Today R43.9 - Unspecified disturbances of smell and taste Coding Level of Care Code Est Pt Level 3 (23035) Diagnoses Upper respiratory tract infection J06.9
== END 2023-12-25 09:24 | disposition home or self-care (01) ==
PROVIDERS: PCP Physician Assistant; Visit Provider Internal Medicine
DX: J06.9 Acute upper respiratory infection, unspecified (principal)
CPT/HCPCS: 87880; 99213

== ENCOUNTER 2023-12-25 13:30 | Outpatient (REF) | payer OTHER, SELFPAY ==
[2023-12-25 14:59] LABS: Influenza A PCR POSITIVE (Negative); Influenza B PCR NEGATIVE (Negative); Resp Syncy Virus RNA Qual PCR NEGATIVE (Negative); SARS COV2 PCR INHOUSE NEGATIVE (Negative)
== END 2023-12-25 13:31 | disposition home or self-care (01) ==
LOC: HO.HMGCLNP 13:30
PROVIDERS: Visit Provider Internal Medicine
DX: Z11.52 Encounter for screening for COVID-19 (principal); R43.9 Unspecified disturbances of smell and taste
CPT/HCPCS: 0241U

== ENCOUNTER 2023-12-28 19:47 | Emergency (ER) | payer OTHER, SELFPAY ==
--- NOTE | 2023-12-28 | ECG_ITS ---
Test Reason : CHEST PAIN Blood Pressure : / mmHG Vent. Rate : 103 BPM Atrial Rate : 103 BPM P-R Int : 140 ms QRS Dur : 076 ms QT Int : 334 ms P-R-T Axes : 055 016 028 degrees QTc Int : 437 ms Sinus tachycardia Cannot rule out Anterior infarct , age undetermined Abnormal ECG When compared with ECG of 30-OCT-2022 14:07, No significant change was found Referred By: Generic ED Physician Electronically Signed By:MICHAEL NEWBY
--- NOTE | ~2023-12-28 | XR_ITS ---
EXAMINATION: XR CHEST 2 VIEWS CLINICAL INFORMATION: Chest pain, shortness of breath and cough. COMPARISON: Chest radiographs dated 10/03/2023. TECHNIQUE: Frontal and lateral views of the chest were obtained. FINDINGS: The heart, great vessels, pulmonary vasculature and mediastinum are normal. The lungs show no focal infiltrate, effusion or pneumothorax. There is no acute osseous abnormality. XR/XR chest 2V IMPRESSION: No active cardiopulmonary disease.
--- NOTE | 2023-12-28 20:12 | ED_ITS ---
HPI - URI/Sore Throat General Chief Complaint: Chest Pain Stated Complaint: 5 days in flu, chest pain, arm-> shoulder pain Time Seen by Provider: 12/28/23 23:13 Source: patient Mode of arrival: ambulatory History of Present Illness HPI Narrative: 8153: 3 days chest wall discomfort especially when taking deep breaths and was recently diagnosed with influenza and has had a cough. Related Data Previous Rx's Medication Instructions Recorded levothyroxine 25 mcg tablet 25 mcg PO DAILY 90 days #90 tabs 10/09/23 magnesium hydroxide 400 mg/5 mL 5 ml PO BEDTIME #355 mL 10/30/23 oral suspension (Milk of Magnesia) oseltamivir 75 mg capsule (Tamiflu) 75 mg PO BID 5 days #10 caps 12/25/23 Allergies Allergy/AdvReac Type Severity Reaction Status Date / Time codeine Allergy Intermediate Shakiness Verified 12/28/23 20:13 bees Allergy Unknown Swelling Uncoded 12/28/23 20:13 hornet Allergy Unknown Swelling Uncoded 12/28/23 20:13 Review of Systems 2 Review of Systems: Pertinent positives and negatives as stated in HPI PMFSH Past Medical History Source: nursing notes reviewed Medical History Hypothyroidism UTI (urinary tract infection) Morning after pill advice and prescription Screen for STD (sexually transmitted disease) Chest pain Multinodular thyroid Thyroid nodule Abnormal thyroid scan Hemorrhoids Encounter for IUD removal Contraceptive management Abdominal bloating IUD check up Complex ovarian cyst Pelvic cramping Encounter for IUD insertion Postprandial abdominal bloating Obese Recurrent UTI Family planning Bleeding hemorrhoids Generalized abdominal pain Obesity (BMI 30-39.9) Smoker Matthew's duct cyst Vaginal cyst Urethral diverticulum Hx of hematuria Family planning Screen for STD (sexually transmitted disease) COVID COVID-19 Dog bite Rash Cellulitis Headache Palpitation Neck pain Screening examination for infectious disease Heart palpitations control counseling History of cardiac disorder Depression Migraine Insomnia Abnormal laboratory test Arthritis Immune disorder Healthy adult History of leukocytosis Surgical History Hx of ultrasound guided needle biopsy History of delivery Family History Family History Mother Diabetes Maternal Grandmother Diabetes Sister HTN (hypertension) Maternal Uncle Thyroid cancer Social History Social History Housing: Apartment Alcohol intake: current Alcohol intake frequency: holidays/special occasions only Patient Tobacco Use Status: Current everyday Tobacco user Tobacco use type: Cigarette Years Smoked: 10 years e-Cigarette/Vaping Use: Currently Using Second Hand Smoke Exposure: Yes Advance Directives: No Advance Directives Information Provided: No service: No Current occupational status: unemployed Cognitive needs: No Hearing needs: No Vision needs: Yes Physical Exam 2 Vital Signs: Vital Signs: Last Vital Signs Temp 97.6 F 12/28/23 23:19 Pulse 80 12/28/23 23:19 Resp 17 12/28/23 23:19 BP 113/70 12/28/23 23:19 Pulse Ox 97 12/28/23 23:19 O2 Del Method Room Air 12/28/23 23:19 BMI result Body Mass Index 39.1 VITAL SIGNS: Reviewed. GENERAL: Well developed, well nourished, in no acute distress. HEAD: Normocephalic/atraumatic EYES: PERRLA, EOMI EARS: Ext canals without abnormality, TMs non-bulging and non-erythematous NOSE: Nares patent bilateral OROPHARYNX: no oral lesions noted, posterior pharynx clear and non-erythematous without noted tonsillar enlargement/erythema/exudates NECK: Supple, no adenopathy LUNGS: Normal breath sounds, discomfort on deep inspiration, no tachypnea/wheeze/rhonchi/rales. SpO2<97> CARDIOVASCULAR: Regular rate and rhythm without noted murmurs ABDOMEN: Soft, non-tender, non-distended with bowel sounds. MUSCULOSKELETAL: No tenderness, deformities, or effusions noted on gross inspection. EXTREMITIES: No cyanosis, clubbing or edema. SKIN: Inspection of the skin reveals no rashes NEUROLOGIC: Alert and oriented x 4. Strength and sensation to light touch were grossly intact x 4. Course Course Course Narrative: This is an RME: Additional HPI, ROS, PE not included below will be deferred to primary provider. Patient is a 33-year-old female who presents emergency department for evaluation of chest pain. Reports diagnosed with influenza 5 days ago. She was experiencing mid chest pain at that time, worse with deep inspiration. Today she has been experiencing pain in the left shoulder, left lateral neck, and and left arm. Plan: EKG, CXR Medications Administered Discontinued Medications Generic Name Dose Route Start Last Admin Trade Name Brayan PRN Reason Stop Dose Admin Acetaminophen 975 mg 12/28/23 23:47 12/28/23 23:55 Acetaminophen 325 Mg Tablet PO 12/28/23 23:48 975 mg ONCE ONE Administration Ibuprofen 400 mg 12/28/23 23:47 12/28/23 23:55 Ibuprofen 400 Mg Tablet PO 12/28/23 23:48 400 mg ONCE ONE Administration Medical Decision Making Medical Decision Making [facility] Narrative: 33-year-old female with history and clinical presentation,, DDX: Costochondritis, pleurisy, musculoskeletal pain, low clinical suspicion for pneumonia or ACS. I reviewed all investigations and hematologic indices negative for leukocytosis/left shift/anemia/thrombocytopenia. Chemistry indices are grossly within normal limits without any noted derangements, I sensitivity troponin undetectable. EKG without acute findings to suggest ST-elevation. Chest x-ray does not demonstrate an infiltrate or venous congestion otherwise my interpretation is in agreement with radiology's impression. Differential Diagnosis Differential Diagnoses: The differential diagnosis associated with the presentation includes Please see the discussion above Admission/Observation Consideration of admission/observation: Escalation of care including admission/observation considered Please see the discussion above Lab Data [facility] Lab Attestation statement: I reviewed the patient's lab results. Please see the discussion above 12/28/23 21:17 12/28/23 21:17 Labs: Lab Results 12/28/23 Range/Units 21:17 WBC 9.8 (4.8-10.8) X10*3/uL RBC 5.22 (4.20-5.50) X10*6/uL Hgb 14.8 (12.0-16.0) g/dl Hct 43.8 (37.0-47.0) % MCV 83.9 (80.0-98.0) fL MCH 28.4 (27.0-33.0) pg MCHC 33.8 (31.0-35.0) g/dl RDW 12.1 (11.0-16.0) % Plt Count 312 (160-400) X10*3/uL MPV 8.6 L (9.4-12.3) fL Immature Gran % (Auto) 0.4 (0.0-0.4) % Neut % (Auto) 56.3 (45-73) % Lymph % (Auto) 34.8 (20-40) % [place] % (Auto) 8.1 (2-11) % Eos % (Auto) 0.2 (0-4) % Baso % (Auto) 0.2 (0-2) % Lymph # (Auto) 3.4 (1.2-4.9) X10*3/uL [place] # (Auto) 0.8 (0.1-1.2) X10*3/uL Eos # (Auto) 0.0 (0.0-0.4) X10*3/uL Baso # (Auto) 0.0 (0.0-0.2) X10*3/uL Abs Immat Gran (auto) 0.04 H (0.00-0.03) X10*3/uL Absolute Neuts (auto) 5.5 (2.0-8.3) x10*3/uL Absolute Nucleated RBC 0.000 (0.0-0.012) X10*3/uL Nucleated RBC % (auto) 0.0 (0.0-0.2) /100WBC Sodium 138 (135-145) mmol/L Potassium 3.9 (3.3-5.1) mmol/L Chloride 105 (96-108) mmol/L Carbon Dioxide 23 (22-29) mmol/L Anion Gap 14 (12-20) BUN 12 (9-16) mg/dL Creatinine 0.84 (0.5-1.4) mg/dL Estim Creat Clear Calc 132.0 Estimated GFR > 60 Random Glucose 86 (60-115) mg/dL Calcium 9.3 (8.4-10.2) mg/dL Total Bilirubin 0.3 (0.0-1.0) mg/dL AST 15 (5-31) U/L ALT 14 (0-31) U/L Alkaline Phosphatase 57 (39-117) U/L Troponin I High Sens < 2.7 (<3.5-17.0) ng/L Total Protein 7.2 (6.5-8.0) g/dL Albumin 3.6 (3.5-5.0) g/dL Independent Interpretation I performed an independent interpretation of an: EKG Interpretation: Normal sinus rhythm, HR-96, UT/QRS/QTC is within normal limits. Radiology Impression Discussion of test interpretation with radiology: I have reviewed the radiologist's reading. Radiologist Impression: Please see the discussion above External Record Review External record reviewed: Outpatient record, Prior outpatient labs and Prior outpatient radiology Chronic Conditions Patient?s care impacted by: Other Thyroid disease Critical Care Time Critical Care Time Critical Care Time: Yes Total Critical Care Time: 30 Attestation: I personally attest to this time spent taking care of the patient. Discharge Plan Discharge Clinical Impression: Acute costochondritis, Pleurisy Patient Disposition: Home, Self-Care Instructions: Costochondritis (ED), Pleurisy (ED) Additional Instructions: 1. Resume all home medications as prescribed. 2. Tylenol 1000 mg, orally, every 6 hours as needed for body aches, chest discomfort, temperatures greater than 100.4. Do not exceed 4000 mg within 24 hours. 3. Ibuprofen 400 mg, orally with milk or food, every 6 hours as needed for body aches, chest discomfort, temperatures greater than 100.4. 4. Please follow-up with primary care doctor on Sunday. Return to the ER for any worsening symptoms. Prescriptions: No Action levothyroxine 25 mcg tablet 25 mcg PO DAILY 90 Days Qty: 90 1RF oseltamivir [Tamiflu] 75 mg capsule 75 mg PO BID 5 Days Qty: 10 0RF magnesium hydroxide [Milk of Magnesia] 400 mg/5 mL suspension 5 ml PO BEDTIME Qty: 355 3RF Referrals: Adams Pereira PA-C [Primary Care Provider] -
[2023-12-28 20:13] VITALS: BP 152/94; PULSE 85; RESP 16; TEMP 36.6; O2SAT 98; BMI 39.1
--- NOTE | 2023-12-28 20:15 | ECG_ITS ---
Test Reason : CHEST PAIN Blood Pressure : / mmHG Vent. Rate : 096 BPM Atrial Rate : 096 BPM P-R Int : 142 ms QRS Dur : 074 ms QT Int : 342 ms P-R-T Axes : 057 019 041 degrees QTc Int : 432 ms Normal sinus rhythm with sinus arrhythmia Low voltage QRS Borderline ECG When compared with ECG of 28-DEC-2023 19:54, No significant change was found Referred By: Marianne Pacheco Electronically Signed By:MICHAEL NEWBY
--- NOTE | 2023-12-28 21:21 | MHC.EDTECH ---
PATIENT BLOOD DRAWN AND SENT TO LAB .
[2023-12-28 21:22] LABS: MANUAL DIFF FLAG NO
[2023-12-28 21:23] LABS: Basophils Percent Auto 0.2 % (0-2); Eosinophils Percent Auto 0.2 % (0-4); Hematocrit 43.8 % (37.0-47.0); Hemoglobin 14.8 g/dl (12.0-16.0); Imm Gran Abs Auto 0.04 X10*3/uL (0.00-0.03); Imm Gran Pct Auto 0.4 % (0.0-0.4); Lymphocytes Absolute Auto 3.4 X10*3/uL (1.2-4.9); Lymphocytes Percent Auto 34.8 % (20-40); Mean Corpuscular HGB Conc 33.8 g/dl (31.0-35.0); Mean Corpuscular Hemoglobin 28.4 pg (27.0-33.0); Mean Corpuscular Volume 83.9 fL (80.0-98.0); Mean Platelet Volume 8.6 fL (9.4-12.3); Monocytes Absolute Auto 0.8 X10*3/uL (0.1-1.2); Monocytes Percent Auto 8.1 % (2-11); Neutrophils Absolute Auto 5.5 x10*3/uL (2.0-8.3); Neutrophils Percent Auto 56.3 % (45-73); Platelet Count 312 X10*3/uL (160-400); Red Blood Count 5.22 X10*6/uL (4.20-5.50); Red Cell Distribution Width 12.1 % (11.0-16.0); White Blood Count 9.8 X10*3/uL (4.8-10.8)
[2023-12-28 21:38] LABS: Alanine Aminotransferase 14 U/L (0-31); Albumin Level 3.6 g/dL (3.5-5.0); Alkaline Phosphatase 57 U/L (39-117); Anion Gap 14 (12-20); Aspartate Amino Transferase 15 U/L (5-31); Bilirubin Total 0.3 mg/dL (0.0-1.0); Blood Urea Nitrogen 12 mg/dL (9-16); Calcium 9.3 mg/dL (8.4-10.2); Carbon Dioxide 23 mmol/L (22-29); Chloride 105 mmol/L (96-108); Estimated Glomerular Filt Rate > 60; Glucose Random 86 mg/dL (60-115); Potassium 3.9 mmol/L (3.3-5.1); Sodium 138 mmol/L (135-145); Total Protein 7.2 g/dL (6.5-8.0)
[2023-12-28 21:48] LABS: Troponin-I High Sensitivity < 2.7 ng/L (<3.5-17.0)
[2023-12-28 23:19] VITALS: BP 113/70; PULSE 80; RESP 17; TEMP 36.4; O2SAT 97
[2023-12-28] MEDS: Ibuprofen 400 MG TABLET PO (23:55)
[2023-12-28] MEDS: Acetaminophen 325 MG TABLET 975 MG PO (23:55)
== END 2023-12-29 01:18 | disposition home or self-care (01) ==
PROVIDERS: Nurse Practitioner Family; Emergency Provider Student in an Organized Health Care Education/Training Program; PCP Physician Assistant
DX: M94.0 Chondrocostal junction syndrome [Tietze] (principal); R09.1 Pleurisy; F17.210 Nicotine dependence, cigarettes, uncomplicated
CPT/HCPCS: 36415; 71046; 80053; 84484; 85025; 93005; 99283; 99284

== ENCOUNTER → 2023-12-28 19:54 | Outpatient (BNV) | payer OTHER, SELFPAY | PROVIDERS: Emergency Provider Student in an Organized Health Care Education/Training Program; PCP Physician Assistant; Visit Provider Internal Medicine | DX: R00.0 Tachycardia, unspecified (principal); R94.31 Abnormal electrocardiogram [ECG] [EKG]; I49.9 Cardiac arrhythmia, unspecified | CPT/HCPCS: 93010 ==

== ENCOUNTER 2024-01-17 11:40 | Outpatient (AMB) | payer OTHER, SELFPAY ==
--- NOTE | 2024-01-17 11:47 | A.OFFVIS_ITS ---
Intake Vital Signs 01/17/24 12:03 Height 5 ft 9 in Weight 276 lb 14.409 oz BMI 40.9 BP 113/68 Blood Pressure Location Rt brachial Position Sitting Pulse 92 Intake Visit Reasons: 8 week follow up Intake Note: Patient presents to in office visit today in follow up of lab and constipation. CC: Krupa continues to have constipation, diarrhea, abdominal pain, feeling like the food stays stuck in her esophagus, and she has to throw up. Also acid reflux worst in the morning, abdominal bloating and burping. Chemical Laboratory Assistant Required: No Accompanied by: Self / Same As Patient Allergies codeine Allergy (Intermediate, Verified 01/17/24 12:08) Shakiness bees Allergy (Unknown, Uncoded 12/28/23 20:13) Swelling hornet Allergy (Unknown, Uncoded 12/28/23 20:13) Swelling HPI 8 week follow up HPI Details Assessment & Plan (1) Tubular adenoma of colon: Comment: 09/2023= 1 TA REPEAT 5 YEARS Code(s): D12.6 - Benign neoplasm of colon, unspecified (2) Chronic idiopathic constipation: Code(s): K59.04 - Chronic idiopathic constipation (3) GERD (gastroesophageal reflux diseas e): Code(s): K21.9 - Gastro-esophageal reflux disease without esophagitis Qualifiers: Esophagitis presence: without esophagitis Qualified Code(s): K21.9 - Gastro-esophageal reflux disease without esophagitis (4) Hypothyroidism: Code(s): E03.9 - Hypothyroidism, unspecified Qualifiers: Hypothyroidism type: unspecified Qualified Code(s): E03.9 - Hypothyroidism, unspecified Plan THE PROCEDURE SHOULD BE repeated in 5 years due to the finding of a tubular adenoma. The procedure was well tolerated. The results were explained and the patient is agreeable to the follow-up interval as stated. The bowel pattern has returned to normal. Education was provided to tell any 1st degree relatives about their findings to be sure that they are screened by age 45. Educated that they will be put on a recall list when it is time for their repeat scope but should they move out of state or away from the hospital they will need to remember along with their primary to repeat the procedure in a timely fashion to avoid any adverse complications. She is the same. she just started taking her thyroid medication, she has only been on it for about 2 weeks. She is educated that it takes 4-6 weeks for dosed stabilize. So for now she opts to continue eating a lot of fiber and will give her some milk of magnesia as a p.r.n. and will see if the stooling improves when the thyroid is stabilized. Clearly there is nothing wrong with her GI system so likely this is a response to clinical to subclinical hypothyroidism. 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 Return office visit in 8 weeks ULTRASOUND OF THE ABDOMEN NOT OBTAINED Orders: Orders TSH reflex Free T4 12/17/23 E03.9 - Hypothyroi dism, unspecified Medications: New magnesium hydroxid e (Milk of Magnesi a) 5 mL PO BEDTIME 3 55 mL 3RF K59.04 - Chronic i diopathic constipa tion LABS: Laboratory Tests 12/24/23 14:52 TSH 1.29 ULTRASOUND OF THE ABDOMEN NOT OBTAINED TODAY'S VISIT She says she is the same. If she takes anything, including smooth move tea or MOM she will not move her bowels and tehn have severe diarrhea. She says she eat a lot of iber in her diet via raisin bran and fiber in her suppolements, she also takes a pre/probiotic. She dislikes taking a med every day just to poop. At this point, since she has a lot of upper abd pain/cramping we will try bentyl and I recommend an otc magnesium supplement. Since I am out of ideas of how to approach this, since her thyroid levels seem to be stable, I will recommend that she see an MD for another opinion next. She has a lot of bleeding rectally in the diarrheal phase, she fears she will need hemorrhoid surgery. I did do a thyroid test and this appears to be normal. At this point again she will follow-up with a physician since I seem to be out of idea is to manage her situation. [facility] Medical History Hypothyroidism UTI (urinary tract infection) Morning after pill advice and prescription Screen for STD (sexually transmitted disease) Chest pain Multinodular thyroid Thyroid nodule Abnormal thyroid scan Hemorrhoids Encounter for IUD removal Contraceptive management Abdominal bloating IUD check up Complex ovarian cyst Pelvic cramping Encounter for IUD insertion Postprandial abdominal bloating Obese Recurrent UTI Family planning Bleeding hemorrhoids Generalized abdominal pain Obesity (BMI 30-39.9) Smoker Matthew's duct cyst Vaginal cyst Urethral diverticulum Hx of hematuria Family planning Screen for STD (sexually transmitted disease) COVID COVID-19 Dog bite Rash Cellulitis Headache Palpitation Neck pain Screening examination for infectious disease Heart palpitations control counseling History of cardiac disorder Depression Migraine Insomnia Abnormal laboratory test Arthritis Immune disorder Healthy adult History of leukocytosis Surgical History Hx of ultrasound guided needle biopsy History of delivery Family History Mother Diabetes Maternal Grandmother Diabetes Sister HTN (hypertension) Maternal Uncle Thyroid cancer Social History Housing: Apartment Alcohol intake: current Alcohol intake frequency: holidays/special occasions only Patient Tobacco Use Status: Current everyday Tobacco user Tobacco use type: Cigarette Years Smoked: 10 years e-Cigarette/Vaping Use: Currently Using Second Hand Smoke Exposure: Yes service: No Current occupational status: unemployed Cognitive needs: No Hearing needs: No Vision needs: Yes Female Reproductive History Menstrual Age of Menarche: 11 Review of Systems Const Denies fatigue, Denies fever(s), Denies night sweats, Denies poor appetite and Denies weight loss ENT Reports Normal hearing present, Denies dental pain, Denies dysphagia, Denies hearing loss, Denies mouth pain, Denies odynophagia, Denies throat swelling, Denies tongue swelling and Reports other (Dentition adequate) Card Reports no additional complaints Resp Reports no additional complaints GI Details: Denies abdominal pain, Denies melena, Reports bloating, Denies hematochezia, Reports constipation, Reports GI cramping, Denies dysphagia, Denies excessive flatus, Denies early satiety, Reports heartburn, Reports diarrhea, Denies nausea, Denies odynophagia, Denies vomiting and Denies hematemesis Skin/Breast Denies pruritus, Denies lesions, Denies rash and Denies jaundice Neuro Reports Normal hearing present and Denies Abnormal speech present Endo Denies fatigue Aller/Immun Denies throat swelling and Denies tongue swelling Physical Exam Vital Signs: Last Vital Signs Pulse 92 01/17/24 12:03 BP 113/68 01/17/24 12:03 BMI result Body Mass Index 40.9 Const General: cooperative, no acute distress, well developed and well groomed Nutritional Appearance: well nourished and obese Orientation/consciousness: oriented to person, oriented to place and oriented to time Limitations: No language barrier HEENT Head: Yes normocephalic and Yes atraumatic Eyes General: appearance normal, both eyes and all related structures Pupils: Equal, round and reactive pupils present Neck Neck: Yes normal visual inspection and Yes no lymphadenopathy Thyroid: Thyroid normal Resp Effort & Inspection: normal respiratory effort and able to speak in complete sentences Auscultation: clear to auscultation bilaterally Cardio Rate: regular rate Rhythm: regular rhythm Heart sounds: Normal, physiologic split S2 sound present Peripheral pulses: radial pulses present and posterior tibial pulses present GI Inspection: No distended, No Abdominal panniculus present and Yes obesity Palpation (GI): Soft to palpation, nontender, no guarding, not rigid, No hepatosplenomegaly present and Hepatosplenomegaly present Percussion: Yes normal to percussion Auscultation: normal bowel sounds Rectal Exam - Female: deferred Skin General skin exam: no rashes or lesions noted, turgor normal, skin not dry, no jaundice, No spider nevi and no striae Rashes: no rashes Nails: normal Neuro General: oriented to person, oriented to place and oriented to time Cranial nerves: Yes Equal, round and reactive pupils present and Yes Normal hearing present Speech: No Abnormal speech present Extrem General: Yes normal to inspection, No clubbing, No cyanosis and No edema Psych Appearance: grossly normal and well kempt Mental Status: mental status grossly normal Speech and movement: Normal speech and movement present Affect: normal affect Attitude: cooperative Thought process: Normal thought process present and not confabulating Thought content: Normal thought content present Insight: Limited insight present (Psych) Judgement: Limited judgement present (Psych) Assessment & Plan Assessment & Plan (1) Abdominal bloating: Code(s): R14.0 - Abdominal distension (gaseous) (2) Chronic idiopathic constipation: Code(s): K59.04 - Chronic idiopathic constipation (3) IBS (irritable bowel syndrome): Code(s): K58.9 - Irritable bowel syndrome without diarrhea Plan She says she is the same. If she takes anything, including smooth move tea or MOM she will not move her bowels and tehn have severe diarrhea. She says she eat a lot of iber in her diet via raisin bran and fiber in her suppolements, she also takes a pre/probiotic. She dislikes taking a med every day just to poop. At this point, since she has a lot of upper abd pain/cramping we will try bentyl and I recommend an otc magnesium supplement. Since I am out of ideas of how to approach this, since her thyroid levels seem to be stable, I will recommend that she see an MD for another opinion next. She has a lot of bleeding rectally in the diarrheal phase, she fears she will need hemorrhoid surgery. I did do a thyroid test and this appears to be normal. At this point again she will follow-up with a physician since I seem to be out of idea is to manage her situation. Medications: New dicyclomine 10 mg PO QID 120 caps 6RF K58.9 - Irritable bowel syndrome without diarrhea, K59.04 - Chronic idiopathic constipation Refilled magnesium hydroxide (Milk of Magnesia) 5 mL PO BEDTIME 355 mL 3RF K59.04 - Chronic idiopathic constipation Coding Level of Care Code Est Pt Level 3 (75556) Diagnoses Abdominal bloating R14.0 Chronic idiopathic constipation K59.04 IBS (irritable bowel syndrome) K58.9
[2024-01-17 12:03] VITALS: BP 113/68; PULSE 92; BMI 40.9
== END 2024-01-17 12:45 | disposition home or self-care (01) ==
PROVIDERS: PCP Physician Assistant; Visit Provider Nurse Practitioner
DX: R14.0 Abdominal distension (gaseous) (principal); K59.04 Chronic idiopathic constipation; K58.9 Irritable bowel syndrome, unspecified
CPT/HCPCS: 99213

== ENCOUNTER → 2024-01-17 11:40 | Outpatient (BNVA) | payer OTHER, SELFPAY | PROVIDERS: PCP Physician Assistant; Visit Provider Nurse Practitioner | DX: R14.0 Abdominal distension (gaseous) (principal); K59.04 Chronic idiopathic constipation; K58.9 Irritable bowel syndrome, unspecified | CPT/HCPCS: 99212 ==

== ENCOUNTER 2024-01-30 12:57 | Outpatient (AMB) | payer OTHER, SELFPAY ==
[2024-01-30 13:06] VITALS: BP 110/72; BMI 41.1
--- NOTE | 2024-01-30 13:06 | MHC.OFFVIS ---
Intake Vital Signs 01/30/24 13:06 Height 5 ft 9 in Weight 278 lb 7.101 oz BMI 41.1 BP 110/72 Blood Pressure Location Lt brachial Position Sitting Intake Visit Reasons: F/U NTMNG-confirmed Intake Note: Patient present today for NTMNG follow up visit. Last seen by Dr. Morrissey on 01/25/23. Human Services Assistant Required: No Accompanied by: Self / Same As Patient Allergies codeine Allergy (Intermediate, Verified 01/30/24 13:12) Shakiness bees Allergy (Unknown, Uncoded 01/30/24 13:12) Swelling hornet Allergy (Unknown, Uncoded 01/30/24 13:12) Swelling HPI HPI Comments History of Present Illness Details 33 YO F with no significant PMHx who is seen in F/U for a NTMNG. Was initially diagnosed with multinodular thyroid many years ago. Underwent FNA biopsy by me 01/11/2023 of her right mid pole 1.0 cm thyroid nodule with cytology benign (bethesda category II). She presents today to review these results. Currently reports occasional dysphagia. Otherwise denies compressive symptoms. She has a current bladder infection and reports fatigue, but otherwise has no complaints today. Denies any family history of thyroid cancer. Thyroid US: 10/09/2022 ight Thyroid Lobe: 5.6 x 2.1 x 2.3 cm, volume 14.6 mL. Previously measured 5.8 x 2.2 x 2.1 cm and volume 13.5 mL. Parenchyma: The gland echotexture is heterogeneous. Thyroid vascularity is hypervascular. Left Thyroid Lobe: 5.7 x 1.9 x 2.0 cm, volume 10.9 mL. Previously measured 5.4 x 2.1 x 2.4 cm and volume 14.5 mL. Parenchyma: The gland echotexture is heterogeneous. Thyroid vascularity is hypervascular. Isthmus: 0.6 cm in maximum AP dimension. Previously measured 0.8 cm. Estimated total number of nodules greater than or equal to 1 cm: None Director Of [employer] nodules are described as follows: 1. Location: Left Midpole. ? ? Size: 0.5 x 0.4 x 0.5 cm, volume 0.05 mL. Previously measured 0.5 x 0.4 x 0.5 cm and volume 0.05 mL ?? ? Nodule characteristics: ?? ? Composition: Solid (2). ?? ? Echogenicity: Hyperechoic (1). ?? ? Shape: Wider ?? ? Margins: Smooth (0). ?? ? Echogenic Foci: None (0). ?? ? ACR TI-RADS total points: 3 ?? ? ACR TI-RADS category: 3 2. Location: Left Lower pole. ?? ? Size: 0.7 x 0.5 x 0.5 cm, volume 0.09 mL. Previously measured 1.1 x 1.0 x 1.5 cm and volume 0.9 mL ?? ? Nodule characteristics: ?? ? Composition: Solid (2). ?? ? Echogenicity: Isoechoic (1). ?? ? Shape: Wider ?? ? Margins: Smooth (0). ?? ? Echogenic Foci: None (0). ?? ? ACR TI-RADS total points: 3 ? ? ACR TI-RADS category: 3 3. Location: Left Lower pole. ?? ? Size: 0.8 x 0.7 x 1.1 cm, volume 0.3 mL. Previously measured 0.7 x 0.6 x 1.2 cm and volume 0.3 mL. ?? ? Nodule characteristics: ?? ? Composition: Solid (2). ?? ? Echogenicity: Isoechoic (1). ?? ? Shape: Wider ?? ? Margins: Smooth (0). ?? ? Echogenic Foci: None (0). ?? ? ACR TI-RADS total points: 3 ?? ? ACR TI-RADS category: 3 4. Location: Left upper pole. ?? ? Size: 0.9 x 0.6 x 0.5 cm, volume 0.13 mL. New nodule ?? ? Nodule characteristics: ?? ? Composition: Solid (2). ?? ? Echogenicity: Hyperechoic (1). ?? ? Shape: Taller ?? ? Margins: Smooth (0). ?? ? Echogenic Foci: Macrocalcifications (1). ?? ? ACR TI-RADS total points: 7 ?? ? ACR TI-RADS category: 5 NODES: No lymphadenopathy is seen in the tissue surrounding the thyroid gland. Labs: Laboratory Tests 10/30/22 14:06 TSH 2.67 Recent ultrasound showed no change in the size of the nodules . Gets menses each mo. No galctorrhea . Some memory loss PFSH Medical History (Updated 01/30/24 @ 13:40 by Lico Rojas MD) Weight gain Hypothyroidism UTI (urinary tract infection) Morning after pill advice and prescription Screen for STD (sexually transmitted disease) Chest pain Multinodular thyroid Thyroid nodule Abnormal thyroid scan Hemorrhoids Encounter for IUD removal Contraceptive management Abdominal bloating IUD check up Complex ovarian cyst Pelvic cramping Encounter for IUD insertion Postprandial abdominal bloating Obese Recurrent UTI Family planning Bleeding hemorrhoids Generalized abdominal pain Obesity (BMI 30-39.9) Smoker Matthew's duct cyst Vaginal cyst Urethral diverticulum Hx of hematuria Family planning Screen for STD (sexually transmitted disease) COVID COVID-19 Dog bite Rash Cellulitis Headache Palpitation Neck pain Screening examination for infectious disease Heart palpitations control counseling History of cardiac disorder Depression Migraine Insomnia Abnormal laboratory test Arthritis Immune disorder Healthy adult History of leukocytosis Surgical History Hx of ultrasound guided needle biopsy History of delivery Family History Mother Diabetes Maternal Grandmother Diabetes Sister HTN (hypertension) Maternal Uncle Thyroid cancer Social History Housing: Apartment Alcohol intake: current Alcohol intake frequency: holidays/special occasions only Patient Tobacco Use Status: Current everyday Tobacco user Tobacco use type: Cigarette Years Smoked: 10 years e-Cigarette/Vaping Use: Currently Using Second Hand Smoke Exposure: Yes service: No Current occupational status: unemployed Cognitive needs: No Hearing needs: No Vision needs: Yes Female Reproductive History Menstrual Age of Menarche: 11 Physical Exam Const Other: Thyroid gland is enlarged in l size weighs about 30 g. The no palpable thyroid nodules Assessment & Plan Assessment & Plan (1) Multinodular thyroid: Code(s): E04.2 - Nontoxic multinodular goiter Plan: This is a 33-year-old female with a history of multinodular goiter status post FNA of right midpole nodule with benign cytology. Recent ultrasound showed no change in the size of the nodules. Patient appears to be clinically biochemically euthyroid. Will recheck TSH and free T4 along with anti-peroxidase antibodies and adjust levothyroxine accordingly (2) Weight gain: Code(s): R63.5 - Abnormal weight gain Plan: Rule out [place] syndrome by checking 24 hour urine for free cortisol and creatinine although doubt. Also told patient's speak to primary care provider about potentially getting a sleep study to rule out sleep apnea Orders: Orders Creatinine, 24 Hr Group Today R63.5 - Abnormal weight gain Cortisol, Free 24Hr Urine Today R63.5 - Abnormal weight gain Thyroid Peroxidase Antibodies Today E04.2 - Nontoxic multinodular goiter Free T4 (Free Thyroxine) Today E04.2 - Nontoxic multinodular goiter, R63.5 - Abnormal weight gain Thyroid Stimulating Hormone Today E04.2 - Nontoxic multinodular goiter, R63.5 - Abnormal weight gain Coding Level of Care Code Est Pt Level 3 (41365) Diagnoses Multinodular thyroid E04.2 Weight gain R63.5
== END 2024-01-30 13:49 | disposition home or self-care (01) ==
PROVIDERS: PCP Physician Assistant; Visit Provider Internal Medicine Endocrinology, Diabetes & Metabolism
DX: E04.2 Nontoxic multinodular goiter (principal); R63.5 Abnormal weight gain
CPT/HCPCS: 99213

== ENCOUNTER → 2024-01-30 12:57 | Outpatient (BNVA) | payer OTHER, SELFPAY | PROVIDERS: Visit Provider Internal Medicine Endocrinology, Diabetes & Metabolism | DX: E04.2 Nontoxic multinodular goiter (principal); R63.5 Abnormal weight gain | CPT/HCPCS: 99212 ==

== ENCOUNTER 2024-02-04 10:01 | Outpatient (AMB) | payer OTHER, SELFPAY ==
[2024-02-04 10:44] VITALS: BP 134/92; PULSE 87; BMI 40.6
--- NOTE | 2024-02-04 10:44 | A.OFFVIS_ITS ---
Intake Vital Signs 02/04/24 10:44 Height 5 ft 9 in Weight 274 lb 11.135 oz BMI 40.6 BP 134/92 H Blood Pressure Location Lt brachial Position Sitting Pulse 87 Pulse Source Pulse Oximeter Intake Visit Reasons: Next appt with MD for another opinion Intake Note: Pt presents to the office today for a 2nd opinion. She states she is struggling with acid reflux, occasional vomiting and nausea, and random pains in her stomach that come and go randomly. She states she has constant bloating and constipation as well. Allergies codeine Allergy (Intermediate, Verified 02/04/24 10:47) Shakiness bees Allergy (Unknown, Uncoded 02/04/24 10:47) Swelling hornet Allergy (Unknown, Uncoded 02/04/24 10:47) Swelling HPI HPI Comments History of Present Illness Details 33y.o F with PMH of who is here for sec ond opinion for IBS. Around a year ago started noticing increased bloating and burping with R upper and lower sided pain which is crampy in nature. This is assoc with BM alternating between profuse watery diarrhea and constipation which she describes as small and hard stools for which she has to strain. [place] stool chart 4 however. Has to digitalise and splint to pass the BM. Elevates legs with a foot stool. Sees blood in toilet bowl and on wiping. Has taken MoM, senna tea, dulcolax - notices worsening cramping with MoM and dulcolax. Reports main issue is feeling that shes not completely emptied out and gets fatigued with straining. Has never tried an enema or suppository. Bloating and abd pain does not change with passing a BM. Also reports globus sensation and has airport attendant nausea and vomiting after br eakfast, but not if she skips breakfast and has lunch later on in the day. 10/16/23: Endoscopy Findings: gastritis Colonoscopy Findings: polyp internal hemorrhoids Path: A. Colon, ascending, polypectomy: Fragments of tubular adenoma; negative for high-grade dysplasia or carcinoma. B. Terminal ileum, biopsy: Terminal ileal mucosa within normal limits. C. Colon, right, biopsy: Colonic mucosa within normal limits. D. Colon, left, biopsy: Colonic mucosa within normal limits. E. Duodenum, biopsy: Chronic inactive duodenitis. F. Stomach, biopsy: Antral-type and oxyntic mucosa with mild chronic inactive inflammation; no Helicobacter organisms seen. G. Esophagus, random, biopsy: Squamous epithelium within normal limits; no inflammation seen PFSH Medical History Weight gain Hypothyroidism UTI (urinary tract infection) Morning after pill advice and prescription Screen for STD (sexually transmitted disease) Chest pain Multinodular thyroid Thyroid nodule Abnormal thyroid scan Hemorrhoids Encounter for IUD removal Contraceptive management Abdominal bloating IUD check up Complex ovarian cyst Pelvic cramping Encounter for IUD insertion Postprandial abdominal bloating Obese Recurrent UTI Family planning Bleeding hemorrhoids Generalized abdominal pain Obesity (BMI 30-39.9) Smoker Matthew's duct cyst Vaginal cyst Urethral diverticulum Hx of hematuria Family planning Screen for STD (sexually transmitted disease) COVID COVID-19 Dog bite Rash Cellulitis Headache Palpitation Neck pain Screening examination for infectious disease Heart palpitations control counseling History of cardiac disorder Depression Migraine Insomnia Abnormal laboratory test Arthritis Immune disorder Healthy adult History of leukocytosis Surgical History Hx of ultrasound guided needle biopsy History of delivery Family History Mother Diabetes Maternal Grandmother Diabetes Sister HTN (hypertension) Maternal Uncle Thyroid cancer Social History (Updated 02/04/24 @ 10:48 by Darya Niño MA) Housing: Apartment Alcohol intake: current Alcohol intake frequency: holidays/special occasions only Patient Tobacco Use Status: Former Tobacco user Tobacco use type: Cigarette Years Smoked: 10 years e-Cigarette/Vaping Use: Currently Using Second Hand Smoke Exposure: Yes service: No Current occupational status: unemployed Cognitive needs: No Hearing needs: No Vision needs: Yes Female Reproductive History Menstrual Age of Menarche: 11 Review of Systems Const All systems reviewed & are unremarkable except as noted in HPI and below Physical Exam Vital Signs: Last Vital Signs Pulse 87 02/04/24 10:44 BP 134/92 H 02/04/24 10:44 BMI result Body Mass Index 40.6 Assessment & Plan Assessment & Plan (1) Diarrhea: Code(s): R19.7 - Diarrhea, unspecified (2) Dysphagia: Code(s): R13.10 - Dysphagia, unspecified (3) IBS (irritable bowel syndrome): Code(s): K58.9 - Irritable bowel syndrome without diarrhea (4) Globus sensation: Code(s): R09.A2 - Foreign body sensation, throat (5) Bleeding hemorrhoids: Code(s): K64.9 - Unspecified hemorrhoids Plan 1. IBS: appears to be mixed type but constipation more bothersome than diarrhea. Reports feeling of incomplete emptying and needs to strain excessively even with a soft stool. Also reports bloating and burping frequently Plan: - XR defecography - Trial of rifaximin - Avoid stimulant laxatives - Ok to take miralax as needed - Elevated legs while having a BM - Avoid straining, limit time on the toilet to avoid aggravating hemorrhoids - Fiber intake 2. Globus sensation: again, under the umbrella of DGBIs. EGD normal. Plan: - Barium esophagogram - If negative, would recommend diaphragmatic breathing (may also help with supragasric belching as described above) Follow up 1 month Orders: Orders XR pelvis min 3V Today K59.00 - Constipation, unspecified [place] barium swallow Today R13.10 - Dysphagia, unspecified Medications: New rifaximin 550 mg PO BID 14 days 28 tabs 0RF K58.9 - Irritable bowel syndrome without diarrhea Coding Level of Care Code Est Pt Level 4 (98799) Diagnoses Diarrhea R19.7 Dysphagia R13.10 IBS (irritable bowel syndrome) K58.9 Globus sensation R09.A2 Bleeding hemorrhoids K64.9
== END 2024-02-04 12:53 | disposition home or self-care (01) ==
PROVIDERS: PCP Physician Assistant; Visit Provider Internal Medicine
DX: R19.7 Diarrhea, unspecified (principal); R13.10 Dysphagia, unspecified; K58.9 Irritable bowel syndrome, unspecified; R09.A2 Foreign body sensation, throat; K64.9 Unspecified hemorrhoids
CPT/HCPCS: 99214

== ENCOUNTER → 2024-02-04 10:01 | Outpatient (BNVA) | payer OTHER, SELFPAY | PROVIDERS: PCP Physician Assistant; Visit Provider Internal Medicine | DX: R19.7 Diarrhea, unspecified (principal); R13.10 Dysphagia, unspecified; K58.9 Irritable bowel syndrome, unspecified; R09.A2 Foreign body sensation, throat; K64.9 Unspecified hemorrhoids | CPT/HCPCS: 99212 ==

== ENCOUNTER 2024-03-31 13:30 | Outpatient (AMB) | payer OTHER, SELFPAY ==
[2024-03-31 13:32] VITALS: BP 130/82; PULSE 92; O2SAT 95; BMI 41.6
--- NOTE | 2024-03-31 13:32 | MHC.PC.OV ---
Vital Signs 03/31/24 13:32 Height 5 ft 9 in Weight 282 lb BMI 41.6 BP 130/82 Blood Pressure Location Lt brachial Position Sitting Pulse 92 Pulse Source Pulse Oximeter Pulse Oximetry (%) 95 Oxygen Delivery Method Room Air Intake Visit Reasons: pe Intake Note: Patient is here today for a physical. 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: No Allergies codeine Allergy (Intermediate, Verified 03/31/24 13:43) Shakiness bees Allergy (Unknown, Uncoded 03/31/24 13:43) Swelling hornet Allergy (Unknown, Uncoded 03/31/24 13:43) Swelling Medication List - Last Reconciled 03/31/24 by Adams Pereira PA-C epinephrine (EpiPen 2-Jett) 0.3 mg (0.3 mL) IM ONCE PRN 30 days levothyroxine 25 mcg PO DAILY 90 days Tobacco use date assessed: 03/31/24 Dental Screening Dental Screen Date: 03/31/24 Did you have a dental visit in the last 12 months?: Yes Did you have a dental problem in the last 6 months where you did not have access to dental care?: No Was dental information given to patient?: Patient has dentist HPI pe HPI Details Patient is a 33-year-old female here today for follow-up visit..? Patient has multiple somatic complaints today including weight gain, shortness of breath, irritability.? At last visit we started pantoprazole, dicyclomine and ondansetron for her GI issues though seems to have side effects to all medications. Concerns--> SHE REPORTS SHE IS REALLY CONCERNED ABOUT THE WEIGHT GAIN. HAS GAINED 20 LB OVER LAST 6 MONTHS. SHE ADMITS TO BEING PHYSICALLY ACTIVE MULTIPLE TIMES A WEEK AND HAS BEEN TRYING TO EAT MUCH BETTER. SHE ATTRIBUTES THE WEIGHT GAIN TO STARTING LEVOTHYROXINE. She has followed up with her actuarial science teacher and will be getting Karthik's workup and thyroid testing. She is discontinued levothyroxine due to side effects. Also report having bilateral hand stiffness and pain over the last month. Also reports having left flank pain that she attributes to kidney pain. Urinalysis today showing positive leukocytes which is a chronic finding. Will send for urine culture She also has noted some daytime fatigue and shortness of breath on physical activity. She admits that her son does wake her up at night recently tell her she has been snoring loudly. PLAN: Will evaluate for obstructive sleep apnea Also continues to follow food service representative due to her multiple upper and lower GI complaints. She is due for barium swallow test. CHRONIC MEDICAL CONDITIONS--> .. Anxiety/ MDD:? Continues to suffer with both anxiety and depression. At this time not working. Not on any mental health medication as she has had side effects to many medications. .. Protein urea: Now followed by agricultural crop farm manager, has had kidney biopsy in the past without significant findings. 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 Thyroid nodules:? Most recent ultrasound showing thyroid nodule years and has followed up with endocrinology recommends fine-needle biopsy. * Fine-needle biopsy done in 2013 showing numerous lymphocytes with scattered follicular epithelial cells and rare hurtle cells.? 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 She continues to have abdominal pain and episodes of vomiting over the last 6 months. she reports that this time it is affecting her employment as she often needs to take breaks and is belching ? quite a bit.? She is often taking days off of work due to her continued abdominal pain and nausea.? She reports is taking a toll on her mental health and would like to see a mental health therapist. Patient now on disability and looking for new work. She has been started on PPI therapy, simethicone and dicyclomine for her presumed diagnosis GERD and IBS. She has an upcoming upper GI eval/ gastric emptying study with her food service representative --> Tried many? different medications with her food service representative and last one was Linzess for chronic constipation though unfortunately? has left her? defecating much more frequently. Patient has had CT abdomen and pelvis along with x-ray abdomen in 2021 which were? unremarkable.? 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: DOes see a 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 Vaccines: Up-to-date with COVID vaccine, needs Tdap PFSH Medical History Weight gain Hypothyroidism UTI (urinary tract infection) Morning after pill advice and prescription Screen for STD (sexually transmitted disease) Chest pain Multinodular thyroid Thyroid nodule Abnormal thyroid scan Hemorrhoids Encounter for IUD removal Contraceptive management Abdominal bloating IUD check up Complex ovarian cyst Pelvic cramping Encounter for IUD insertion Postprandial abdominal bloating Obese Recurrent UTI Family planning Bleeding hemorrhoids Generalized abdominal pain Obesity (BMI 30-39.9) Smoker Matthew's duct cyst Vaginal cyst Urethral diverticulum Hx of hematuria Family planning Screen for STD (sexually transmitted disease) COVID COVID-19 Dog bite Rash Cellulitis Headache Palpitation Neck pain Screening examination for infectious disease Heart palpitations control counseling History of cardiac disorder Depression Migraine Insomnia Abnormal laboratory test Arthritis Immune disorder Healthy adult History of leukocytosis Surgical History Hx of ultrasound guided needle biopsy History of delivery Family History Mother Diabetes Maternal Grandmother Diabetes Sister HTN (hypertension) Maternal Uncle Thyroid cancer Social History Housing: Apartment Alcohol intake: current Alcohol intake frequency: holidays/special occasions only Patient Tobacco Use Status: Former Tobacco user Tobacco use type: Cigarette Years Smoked: 10 years e-Cigarette/Vaping Use: Currently Using Second Hand Smoke Exposure: Yes service: No Current occupational status: unemployed Cognitive needs: No Hearing needs: No Vision needs: Yes Female Reproductive History Menstrual Age of Menarche: 11 Questionnaire PHQ-9 Over the last 2 weeks, how often have you been bothered by any of the following problems? 1. Little interest or pleasure in doing things: not at all 2. Feeling down, depressed, or hopeless: not at all 3. Trouble falling or staying asleep, or sleeping too much: not at all 4. Feeling tired or having little energy: not at all 5. Poor appetite or overeating: not at all 6. Feeling bad about yourself - or that you are a failure or have let yourself or your family down: not at all 7. Trouble concentrating on things, such as reading the newspaper or watching television: not at all 8. Moving or speaking so slowly that other people could have noticed. Or the opposite - being so fidgety or restless that you have been moving around a lot more than usual: not at all 9. Thoughts that you would be better off or of hurting yourself in some way: not at all Total score: 0 Depression Screening Interpretation: Negative Depression Screening Done: Yes 70426 - PHQ-9 Billing: Yes Source: Developed by Drs. Lico Hutchinson, Frantz Moses and colleagues, with an educational yaakov from [employer]. Thrive Questionnaire Date Thrive assessed: 03/31/24 I am a: Patient What is your living situation today?: I have a steady place to live Within the past 12 months, did the food you bought not last and you didn't have the money to get more?: Never true Within the past 12 months, did you worry whether your food would run out before you got money to buy more?: Never true Do you have trouble paying for medicines?: No Do you have trouble getting transportation to medical appointments?: No Do you have trouble paying your heating and electricity bill?: No Do you have trouble taking care of your child, family member or friend?: No Do you have trouble with day-to-day activities such as bathing, preparing meals, shopping, managing finances, etc.?: No Are you currently unemployed and looking for a job?: No Are you interested in more education?: No Please select the resources that you would like help with: None Currently or been in a relationship where the following occur: no concerns reported THRIVE Score: 0 AUDIT C Alcohol Use Questionnaire (AUDIT-C) 1. How often do you have a drink containing alcohol?: Never 3. How often do you have six or more drinks on one occasion?: Never Total Score: 0 HOWARD-7 AMB Questionnaire HOWARD-7 Date HOWARD - 7 assessed: 03/31/24 Feeling nervous, anxious, or on edge: 0 = Not at all Not being able to stop or control worryin = Not at all Worrying too much about different things: 0 = Not at all Trouble relaxin = Not at all Being so restless that it is hard to sit still: 0 = Not at all Becoming easily annoyed or irritable: 0 = Not at all Feeling afraid as if something awful might happen: 0 = Not at all Total HOWARD-7 score (0-4 normal; 5-9 mild; 10-14 moderate; 15-21 severe): 0 Source: Developed by Citlali Valdez Kurt Kroenke and colleagues, with an educational yaakov from [employer]. HOWARD-7 Assessment Billing HOWARD-7 Assessment Tool: HOWARD-7 Assessment 48841 Review of Systems Const Denies headache(s) Eyes Denies loss of vision ENT Denies vertigo, Denies dizziness, Denies headache(s) and Denies sore throat Card Denies chest pain, Denies leg edema and Denies lightheadedness Resp Denies cough, Denies hemoptysis and Denies wheezing GI Denies abdominal pain, Denies melena, Denies constipation, Denies diarrhea and Denies vomiting Denies urinary frequency, Denies dysuria and Denies urinary urgency Musc Denies arthralgias, Denies joint swelling, Denies numbness and Denies tingling Neuro Denies Abnormal speech present, Denies behavioral changes, Denies vertigo, Denies dizziness, Denies headache(s), Denies loss of vision, Denies memory loss, Denies numbness and Denies tingling Psych Denies anxiety, Denies behavioral changes, Denies depression, Denies memory loss and Denies panic attacks Eliel/Lymph Denies easy bleeding and Denies easy bruising Aller/Immun Denies wheezing Physical exam (Primary Care) Vital Signs: Last Vital Signs Pulse 92 03/31/24 13:32 BP 130/82 03/31/24 13:32 Pulse Ox 95 03/31/24 13:32 Oxygen Delivery Method Room Air 03/31/24 13:32 BMI result Body Mass Index 41.6 BMI Assessment/Plan discussion: High BMI High, discussed plan: lifestyle, weight reduction, dietary and physical activity Tobacco/Smoking Status: Tobacco use Status Tobacco use date assessed 03/31/24 03/31/24 13:39 Patient Tobacco Use Status Former Tobacco user 03/31/24 13:39 Tobacco use type Cigarette 03/31/24 13:39 e-Cigarette/Vaping Use Currently Using 03/31/24 13:39 PHQ-9: PHQ-9 Score PHQ-9: Total score 0 03/31/24 14:24 Depression Screening Interpretation: Negative Thrive Assessment: Date of Thrive Assessment Date Thrive assessed 03/31/24 03/31/24 13:39 Currently or been in a relationship where the following occur: no concerns reported Const Other: OBESE General: healthy appearing, no acute distress, alert and awake Nutritional Appearance: well nourished Orientation/consciousness: oriented to person, oriented to place and oriented to time HENMT Ears: TM's normal bilaterally General nose exam: Normal nasal mucous membranes and turbinates present Eyes Conjunctivae: conjunctivae normal Sclerae: sclerae normal Pupils: Equal, round and reactive pupils present Neck Neck: Yes no lymphadenopathy and Yes no JVD Thyroid: Thyroid normal Carotids: no bruits Resp Effort & Inspection: normal respiratory effort and not tachypneic Auscultation: no crackles, no rales, no rhonchi and no wheezes Cardio Rate: regular rate Rhythm: regular rhythm Heart sounds: no murmurs and normal S1 and S2 GI Palpation (GI): Soft to palpation, nontender, no hepatomegaly and no splenomegaly Auscultation: normal bowel sounds Skin General skin exam: no rashes or lesions noted and dry skin Neuro General: oriented to person, oriented to place and oriented to time Cranial nerves: Yes Equal, round and reactive pupils present Speech: No Abnormal speech present Gait exam (Neuro): Normal gait present Motor exam (neuro): no tremor noted Extrem Right upper extremity: full ROM Left upper extremity: full ROM Right lower extremity: full ROM; no edema Left lower extremity: full ROM; no edema Psych Mental Status: mental status grossly normal Speech and movement: Normal speech and movement present Affect: normal affect Attitude: cooperative Thought process: Normal thought process present Results AMB Urinalysis, Automated UA Leukoctes 70 Adeel/uL Last Edit by MARCELLA Le on 03/31/24 14:07 UA Nitrite Negative Last Edit by MARCELLA Le on 03/31/24 14:07 UA Urobilinogen 0.2 mg/dL Last Edit by MARCELLA Le on 03/31/24 14:07 UA Protein 100 mg/dL Last Edit by MARCELLA Le on 03/31/24 14:07 UA pH 6.0 Last Edit by MARCELLA Le on 03/31/24 14:07 UA Blood 10 Miguel/uL Last Edit by MARCELLA Le on 03/31/24 14:07 UA Specific [place] 1.030 Last Edit by MARCELLA Le on 03/31/24 14:07 UA Ketone Negative Last Edit by MARCELLA Le on 03/31/24 14:07 UA Bilirubin 0 mg/dL Last Edit by MARCELLA Le on 03/31/24 14:07 UA Glucose 0 mg/dL Last Edit by MARCELLA Le on 03/31/24 14:07 Results Reviewed Results Reviewed: Laboratory Last Values Urine pH (Auto) 6.0 03/31/24 14:05 Specific [place] (Auto) 1.030 03/31/24 14:05 Urine Protein (Auto) 100 mg/dL 03/31/24 14:05 Glucose (UA)(Auto) 0 mg/dL 03/31/24 14:05 Urine Ketones (Auto) Negative 03/31/24 14:05 Urine Blood (Auto) 10 Miguel/uL 03/31/24 14:05 Urine Nitrite (Auto) Negative 03/31/24 14:05 Urine Bilirubin (Auto) 0 mg/dL 03/31/24 14:05 Urine Urobilinogen (Auto) 0.2 mg/dL 03/31/24 14:05 Leukocyte Esterase (Auto) 70 Adeel/uL 03/31/24 14:05 Assessment and Plan Assessment & Plan (1) Annual physical exam: Code(s): Z00.00 - Encounter for general adult medical examination without abnormal findings (2) Dysuria: Code(s): R30.0 - Dysuria Plan: Urinalysis today showing positive leukocytes which is across finding. She does report some left flank pain that she attributes to kidney pain. Will send for urine culture (3) Weight gain: Code(s): R63.5 - Abnormal weight gain Plan: Unclear etiology to patient's weight gain. Will be getting Marion's workup with her actuarial science teacher. Will test her for obstructive sleep apnea due to reports of apneic episodes and loud snoring. Will also refer to dietitian to discuss healthy eating habits and meal plan (4) Cervical spine pain: Code(s): M54.2 - Cervicalgia (5) Hypothyroidism: Code(s): E03.9 - Hypothyroidism, unspecified Qualifiers: Hypothyroidism type: unspecified Qualified Code(s): E03.9 - Hypothyroidism, unspecified Plan: Patient does have a history of hypothyroidism. Was started on levothyroxine 25 mcg though reports issues with sleep and reported weight gain and has stopped this medication. Will be getting repeat thyroid testing soon (6) YANN (obstructive sleep apnea): Code(s): G47.33 - Obstructive sleep apnea (adult) (pediatric) Plan: Patient's sTOP BANG questionnaire- moderate risk for obstructive sleep apnea (7) Bilateral hand pain: Code(s): M79.641 - Pain in right hand; M79.642 - Pain in left hand Plan: Patient reports bilateral hand pain worse at night. Likely related to the weight gain. Did offer her EMG testing for carpal tunnel though would hold off on this. Has had ARAVIND and rheumatoid factor testing in the past that was negative. Will get x-rays of both hands Orders: Orders Testosterone, Free/Total Today E66.09 - Other obesity due to excess calories, Z68.39 - Body mass index [BMI] 39.0-39.9, adult XR hand LT 2V 03/31/24 M79.641 - Pain in right hand, M79.642 - Pain in left hand XR hand RT 2V 03/31/24 M79.641 - Pain in right hand, M79.642 - Pain in left hand RT home sleep study 03/31/24 G47.33 - Obstructive sleep apnea (adult) (pediatric) AMB Urinalysis Automated 03/31/24 R30.0 - Dysuria Urine Culture 03/31/24 R30.0 - Dysuria Basic Metabolic Panel 03/31/24 R30.0 - Dysuria DHEA Sulfate Today E66.09 - Other obesity due to excess calories, Z68.39 - Body mass index [BMI] 39.0-39.9, adult Referrals Gerontology Aide Nutrition Referral E66.9 - Obesity, unspecified Coding Level of Care Code Est Pt Level 4 (33965) Diagnoses Annual physical exam Z00.00 Dysuria R30.0 Weight gain R63.5 Cervical spine pain M54.2 Hypothyroidism, unspecified type E03.9 Hypothyroidism type: unspecified YANN (obstructive sleep apnea) G47.33 Bilateral hand pain M79.641; M79.642 Additional Codes HOWARD-7 Assessment Billing - HOWARD-7 Assessment Tool: HOWARD-7 Assessment 54825 ([id number])
== END 2024-03-31 14:43 | disposition home or self-care (01) ==
PROVIDERS: PCP Physician Assistant; Visit Provider Physician Assistant
DX: R30.0 Dysuria (principal)
CPT/HCPCS: 81003; 99395

== ENCOUNTER 2024-03-31 18:24 | Outpatient (REF) | payer OTHER, SELFPAY | END 2024-03-31 18:25 | disposition home or self-care (01) | LOC: HO.HMGCLNP 18:24 | PROVIDERS: Visit Provider Physician Assistant | DX: R30.0 Dysuria (principal) | CPT/HCPCS: 87086 ==

== ENCOUNTER 2024-04-01 09:32 | Outpatient (REF) | payer OTHER, SELFPAY ==
[2024-04-01 10:15] LABS: Hematocrit 44.7 % (37.0-47.0); Hemoglobin 14.5 g/dl (12.0-16.0); Mean Corpuscular HGB Conc 32.4 g/dl (31.0-35.0); Mean Corpuscular Volume 86.3 fL (80.0-98.0); Platelet Count 324 X10*3/uL (160-400); Red Blood Count 5.18 X10*6/uL (4.20-5.50); Red Cell Distribution Width 12.4 % (11.0-16.0); White Blood Count 10.1 X10*3/uL (4.8-10.8)
[2024-04-01 11:45] LABS: TSH reflex Free T4 8.53 uIU/mL (0.32-4.0)
[2024-04-01 11:48] LABS: Alanine Aminotransferase 20 U/L (0-31); Albumin Level 3.5 g/dL (3.5-5.0); Alkaline Phosphatase 60 U/L (39-117); Anion Gap 14 (12-20); Aspartate Amino Transferase 16 U/L (5-31); Bilirubin Total 0.4 mg/dL (0.0-1.0); Blood Urea Nitrogen 12 mg/dL (9-16); Calcium 9.2 mg/dL (8.4-10.2); Carbon Dioxide 25 mmol/L (22-29); Chloride 107 mmol/L (96-108); Estimated Glomerular Filt Rate > 60; Glucose Fasting 88 mg/dL (60-99); Glucose Random 87 mg/dL (60-115); Potassium 4.4 mmol/L (3.3-5.1); Sodium 142 mmol/L (135-145); Thyroid Stimulating Hormone 8.75 uIU/mL (0.32-4.0); Total Protein 6.9 g/dL (6.5-8.0)
[2024-04-01 11:50] LABS: Free T4 (Free Thyroxine) 0.68 ng/dL (0.71-1.85)
[2024-04-02 05:58] LABS: DHEA Sulfate 234 mcg/dL (19-237)
[2024-04-02 10:13] LABS: Thyroid Peroxidase Antibodies >900 IU/mL (<9)
[2024-04-06 15:23] LABS: Testosterone, Free 5.8 pg/mL (0.1-6.4); Testosterone, Total 33 ng/dL (2-45)
== END 2024-04-01 09:33 | disposition home or self-care (01) ==
LOC: HO.LAB 09:32
PROVIDERS: Absent Provider Internal Medicine; PCP Physician Assistant; Referring Provider Nurse Practitioner; Visit Provider Internal Medicine Endocrinology, Diabetes & Metabolism
DX: R30.0 Dysuria (principal); Z13.1 Encounter for screening for diabetes mellitus; E66.09 Other obesity due to excess calories; Z68.39 Body mass index [BMI] 39.0-39.9, adult; E04.2 Nontoxic multinodular goiter; R63.5 Abnormal weight gain
CPT/HCPCS: 36415; 80048; 80053; 82627; 84402; 84403; 84439; 84443; 85027; 86376

== ENCOUNTER → 2024-04-16 16:20 | Outpatient (BNVA) | payer OTHER, SELFPAY | PROVIDERS: PCP Physician Assistant; Visit Provider Internal Medicine Endocrinology, Diabetes & Metabolism | DX: E04.2 Nontoxic multinodular goiter (principal) | CPT/HCPCS: 99212 ==

== ENCOUNTER 2024-04-16 16:28 | Outpatient (AMB) | payer OTHER, SELFPAY ==
--- NOTE | 2024-04-16 16:20 | A.OFFVIS_ITS ---
Vital Signs 04/16/24 16:21 Height 5 ft 9 in Weight 281 lb 4.957 oz BMI 41.5 BP 114/76 Blood Pressure Location Lt brachial Position Sitting Pulse 97 Pulse Source Pulse Oximeter Intake Visit Reasons: hypothyroidism Intake Note: Patient presents today for Hypothyroidism follow up. Patient reports she stopped taking Levothyroxine for approx 1 month due to weight gain. 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 Was initially diagnosed with multinodular thyroid many years ago. Underwent FNA biopsy by me 01/11/2023 of her right mid pole 1.0 cm thyroid nodule with cytology benign (bethesda category II). She presents today to review these results. Currently reports occasional dysphagia. Otherwise denies compressive symptoms. She has a current bladder infection and reports fatigue, but otherwise has no complaints today. Denies any family history of thyroid cancer. Thyroid US: 10/09/2022 ight Thyroid Lobe: 5.6 x 2.1 x 2.3 cm, volume 14.6 mL. Previously measured 5.8 x 2.2 x 2.1 cm and volume 13.5 mL. Parenchyma: The gland echotexture is heterogeneous. Thyroid vascularity is hypervascular. Left Thyroid Lobe: 5.7 x 1.9 x 2.0 cm, volume 10.9 mL. Previously measured 5.4 x 2.1 x 2.4 cm and volume 14.5 mL. Parenchyma: The gland echotexture is heterogeneous. Thyroid vascularity is hypervascular. Isthmus: 0.6 cm in maximum AP dimension. Previously measured 0.8 cm. Estimated total number of nodules greater than or equal to 1 cm: None Ruffling Machine Operator nodules are described as follows: 1. Location: Left Midpole. ? ? Size: 0.5 x 0.4 x 0.5 cm, volume 0.05 mL. Previously measured 0.5 x 0.4 x 0.5 cm and volume 0.05 mL ?? ? Nodule characteristics: ?? ? Composition: Solid (2). ?? ? Echogenicity: Hyperechoic (1). ?? ? Shape: Wider ?? ? Margins: Smooth (0). ?? ? Echogenic Foci: None (0). ?? ? ACR TI-RADS total points: 3 ?? ? ACR TI-RADS category: 3 2. Location: Left Lower pole. ?? ? Size: 0.7 x 0.5 x 0.5 cm, volume 0.09 mL. Previously measured 1.1 x 1.0 x 1.5 cm and volume 0.9 mL ?? ? Nodule characteristics: ?? ? Composition: Solid (2). ?? ? Echogenicity: Isoechoic (1). ?? ? Shape: Wider ?? ? Margins: Smooth (0). ?? ? Echogenic Foci: None (0). ?? ? ACR TI-RADS total points: 3 ? ? ACR TI-RADS category: 3 3. Location: Left Lower pole. ?? ? Size: 0.8 x 0.7 x 1.1 cm, volume 0.3 mL. Previously measured 0.7 x 0.6 x 1.2 cm and volume 0.3 mL. ?? ? Nodule characteristics: ?? ? Composition: Solid (2). ?? ? Echogenicity: Isoechoic (1). ?? ? Shape: Wider ?? ? Margins: Smooth (0). ?? ? Echogenic Foci: None (0). ?? ? ACR TI-RADS total points: 3 ?? ? ACR TI-RADS category: 3 4. Location: Left upper pole. ?? ? Size: 0.9 x 0.6 x 0.5 cm, volume 0.13 mL. New nodule ?? ? Nodule characteristics: ?? ? Composition: Solid (2). ?? ? Echogenicity: Hyperechoic (1). ?? ? Shape: Taller ?? ? Margins: Smooth (0). ?? ? Echogenic Foci: Macrocalcifications (1). ?? ? ACR TI-RADS total points: 7 ?? ? ACR TI-RADS category: 5 NODES: No lymphadenopathy is seen in the tissue surrounding the thyroid gland. Labs: Laboratory Tests 10/30/22 14:06 TSH 2.67 Recent ultrasound showed no change in the size of the nodules . Gets menses each mo. No galctorrhea . Some memory loss . Has not taken levothyroxine in 1 mo because of wt gain [facility] Medical History Weight gain Hypothyroidism UTI (urinary tract infection) Morning after pill advice and prescription Screen for STD (sexually transmitted disease) Chest pain Multinodular thyroid Thyroid nodule Abnormal thyroid scan Hemorrhoids Encounter for IUD removal Contraceptive management Abdominal bloating IUD check up Complex ovarian cyst Pelvic cramping Encounter for IUD insertion Postprandial abdominal bloating Obese Recurrent UTI Family planning Bleeding hemorrhoids Generalized abdominal pain Obesity (BMI 30-39.9) Smoker Matthew's duct cyst Vaginal cyst Urethral diverticulum Hx of hematuria Family planning Screen for STD (sexually transmitted disease) COVID COVID-19 Dog bite Rash Cellulitis Headache Palpitation Neck pain Screening examination for infectious disease Heart palpitations control counseling History of cardiac disorder Depression Migraine Insomnia Abnormal laboratory test Arthritis Immune disorder Healthy adult History of leukocytosis Surgical History Hx of ultrasound guided needle biopsy History of delivery Family History Mother Diabetes Maternal Grandmother Diabetes Sister HTN (hypertension) Maternal Uncle Thyroid cancer Social History Housing: Apartment Alcohol intake: current Alcohol intake frequency: holidays/special occasions only Patient Tobacco Use Status: Former Tobacco user Tobacco use type: Cigarette Years Smoked: 10 years e-Cigarette/Vaping Use: Currently Using Second Hand Smoke Exposure: Yes service: No Current occupational status: unemployed Cognitive needs: No Hearing needs: No Vision needs: Yes Female Reproductive History Menstrual Age of Menarche: 11 Physical Exam Const Other: Thyroid gland is enlarged in l size weighs about 30 g. The no palpable thyroid nodules Assessment & Plan Assessment & Plan (1) Multinodular thyroid: Code(s): E04.2 - Nontoxic multinodular goiter Category: Medical Plan: This is a 33-year-old female with a history of multinodular goiter status post FNA of right midpole nodule with benign cytology. Recent ultrasound showed no change in the size of the nodules. Patient appears to be clinically euthyroid on 25 mcg levothyroxine but has elevated TSH. She was having side effects including insomnia and weight gain while taking the generic levothyroxine Plan is to change to generic levothyroxine to Tirosint because of intolerance to generic levothyroxine . Will recheck TSH and free T4 in 4- 6 wks and adjust levothyroxine accordingly. We also talked about potentially uses of G LP 1/GI P like Wegovy or Zepbound for .. treatment of the weight gain. She is going to get back to me about this and check with her insurance to see if it is covered Orders: Orders Free T4 (Free Thyroxine) 5 Weeks E04.2 - Nontoxic multinodular goiter Thyroid Stimulating Hormone 5 Weeks E04.2 - Nontoxic multinodular goiter Medications: New Tirosint (levothyroxine) 25 mcg PO DAILY 30 caps 5RF NS Coding Level of Care Code Est Pt Level 3 (33935) Diagnoses Multinodular thyroid E04.2
[2024-04-16 16:21] VITALS: BP 114/76; PULSE 97; BMI 41.5
== END 2024-04-16 16:57 | disposition home or self-care (01) ==
PROVIDERS: PCP Physician Assistant; Visit Provider Internal Medicine Endocrinology, Diabetes & Metabolism
DX: E04.2 Nontoxic multinodular goiter (principal)
CPT/HCPCS: 99213

== ENCOUNTER 2024-05-05 15:08 | Outpatient (AMB) | payer OTHER, SELFPAY ==
[2024-05-05 15:10] VITALS: BMI 41.0
--- NOTE | 2024-05-05 15:10 | MHC.OFFVIS ---
Vital Signs 05/05/24 15:10 Height 5 ft 9 in Weight 278 lb BMI 41.0 Intake Visit Reasons: Hemorrhoids Intake Note: This patient presents for an assessment for Hemorrhoids. Pt c/o; reports passing blood clots after bm, reports she has rectal bleeding after every bm, reports pain and constipation. 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 She is known to me as I had seen her in 2021 for bleeding hemorrhoids. She had internal and external hemorrhoids on anoscopy at that time. In view of her bleeding, I had explained the option of hemorrhoidectomy. She was not ready to proceed then She says that now she practically bleeds every day with bowel movements. She denies any significant pain She says she has had these hemorrhoids since she got about 10 years ago. She says that she would notice clots sometimes as well with bowel movements. She had a colonoscopy last year which did not reveal any other source of bleeding. She has a history of constipation because of her thyroid disease but she says that even if she has not constipated, she would notice bleeding with bowel movements. [facility] Medical History (Updated 05/05/24 @ 15:41 by Oliver Hollins MD) Bleeding hemorrhoids Hemorrhoids Weight gain Hypothyroidism UTI (urinary tract infection) Morning after pill advice and prescription Screen for STD (sexually transmitted disease) Chest pain Multinodular thyroid Thyroid nodule Abnormal thyroid scan Encounter for IUD removal Contraceptive management Abdominal bloating IUD check up Complex ovarian cyst Pelvic cramping Encounter for IUD insertion Postprandial abdominal bloating Obese Recurrent UTI Family planning Bleeding hemorrhoids Generalized abdominal pain Obesity (BMI 30-39.9) Smoker Matthew's duct cyst Vaginal cyst Urethral diverticulum Hx of hematuria Family planning Screen for STD (sexually transmitted disease) COVID COVID-19 Dog bite Rash Cellulitis Headache Palpitation Neck pain Screening examination for infectious disease Heart palpitations control counseling History of cardiac disorder Depression Migraine Insomnia Abnormal laboratory test Arthritis Immune disorder Healthy adult History of leukocytosis Surgical History Hx of ultrasound guided needle biopsy History of delivery Family History Mother Diabetes Maternal Grandmother Diabetes Sister HTN (hypertension) Maternal Uncle Thyroid cancer Social History Housing: Apartment Alcohol intake: current Alcohol intake frequency: holidays/special occasions only Patient Tobacco Use Status: Former Tobacco user Tobacco use type: Cigarette Years Smoked: 10 years e-Cigarette/Vaping Use: Currently Using Second Hand Smoke Exposure: Yes service: No Current occupational status: unemployed Cognitive needs: No Hearing needs: No Vision needs: Yes Female Reproductive History Menstrual Age of Menarche: 11 Review of Systems Const Denies chills and Denies fever(s) Card Denies chest pain, Denies dyspnea and Denies dyspnea on exertion Resp Denies cough, Denies dyspnea and Denies dyspnea on exertion GI Reports hematochezia and Denies change in bowel habits Denies hematuria Musc Denies back pain and Denies limited range of motion Neuro Denies focal weakness and Denies convulsions Psych Denies depression and Denies mood swings Physical Exam Const General: comfortable and no acute distress Orientation/consciousness: patient oriented x3 Neck Neck: Yes no lymphadenopathy Resp Auscultation: clear to auscultation bilaterally Cardio Rhythm: regular rhythm GI Other: Rectal exam shows internal external hemorrhoids on the left and right side, moderate-sized; she preferred not to have anoscopy and digital exam at this time Palpation (GI): Soft to palpation, nontender and no guarding Neuro General: patient oriented x3 Assessment & Plan Assessment & Plan (1) Bleeding hemorrhoids: Code(s): K64.9 - Unspecified hemorrhoids Category: Medical Plan: She has internal and external hemorrhoids with significant bleeding. I had a long discussion with her about the option of hemorrhoidectomy. I explained the technique of this procedure. I reviewed the risks including but not limited to bleeding, infection postop pain. I discussed with her what to expect postoperatively. She is considering proceeding with hemorrhoidectomy. She says she will call the office once she feels ready as she feels anxious about the idea of surgery at this time. Coding Level of Care Code Est Pt Level 3 (95414) Diagnoses Bleeding hemorrhoids K64.9
== END 2024-05-05 15:30 ==
PROVIDERS: PCP Physician Assistant; Visit Provider Surgery
DX: K64.9 Unspecified hemorrhoids (principal)
CPT/HCPCS: 99214

== ENCOUNTER → 2024-05-05 15:08 | Outpatient (BNVA) | payer OTHER, SELFPAY | PROVIDERS: PCP Physician Assistant; Visit Provider Surgery | DX: K64.9 Unspecified hemorrhoids (principal) | CPT/HCPCS: 99212 ==

== ENCOUNTER → 2024-05-13 07:44 | Outpatient (REF) | payer OTHER, SELFPAY | LOC: HO.SL 07:44 | PROVIDERS: PCP Physician Assistant; Visit Provider Physician Assistant | DX: G47.33 Obstructive sleep apnea (adult) (pediatric) (principal) | CPT/HCPCS: 95806 ==

== ENCOUNTER → 2024-05-13 08:01 | Outpatient (BNV) | payer OTHER, SELFPAY | PROVIDERS: PCP Physician Assistant; Visit Provider Internal Medicine | DX: R06.83 Snoring (principal) | CPT/HCPCS: 95806 ==

== ENCOUNTER 2024-06-11 12:25 | Emergency (ER) | payer OTHER, SELFPAY ==
[2024-06-11 12:54] VITALS: BP 126/93; PULSE 96; RESP 16; TEMP 36.6; O2SAT 98; BMI 40.5
--- NOTE | 2024-06-11 12:59 | ED_ITS ---
HPI - General Adult General Chief complaint: Allergic Reaction Stated complaint: Allergic reaction chest tightness Time Seen by Provider: 06/11/24 12:57 Source: patient Mode of arrival: ambulatory Limitations: no limitations History of Present Illness ED Provider: ajit HPI narrative: Patient is a 33-year-old female with history of YANN, HOWARD, hypothyroidism, PMDD, GERD, beesting allergy presenting to the emergency department with localized irritation to left forearm. Did not use Epi-pen which she carries with her, and did not take any over the counter medications. Denies any swelling to lips or tongue. Denies any shortness of breath. Does report some chest tightness but states she has a history of anxiety. States that she would like to return to work if possible. MD complaint: bee sting Onset (ago): minute(s) Location: left and upper extremity Treatments prior to arrival: none Related Data Previous Rx's ?Medication ?Instructions ?Recorded epinephrine 0.3 mg/0.3 mL 0.3 mg (0.3 mL) IM ONCE PRN 02/26/24 injection, auto-injector (EpiPen anaphylaxis 30 days #2 ea 2-Jett) levothyroxine 25 mcg tablet 25 mcg PO DAILY #30 tabs 04/01/24 Tirosint 25 mcg capsule 25 mcg PO DAILY #30 caps 04/16/24 (levothyroxine) Allergies Allergy/AdvReac Type Severity Reaction Status Date / Time codeine Allergy Intermediate Shakiness Verified 06/11/24 13:01 bees Allergy Unknown Swelling Uncoded 06/11/24 13:01 hornet Allergy Unknown Swelling Uncoded 06/11/24 13:01 Review of Systems 2 Review of Systems: As per HPI Yes all other systems are reviewed and are negative Constitutional: Constitutional: Reports as per HPI [facility] Past Medical History Medical History (Updated 06/11/24 @ 13:13 by Desiree Coronado NP) Bleeding hemorrhoids Hemorrhoids Weight gain Hypothyroidism UTI (urinary tract infection) Morning after pill advice and prescription Screen for STD (sexually transmitted disease) Chest pain Multinodular thyroid Thyroid nodule Abnormal thyroid scan Encounter for IUD removal Contraceptive management Abdominal bloating IUD check up Complex ovarian cyst Pelvic cramping Encounter for IUD insertion Postprandial abdominal bloating Obese Recurrent UTI Family planning Bleeding hemorrhoids Generalized abdominal pain Obesity (BMI 30-39.9) Smoker Matthew's duct cyst Vaginal cyst Urethral diverticulum Hx of hematuria Family planning Screen for STD (sexually transmitted disease) COVID COVID-19 Dog bite Rash Cellulitis Headache Palpitation Neck pain Screening examination for infectious disease Heart palpitations control counseling History of cardiac disorder Depression Migraine Insomnia Abnormal laboratory test Arthritis Immune disorder Healthy adult History of leukocytosis Surgical History Hx of ultrasound guided needle biopsy History of delivery Family History Family History Mother Diabetes Maternal Grandmother Diabetes Sister HTN (hypertension) Maternal Uncle Thyroid cancer Social History Social History Housing: Apartment Alcohol intake: current Alcohol intake frequency: holidays/special occasions only Patient Tobacco Use Status: Former Tobacco user Tobacco use type: Cigarette Years Smoked: 10 years e-Cigarette/Vaping Use: Currently Using Second Hand Smoke Exposure: Yes Advance Directives: No Advance Directives Information Provided: Yes service: No Current occupational status: unemployed Cognitive needs: No Hearing needs: No Vision needs: Yes Physical Exam ED Vital Signs: Vital Signs - 24 hr 06/11/24 12:54 Temperature 98 F Pulse Rate 96 Respiratory Rate 16 Blood Pressure 126/93 H Pulse Oximetry 98 Oxygen Delivery Method Room Air BMI result Body Mass Index 40.5 Vital signs have been reviewed and appear to be correct. Blood pressure normal. Heart rate normal. Respiratory rate normal. Temperature normal. Oxygen saturation normal. Const General: cooperative, healthy appearing and no acute distress Orientation/consciousness: oriented to person, oriented to place, oriented to time and patient oriented x3 Limitations: no limitations HENMT Head: Yes normocephalic and Yes atraumatic Ears: external ears normal General nose exam: Normal external nose present Face and sinus: Yes face symmetric Mouth: Normal oral and palatal mucosa present, lip normal, tongue normal, oropharynx normal, moist mucous membranes, no audible dysphonia and no drooling Throat: Yes posterior oropharynx normal, Yes uvula midline and No uvular edema Eyes Pupils: Equal, round and reactive pupils present Neck Neck: Yes normal visual inspection and Yes supple Resp Effort & Inspection: normal respiratory effort, able to speak in complete sentences, not labored, no respiratory distress and no use of accessory muscles Auscultation: clear to auscultation bilaterally Cardio Rate: regular rate Rhythm: regular rhythm Heart sounds: S1 normal heart sound present and S2 normal heart sound present GI Palpation (GI): Soft to palpation and nontender Auscultation: normoactive bowel sounds General: Yes no CVA tenderness Back/Spine/Pelvis Back: no CVA tenderness Skin General skin exam: elasticity normal and turgor normal Rashes: no rashes Full body images: 2 1. 2mm erythematous macule Neuro General: oriented to person, oriented to place, oriented to time, patient oriented x3, moves all extremities, no focal motor deficits and CN's II-XI intact bilaterally Cranial nerves: Yes Equal, round and reactive pupils present Cognition (Neuro): normal cognition Extrem General: Yes full ROM, Yes no pedal edema and Yes no calf tenderness Psych Mental Status: mental status grossly normal Affect: normal affect Thought process: Normal thought process present Medications Administered Discontinued Medications Generic Name Dose Route Start Last Admin Trade Name Freq PRN Reason Stop Dose Admin Famotidine 20 mg 06/11/24 12:57 06/11/24 13:47 Famotidine 20 Mg Tablet PO 06/11/24 12:58 20 mg ONCE ONE Administration Loratadine 10 mg 06/11/24 12:57 06/11/24 13:47 Loratadine 10 Mg Tablet PO 06/11/24 12:58 10 mg ONCE ONE Administration Prednisone 60 mg 06/11/24 12:57 06/11/24 13:47 Prednisone 20 Mg Tablet PO 06/11/24 12:58 60 mg ONCE ONE Administration Medical Decision Making Medical Decision Making MDM Narrative: Patient is a 33-year-old female with history of YANN, HOWARD, hypothyroidism, PMDD, GERD, beesting allergy presenting to the emergency department with localized irritation to left forearm. On exam patient is awake, A+Ox3, VS WNL, afebrile, normal neurological exam without focal deficits, physical exam findings as above. Given reported symptoms and physical exam findings, initial differential includes insect sting, contact dermatitis. Do not suspect anaphylaxis. Patient medicated with loratadine, famotidine and prednisone and monitored for one hour without any worsening of symptoms. Feel she is stable for discharge. Advised can take a daily zyrtec for the next few days. Follow up with PCP. Return precautions discussed. Patient verbalized understanding of and agreement with plan. Differential Diagnosis Differential Diagnoses: The differential diagnosis associated with the presentation includes as per [facility] External Record Review External record reviewed: Inpatient record, Office record and Outpatient record Discharge Plan Discharge Clinical Impression: Bee sting Patient Disposition: Home, Self-Care Instructions: Insect Bite or Sting (ED) Additional Instructions: You were evaluated in the emergency department today for an allergic reaction. You have been given medications to control your symptoms. You have been observed for a period of time in the emergency department and you are stable for discharge at this time. You can take Zyrtec and Pepcid, which are available [id number], to help control your symptoms at home. Please schedule an appointment with your primary care physician for follow-up. Return to the emergency department if you experience rashes, difficulty breathing or swallowing, lip/mouth/tongue swelling, vomiting, or for any other concerning symptoms. Prescriptions: No Action epinephrine [EpiPen 2-Jett] 0.3 mg/0.3 mL auto-injector 0.3 mg IM ONCE PRN (Reason: anaphylaxis) 30 Days Qty: 2 0RF levothyroxine 25 mcg tablet 25 mcg PO DAILY Qty: 30 4RF levothyroxine [Tirosint] 25 mcg capsule 25 mcg PO DAILY Qty: 30 5RF Print Language: Maori
[2024-06-11] MEDS: Loratadine 10 MG TABLET PO (13:47)
[2024-06-11] MEDS: Famotidine 20 MG TABLET PO (13:47)
[2024-06-11] MEDS: predniSONE 20 MG TABLET 60 MG PO (13:47)
[2024-06-11 13:55] VITALS: BP 126/93; PULSE 96; RESP 16; TEMP 36.6; O2SAT 98
== END 2024-06-11 13:56 | disposition home or self-care (01) ==
PROVIDERS: Emergency Provider Emergency Medicine Emergency Medical Services; PCP Physician Assistant
DX: T63.441A Toxic effect of venom of bees, accidental (unintentional), initial encounter (principal); X58.XXXA Exposure to other specified factors, initial encounter
CPT/HCPCS: 99282; 99283

== ENCOUNTER 2024-07-10 15:45 | Outpatient (REF) | payer OTHER, SELFPAY ==
[2024-07-10 17:03] LABS: Free T4 (Free Thyroxine) 0.78 ng/dL (0.71-1.85); Thyroid Stimulating Hormone 2.99 uIU/mL (0.32-4.0)
== END 2024-07-10 15:46 | disposition home or self-care (01) ==
LOC: HO.LAB 15:45
PROVIDERS: PCP Physician Assistant; Visit Provider Internal Medicine Endocrinology, Diabetes & Metabolism
DX: E04.2 Nontoxic multinodular goiter (principal)
CPT/HCPCS: 36415; 84439; 84443

== ENCOUNTER 2024-07-14 11:28 | Outpatient (AMB) | payer OTHER, SELFPAY ==
--- NOTE | 2024-07-14 11:29 | MHC.OFFVIS ---
Vital Signs 07/14/24 11:30 Height 5 ft 9 in Weight 275 lb 9.245 oz BMI 40.7 BP 110/76 Blood Pressure Location Rt brachial Position Sitting Pulse 90 Pulse Source Pulse Oximeter Intake Visit Reasons: f/u hypothyroidism-conf Intake Note: Patient present today for Hypothyroidism follow up visit. Certified Orthotist Practice Manager Required: No Accompanied by: Self / Same As Patient Allergies codeine Allergy (Intermediate, Verified 07/14/24 11:37) Shakiness bees Allergy (Unknown, Uncoded 07/14/24 11:37) Swelling hornet Allergy (Unknown, Uncoded 07/14/24 11:37) Swelling HPI Comments Details: 33 YO F with no significant PMHx who is seen in F/U for a NTMNG. Was initially diagnosed with multinodular thyroid many years ago. Underwent FNA biopsy by me 01/11/2023 of her right mid pole 1.0 cm thyroid nodule with cytology benign (bethesda category II). She presents today to review these results. Currently reports occasional dysphagia. Otherwise denies compressive symptoms. She has a current bladder infection and reports fatigue, but otherwise has no complaints today. Denies any family history of thyroid cancer. Thyroid US: 10/09/2022 ight Thyroid Lobe: 5.6 x 2.1 x 2.3 cm, volume 14.6 mL. Previously measured 5.8 x 2.2 x 2.1 cm and volume 13.5 mL. Parenchyma: The gland echotexture is heterogeneous. Thyroid vascularity is hypervascular. Left Thyroid Lobe: 5.7 x 1.9 x 2.0 cm, volume 10.9 mL. Previously measured 5.4 x 2.1 x 2.4 cm and volume 14.5 mL. Parenchyma: The gland echotexture is heterogeneous. Thyroid vascularity is hypervascular. Isthmus: 0.6 cm in maximum AP dimension. Previously measured 0.8 cm. Estimated total number of nodules greater than or equal to 1 cm: None Translation Director nodules are described as follows: 1. Location: Left Midpole. ? ? Size: 0.5 x 0.4 x 0.5 cm, volume 0.05 mL. Previously measured 0.5 x 0.4 x 0.5 cm and volume 0.05 mL ?? ? Nodule characteristics: ?? ? Composition: Solid (2). ?? ? Echogenicity: Hyperechoic (1). ?? ? Shape: Wider ?? ? Margins: Smooth (0). ?? ? Echogenic Foci: None (0). ?? ? ACR TI-RADS total points: 3 ?? ? ACR TI-RADS category: 3 2. Location: Left Lower pole. ?? ? Size: 0.7 x 0.5 x 0.5 cm, volume 0.09 mL. Previously measured 1.1 x 1.0 x 1.5 cm and volume 0.9 mL ?? ? Nodule characteristics: ?? ? Composition: Solid (2). ?? ? Echogenicity: Isoechoic (1). ?? ? Shape: Wider ?? ? Margins: Smooth (0). ?? ? Echogenic Foci: None (0). ?? ? ACR TI-RADS total points: 3 ? ? ACR TI-RADS category: 3 3. Location: Left Lower pole. ?? ? Size: 0.8 x 0.7 x 1.1 cm, volume 0.3 mL. Previously measured 0.7 x 0.6 x 1.2 cm and volume 0.3 mL. ?? ? Nodule characteristics: ?? ? Composition: Solid (2). ?? ? Echogenicity: Isoechoic (1). ?? ? Shape: Wider ?? ? Margins: Smooth (0). ?? ? Echogenic Foci: None (0). ?? ? ACR TI-RADS total points: 3 ?? ? ACR TI-RADS category: 3 4. Location: Left upper pole. ?? ? Size: 0.9 x 0.6 x 0.5 cm, volume 0.13 mL. New nodule ?? ? Nodule characteristics: ?? ? Composition: Solid (2). ?? ? Echogenicity: Hyperechoic (1). ?? ? Shape: Taller ?? ? Margins: Smooth (0). ?? ? Echogenic Foci: Macrocalcifications (1). ?? ? ACR TI-RADS total points: 7 ?? ? ACR TI-RADS category: 5 NODES: No lymphadenopathy is seen in the tissue surrounding the thyroid gland. Labs: Laboratory Tests 10/30/22 14:06 TSH 2.67 Recent ultrasound showed no change in the size of the nodules . Gets menses each mo. No galctorrhea . Some memory loss . Has not taken levothyroxine in 1 mo because of wt gain [facility] Medical History (Updated 06/12/24 @ 00:01 by Karan Walker) Bleeding hemorrhoids Hemorrhoids Weight gain Hypothyroidism UTI (urinary tract infection) Morning after pill advice and prescription Screen for STD (sexually transmitted disease) Chest pain Multinodular thyroid Thyroid nodule Abnormal thyroid scan Encounter for IUD removal Contraceptive management Abdominal bloating IUD check up Complex ovarian cyst Pelvic cramping Encounter for IUD insertion Postprandial abdominal bloating Obese Recurrent UTI Family planning Bleeding hemorrhoids Generalized abdominal pain Obesity (BMI 30-39.9) Smoker Matthew's duct cyst Vaginal cyst Urethral diverticulum Hx of hematuria Family planning Screen for STD (sexually transmitted disease) COVID COVID-19 Dog bite Rash Cellulitis Headache Palpitation Neck pain Screening examination for infectious disease Heart palpitations control counseling History of cardiac disorder Depression Migraine Insomnia Abnormal laboratory test Arthritis Immune disorder Healthy adult History of leukocytosis Surgical History Hx of ultrasound guided needle biopsy History of delivery Family History Mother Diabetes Maternal Grandmother Diabetes Sister HTN (hypertension) Maternal Uncle Thyroid cancer Social History Housing: Apartment Alcohol intake: current Alcohol intake frequency: holidays/special occasions only Patient Tobacco Use Status: Former Tobacco user Tobacco use type: Cigarette Years Smoked: 10 years e-Cigarette/Vaping Use: Currently Using Second Hand Smoke Exposure: Yes service: No Current occupational status: unemployed Cognitive needs: No Hearing needs: No Vision needs: Yes Female Reproductive History Menstrual Age of Menarche: 11 Physical Exam Const Other: Thyroid gland is enlarged in l size weighs about 30 g. The no palpable thyroid nodules Assessment & Plan Assessment & Plan (1) Multinodular thyroid: Code(s): E04.2 - Nontoxic multinodular goiter Category: Medical Plan: This is a 33-year-old female with a history of multinodular goiter status post FNA of right midpole nodule with benign cytology. Recent ultrasound showed no change in the size of the nodules. Patient appears to be clinically and biochemically euthyroid on 25 mcg levothyroxine . She was having side effects including insomnia and weight gain while taking the generic levothyroxine. She is currently off levothyroxine for several months. She appears to be clinically and biochemically euthyroid off levothyroxine Plan is to have the patient stay off levothyroxine. She has follow-up with the primary care provider if her thyroid function test become abnormal again can be referred back to endocrinology. She should also follow up with the primary care provider regarding to workup for sleep apnea and possibly repeating the sleep study as it was not done correctly the 1st time. Her primary care provider also sent for referral to nutrition and she should follow up with this. Lastly, she never performed the 24 hour urine for free cortisol and she should do so in the future and touch base of the after the test is performed. Assuming the 24 hour urine is normal, there is no need for any further endocrine workup or follow-up Coding Level of Care Code Est Pt Level 3 (15607) Diagnoses Multinodular thyroid E04.2
[2024-07-14 11:30] VITALS: BP 110/76; PULSE 90; BMI 40.7
== END 2024-07-14 11:51 | disposition home or self-care (01) ==
PROVIDERS: PCP Physician Assistant; Visit Provider Internal Medicine Endocrinology, Diabetes & Metabolism
DX: E04.2 Nontoxic multinodular goiter (principal)
CPT/HCPCS: 99213

== ENCOUNTER → 2024-07-14 11:28 | Outpatient (BNVA) | payer OTHER, SELFPAY | PROVIDERS: PCP Physician Assistant; Visit Provider Internal Medicine Endocrinology, Diabetes & Metabolism | DX: E04.2 Nontoxic multinodular goiter (principal) | CPT/HCPCS: 99212 ==

== ENCOUNTER 2024-07-15 13:52 | Outpatient (AMB) | payer OTHER, SELFPAY ==
[2024-07-15 13:59] VITALS: BP 110/78; PULSE 99; O2SAT 97; BMI 40.7
--- NOTE | 2024-07-15 13:59 | MHC.PC.OV ---
Vital Signs 07/15/24 13:59 Height 5 ft 9 in Weight 275 lb 6 oz BMI 40.7 BP 110/78 Blood Pressure Location Lt brachial Position Sitting Pulse 99 Pulse Source Pulse Oximeter Pulse Oximetry (%) 97 Oxygen Delivery Method Room Air Intake Visit Reasons: Follow-up thyroid/ obesity Finding Fastener Required: No Accompanied by: Self / Same As Patient Allergies codeine Allergy (Intermediate, Verified 07/15/24 14:01) Shakiness bees Allergy (Unknown, Uncoded 07/15/24 14:01) Swelling hornet Allergy (Unknown, Uncoded 07/15/24 14:01) Swelling Medication List - Last Reconciled 07/15/24 by Adams Pereira PA-C epinephrine (EpiPen 2-Jett) 0.3 mg (0.3 mL) IM ONCE PRN 30 days levothyroxine 25 mcg PO DAILY Tirosint (levothyroxine) 25 mcg PO DAILY NS Tobacco use date assessed: 03/31/24 Dental Screening Dental Screen Date: 03/31/24 HPI Follow-up thyroid/ obesity HPI Details Patient is a 33-year-old female here today for follow-up visit..? Patient has multiple somatic complaints today including weight gain, spasms in her temporal region and left side of her chest,, irritability.? At last visit we started pantoprazole, dicyclomine and ondansetron for her GI issues though seems to have side effects to all medications. Concerns--> Elisa's Hypothyroidism: Has followed up with endocrinology, seems to have had side effects to generic levothyroxine. Most recent TSH stabilized after being off of thyroid medication. Unfortunately still has not been able to lose much weight and attributes this to underlying medical condition or perhaps side effect thyroid medication. She also has noted some daytime fatigue and shortness of breath on physical activity. She admits that her son does wake her up at night recently tell her she has been snoring loudly. She did get a sleep study though felt it was not read out correctly as she woke up with the sleep study equipment off of her. She would like to do a new sleep study to really evaluate for obstructive sleep apnea. 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 Did have colonoscopy in 2022 that did show 1 tubular adenoma polyp and needs repeat colonoscopy in 5 years. Otherwise though complains of continued abdominal bloating in chronic abdominal pain. CHRONIC MEDICAL CONDITIONS--> .. Anxiety/ MDD:? Continues to suffer with both anxiety and depression. At this time not working. Not on any mental health medication as she has had side effects to many medications. .. Protein urea: Now followed by slate trimmer, has had kidney biopsy in the past without significant findings. 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 She continues to have abdominal pain and episodes of vomiting over the last 6 months. she reports that this time it is affecting her employment as she often needs to take breaks and is belching ? quite a bit.? She is often taking days off of work due to her continued abdominal pain and nausea.? She reports is taking a toll on her mental health and would like to see a mental health therapist. Patient now on disability and looking for new work. She has been started on PPI therapy, simethicone and dicyclomine for her presumed diagnosis GERD and IBS. She has an upcoming upper GI eval/ gastric emptying study with her diffusion furnace operator --> Tried many? different medications with her diffusion furnace operator and last one was Linzess for chronic constipation though unfortunately? has left her? defecating much more frequently. Patient has had CT abdomen and pelvis along with x-ray abdomen in 2021 which were? unremarkable.? PFSH Medical History Bleeding hemorrhoids Hemorrhoids Weight gain Hypothyroidism UTI (urinary tract infection) Morning after pill advice and prescription Screen for STD (sexually transmitted disease) Chest pain Multinodular thyroid Thyroid nodule Abnormal thyroid scan Encounter for IUD removal Contraceptive management Abdominal bloating IUD check up Complex ovarian cyst Pelvic cramping Encounter for IUD insertion Postprandial abdominal bloating Obese Recurrent UTI Family planning Bleeding hemorrhoids Generalized abdominal pain Obesity (BMI 30-39.9) Smoker Matthew's duct cyst Vaginal cyst Urethral diverticulum Hx of hematuria Family planning Screen for STD (sexually transmitted disease) COVID COVID-19 Dog bite Rash Cellulitis Headache Palpitation Neck pain Screening examination for infectious disease Heart palpitations control counseling History of cardiac disorder Depression Migraine Insomnia Abnormal laboratory test Arthritis Immune disorder Healthy adult History of leukocytosis Surgical History Hx of ultrasound guided needle biopsy History of delivery Family History Mother Diabetes Maternal Grandmother Diabetes Sister HTN (hypertension) Maternal Uncle Thyroid cancer Social History Housing: Apartment Alcohol intake: current Alcohol intake frequency: holidays/special occasions only Patient Tobacco Use Status: Former Tobacco user Tobacco use type: Cigarette Years Smoked: 10 years e-Cigarette/Vaping Use: Currently Using Second Hand Smoke Exposure: Yes service: No Current occupational status: unemployed Cognitive needs: No Hearing needs: No Vision needs: Yes Female Reproductive History Menstrual Age of Menarche: 11 Questionnaire Thrive Questionnaire Date Thrive assessed: 03/31/24 HOWARD-7 AMB Questionnaire HOWARD-7 Date HOWARD - 7 assessed: 03/31/24 Source: Developed by Drs. Lico Hutchinson, Citlali Mendoza, Frantz Rodas and colleagues, with an educational yaakov from [employer]. Review of Systems Const Reports headache(s) and Reports weight gain Eyes Denies loss of vision ENT Denies vertigo, Denies dizziness, Reports headache(s) and Denies sore throat Card Denies chest pain, Denies leg edema and Denies lightheadedness Resp Denies cough, Denies hemoptysis and Denies wheezing GI Denies abdominal pain, Denies melena, Reports bloating, Reports constipation, Reports GI cramping, Reports dyspepsia, Denies diarrhea and Denies vomiting Denies urinary frequency, Denies dysuria and Denies urinary urgency Musc Reports back pain, Reports arthralgias, Denies joint swelling, Denies numbness and Denies tingling Neuro Denies Abnormal speech present, Denies behavioral changes, Denies vertigo, Denies dizziness, Reports headache(s), Denies loss of vision, Denies memory loss, Denies numbness and Denies tingling Psych Denies anxiety, Denies behavioral changes, Denies depression, Denies memory loss and Denies panic attacks Eliel/Lymph Denies easy bleeding and Denies easy bruising Aller/Immun Denies wheezing Physical exam (Primary Care) Vital Signs: Last Vital Signs Pulse 99 07/15/24 13:59 BP 110/78 07/15/24 13:59 Pulse Ox 97 07/15/24 13:59 Oxygen Delivery Method Room Air 07/15/24 13:59 BMI result Body Mass Index 40.7 Tobacco/Smoking Status: Tobacco use Status Tobacco use date assessed 03/31/24 07/15/24 13:59 Patient Tobacco Use Status Former Tobacco user 07/15/24 13:59 Tobacco use type Cigarette 07/15/24 13:59 e-Cigarette/Vaping Use Currently Using 07/15/24 13:59 Thrive Assessment: Date of Thrive Assessment Date Thrive assessed 03/31/24 07/15/24 13:59 Const General: healthy appearing, no acute distress, alert and awake Nutritional Appearance: well nourished Orientation/consciousness: oriented to person, oriented to place and oriented to time HENMT Ears: TM's normal bilaterally General nose exam: Normal nasal mucous membranes and turbinates present Eyes Conjunctivae: conjunctivae normal Sclerae: sclerae normal Pupils: Equal, round and reactive pupils present Neck Neck: Yes no lymphadenopathy and Yes no JVD Thyroid: Thyroid normal Carotids: no bruits Resp Effort & Inspection: normal respiratory effort and not tachypneic Auscultation: no crackles, no rales, no rhonchi and no wheezes Cardio Rate: regular rate Rhythm: regular rhythm Heart sounds: no murmurs and normal S1 and S2 GI Palpation (GI): Soft to palpation, nontender, no hepatomegaly and no splenomegaly Auscultation: normal bowel sounds Skin General skin exam: no rashes or lesions noted and dry skin Neuro General: oriented to person, oriented to place and oriented to time Cranial nerves: Yes Equal, round and reactive pupils present Speech: No Abnormal speech present Gait exam (Neuro): Normal gait present Motor exam (neuro): no tremor noted Extrem Right upper extremity: full ROM Left upper extremity: full ROM Right lower extremity: full ROM; no edema Left lower extremity: full ROM; no edema Psych Mental Status: mental status grossly normal Speech and movement: Normal speech and movement present Affect: normal affect Attitude: cooperative Thought process: Normal thought process present Assessment and Plan Assessment & Plan (1) Hypothyroidism: Code(s): E03.9 - Hypothyroidism, unspecified Qualifiers: Hypothyroidism type: unspecified Qualified Code(s): E03.9 - Hypothyroidism, unspecified Plan: Patient does have a history of hypothyroidism. Was started on levothyroxine 25 mcg though reports issues with sleep and reported weight gain and has stopped this medication. Has gotten repeat TSH testing which has normalized without any medication. Has followed up with endocrinology whom recommends doing a 24 hour urine for cortisol (2) YANN (obstructive sleep apnea): Code(s): G47.33 - Obstructive sleep apnea (adult) (pediatric) Plan: Patient's sTOP BANG questionnaire- moderate risk for obstructive sleep apnea Did undergo a sleep study though during the testing the sleep study equipment fell off and she is unsure if there was an adequate reading. Will like to do a repeat home sleep study to evaluate for obstructive sleep apnea. (3) Obese: Code(s): E66.9 - Obesity, unspecified Qualifiers: Obesity type: due to excess calories Obesity classification: adult class 3 (BMI >= 40) Serious obesity comorbidity presence: without serious comorbidity Body mass index: BMI 40.0-44.9 Qualified Code(s): E66.01 - Morbid (severe) obesity due to excess calories; Z68.41 - Body mass index [BMI] 40.0-44.9, adult Plan: Patient does understand her BMI is about 40. Has had a very difficult time losing weight. She attributes her weight gain to thyroid medication and underlying medical condition. She reports she is somewhat physically active walking her dog and on the move on a daily basis. She denies overeating. We did discuss perhaps starting weight loss medication such as a GLP 1 and patient is considering. She will be following up with a dietitian. Orders: Orders RT home sleep study 07/15/24 G47.33 - Obstructive sleep apnea (adult) (pediatric) Medications: Discontinued levothyroxine Discontinued Reason: Doctor's Order 25 mcg PO DAILY 30 tabs 4RF Coding Level of Care Code Est Pt Level 4 (74182) Diagnoses Hypothyroidism, unspecified type E03.9 Hypothyroidism type: unspecified YANN (obstructive sleep apnea) G47.33 Class 3 severe obesity due to excess calories without serious comorbidity with body mass index (BMI) of 40.0 to 44.9 in adult E66.01; Z68.41 Obesity type: due to excess calories Obesity classification: adult class 3 (BMI >= 40) Serious obesity comorbidity presence: without serious comorbidity Body mass index: BMI 40.0-44.9
== END 2024-07-15 14:31 | disposition home or self-care (01) ==
PROVIDERS: PCP Physician Assistant; Visit Provider Physician Assistant
DX: E03.9 Hypothyroidism, unspecified (principal); G47.33 Obstructive sleep apnea (adult) (pediatric); E66.01 Morbid (severe) obesity due to excess calories; Z68.41 Body mass index [BMI] 40.0-44.9, adult
CPT/HCPCS: 99214

== ENCOUNTER → 2024-07-16 14:00 | Outpatient (RCR) | payer OTHER, SELFPAY ==
[2020-11-15 14:21] VITALS: BP 132/89; PULSE 115; RESP 12; TEMP 36.2; O2SAT 97; BMI 37.3
--- NOTE | 2020-11-15 14:52 | P.CNHO_ITS ---
Subjective - Subjective Patient: new to practice Consult date: 11/15/20 Requesting Physician: dilip wallace Primary Care Provider: Terrell Short MD Medical Summary: DIAGNOSIS: LEUKOCYTOSIS. HPI - Consult Narrative Reason for consult: Leukocytosis. Narrative: Krupa Santos is a pleasant 29 year old lady, who has been noted to have leukocytosis since July. Her WBC count was noted to be 15,000. However review of her previous medical records indicate that her white count was up since May 2010. Serial wbc's: 05/28:11.6. 03/31:12.2. 06/01: 9.1. 12/05:12.1. 08/05:13.6. 09/05: 15.1. 08/08: 15.0. Lately she has noted more fatigue. Denies any fever but has had chills. She has been tested for COVID several times. She says her appetite was not good a couple weeks ago but now it has picked up. She complains of headaches and lightheadedness. She has some palpitations. She is undergoing cardiac evaluation. Question panic attack/anxiety. She gets bloating. She feels full. Occasional diarrhea. She has proteinuria and hematuria. Her joints hurt. She has pain in her back knees and ankles. Her legs feel weak. She is getting depressed due to her complaints. Review of Systems - Constitutional Reports system reviewed and no additional complaints, except as documented, Reports chills, Reports fatigue, Denies fever(s) - Eyes Reports system reviewed and no additional complaints, except as documented - ENT Reports system reviewed and no additional complaints, except as documented - Cardiovascular Reports system reviewed and no additional complaints, except as documented, Reports lightheadedness Comments: Palpitations - Respiratory Reports no additional respiratory complaints - Gastrointestinal Reports system reviewed and no additional complaints, except as documented, Reports bloating, Reports diarrhea, Denies vomiting - Genitourinary Reports no additional female genitourinary complaints, Reports blood in urine - Musculoskeletal Reports system reviewed and no additional complaints, except as documented - Integumentary/Breasts Skin/Breast: Reports no additional skin complaints - Neurologic Reports system reviewed and no additional complaints, except as documented - Psychiatric Reports system reviewed and no additional complaints, except as documented - Endocrine Reports no additional endocrine complaints - Hematologic/Lymphatic Reports system reviewed and no additional complaints, except as documented - Allergic/Immunologic Reports system reviewed and no additional complaints, except as documented [facility] Medical History: Medical History (Last Updated 11/11/20 @ 10:20 by Dixie Jones NP) Abnormal laboratory test Arthritis Depression Healthy adult History of cardiac disorder Hypothyroidism Immune disorder Insomnia Migraine Functional capacity: independent ambulation Patient : No Family History: Family History (Last Updated 11/15/20 @ 14:27 by Marlene Hdz) Mother Diabetes Maternal Grandmother Diabetes Sister HTN (hypertension) Surgical History: Surgical History (Last Updated 11/15/20 @ 14:26 by Marlene Hdz) History of delivery Smoking status: Former smoker Home Medications and Allergies Home Medications Medication Instructions Recorded Confirmed Type levothyroxine 25 mcg capsule 25 mcg PO DAILY 10/22/20 11/15/20 History levothyroxine 25 mcg capsule 25 mcg PO DAILY 11/16/20 History Allergies Allergy/AdvReac Type Severity Reaction Status Date / Time No Known Allergies Allergy Verified 10/15/20 20:56 Physical Exam Vital signs: Vital Signs Temp 97.2 F 11/15/20 14:21 Pulse 115 H 11/15/20 14:21 Resp 12 11/15/20 14:21 BP 132/89 11/15/20 14:21 Pulse Ox 97 11/15/20 14:21 Intake & Output 11/14/20 11/15/20 11/15/20 18:59 06:59 18:59 Other: Weight 114.7 kg Weight 114.7 kg - Constitutional Present: mild distress - Routine HEENT Exam Head: Present: normal inspection ENT: Present: mucous membranes moist - Routine Neck Exam Present: supple - Routine Respiratory Exam Present: CTAB - Routine Cardiovascular Exam Cardiovascular: Present: RRR, S1, S2 - Routine Abdominal Exam Present: soft, nontender - Routine Skin Exam Present: intact - Routine Neurological Exam Present: alert, oriented X3 - Detailed Neurological Exam: Coma Scale Eye Opening: Spontaneous (4) Verbal Response: Oriented (5) Motor Response: Obeys commands (6) Jojo Coma Scale Total: 15 Hem/Onc Consult Result - Labs CBC & Chem 7: 11/15/20 15:50 11/15/20 15:50 Assessment and Plan (1) History of leukocytosis Status: Acute This is a pleasant 29-year-old lady with a history of chronic leukocytosis dating back to May of 2010. Her white count has been fluctuating. Automated diff has been normal. Recently has had elevated hemoglobin and hematocrit. Denies having had any chronic infectious problems. She used to smoke but quit about 6 months ago. She does have a positive ARAVIND with homogeneous pattern suspicious of lupus. She has had proteinuria and hematuria. Most likely she has benign leukocytosis. DIFFERENTIAL DIAGNOSIS: 2. CML. PLAN: I will proceed with further workup. Will check a manual diff. Will check LDH. I will check a BCR-ABL gene transcript to rule out CML. (this came back: 0.00.) If she indeed has CML will arrange for a TKI. She will return in 3 months for a follow-up visit. Thank you, CC: Dr. Wallace.
--- NOTE | 2020-11-15 15:37 | MHC.HEMONCMA ---
Patient came in for a consult for leukocytosis, she states that she has weird symptoms and that finally her PCP to refer her to a water and sewer systems superintendent. Patient will get some blood work and then the dr will call her with the results.
[2020-11-15 15:55] LABS: MANUAL DIFF FLAG NO
[2020-11-15 16:01] LABS: Basophils Percent Auto 0.2 % (0-2); Eosinophils Absolute Auto 0.2 X10*3/uL (0.0-0.4); Eosinophils Percent Auto 1.2 % (0-4); Hematocrit 43.4 % (37-47); Hemoglobin 14.5 g/dl (12.0-16.0); Imm Gran Abs Auto 0.09 X10*3/uL (0.00-0.03); Imm Gran Pct Auto 0.6 % (0.0-0.4); Lymphocytes Absolute Auto 4.3 X10*3/uL (1.2-4.9); Lymphocytes Percent Auto 29.5 % (20-40); Mean Corpuscular HGB Conc 33.4 g/dl (31.0-35.0); Mean Corpuscular Hemoglobin 28.7 pg (27.0-33.0); Mean Corpuscular Volume 85.9 fL (80-98); Mean Platelet Volume 9.2 fL (9.4-12.3); Monocytes Absolute Auto 1.1 X10*3/uL (0.1-1.2); Monocytes Percent Auto 7.5 % (2-11); Neutrophils Absolute Auto 8.8 X10*3/uL (2.0-8.3); Platelet Count 418 X10*3/uL (160-400); Red Blood Count 5.05 X10*6/uL (4.20-5.50); Red Cell Distribution Width 11.9 % (11.0-16.0); White Blood Count 14.4 X10*3/uL (4.8-10.8)
[2020-11-15 16:26] LABS: Alanine Aminotransferase 19 U/L (0-31); Albumin Level 3.5 g/dL (3.5-5.0); Alkaline Phosphatase 58 U/L (39-117); Anion Gap 14 (12-20); Aspartate Amino Transferase 17 U/L (5-31); Bilirubin Total 0.2 mg/dL (0.0-1.0); Blood Urea Nitrogen 13 mg/dL (9-16); Calcium 8.7 mg/dL (8.4-10.2); Carbon Dioxide 23 mmol/L (22-29); Chloride 107 mmol/L (96-108); Creatinine Clr Calc Pharmacy 128.9; Estimated Glomerular Filt Rate > 60; Glucose Random 96 mg/dL (60-115); Lactate Dehydrogenase 202 U/L (122-220); Potassium 4.7 mmol/l (3.3-5.1); Sodium 139 mmol/L (135-145); Total Protein 6.4 g/dL (6.5-8.0)
[2020-11-15 17:00] LABS: Atypical Lymph Absolute Manual 0.1 x10*3/uL; Atypical Lymphs Percent Manual 1 % (0-6); Band Neutrophils Percent 1 % (3-5); Eosinophils Absolute Manual 0.3 X10*3/UL (0.0-0.8); Eosinophils Percent Manual 2 % (0-4); Lymphocytes Absolute Manual 3.7 X10*3/uL (0.6-4.8); Lymphocytes Percent Manual 26 % (20-40); Neutrophils Absolute Manual 10.2 X10*3/uL (2.2-7.9); Neutrophils Percent Manual 70 % (45-73)
[2020-11-15 17:01] LABS: Platelet Estimate SLIGHTLY INCREASED (NORMAL); Platelet Morphology Comment NORMAL; RBC Morphology NORMAL
[2020-11-22 11:47] LABS: BCR Prior Result Not Given; P190 BCR/ABL1 Not Detected; P210 BCR/ABL1 Not Detected
== END | disposition home or self-care (01) ==
LOC: HO.ONC 11-15 14:06
PROVIDERS: PCP Internal Medicine; Visit Provider Internal Medicine Medical Oncology
DX: D72.829 Elevated white blood cell count, unspecified (principal)
CPT/HCPCS: 36415; 80053; 81206; 81207; 83615; 85007; 85025; 99204

== ENCOUNTER 2024-08-05 11:45 | Outpatient (AMB) | payer OTHER, SELFPAY ==
[2024-08-05 11:57] VITALS: BMI 40.4
--- NOTE | 2024-08-05 11:57 | MHC.OFFVIS ---
Vital Signs 08/05/24 11:57 Height 5 ft 9 in Weight 273 lb 5.971 oz BMI 40.4 Intake Visit Reasons: AUB Risk Specialist Required: No Information Interpreted: non-clinical & clinical Senior Boiler Operator: Senior Boiler Operator Present (Carina Garcia MARCELLA) Accompanied by: Self / Same As Patient Allergies codeine Allergy (Intermediate, Verified 08/05/24 11:57) Shakiness bees Allergy (Unknown, Uncoded 08/05/24 11:57) Swelling hornet Allergy (Unknown, Uncoded 08/05/24 11:57) Swelling HPI Comments Details: The patient is presenting c/o irregular bleeding associated with passage of blood clots and abdominal cramping. it started few months ago and is getting worse no other associated symptoms. [facility] Medical History Bleeding hemorrhoids Hemorrhoids Weight gain Hypothyroidism UTI (urinary tract infection) Morning after pill advice and prescription Screen for STD (sexually transmitted disease) Chest pain Multinodular thyroid Thyroid nodule Abnormal thyroid scan Encounter for IUD removal Contraceptive management Abdominal bloating IUD check up Complex ovarian cyst Pelvic cramping Encounter for IUD insertion Postprandial abdominal bloating Obese Recurrent UTI Family planning Bleeding hemorrhoids Generalized abdominal pain Obesity (BMI 30-39.9) Smoker Matthew's duct cyst Vaginal cyst Urethral diverticulum Hx of hematuria Family planning Screen for STD (sexually transmitted disease) COVID COVID-19 Dog bite Rash Cellulitis Headache Palpitation Neck pain Screening examination for infectious disease Heart palpitations control counseling History of cardiac disorder Depression Migraine Insomnia Abnormal laboratory test Arthritis Immune disorder Healthy adult History of leukocytosis Surgical History Hx of ultrasound guided needle biopsy History of delivery Family History Mother Diabetes Maternal Grandmother Diabetes Sister HTN (hypertension) Maternal Uncle Thyroid cancer Social History Housing: Apartment Alcohol intake: current Alcohol intake frequency: holidays/special occasions only Patient Tobacco Use Status: Former Tobacco user Tobacco use type: Cigarette Years Smoked: 10 years e-Cigarette/Vaping Use: Currently Using Second Hand Smoke Exposure: Yes service: No Current occupational status: unemployed Cognitive needs: No Hearing needs: No Vision needs: Yes Female Reproductive History Menstrual Age of Menarche: 11 Review of Systems Const All systems reviewed & are unremarkable except as noted in HPI and below Physical Exam Vital Signs: BMI result Body Mass Index 40.4 General: Yes no CVA tenderness External Female Exam: normal external appearance and normal appearance of the urethra Speculum Exam - Vagina: normal appearance of the vagina, normal palpation, no lesions and no masses Speculum Exam - Cervix: normal appearance of the cervix, normal palpation, no lesions, no masses and nontender Bimanual exam- vagina & uterus: normal bimanual exam, normal palpation, uterine size normal, normal palpation, uterine shape normal, No Cervical tenderness present and non-tender Bimanual Exam- Adnexa, other: normal adnexae Back/Spine/Pelvis Back: no CVA tenderness Assessment & Plan Assessment & Plan (1) Abnormal uterine bleeding (AUB): Code(s): N93.9 - Abnormal uterine and vaginal bleeding, unspecified Category: Medical Plan: GC and chlamydia taken CBC, TSH, prolactin, HCG, and pelvic ultrasound ordered. Discussed with the patient the different causes of abnormal bleeding including thyroid disorders, uterine and ovarian pathology and other potential causes. Discussed with the patient the work up including CBC (to r/o anemia), TSH, prolactin, pelvic Ultrasound. All questions answered and the patient verbalized understanding. Instructed the patient to schedule an appointment for follow-up in 2 weeks. Orders: Orders TSH reflex Free T4 Today N93.9 - Abnormal uterine and vaginal bleeding, unspecified Prolactin Today N93.9 - Abnormal uterine and vaginal bleeding, unspecified HCG Quantitative Today N93.9 - Abnormal uterine and vaginal bleeding, unspecified Complete Blood Count no Diff Today N93.9 - Abnormal uterine and vaginal bleeding, unspecified US pelvic and transvaginal Today N93.9 - Abnormal uterine and vaginal bleeding, unspecified Coding Level of Care Code Est Pt Level 3 (01982) Diagnoses Abnormal uterine bleeding (AUB) N93.9
== END 2024-08-05 12:26 | disposition home or self-care (01) ==
LOC: HO.HWS 11:45
PROVIDERS: PCP Physician Assistant; Visit Provider Obstetrics & Gynecology
DX: N93.9 Abnormal uterine and vaginal bleeding, unspecified (principal)
CPT/HCPCS: 99213

== ENCOUNTER 2024-08-05 11:45 | Outpatient (REF) | payer OTHER, SELFPAY | END 2024-08-05 11:46 | disposition home or self-care (01) | LOC: HO.LNP 11:45 | PROVIDERS: PCP Physician Assistant; Visit Provider Obstetrics & Gynecology | DX: N93.9 Abnormal uterine and vaginal bleeding, unspecified (principal); R10.9 Unspecified abdominal pain | CPT/HCPCS: 99212 ==

== ENCOUNTER 2024-08-05 12:31 | Outpatient (REF) | payer OTHER, SELFPAY ==
[2024-08-05 13:58] LABS: Hematocrit 44.8 % (37.0-47.0); Mean Corpuscular HGB Conc 33.5 g/dl (31.0-35.0); Mean Corpuscular Hemoglobin 28.2 pg (27.0-33.0); Mean Corpuscular Volume 84.4 fL (80.0-98.0); Mean Platelet Volume 9.8 fL (9.4-12.3); Platelet Count 352 X10*3/uL (160-400); Red Blood Count 5.31 X10*6/uL (4.20-5.50); Red Cell Distribution Width 12.8 % (11.0-16.0); White Blood Count 13.1 X10*3/uL (4.8-10.8)
[2024-08-05 14:48] LABS: HCG Quantitative < 2 mIU/mL; TSH reflex Free T4 2.81 uIU/mL (0.32-4.0)
[2024-08-06 05:28] LABS: CT PCR NOT DETECTED (Not Detect.); NG PCR NOT DETECTED (Not Detect.)
[2024-08-07 07:02] LABS: Prolactin 5.2 ng/mL
== END 2024-08-05 12:32 | disposition home or self-care (01) ==
LOC: HO.LAB 12:31
PROVIDERS: PCP Physician Assistant; Visit Provider Obstetrics & Gynecology
DX: N93.9 Abnormal uterine and vaginal bleeding, unspecified (principal)
CPT/HCPCS: 84146; 84443; 84702; 85027; 87491; 87591

== ENCOUNTER 2024-08-06 13:24 | Outpatient (REF) | payer OTHER, SELFPAY ==
--- NOTE | ~2024-08-06 | US_ITS ---
EXAMINATION: US PELVIS CLINICAL INFORMATION: Abnormal uterine and vaginal bleeding. COMPARISON: None available. TECHNIQUE: Ultrasound of the pelvis is performed using both transabdominal and transvaginal transducers along with Doppler. Transvaginal imaging is performed due to inadequate visualization transabdominally. FINDINGS: UTERUS: The uterus is anteverted and measures 8.4 x 3.5 x 4.8 cm. The double wall endometrial thickness is 4 mm. The uterus is smooth in contour and has normal myometrial echogenicity. No visible fibroid. Nabothian cysts are present in the cervix. Previously seen IUD has been removed. ADNEXA: Both ovaries are visualized. There is normal color flow to the adnexa. There is no ovarian torsion. There is no pelvic ascites or fluid collection. Right ovary measures 3.7 x 2.2 x 2.8 cm for a volume of 11.9 mL. Left ovary measures 3.0 x 2.0 x 3.1 cm for a volume of 9.7 mL. US/US pelvic and transvaginal IMPRESSION: Unremarkable pelvic ultrasound. Electronically signed by: Tanner Newell MD 08/13/2024 05:04 PM EDT
== END 2024-08-06 13:25 | disposition home or self-care (01) ==
LOC: HO.US 13:24
PROVIDERS: PCP Physician Assistant; Visit Provider Obstetrics & Gynecology
DX: N93.9 Abnormal uterine and vaginal bleeding, unspecified (principal)
CPT/HCPCS: 76830; 76856

== ENCOUNTER 2024-08-12 13:32 | Outpatient (REF) | payer OTHER, SELFPAY ==
[2024-08-12 19:02] LABS: Influenza A PCR NEGATIVE (Negative); Influenza B PCR NEGATIVE (Negative); Resp Syncy Virus RNA Qual PCR NEGATIVE (Negative); SARS COV2 PCR INHOUSE NEGATIVE (Negative)
== END 2024-08-12 13:33 | disposition home or self-care (01) ==
LOC: HO.LAB 13:32
PROVIDERS: PCP Physician Assistant; Visit Provider Internal Medicine
DX: J06.9 Acute upper respiratory infection, unspecified (principal); R10.9 Unspecified abdominal pain
CPT/HCPCS: 0241U; 99212

== ENCOUNTER 2024-08-12 13:32 | Outpatient (AMB) | payer OTHER, SELFPAY ==
[2024-08-12 14:03] VITALS: BP 110/70; PULSE 84; TEMP 36.9; O2SAT 98; BMI 40.5
--- NOTE | 2024-08-12 14:03 | AM.OFFWIN_ITS ---
Intake Vital Signs 08/12/24 14:03 Height 5 ft 9 in Weight 274 lb BMI 40.5 BP 110/70 Blood Pressure Location Rt brachial Position Sitting Pulse 84 Pulse Source Pulse Oximeter Temp 98.4 F Temp Source Oral Pulse Oximetry (%) 98 Oxygen Delivery Method Room Air Intake Visit Reasons: EP Nausea, vomiting Intake Note: pt c/o nausea and vomiting, body weakness, coughing. Started today Patient Tobacco Use Status: Former Tobacco user Allergies codeine Allergy (Intermediate, Verified 08/12/24 14:14) Shakiness bees Allergy (Unknown, Uncoded 08/12/24 14:14) Swelling hornet Allergy (Unknown, Uncoded 08/12/24 14:14) Swelling Do you need a note to return to daycare/school/sports/work: No HPI EP Nausea, vomiting HPI Details 33-year-old female presents to the [facility] for a sick visit. Patient has been having a respiratory illness for the past 2 weeks. Symptoms include, nasal congestion, headache and postnasal drip. This morning started having some abdominal discomfort with minimal diarrhea and vomiting. [facility] Medical History Bleeding hemorrhoids Hemorrhoids Weight gain Hypothyroidism UTI (urinary tract infection) Morning after pill advice and prescription Screen for STD (sexually transmitted disease) Chest pain Multinodular thyroid Thyroid nodule Abnormal thyroid scan Encounter for IUD removal Contraceptive management Abdominal bloating IUD check up Complex ovarian cyst Pelvic cramping Encounter for IUD insertion Postprandial abdominal bloating Obese Recurrent UTI Family planning Bleeding hemorrhoids Generalized abdominal pain Obesity (BMI 30-39.9) Smoker Matthew's duct cyst Vaginal cyst Urethral diverticulum Hx of hematuria Family planning Screen for STD (sexually transmitted disease) COVID COVID-19 Dog bite Rash Cellulitis Headache Palpitation Neck pain Screening examination for infectious disease Heart palpitations control counseling History of cardiac disorder Depression Migraine Insomnia Abnormal laboratory test Arthritis Immune disorder Healthy adult History of leukocytosis Surgical History Hx of ultrasound guided needle biopsy History of delivery Family History Mother Diabetes Maternal Grandmother Diabetes Sister HTN (hypertension) Maternal Uncle Thyroid cancer Social History Housing: Apartment Alcohol intake: current Alcohol intake frequency: holidays/special occasions only Patient Tobacco Use Status: Former Tobacco user Tobacco use type: Cigarette Years Smoked: 10 years e-Cigarette/Vaping Use: Currently Using Second Hand Smoke Exposure: Yes service: No Current occupational status: unemployed Cognitive needs: No Hearing needs: No Vision needs: Yes Female Reproductive History Menstrual Age of Menarche: 11 Physical Exam Vital Signs: Last Vital Signs Temp 98.4 F 08/12/24 14:03 Pulse 84 08/12/24 14:03 BP 110/70 08/12/24 14:03 Pulse Ox 98 08/12/24 14:03 Oxygen Delivery Method Room Air 08/12/24 14:03 BMI result Body Mass Index 40.5 Const General: cooperative and healthy appearing Nutritional Appearance: well nourished Orientation/consciousness: patient oriented x3 Limitations: no limitations HEENT Head: Yes normal to inspection Eyes General: appearance normal, both eyes and all related structures Neck Neck: Yes normal visual inspection Chest Chest palpation & inspection: normal palpation of entire chest wall Resp Effort & Inspection: normal respiratory effort GI Other: Abdomen: Nonspecific discomfort all over the abdomen. Neuro General: patient oriented x3 Assessment & Plan Assessment & Plan (1) Abdominal pain: Code(s): R10.9 - Unspecified abdominal pain Plan: Vague nonspecific history and physical exam. COVID test ordered, will call with the results. Compazine for symptoms provided. Orders: Orders SARS-CoV2/FLU/RSV Today J06.9 - Acute upper respiratory infection, unspecified Medications: New prochlorperazine maleate (Compazine) 10 mg PO BID PRN 14 tabs 0RF nausea and vomiting Coding Level of Care Code Est Pt Level 3 (80216) Diagnoses Abdominal pain R10.9
== END 2024-08-12 15:44 | disposition home or self-care (01) ==
LOC: HO.HMCWIC 13:32
PROVIDERS: PCP Physician Assistant
DX: R10.9 Unspecified abdominal pain (principal)

== ENCOUNTER → 2024-09-08 07:38 | Outpatient (REF) | payer OTHER, SELFPAY | LOC: HO.SL 07:38 | PROVIDERS: PCP Physician Assistant; Visit Provider Physician Assistant | DX: R06.83 Snoring (principal) | CPT/HCPCS: 95806 ==

== ENCOUNTER → 2024-09-08 07:52 | Outpatient (BNV) | payer OTHER, SELFPAY | PROVIDERS: PCP Physician Assistant; Visit Provider Internal Medicine | DX: R06.83 Snoring (principal) | CPT/HCPCS: 95806 ==

== ENCOUNTER 2024-09-09 09:13 | Outpatient (AMB) | payer OTHER, SELFPAY ==
[2024-09-09 09:27] VITALS: BMI 40.4
--- NOTE | 2024-09-09 09:27 | A.OFFVIS_ITS ---
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 The patient is interested in STD screen has noticed current as of her Pedro's duct cyst. The following workup was done.: H&H= 15/44.8 TSH, prolactin, hCG, GC and chlamydia were negative. Co testing was done in 10/11 was negative. Pelvic ultrasound was unremarkable [facility] Medical History Bleeding hemorrhoids Hemorrhoids Weight gain Hypothyroidism UTI (urinary tract infection) Morning after pill advice and prescription Screen for STD (sexually transmitted disease) Chest pain Multinodular thyroid Thyroid nodule Abnormal thyroid scan Encounter for IUD removal Contraceptive management Abdominal bloating IUD check up Complex ovarian cyst Pelvic cramping Encounter for IUD insertion Postprandial abdominal bloating Obese Recurrent UTI Family planning Bleeding hemorrhoids Generalized abdominal pain Obesity (BMI 30-39.9) Smoker Matthew's duct cyst Vaginal cyst Urethral diverticulum Hx of hematuria Family planning Screen for STD (sexually transmitted disease) COVID COVID-19 Dog bite Rash Cellulitis Headache Palpitation Neck pain Screening examination for infectious disease Heart palpitations control counseling History of cardiac disorder Depression Migraine Insomnia Abnormal laboratory test Arthritis Immune disorder Healthy adult History of leukocytosis Surgical History Hx of ultrasound guided needle biopsy History of delivery Family History Mother Diabetes Maternal Grandmother Diabetes Sister HTN (hypertension) Maternal Uncle Thyroid cancer Social History Housing: Apartment Alcohol intake: current Alcohol intake frequency: holidays/special occasions only Patient Tobacco Use Status: Former Tobacco user Tobacco use type: Cigarette Years Smoked: 10 years e-Cigarette/Vaping Use: Currently Using Second Hand Smoke Exposure: Yes service: No Current occupational status: unemployed Cognitive needs: No Hearing needs: No Vision needs: Yes Female Reproductive History Menstrual Age of Menarche: 11 Review of Systems Const All systems reviewed & are unremarkable except as noted in HPI and below Physical Exam Vital Signs: BMI result Body Mass Index 40.4 General: Yes no CVA tenderness External Female Exam: normal external appearance and normal appearance of the urethra Speculum Exam - Vagina: normal appearance of the vagina, normal palpation, no lesions, no masses and other (1.5 cm Matthew cyst) Speculum Exam - Cervix: normal appearance of the cervix, normal palpation, no lesions, no masses and nontender Bimanual exam- vagina & uterus: normal bimanual exam, normal palpation, uterine size normal, normal palpation, uterine shape normal, No Cervical tenderness present and non-tender Bimanual Exam- Adnexa, other: normal adnexae Back/Spine/Pelvis Back: no CVA tenderness Assessment & Plan Assessment & Plan (1) Screen for STD (sexually transmitted disease): Code(s): Z11.3 - Encounter for screening for infections with a predominantly sexual mode of transmission Category: Medical Plan: STD screening tests done includes: BV panel for trichomonas, GC/CT will send patient for serology std screening for HIV, RPR, Hep b s Ag, HepC Ab. Instructions given the patient to schedule a follow-up appointment for repeat serology screen in 6 months for possible false negatives. (2) Abnormal uterine bleeding (AUB): Code(s): N93.9 - Abnormal uterine and vaginal bleeding, unspecified Category: Medical Plan: Discussed with the patient the results of the work up done and options of treatment including BCP's, progestin only pill, Mirena IUD. All pros, cons, risks and benefits if each option was discussed with the patient and the patient decided to attempt smoking cessation and get back to us was unsuccessful to initiate control pills. All questions answered the patient verbalized understanding. 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 Will repeat urine dip in 2 weeks. Discussed with the patient the possible causes of microscopic hematuria including but not limited to: interstitial cystitis, polyps, stones, masses, urethral inflammatory processes and others. If Urine Culture is negative and repeat urine dip in 2 weeks shows persistent microscopic hematuria, will proceed with CT abdomen/pelvis and urology referral. Instructions given the patient to schedule a 2 week urine dip follow-up appointment. All questions answered and the patient verbalized understanding. Orders: Orders Syphilis Screen Today Z20.2 - Contact with and (suspected) exposure to infections with a predominantly sexual mode of transmission CT NG by PCR Today Z11.3 - Encounter for screening for infections with a predominantly sexual mode of transmission Bacterial Vaginosis Panel Today Z11.3 - Encounter for screening for infections with a predominantly sexual mode of transmission Hepatitis C Antibody Today Z20.2 - Contact with and (suspected) exposure to infections with a predominantly sexual mode of transmission Hepatitis B Surface Antigen Today Z20.2 - Contact with and (suspected) exposure to infections with a predominantly sexual mode of transmission HIV Ab/Ag Today Z20.2 - Contact with and (suspected) exposure to infections with a predominantly sexual mode of transmission Coding Level of Care Code Est Pt Level 3 (39597) Diagnoses Screen for STD (sexually transmitted disease) Z11.3 Abnormal uterine bleeding (AUB) N93.9 Persistent Matthew duct Q52.4 Microscopic hematuria R31.29
== END 2024-09-09 10:06 | disposition home or self-care (01) ==
PROVIDERS: PCP Physician Assistant; Visit Provider Obstetrics & Gynecology
DX: Z11.3 Encounter for screening for infections with a predominantly sexual mode of transmission (principal); N93.9 Abnormal uterine and vaginal bleeding, unspecified; Q52.4 Other congenital malformations of vagina; R31.29 Other microscopic hematuria
CPT/HCPCS: 99213

== ENCOUNTER 2024-09-09 09:13 | Outpatient (REF) | payer OTHER, SELFPAY ==
[2024-09-10 13:41] LABS: CT PCR NOT DETECTED (Not Detect.); NG PCR NOT DETECTED (Not Detect.)
[2024-09-10 14:49] LABS: Bacterial Vaginosis PCR NEGATIVE (Negative); Candida Group PCR NOT DETECTED (Not Detect); Candida glab krusei PCR NOT DETECTED (Not Detect); Trichomonas vaginalis PCR NOT DETECTED (Not Detect)
== END 2024-09-09 09:14 | disposition home or self-care (01) ==
LOC: HO.LNP 09:13
PROVIDERS: PCP Physician Assistant; Visit Provider Obstetrics & Gynecology
DX: R31.29 Other microscopic hematuria (principal); Q52.4 Other congenital malformations of vagina; N93.9 Abnormal uterine and vaginal bleeding, unspecified; Z20.2 Contact with and (suspected) exposure to infections with a predominantly sexual mode of transmission
CPT/HCPCS: 0352U; 87086; 87491; 87591; 99212

== ENCOUNTER 2024-09-09 14:07 | Emergency (ER) | payer OTHER, SELFPAY ==
--- NOTE | ~2024-09-09 | XR_ITS ---
EXAMINATION: XR CHEST CLINICAL INFORMATION: Right-sided chest pain COMPARISON: Prior chest radiographs, most recently TECHNIQUE: 2 views of the chest were obtained. FINDINGS: Best seen on the PA radiograph overlying the lateral right lower lung zone there is a rounded opacity that measures on the order of 2.3 x 1.5 cm which was not seen on prior studies. There may be some mild airways inflammation within the right middle lobe as well. The lungs are otherwise clear. There is no pleural effusion or pneumothorax. Cardiothymic contours are within normal limits. Bony structures are intact. XR/XR chest 2V IMPRESSION: Rounded opacity in the lateral right lower lung zone, possibly within the right middle lobe as well as possible mild airways inflammation in the right middle lobe. Significance of the finding is uncertain, could represent a developing airspace opacity. This could be followed with short-term interval radiograph or could be further evaluated with CT. Electronically signed by: Jourdan Huston MD 09/09/2024 07:01 PM EDT
[2024-09-09 14:58] VITALS: BP 124/80; PULSE 94; RESP 14; TEMP 36.9; O2SAT 95; BMI 40.6
--- NOTE | 2024-09-09 15:07 | ED_ITS ---
HPI - Abdominal Pain General Chief Complaint: Abdominal Pain Stated Complaint: R side pain Time Seen by Provider: 09/09/24 17:26 History of Present Illness ED Provider: Aric ARNETT narrative: The patient is a 33-year-old female who says she has had respiratory symptoms for about 3 weeks.. She says it started with a runny nose. She later developed a cough. Approximately 2 weeks ago she went to an urgent care center and had negative viral testing. Despite the negative testing she has continued to have a cough and to feel somewhat short of breath. Over the last 5 days she has some pain on her right side that has been quite consistent. It is worse with certain positions. It is somewhat worse with taking a deep breath. The patient says she has also had nausea. She does not know if she has had a fever. She has not taken her temperature. She says that she has a history of frequent urinary tract infections. She does not have any symptoms of urinary tract infection currently. The patient is not on control or any other hormonal medications. The patient says that she went to an appointment today to discuss her irregular menses. She was told that she had blood in her urine. She was somewhat concerned that with blood in her urine and the pain on the right side that she might have a kidney stone. Related Data Previous Rx's ?Medication ?Instructions ?Recorded epinephrine 0.3 mg/0.3 mL 0.3 mg (0.3 mL) IM ONCE PRN 02/26/24 injection, auto-injector (EpiPen anaphylaxis 30 days #2 ea 2-Jett) prochlorperazine maleate 10 mg 10 mg PO BID PRN nausea and 08/12/24 tablet (Compazine) vomiting #14 tabs albuterol sulfate 90 mcg/actuation 2 puff inhalation Q4-6H PRN 09/09/24 aerosol inhaler shortness of breath or wheezing #8.5 grams azithromycin 250 mg tablet 250 mg PO DAILY 4 days #4 tabs 09/09/24 ibuprofen 600 mg tablet 600 mg PO Q6H PRN pain #14 tabs 09/09/24 ondansetron 4 mg disintegrating 4 mg PO Q6H PRN nausea and 09/09/24 tablet vomiting #10 tabs Allergies Allergy/AdvReac Type Severity Reaction Status Date / Time codeine Allergy Intermediate Shakiness Verified 09/09/24 15:00 bees Allergy Unknown Swelling Uncoded 09/09/24 09:29 hornet Allergy Unknown Swelling Uncoded 09/09/24 09:29 Review of Systems Review of Systems Yes all other systems are reviewed and are negative [facility] Past Medical History Medical History Bleeding hemorrhoids Hemorrhoids Weight gain Hypothyroidism UTI (urinary tract infection) Morning after pill advice and prescription Screen for STD (sexually transmitted disease) Chest pain Multinodular thyroid Thyroid nodule Abnormal thyroid scan Encounter for IUD removal Contraceptive management Abdominal bloating IUD check up Complex ovarian cyst Pelvic cramping Encounter for IUD insertion Postprandial abdominal bloating Obese Recurrent UTI Family planning Bleeding hemorrhoids Generalized abdominal pain Obesity (BMI 30-39.9) Smoker Matthew's duct cyst Vaginal cyst Urethral diverticulum Hx of hematuria Family planning Screen for STD (sexually transmitted disease) COVID COVID-19 Dog bite Rash Cellulitis Headache Palpitation Neck pain Screening examination for infectious disease Heart palpitations control counseling History of cardiac disorder Depression Migraine Insomnia Abnormal laboratory test Arthritis Immune disorder Healthy adult History of leukocytosis Surgical History Hx of ultrasound guided needle biopsy History of delivery Family History Family History Mother Diabetes Maternal Grandmother Diabetes Sister HTN (hypertension) Maternal Uncle Thyroid cancer Social History Social History Housing: Apartment Alcohol intake: current Alcohol intake frequency: holidays/special occasions only Patient Tobacco Use Status: Former Tobacco user Tobacco use type: Cigarette Years Smoked: 10 years e-Cigarette/Vaping Use: Currently Using Second Hand Smoke Exposure: Yes Advance Directives: No Advance Directives Information Provided: Yes Do you have a plan to hurt others: No Plan service: No Current occupational status: unemployed Cognitive needs: No Hearing needs: No Vision needs: Yes Physical Exam ED Vital Signs: Vital Signs - 24 hr 09/09/24 14:58 09/09/24 17:57 09/09/24 19:21 Temperature 98.4 F 98.6 F Pulse Rate 94 76 81 Respiratory Rate 14 16 18 Blood Pressure 124/80 139/77 Pulse Oximetry 95 97 Oxygen Delivery Method Room Air Room Air BMI result Body Mass Index 40.6 Const Other: The patient is a 33-year-old female with a BMI of 40 who is awake and alert. She did not appear obviously uncomfortable or in distress or in any respiratory difficulty. She did not appear obviously ill. HENMT Other: Face is symmetrical. Mucous membranes moist. Pharynx is unremarkable. Eyes General: appearance normal, both eyes and all related structures Neck Other: No apparent lymphadenopathy. Good range of motion of the neck. Resp Other: Possibly some slight diminished air entry at the right base. no increased work of breathing or any signs of respiratory distress. Lungs were otherwise clear. No definite wheezing. Possibly some mild chest wall tenderness at the costal margin at the lateral aspect of the lower ribcage on the right side. Cardio Rate: regular rate Rhythm: regular rhythm Heart sounds: S1 normal heart sound present and S2 normal heart sound present GI Other: Abdomen is soft and nontender Back/Spine/Pelvis Other: no CVA percussion tenderness on either side. Skin Other: Skin is dry and unremarkable Neuro Other: the patient is awake and alert with normal mental status. Cranial nerves grossly intact. She moves her extremities normally. She has a normal gait. Extrem Other: No calf swelling or tenderness. Course Course Course Narrative: This is a rapid medical exam performed by Sarita Paul PA-C. The patient is a 33-year-old female with a history of morbid obesity, presenting with right flank pain x5 days. Patient was seen by primary care, had hematuria, was told to come to the ED for assessment. On exam, she has mild right-sided CVA tenderness. We will screen basic labs, urinalysis. The patient is hemodynamically stable and can return to the weight room pending her full assessment. Medical Decision Making Medical Decision Making MDM Narrative: The patient is a 33-year-old female who says that she has had respiratory symptoms for about 3 weeks and right-sided pain for about 1 week. She on physical exam she has no CVA percussion tenderness to suggest a renal source of her discomfort. Urinalysis shows trace blood on the urine dip and 0-2 cells on microscopy. Clinically my suspicion for a kidney stone as the source of her symptoms is low. I think her syndrome is probably more related to the respiratory symptoms she has had. She describes cough and some mild shortness of breath. Chest x-ray was read as showing a possible right-sided airspace opacity which may represent a pneumonia in my opinion. The patient was instructed in the use of an albuterol inhaler. She will be prescribed azithromycin for what may be a subtle pneumonia. She was also prescribed ibuprofen and ondansetron. She will be discharged and should follow up soon with her regular doctor or return to the ER if worse. Her labs were otherwise unremarkable including a normal D-dimer. Lab Data 09/09/24 15:38 09/09/24 15:38 Labs: Lab Results 09/09/24 09/09/24 Range/Units 15:38 18:29 WBC 13.9 H (4.8-10.8) X10*3/uL RBC 5.33 (4.20-5.50) X10*6/uL Hgb 15.3 (12.0-16.0) g/dl Hct 45.5 (37.0-47.0) % MCV 85.4 (80.0-98.0) fL MCH 28.7 (27.0-33.0) pg MCHC 33.6 (31.0-35.0) g/dl RDW 12.7 (11.0-16.0) % Plt Count 346 (160-400) X10*3/uL MPV 8.8 L (9.4-12.3) fL Immature Gran % (Auto) 0.5 H (0.0-0.4) % Neut % (Auto) 62.4 (45-73) % Lymph % (Auto) 30.6 (20-40) % [place] % (Auto) 5.1 (2-11) % Eos % (Auto) 0.9 (0-4) % Baso % (Auto) 0.5 (0-2) % Lymph # (Auto) 4.2 (1.2-4.9) X10*3/uL [place] # (Auto) 0.7 (0.1-1.2) X10*3/uL Eos # (Auto) 0.1 (0.0-0.4) X10*3/uL Baso # (Auto) 0.1 (0.0-0.2) X10*3/uL Abs Immat Gran (auto) 0.07 H (0.00-0.03) X10*3/uL Absolute Neuts (auto) 8.6 H (2.0-8.3) x10*3/uL Absolute Nucleated RBC 0.000 (0.0-0.012) X10*3/uL Nucleated RBC % (auto) 0.0 (0.0-0.2) /100WBC D-Dimer High Sensitivty < 150 NG/ML Sodium 143 (135-145) mmol/L Potassium 4.0 (3.3-5.1) mmol/L Chloride 108 (96-108) mmol/L Carbon Dioxide 28 (22-29) mmol/L Anion Gap 11 L (12-20) BUN 15 (9-16) mg/dL Creatinine 1.03 (0.5-1.4) mg/dL Estim Creat Clear Calc 109.8 Estimated GFR > 60 Random Glucose 93 (60-115) mg/dL Calcium 9.6 (8.4-10.2) mg/dL Magnesium 1.8 (1.6-2.6) mg/dL Total Bilirubin 0.3 (0.0-1.0) mg/dL AST 24 (5-31) U/L ALT 32 H (0-31) U/L Alkaline Phosphatase 62 (39-117) U/L C-Reactive Protein 1.03 H (< or = 0.50) mg/dL Total Protein 7.1 (6.5-8.0) g/dL Albumin 3.9 (3.5-5.0) g/dL Beta HCG, Quant < 2 mIU/mL Urine Color Yellow Urine Appearance Clear Urine pH 5.5 (5.0-9.0) Ur Specific [place] 1.020 (1.005-1.025) Urine Protein 100 (2+) H (Neg-Trace) mg/dL Urine Glucose (UA) Negative (Negative) mg/dL Urine Ketones Negative (Negative) mg/dL Urine Blood Trace H (Negative) Urine Nitrite Negative (Negative) Ur Leukocyte Esterase Negative (Negative) Urine RBC 0-2 (0-2) /HPF Urine WBC 6-10 H (0-5) /HPF Ur Squamous Epith Cells 3-5 (0-2) /HPF Urine Bacteria None Seen (None Seen) Hyaline Casts 0-2 (0-2) /LPF Medications Administered Discontinued Medications Generic Name Dose Route Start Last Admin Trade Name Freq PRN Reason Stop Dose Admin Albuterol Sulfate 4 puff 09/09/24 17:41 09/09/24 17:55 Albuterol Sulfate 90 Mcg 8 Gm Inhaler INHALE 09/09/24 17:42 4 puff ONCE ONE Administration Azithromycin 500 mg 09/09/24 18:54 09/09/24 19:13 Azithromycin 500 Mg Tablet PO 09/09/24 18:55 500 mg ONCE ONE Administration Ketorolac Tromethamine 30 mg 09/09/24 18:54 09/09/24 19:13 Ketorolac Tromethamine 30 Mg/Ml Vial IM 09/09/24 18:55 30 mg ONCE ONE Administration Ondansetron HCl 4 mg 09/09/24 18:54 09/09/24 19:13 Ondansetron Odt 4 Mg Tab.Rapdis TRANSLINGU 09/09/24 18:55 4 mg ONCE ONE Administration Discharge Plan Discharge Clinical Impression: Pneumonia involving right lung, Right-sided chest pain Patient Disposition: Home, Self-Care Additional Instructions: I think the pain you are experiencing on your right side is related to a respiratory infection. The radiologist thinks you might have a small right-sided pneumonia. They are recommending a repeat chest x-ray in a few weeks when you are feeling better. Please take the antibiotic, azithromycin, daily until done. Additionally I would recommend using the albuterol inhaler 2 puffs every 4-6 hours as needed. Use the inhaler with the spacer (AeroChamber) provided. I have also sent a prescription for ibuprofen that you may use for pain. You may take [id number] acetaminophen in addition to the ibuprofen. I have also sent a prescription for ondansetron that you may use for nausea. Please contact your regular doctor's office for a prompt follow up appointment. Return to the emergency room if you feel significantly worse. Prescriptions: New azithromycin 250 mg tablet 250 mg PO DAILY 4 Days Qty: 4 0RF Rx Instructions: start on day 2 of therapy albuterol sulfate 90 mcg/actuation HFA aerosol inhaler 2 puff inhalation Q4-6H PRN (Reason: shortness of breath or wheezing) Qty: 8.5 0RF ondansetron 4 mg tablet,disintegrating 4 mg PO Q6H PRN (Reason: nausea and vomiting) Qty: 10 0RF ibuprofen 600 mg tablet 600 mg PO Q6H PRN (Reason: pain) Qty: 14 0RF No Action epinephrine [EpiPen 2-Jett] 0.3 mg/0.3 mL auto-injector 0.3 mg IM ONCE PRN (Reason: anaphylaxis) 30 Days Qty: 2 0RF prochlorperazine maleate [Compazine] 10 mg tablet 10 mg PO BID PRN (Reason: nausea and vomiting) Qty: 14 0RF Referrals: Adams Pereira PA-C [Primary Care Provider] - (Right-sided chest pain, possible bronchitis) Interventions: ED Discharge Assessment Last Done: 09/09/24 19:21 Discharge Date/Time: 09/09/24 19:23 Print Language: Gabonese
[2024-09-09 15:43] LABS: MANUAL DIFF FLAG NO
[2024-09-09 15:47] LABS: Appearance Urine Clear; Color Urine Yellow; Glucose Urine UA Negative (Negative); Leukocyte Esterase Urine Negative (Negative); Nitrite Urine Negative (Negative); PH 5.5 (5.0-9.0); UMIC TRIGGER UACC YES; Urine Blood Trace (Negative); Urine Ketones Negative (Negative); Urine Protein 100 (2+) mg/dL (Neg-Trace)
[2024-09-09 15:51] LABS: Basophils Absolute Auto 0.1 X10*3/uL (0.0-0.2); Basophils Percent Auto 0.5 % (0-2); Eosinophils Absolute Auto 0.1 X10*3/uL (0.0-0.4); Eosinophils Percent Auto 0.9 % (0-4); Hematocrit 45.5 % (37.0-47.0); Hemoglobin 15.3 g/dl (12.0-16.0); Imm Gran Abs Auto 0.07 X10*3/uL (0.00-0.03); Imm Gran Pct Auto 0.5 % (0.0-0.4); Lymphocytes Absolute Auto 4.2 X10*3/uL (1.2-4.9); Lymphocytes Percent Auto 30.6 % (20-40); Mean Corpuscular HGB Conc 33.6 g/dl (31.0-35.0); Mean Corpuscular Hemoglobin 28.7 pg (27.0-33.0); Mean Corpuscular Volume 85.4 fL (80.0-98.0); Mean Platelet Volume 8.8 fL (9.4-12.3); Monocytes Absolute Auto 0.7 X10*3/uL (0.1-1.2); Monocytes Percent Auto 5.1 % (2-11); Neutrophils Absolute Auto 8.6 x10*3/uL (2.0-8.3); Neutrophils Percent Auto 62.4 % (45-73); Platelet Count 346 X10*3/uL (160-400); Red Blood Count 5.33 X10*6/uL (4.20-5.50); Red Cell Distribution Width 12.7 % (11.0-16.0); White Blood Count 13.9 X10*3/uL (4.8-10.8)
[2024-09-09 15:52] LABS: Bacteria Urine None Seen (None Seen); Hyaline Casts Urine 0-2 /LPF (0-2); RBC Urine 0-2 /HPF (0-2); UACC Culture Trigger YES
[2024-09-09 16:07] LABS: Alanine Aminotransferase 32 U/L (0-31); Albumin Level 3.9 g/dL (3.5-5.0); Alkaline Phosphatase 62 U/L (39-117); Anion Gap 11 (12-20); Aspartate Amino Transferase 24 U/L (5-31); Bilirubin Total 0.3 mg/dL (0.0-1.0); Blood Urea Nitrogen 15 mg/dL (9-16); Calcium 9.6 mg/dL (8.4-10.2); Carbon Dioxide 28 mmol/L (22-29); Chloride 108 mmol/L (96-108); Creatinine Clr Calc Pharmacy 109.8; Estimated Glomerular Filt Rate > 60; Glucose Random 93 mg/dL (60-115); Magnesium 1.8 mg/dL (1.6-2.6); Sodium 143 mmol/L (135-145); Total Protein 7.1 g/dL (6.5-8.0)
[2024-09-09 16:11] LABS: HCG Quantitative < 2 mIU/mL
[2024-09-09] MEDS: Albuterol Sulfate 90 MCG 8 GM INHALER 4 PUFF INHALE (17:55)
--- NOTE | 2024-09-09 17:55 | PC.NURSE ---
Respiratory Therapist at bedside at this time. Administering Albuterol as ordered.
[2024-09-09 17:57] VITALS: PULSE 76; RESP 16; O2SAT 98
[2024-09-09 18:45] LABS: D Dimer High Sensitivity < 150 NG/ML
[2024-09-09 18:45] LABS: C Reactive Protein 1.03 mg/dL (< or = 0.50)
[2024-09-09] MEDS: Azithromycin 500 MG TABLET PO (19:13)
[2024-09-09] MEDS: Ondansetron ODT 4 MG TAB.RAPDIS TRANSLINGU (19:13)
[2024-09-09] MEDS: Ketorolac Tromethamine 30 MG/ML VIAL IM (19:13)
[2024-09-09 19:21] VITALS: BP 139/77; PULSE 81; RESP 18; TEMP 37; O2SAT 97
== END 2024-09-09 19:23 | disposition home or self-care (01) ==
PROVIDERS: Physician Assistant Medical; Emergency Provider Emergency Medicine; PCP Physician Assistant
DX: J18.9 Pneumonia, unspecified organism (principal); R07.89 Other chest pain; R05.9 Cough, unspecified; R09.89 Other specified symptoms and signs involving the circulatory and respiratory systems; R50.9 Fever, unspecified; R11.0 Nausea; Z79.899 Other long term (current) drug therapy
CPT/HCPCS: 36415; 71046; 80053; 81001; 83735; 84702; 85025; 85379; 86140; 87086; 94640; 94664; 96372; 99284; J1885

== ENCOUNTER 2024-09-22 08:54 | Outpatient (AMB) | payer OTHER, SELFPAY ==
--- NOTE | 2024-09-22 09:14 | A.OFFPC_ITS ---
Vital Signs 09/22/24 09:15 Height 5 ft 9 in Weight 272 lb 8 oz BMI 40.2 BP 120/76 Blood Pressure Location Lt brachial Position Sitting Pulse 97 Pulse Source Pulse Oximeter Pulse Oximetry (%) 95 Oxygen Delivery Method Room Air Intake Visit Reasons: [facility] [place] side pain Intake Note: Patient is here to follow-up after a visit the emergency department at [facility] on 09/09/24. Request a test for covid test, possible contact, tested positive in home covid test (per pt test was ) Machine Inspector Required: No Assembler Metal Building: Not Required per policy Accompanied by: Self / Same As Patient Allergies azithromycin Allergy (Intermediate, Verified 09/22/24 09:37) Diarrhea codeine Allergy (Intermediate, Verified 09/22/24 09:37) Shakiness bees Allergy (Unknown, Uncoded 09/22/24 09:15) Swelling hornet Allergy (Unknown, Uncoded 09/22/24 09:15) Swelling Tobacco use date assessed: 09/22/24 Dental Screening Dental Screen Date: 03/31/24 HPI [facility] 09/09 rt side pain HPI Details 33-year-old female presents to the [facility] for a sick visit. Patient was seen in the emergency room for shortness of breath and cough. A chest x-ray showed a possible opacity in the right lobe and was treated for pneumonia. She was prescribed azithromycin. Patient could not tolerate the medication and after a single dosage developed diarrhea. She has not taken any other antibiotic. Since the hospital visit patient's symptoms are improving. However she would like to be tested for COVID. Continues to have pain on the right side. No fevers or chills. [facility] Medical History Bleeding hemorrhoids Hemorrhoids Weight gain Hypothyroidism UTI (urinary tract infection) Morning after pill advice and prescription Screen for STD (sexually transmitted disease) Chest pain Multinodular thyroid Thyroid nodule Abnormal thyroid scan Encounter for IUD removal Contraceptive management Abdominal bloating IUD check up Complex ovarian cyst Pelvic cramping Encounter for IUD insertion Postprandial abdominal bloating Obese Recurrent UTI Family planning Bleeding hemorrhoids Generalized abdominal pain Obesity (BMI 30-39.9) Smoker Matthew's duct cyst Vaginal cyst Urethral diverticulum Hx of hematuria Family planning Screen for STD (sexually transmitted disease) COVID COVID-19 Dog bite Rash Cellulitis Headache Palpitation Neck pain Screening examination for infectious disease Heart palpitations control counseling History of cardiac disorder Depression Migraine Insomnia Abnormal laboratory test Arthritis Immune disorder Healthy adult History of leukocytosis Surgical History Hx of ultrasound guided needle biopsy History of delivery Family History Mother Diabetes Maternal Grandmother Diabetes Sister HTN (hypertension) Maternal Uncle Thyroid cancer Social History Housing: Apartment Alcohol intake: current Alcohol intake frequency: holidays/special occasions only Patient Tobacco Use Status: Former Tobacco user Tobacco use type: Cigarette Years Smoked: 10 years e-Cigarette/Vaping Use: Currently Using Second Hand Smoke Exposure: Yes service: No Current occupational status: unemployed Cognitive needs: No Hearing needs: No Vision needs: Yes Female Reproductive History Menstrual Age of Menarche: 11 Questionnaire Thrive Questionnaire Date Thrive assessed: 03/31/24 HOWARD-7 AMB Questionnaire HOWARD-7 Date HOWARD - 7 assessed: 03/31/24 Source: Developed by Drs. Lico Hutchinson, Citlali Mendoza, Frantz Rodas and colleagues, with an educational yaakov from [employer]. Physical exam (Primary Care) Vital Signs: Last Vital Signs Pulse 97 09/22/24 09:15 BP 120/76 09/22/24 09:15 Pulse Ox 95 09/22/24 09:15 Oxygen Delivery Method Room Air 09/22/24 09:15 BMI result Body Mass Index 40.2 Tobacco/Smoking Status: Tobacco use Status Tobacco use date assessed 09/22/24 09/22/24 09:39 Patient Tobacco Use Status Former Tobacco user 09/22/24 09:39 Tobacco use type Cigarette 09/22/24 09:39 e-Cigarette/Vaping Use Currently Using 09/22/24 09:39 Thrive Assessment: Date of Thrive Assessment Date Thrive assessed 03/31/24 09/22/24 09:39 Const General: cooperative and healthy appearing Nutritional Appearance: well nourished Orientation/consciousness: patient oriented x3 Limitations: no limitations HENMT Head: Yes normal to inspection Eyes General: appearance normal, both eyes and all related structures Neck Neck: Yes normal visual inspection Chest Chest palpation & inspection: normal palpation of entire chest wall Resp Effort & Inspection: normal respiratory effort Neuro General: patient oriented x3 Coding Level of Care Code Est Pt Level 4 (46645) Complex EM visit Add On G2211 Diagnoses Pneumonia J18.9 Assessment & Plan Assessment & Plan (1) Pneumonia: Code(s): J18.9 - Pneumonia, unspecified organism Plan: Hospital ER note reviewed. Patient was given azithromycin to which she developed diarrhea. Bactrim has been ordered. COVID test has been ordered. Chest x-ray to be repeated in 2 weeks. Order has been placed. Orders: Orders SARS-CoV2/FLU/RSV Today R43.9 - Unspecified disturbances of smell and taste
[2024-09-22 09:15] VITALS: BP 120/76; PULSE 97; O2SAT 95; BMI 40.2
== END 2024-09-22 11:03 | disposition home or self-care (01) ==
LOC: HO.HMCH 08:55
PROVIDERS: PCP Physician Assistant; Visit Provider Internal Medicine
DX: J18.9 Pneumonia, unspecified organism (principal)

== ENCOUNTER 2024-09-22 08:54 | Outpatient (REF) | payer OTHER, SELFPAY ==
[2024-09-22 13:04] LABS: Influenza A PCR NEGATIVE (Negative); Influenza B PCR NEGATIVE (Negative); Resp Syncy Virus RNA Qual PCR NEGATIVE (Negative); SARS COV2 PCR INHOUSE POSITIVE (Negative)
[2024-09-23 03:35] LABS: Syphilis Screen Nonreactive (Nonreactive)
[2024-09-23 04:11] LABS: HIV AB/AG Nonreactive (Nonreactive); HIV Num 1 0.06 S/CO (0.00-0.99); Hepatitis B Surface Antigen Negative (Negative); ~HepC Num1 0.15 S/CO (0.00-0.79); ~Hepatitis C Antibody Nonreactive (Nonreactive)
== END 2024-09-22 08:55 | disposition home or self-care (01) ==
LOC: HO.LAB 08:54
PROVIDERS: Absent Provider Obstetrics & Gynecology; PCP Physician Assistant; Visit Provider Internal Medicine
DX: R06.02 Shortness of breath (principal); R05.9 Cough, unspecified; J18.9 Pneumonia, unspecified organism; R43.9 Unspecified disturbances of smell and taste; Z87.891 Personal history of nicotine dependence; Z20.2 Contact with and (suspected) exposure to infections with a predominantly sexual mode of transmission
CPT/HCPCS: 0241U; 36415; 86780; 86803; 87340; 87389; 99212

== ENCOUNTER 2024-10-29 14:25 | Emergency (ER) | payer OTHER, SELFPAY ==
[2024-10-29 15:05] VITALS: BP 128/81; PULSE 99; RESP 18; TEMP 36.6; O2SAT 99; BMI 41.2
--- NOTE | 2024-10-29 15:11 | ECG_ITS ---
Test Reason : DIZZINESS Blood Pressure : / mmHG Vent. Rate : 094 BPM Atrial Rate : 094 BPM P-R Int : 168 ms QRS Dur : 072 ms QT Int : 348 ms P-R-T Axes : 007 043 019 degrees QTc Int : 435 ms Normal sinus rhythm Low voltage QRS Borderline ECG When compared with ECG of 28-DEC-2023 19:55, No significant change was found Referred By: Generic ED Physician Electronically Signed By:MISAEL BALTAZAR MD
[2024-10-29 15:27] LABS: MANUAL DIFF FLAG NO
[2024-10-29 15:29] LABS: Basophils Absolute Auto 0.1 X10*3/uL (0.0-0.2); Basophils Percent Auto 0.4 % (0-2); Eosinophils Absolute Auto 0.1 X10*3/uL (0.0-0.4); Eosinophils Percent Auto 0.7 % (0-4); Hematocrit 45.9 % (37.0-47.0); Imm Gran Abs Auto 0.11 X10*3/uL (0.00-0.03); Imm Gran Pct Auto 0.7 % (0.0-0.4); Mean Corpuscular HGB Conc 32.7 g/dl (31.0-35.0); Mean Corpuscular Hemoglobin 28.4 pg (27.0-33.0); Mean Corpuscular Volume 86.8 fL (80.0-98.0); Mean Platelet Volume 8.7 fL (9.4-12.3); Monocytes Absolute Auto 0.9 X10*3/uL (0.1-1.2); Monocytes Percent Auto 5.8 % (2-11); Neutrophils Absolute Auto 9.6 x10*3/uL (2.0-8.3); Neutrophils Percent Auto 65.4 % (45-73); Platelet Count 368 X10*3/uL (160-400); Red Blood Count 5.29 X10*6/uL (4.20-5.50); Red Cell Distribution Width 12.8 % (11.0-16.0); White Blood Count 14.7 X10*3/uL (4.8-10.8)
[2024-10-29 15:52] LABS: Albumin Level 3.8 g/dL (3.5-5.0); Anion Gap 12 (12-20); Aspartate Amino Transferase 20 U/L (5-31); Bilirubin Total 0.3 mg/dL (0.0-1.0); Blood Urea Nitrogen 13 mg/dL (9-16); Calcium 9.2 mg/dL (8.4-10.2); Carbon Dioxide 29 mmol/L (22-29); Chloride 105 mmol/L (96-108); Creatinine Clr Calc Pharmacy 122.7; Estimated Glomerular Filt Rate > 60; Glucose Random 91 mg/dL (60-115); Lipase 31 U/L (8-78); Magnesium 1.9 mg/dL (1.6-2.6); Potassium 3.7 mmol/L (3.3-5.1); Sodium 142 mmol/L (135-145); Total Protein 7.2 g/dL (6.5-8.0)
[2024-10-29 16:43] LABS: Alanine Aminotransferase 22 U/L (0-31); Alkaline Phosphatase 68 U/L (39-117)
== END 2024-10-29 19:00 | disposition left against medical advice (07) ==
PROVIDERS: Emergency Provider Emergency Medicine; PCP Physician Assistant
DX: K62.5 Hemorrhage of anus and rectum (principal); R11.0 Nausea; R10.9 Unspecified abdominal pain; Z53.21 Procedure and treatment not carried out due to patient leaving prior to being seen by health care provider; F17.200 Nicotine dependence, unspecified, uncomplicated
CPT/HCPCS: 36415; 80053; 83690; 83735; 85025; 93005; 99283

== ENCOUNTER → 2024-10-29 15:11 | Outpatient (BNV) | payer OTHER, SELFPAY | PROVIDERS: PCP Physician Assistant; Visit Provider Internal Medicine Cardiovascular Disease | DX: R42 Dizziness and giddiness (principal) | CPT/HCPCS: 93010 ==

== ENCOUNTER 2024-11-03 08:52 | Emergency (ER) | payer OTHER, SELFPAY ==
[2024-11-03 09:00] VITALS: BP 139/82; PULSE 95; RESP 16; TEMP 36.1; O2SAT 97; BMI 41.3
[2024-11-03 10:27] LABS: MANUAL DIFF FLAG NO
[2024-11-03 10:29] LABS: Basophils Absolute Auto 0.1 X10*3/uL (0.0-0.2); Basophils Percent Auto 0.6 % (0-2); Eosinophils Absolute Auto 0.1 X10*3/uL (0.0-0.4); Eosinophils Percent Auto 0.6 % (0-4); Hematocrit 46.8 % (37.0-47.0); Hemoglobin 15.7 g/dl (12.0-16.0); Imm Gran Pct Auto 0.8 % (0.0-0.4); Lymphocytes Absolute Auto 3.5 X10*3/uL (1.2-4.9); Mean Corpuscular HGB Conc 33.5 g/dl (31.0-35.0); Mean Corpuscular Hemoglobin 28.8 pg (27.0-33.0); Mean Corpuscular Volume 85.7 fL (80.0-98.0); Mean Platelet Volume 8.5 fL (9.4-12.3); Monocytes Absolute Auto 0.8 X10*3/uL (0.1-1.2); Monocytes Percent Auto 6.3 % (2-11); Neutrophils Absolute Auto 7.9 x10*3/uL (2.0-8.3); Neutrophils Percent Auto 63.7 % (45-73); Platelet Count 357 X10*3/uL (160-400); Red Blood Count 5.46 X10*6/uL (4.20-5.50); Red Cell Distribution Width 12.9 % (11.0-16.0); White Blood Count 12.4 X10*3/uL (4.8-10.8)
[2024-11-03 10:45] LABS: Alanine Aminotransferase 25 U/L (0-31); Albumin Level 3.8 g/dL (3.5-5.0); Alkaline Phosphatase 63 U/L (39-117); Anion Gap 10 (12-20); Aspartate Amino Transferase 22 U/L (5-31); Bilirubin Total 0.5 mg/dL (0.0-1.0); Blood Urea Nitrogen 10 mg/dL (9-16); Calcium 9.3 mg/dL (8.4-10.2); Carbon Dioxide 27 mmol/L (22-29); Chloride 106 mmol/L (96-108); Creatinine Clr Calc Pharmacy 136.1; Estimated Glomerular Filt Rate > 60; Glucose Random 98 mg/dL (60-115); Potassium 4.4 mmol/L (3.3-5.1); Sodium 139 mmol/L (135-145); Total Protein 7.3 g/dL (6.5-8.0)
--- NOTE | 2024-11-03 12:05 | ED.GENADULT ---
HPI - General Adult General Chief complaint: GI Bleed Stated complaint: rectal bleeding sharp pain Time Seen by Provider: 11/03/24 12:03 History of Present Illness ED Provider: Dr. Farmer HPI narrative: 33 y/o F patient; PMH hypothyroidism, hemorrhoids; presents from home reporting three weeks of rectal bleeding. The patient states she has been using OTC medications without significant relief. The patient has been seen by GI previously for hemorrhoids, abdominal bloating/burping, and intermittent constipation/watery diarrhea. Review of 10/17/2023 colonoscopy/endoscopy - internal hemorrhoids and gastritis noted. Related Data Previous Rx's ?Medication ?Instructions ?Recorded epinephrine 0.3 mg/0.3 mL 0.3 mg (0.3 mL) IM ONCE PRN 02/26/24 injection, auto-injector (EpiPen anaphylaxis 30 days #2 ea 2-Jett) prochlorperazine maleate 10 mg 10 mg PO BID PRN nausea and 08/12/24 tablet (Compazine) vomiting #14 tabs albuterol sulfate 90 mcg/actuation 2 puff inhalation Q4-6H PRN 09/09/24 aerosol inhaler shortness of breath or wheezing #8.5 grams ibuprofen 600 mg tablet 600 mg PO Q6H PRN pain #14 tabs 09/09/24 sulfamethoxazole 800 1 tab PO BID 5 days #10 tabs 09/22/24 mg-trimethoprim 160 mg tablet (Bactrim DS) Allergies Allergy/AdvReac Type Severity Reaction Status Date / Time azithromycin Allergy Intermediate Diarrhea Verified 11/03/24 09:01 codeine Allergy Intermediate Shakiness Verified 11/03/24 09:01 bees Allergy Unknown Swelling Uncoded 10/29/24 15:08 hornet Allergy Unknown Swelling Uncoded 10/29/24 15:08 Review of Systems Review of Systems: Yes all other systems are reviewed and are negative PMFSH Past Medical History Attestation statement: The following information was validated with the patient. Source: old records reviewed Medical History Bleeding hemorrhoids Hemorrhoids Weight gain Hypothyroidism UTI (urinary tract infection) Morning after pill advice and prescription Screen for STD (sexually transmitted disease) Chest pain Multinodular thyroid Thyroid nodule Abnormal thyroid scan Encounter for IUD removal Contraceptive management Abdominal bloating IUD check up Complex ovarian cyst Pelvic cramping Encounter for IUD insertion Postprandial abdominal bloating Obese Recurrent UTI Family planning Bleeding hemorrhoids Generalized abdominal pain Obesity (BMI 30-39.9) Smoker Matthew's duct cyst Vaginal cyst Urethral diverticulum Hx of hematuria Family planning Screen for STD (sexually transmitted disease) COVID COVID-19 Dog bite Rash Cellulitis Headache Palpitation Neck pain Screening examination for infectious disease Heart palpitations control counseling History of cardiac disorder Depression Migraine Insomnia Abnormal laboratory test Arthritis Immune disorder Healthy adult History of leukocytosis Surgical History Hx of ultrasound guided needle biopsy History of delivery Family History Family History Mother Diabetes Maternal Grandmother Diabetes Sister HTN (hypertension) Maternal Uncle Thyroid cancer Social History Social History Housing: Apartment Alcohol intake: current Alcohol intake frequency: holidays/special occasions only Patient Tobacco Use Status: Former Tobacco user Tobacco use type: Cigarette Years Smoked: 10 years Smoked in Last 30 Days: No e-Cigarette/Vaping Use: Currently Using Second Hand Smoke Exposure: Yes Use of substances other than those prescribed or required for medical reasons: No Do you have a plan to hurt others: No Plan service: No Current occupational status: unemployed Cognitive needs: No Hearing needs: No Vision needs: Yes Physical Exam ED Vital Signs: Vital Signs - 24 hr 11/03/24 09:00 11/03/24 12:13 Temperature 96.9 F Pulse Rate 95 91 Respiratory Rate 16 16 Blood Pressure 139/82 127/77 Pulse Oximetry 97 100 Oxygen Delivery Method Room Air BMI result Body Mass Index 41.3 Patient is afebrile and hemodynamically stable Const General: cooperative Orientation/consciousness: patient oriented x3 HENMT Head: Yes normal to inspection and Yes atraumatic Eyes General: appearance normal, both eyes and all related structures Neck Neck: Yes normal visual inspection, Yes full ROM, Yes supple and No tender Chest Chest palpation & inspection: normal inspection of the chest and normal palpation of entire chest wall Resp Effort & Inspection: normal respiratory effort, able to speak in complete sentences, no cough and no respiratory distress Auscultation: clear to auscultation bilaterally Cardio Rate: regular rate Rhythm: regular rhythm Peripheral pulses: Peripheral pulses 2+ throughout GI Other: Rectal: Small non-thrombosed external hemorrhoids Inspection: Yes normal to inspection, No Abdominal wall edema and No distended Palpation (GI): Soft to palpation, not firm, nontender, no guarding and not rigid Auscultation: normal bowel sounds Back/Spine/Pelvis Back: No back tenderness Neuro General: patient oriented x3 Course Course Course Narrative: Patient is afebrile and hemodynamically stable. Reviewed triage labs - reassuring CBC and BMP. BMP with normal BUN. Less likely GI bleeding. CBC with baseline Hgb. I discussed with the patient that she will need to re-establish care with GI. Her exam, vitals, and labs are reassuring. She is describing painless rectal bleeding without straining. She is currently using miralax, I encouraged her to continue this. We discussed limits of CT imaging in the setting of concern for lower GI bleeding. Risks versus benefits explained. Decision made to defer this imaging at this time. Plan: Discharge to home with PCP and GI follow up Return precautions given Medical Decision Making Lab Data 11/03/24 10:24 11/03/24 10:24 Labs: Lab Results 11/03/24 Range/Units 10:24 WBC 12.4 H (4.8-10.8) X10*3/uL RBC 5.46 (4.20-5.50) X10*6/uL Hgb 15.7 (12.0-16.0) g/dl Hct 46.8 (37.0-47.0) % MCV 85.7 (80.0-98.0) fL MCH 28.8 (27.0-33.0) pg MCHC 33.5 (31.0-35.0) g/dl RDW 12.9 (11.0-16.0) % Plt Count 357 (160-400) X10*3/uL MPV 8.5 L (9.4-12.3) fL Immature Gran % (Auto) 0.8 H (0.0-0.4) % Neut % (Auto) 63.7 (45-73) % Lymph % (Auto) 28.0 (20-40) % Leslie % (Auto) 6.3 (2-11) % Eos % (Auto) 0.6 (0-4) % Baso % (Auto) 0.6 (0-2) % Lymph # (Auto) 3.5 (1.2-4.9) X10*3/uL Leslie # (Auto) 0.8 (0.1-1.2) X10*3/uL Eos # (Auto) 0.1 (0.0-0.4) X10*3/uL Baso # (Auto) 0.1 (0.0-0.2) X10*3/uL Abs Immat Gran (auto) 0.10 H (0.00-0.03) X10*3/uL Absolute Neuts (auto) 7.9 (2.0-8.3) x10*3/uL Absolute Nucleated RBC 0.000 (0.0-0.012) X10*3/uL Nucleated RBC % (auto) 0.0 (0.0-0.2) /100WBC Sodium 139 (135-145) mmol/L Potassium 4.4 (3.3-5.1) mmol/L Chloride 106 (96-108) mmol/L Carbon Dioxide 27 (22-29) mmol/L Anion Gap 10 L (12-20) BUN 10 (9-16) mg/dL Creatinine 0.84 (0.5-1.4) mg/dL Estim Creat Clear Calc 136.1 Estimated GFR > 60 Random Glucose 98 (60-115) mg/dL Calcium 9.3 (8.4-10.2) mg/dL Total Bilirubin 0.5 (0.0-1.0) mg/dL AST 22 (5-31) U/L ALT 25 (0-31) U/L Alkaline Phosphatase 63 (39-117) U/L Total Protein 7.3 (6.5-8.0) g/dL Albumin 3.8 (3.5-5.0) g/dL Discharge Plan Discharge Clinical Impression: Painless rectal bleeding Patient Disposition: Home, Self-Care Instructions: Rectal Bleeding (ED) Additional Instructions: As we discussed, you were seen for rectal bleeding. Your exam, vitals, and labs are reassuring at this time. I recommend you call to make the soonest appointment with GI. Return to the emergency department for: Passing out Vomiting Fever Abdominal pain Prescriptions: No Action epinephrine [EpiPen 2-Jett] 0.3 mg/0.3 mL auto-injector 0.3 mg IM ONCE PRN (Reason: anaphylaxis) 30 Days Qty: 2 0RF albuterol sulfate 90 mcg/actuation HFA aerosol inhaler 2 puff inhalation Q4-6H PRN (Reason: shortness of breath or wheezing) Qty: 8.5 0RF ibuprofen 600 mg tablet 600 mg PO Q6H PRN (Reason: pain) Qty: 14 0RF prochlorperazine maleate [Compazine] 10 mg tablet 10 mg PO BID PRN (Reason: nausea and vomiting) Qty: 14 0RF sulfamethoxazole-trimethoprim [Bactrim DS] 800-160 mg tablet 1 tab PO BID 5 Days Qty: 10 0RF Referrals: Ahsan Beavers MD [Physician] - 2 days Print Language: New Zealander
[2024-11-03 12:13] VITALS: BP 127/77; PULSE 91; RESP 16; O2SAT 100
--- NOTE | 2024-11-03 12:19 | PC.NURSE ---
Patient very upest to be brought back to a shared room, does not feel comfortable answering questions in shared room, does not want to change into hospital mehdi, spoke w/ furnace charger Faby to have patient switched to private room at least for provider examination, patient walked to ED17.
[2024-11-03 12:38] VITALS: BP 127/77; PULSE 91; RESP 16; TEMP 36.7; O2SAT 100
== END 2024-11-03 12:47 | disposition home or self-care (01) ==
PROVIDERS: Emergency Provider Emergency Medicine; PCP Physician Assistant
DX: K62.5 Hemorrhage of anus and rectum (principal); K59.00 Constipation, unspecified; Z87.891 Personal history of nicotine dependence; Z79.899 Other long term (current) drug therapy
CPT/HCPCS: 36415; 80053; 85025; 99283; 99284

== ENCOUNTER 2024-12-31 14:03 | Outpatient (AMB) | payer OTHER, SELFPAY ==
--- NOTE | 2024-12-31 14:09 | A.OFFVIS_ITS ---
Vital Signs 12/31/24 14:11 Height 5 ft 9 in Weight 273 lb 5.971 oz BMI 40.4 BP 117/59 L Blood Pressure Location Lt brachial Position Sitting Pulse 110 H Intake Visit Reasons: ED f/u Intake Note: Krupa presents in the office as a ED follow up. CC: She states when she is having a BM she has pains in the right side and having a lot more blood when she has a BM. It lasts for 2 weeks and then will stop for a couple days and comes back. Fire Supervisor Required: No Allergies azithromycin Allergy (Intermediate, Verified 07/07/25 14:16) Diarrhea codeine Allergy (Intermediate, Verified 07/07/25 14:16) Shakiness bees Allergy (Unknown, Uncoded 05/21/25 08:59) Swelling hornet Allergy (Unknown, Uncoded 05/21/25 08:59) Swelling HPI Comments Details: 33y.o F with PMH of who is here for second opinion for IBS. Around a year ago started noticing increased bloating and burping with R upper and lower sided pain which is crampy in nature. This is assoc with BM alternating between profuse watery diarrhea and constipation which she describes as small and hard stools for which she has to strain. Clark stool chart 4 however. Has to digitalise and splint to pass the BM. Elevates legs with a foot stool. Sees blood in toilet bowl and on wiping. Has taken MoM, senna tea, dulcolax - notices worsening cramping with MoM and dulcolax. Reports main issue is feeling that shes not completely emptied out and gets fatigued with straining. Has never tried an enema or suppository. Bloating and abd pain does not change with passing a BM. Also reports globus sensation and has tankage grinder nausea and vomiting after breakfast, but not if she skips breakfast and has lunch later on in the day. 10/16/23: Endoscopy Findings: gastritis Colonoscopy Findings: polyp internal hemorrhoids Path: A. Colon, ascending, polypectomy: Fragments of tubular adenoma; negative for high-grade dysplasia or carcinoma. B. Terminal ileum, biopsy: Terminal ileal mucosa within normal limits. C. Colon, right, biopsy: Colonic mucosa within normal limits. D. Colon, left, biopsy: Colonic mucosa within normal limits. E. Duodenum, biopsy: Chronic inactive duodenitis. F. Stomach, biopsy: Antral-type and oxyntic mucosa with mild chronic inactive inflammation; no Helicobacter organisms seen. G. Esophagus, random, biopsy: Squamous epithelium within normal limits; no inflammation seen 12/31/24: Here follow up. Last seen in 2023. Was seen in ER in Oct 2024 for rectal bleeding x 2 weeks. Labs at that time without any significant anemia. Assoc with RLQ pain that is crampy followed by a formed sometimes hard BM. No fevers, chills. Patient also reports difficulty swallowing and globus sensation. This has been persistent since last time. Has to frequently clear her throat. Previous EGD without any esophageal abnormality. [facility] Medical History Heart palpitations Bleeding hemorrhoids Hemorrhoids Weight gain Hypothyroidism UTI (urinary tract infection) Morning after pill advice and prescription Screen for STD (sexually transmitted disease) Chest pain Multinodular thyroid Thyroid nodule Abnormal thyroid scan Encounter for IUD removal Contraceptive management Abdominal bloating IUD check up Complex ovarian cyst Pelvic cramping Encounter for IUD insertion Postprandial abdominal bloating Obese Recurrent UTI Family planning Bleeding hemorrhoids Generalized abdominal pain Obesity (BMI 30-39.9) Smoker Matthew's duct cyst Vaginal cyst Urethral diverticulum Hx of hematuria Family planning Screen for STD (sexually transmitted disease) COVID COVID-19 Dog bite Rash Cellulitis Headache Palpitation Neck pain Screening examination for infectious disease control counseling History of cardiac disorder Depression Migraine Insomnia Abnormal laboratory test Arthritis Immune disorder Healthy adult History of leukocytosis Surgical History Hx of ultrasound guided needle biopsy History of delivery Family History Mother Diabetes Maternal Grandmother Diabetes Sister HTN (hypertension) Maternal Uncle Thyroid cancer Social History Housing: Apartment Alcohol intake: current Alcohol intake frequency: holidays/special occasions only Patient Tobacco Use Status: Former Tobacco user Tobacco use type: Cigarette Years Smoked: 10 years e-Cigarette/Vaping Use: Currently Using Second Hand Smoke Exposure: Yes service: No Current occupational status: unemployed Cognitive needs: No Hearing needs: No Vision needs: Yes Female Reproductive History Menstrual Age of Menarche: 11 Review of Systems Const All systems reviewed & are unremarkable except as noted in HPI and below Physical Exam Vital Signs: Last Vital Signs Pulse 110 H 12/31/24 14:11 BP 117/59 L 12/31/24 14:11 BMI result Body Mass Index 40.4 No apparent distress Nonicteric Abdomen soft, nondistended Alert and oriented x3, normal gait Assessment & Plan Assessment & Plan (1) Bleeding hemorrhoids: Code(s): K64.9 - Unspecified hemorrhoids Category: Medical (2) IBS (irritable bowel syndrome): Code(s): K58.9 - Irritable bowel syndrome, unspecified Category: Medical (3) Dysphagia: Code(s): R13.10 - Dysphagia, unspecified Category: Medical (4) Globus sensation: Code(s): R09.A2 - Foreign body sensation, throat Category: Medical (5) Tubular adenoma of colon: Comment: 09/2023= 1 TA REPEAT 5 YEARS Code(s): D12.6 - Benign neoplasm of colon, unspecified Category: Medical (6) Bleeding hemorrhoids: Code(s): K64.9 - Unspecified hemorrhoids Category: Medical Plan 1. Rectal bleeding likely secondary to hemorrhoids as noted on the previous colonoscopy. This in the setting of excessive straining and hard stool. First line of the treatment will be to manage stool consistency and frequency. She was also recommended to have xr defecography, which is still pending. She had a good quality colonoscopy 2 years ago, and a repeat colonoscopy is not urgently warranted. However, given her visits to the emergency room and concern with significant bleeding, we will book her for a flexible sigmoidoscopy. Plan: - flexible sigmoidoscopy to be booked - patient is aware to take clear liquid diet the day before, and 2 enemas prior to arrival for the procedure - fiber supplementation - MiraLax daily - Elevated legs while having a BM - Avoid straining, limit time on the toilet to avoid aggravating hemorrhoids - topical hydrocortisone to help decongest hemorrhoids - Sitz baths - patient to [place] [facility] [place] 2. Globus sensation: again, under the umbrella of DGBIs. EGD normal. Plan: - Barium esophagogram - If negative, would recommend diaphragmatic breathing (may also help with supragasric belching as described above) Follow up after flex sig Orders: Orders [place] barium swallow 12/31/24 R09.A2 - Foreign body sensation, throat, R10.9 - Unspecified abdominal pain Medications: New hydrocortisone 1% Apply at night time 1 appl HI DAILY 28.4 grams 0RF 10 days Coding Level of Care Code Est Pt Level 5 (66600) Diagnoses Bleeding hemorrhoids K64.9 IBS (irritable bowel syndrome) K58.9 Dysphagia R13.10 Globus sensation R09.A2 Tubular adenoma of colon D12.6
[2024-12-31 14:11] VITALS: BP 117/59; PULSE 110; BMI 40.4
--- OUTSIDE RECORDS SUMMARY | 2024-12-31 15:27 | XMS_ITS | Clinical Summary ---
Author Organization [facility] Address [address] [place] [address] Care Team Providers Care Lehr Tender Name Role Phone Unavailable Primary Care Provider Unavailabl e Social History Tobacco Use Types Packs/Day Years Used Date Smoking Tobacco: Never Assessed Sex and Gender Information Value Date Recorded Sex Assigned at Not on file Gender Identity Not on file Sexual Orientation Not on file Plan of Treatment Health Maintenance Due Date Last Done Comments Hepatitis C Virus Screening 1990 HIV Screening 2003 DTaP/Tdap/Td Vaccines (1 - Tdap) 2009 Hepatitis B Vaccines (1 of 3 - 19+ 3-dose series) 2009 COVID-19 Vaccine (2023-2 5 season) 2024 HPV Vaccines Aged Out No longer eligi ble based on patient's age to complete this topic Pneumococcal Vaccine: Pediat lexi (0-5 Years) and At-Risk Patients (6 to 49 Years) Aged Out No longer eligible b ased on patient's age to complete this topic
== END 2024-12-31 15:12 | disposition home or self-care (01) ==
PROVIDERS: PCP Physician Assistant; Visit Provider Internal Medicine
DX: K64.9 Unspecified hemorrhoids (principal); K58.9 Irritable bowel syndrome, unspecified; R13.10 Dysphagia, unspecified; R09.A2 Foreign body sensation, throat; D12.6 Benign neoplasm of colon, unspecified
CPT/HCPCS: 99499

== ENCOUNTER → 2024-12-31 14:03 | Outpatient (BNVA) | payer OTHER, SELFPAY | PROVIDERS: PCP Physician Assistant; Visit Provider Internal Medicine ==

== ENCOUNTER 2025-02-18 08:50 | Outpatient (AMB) | payer OTHER, SELFPAY ==
--- NOTE | 2025-02-18 08:52 | AM.OFFWIN_ITS ---
Intake Vital Signs 02/18/25 08:53 Weight 272 lb BP 130/90 H Blood Pressure Location Rt brachial Position Sitting Pulse 82 Pulse Source Pulse Oximeter Temp 98 F Temp Source Oral Pulse Oximetry (%) 98 Oxygen Delivery Method Room Air Intake Visit Reasons: EP-chills, fever, rt lower abd pain Intake Note: Patient here for right lower abdominal pain, chills that started yesterday and also has hemrrhoids and has been bleeding large amounts. Patient Tobacco Use Status: Former Tobacco user Allergies azithromycin Allergy (Intermediate, Verified 02/18/25 08:55) Diarrhea codeine Allergy (Intermediate, Verified 02/18/25 08:55) Shakiness bees Allergy (Unknown, Uncoded 02/18/25 08:55) Swelling hornet Allergy (Unknown, Uncoded 02/18/25 08:55) Swelling Do you need a note to return to daycare/school/sports/work: No HPI HPI Comments History of Present Illness Details History of Present Illness - The patient is a 34-year-old female pr esenting with abdominal pain and associated symptoms. - Right lower abdominal pain onset was y esterday, accompanied by chills and notable rectal bleeding with clotting, differing from previous hemorrhoidal bleeding. - Symptoms include uncontrollable shakin g leading to feeling extremely cold, transitioning to being excessively hot during sleep. - Pain is significant in left lower abdo men, with nausea and anorexia mentioned. - History of intermittent hemorrhoidal b leeding with one week of relief followed by recurrence. - Gastrointestinal investigations past i nclude colonoscopy and endoscopy, with future colonoscopy planned but not scheduled. Physical Exam General: Cooperative, healthy appearing, comfortable, no acute distress and well developed Orientation: Patient oriented x3 Limitations: No limitations Head: Normal to inspection Ears: Hearing grossly normal bilaterally Nose: Normal External nose present Face and sinus: Normal facial exam Eyes: Appearance normal, both eyes and all related structures Neck: Normal visual inspection and Yes full ROM Respiratory: Normal respiratory effort and able to speak in complete sentences. GI: soft, mcburney's point tenderness, negative Ricks's. Skin: No rashes or lesions noted Neuro: Patient oriented x3 Extremities: Normal to inspection [facility] Medical History Bleeding hemorrhoids Hemorrhoids Weight gain Hypothyroidism UTI (urinary tract infection) Morning after pill advice and prescription Screen for STD (sexually transmitted disease) Chest pain Multinodular thyroid Thyroid nodule Abnormal thyroid scan Encounter for IUD removal Contraceptive management Abdominal bloating IUD check up Complex ovarian cyst Pelvic cramping Encounter for IUD insertion Postprandial abdominal bloating Obese Recurrent UTI Family planning Bleeding hemorrhoids Generalized abdominal pain Obesity (BMI 30-39.9) Smoker Matthew's duct cyst Vaginal cyst Urethral diverticulum Hx of hematuria Family planning Screen for STD (sexually transmitted disease) COVID COVID-19 Dog bite Rash Cellulitis Headache Palpitation Neck pain Screening examination for infectious disease Heart palpitations control counseling History of cardiac disorder Depression Migraine Insomnia Abnormal laboratory test Arthritis Immune disorder Healthy adult History of leukocytosis Surgical History Hx of ultrasound guided needle biopsy History of delivery Family History Mother Diabetes Maternal Grandmother Diabetes Sister HTN (hypertension) Maternal Uncle Thyroid cancer Social History Housing: Apartment Alcohol intake: current Alcohol intake frequency: holidays/special occasions o nly Patient Tobacco Use Status: Former Tobacco user Tobacco use type: Cigarette Years Smoked: 10 years e-Cigarette/Vaping Use: Currently Using Second Hand Smoke Exposure: Yes service: No Current occupational status: unemployed Cognitive needs: No Hearing needs: No Vision needs: Yes Female Reproductive History Menstrual Age of Menarche: 11 Review of Systems Const All systems reviewed & are unremarkable except as noted in HPI and below Physical Exam Vital Signs: Last Vital Signs Temp 98 F 02/18/25 08:53 Pulse 82 02/18/25 08:53 BP 130/90 H 02/18/25 08:53 Pulse Ox 98 02/18/25 08:53 Oxygen Delivery Method Room Air 02/18/25 08:53 Assessment & Plan Assessment & Plan (1) Abdominal pain, RLQ (right lower quadrant): Code(s): R10.31 - Right lower quadrant pain Plan: VSS, pt well appearing and PE remarkable for mcburney's point tenderness. Given the patient's acute presentation of right lower abdominal pain with associated symptoms, I have recommended she go to the ED to rule out appendicitis. The patient's reported cold chills followed by excessive warmth and current nausea warrant immediate assessment to prevent any complication from suspected appendicitis. The recurrent hemorrhoids with atypical bleeding are secondary concerns pending the acute abdominal management. Dietary intake monitoring is advised in light of nausea, pending further evaluation. Recommendations and risk discussions have been articulated, and emergency referral logistics are arranged for definitive diagnostics and management. Called [facility] with jaxon, spoke with Jeri Hamilton PA-C. Patient was informed and verbally consented to the use of an ambient scribe for clinic note documentation during this visit. Coding Level of Care Code Est Pt Level 5 (67031) Diagnoses Abdominal pain, RLQ (right lower quadrant) R10.31
[2025-02-18 08:53] VITALS: BP 130/90; PULSE 82; TEMP 36.6; O2SAT 98
--- OUTSIDE RECORDS SUMMARY | 2025-02-18 09:29 | XMS_ITS | Clinical Summary ---
Author Organization [facility] Address [address] [place] [address] Care Team Providers Care Pharmacy Resident Name Role Phone Unavailable Primary Care Provider [...]
== END 2025-02-18 09:18 | disposition home or self-care (01) ==
PROVIDERS: PCP Physician Assistant; Visit Provider Physician Assistant
DX: R10.31 Right lower quadrant pain (principal)

== ENCOUNTER → 2025-02-18 08:50 | Outpatient (BNVA) | payer OTHER, SELFPAY | PROVIDERS: PCP Physician Assistant; Visit Provider Physician Assistant | DX: R10.31 Right lower quadrant pain (principal) | CPT/HCPCS: 99212 ==

== ENCOUNTER 2025-02-18 09:30 | Emergency (ER) | payer OTHER, SELFPAY ==
[2025-02-18 09:37] VITALS: BP 125/79; PULSE 84; RESP 12; TEMP 37.6; O2SAT 97; BMI 40.6
[2025-02-18 10:26] LABS: MANUAL DIFF FLAG NO
[2025-02-18 10:28] LABS: Basophils Absolute Auto 0.1 X10*3/uL (0.0-0.2); Basophils Percent Auto 0.4 % (0-2); Eosinophils Absolute Auto 0.1 X10*3/uL (0.0-0.4); Eosinophils Percent Auto 0.7 % (0-4); Hematocrit 45.3 % (37.0-47.0); Hemoglobin 15.4 g/dl (12.0-16.0); Imm Gran Abs Auto 0.06 X10*3/uL (0.00-0.03); Imm Gran Pct Auto 0.5 % (0.0-0.4); Lymphocytes Absolute Auto 3.4 X10*3/uL (1.2-4.9); Lymphocytes Percent Auto 29.1 % (20-40); Mean Corpuscular Hemoglobin 28.9 pg (27.0-33.0); Mean Corpuscular Volume 85.2 fL (80.0-98.0); Mean Platelet Volume 8.9 fL (9.4-12.3); Monocytes Absolute Auto 0.7 X10*3/uL (0.1-1.2); Monocytes Percent Auto 5.8 % (2-11); Neutrophils Absolute Auto 7.3 x10*3/uL (2.0-8.3); Neutrophils Percent Auto 63.5 % (45-73); Platelet Count 335 X10*3/uL (160-400); Red Blood Count 5.32 X10*6/uL (4.20-5.50); White Blood Count 11.5 X10*3/uL (4.8-10.8)
[2025-02-18 10:52] LABS: Alanine Aminotransferase 19 U/L (0-31); Albumin Level 3.8 g/dL (3.5-5.0); Alkaline Phosphatase 59 U/L (39-117); Anion Gap 12 (12-20); Aspartate Amino Transferase 22 U/L (5-31); Bilirubin Total 0.7 mg/dL (0.0-1.0); Blood Urea Nitrogen 14 mg/dL (9-16); Calcium 9.3 mg/dL (8.4-10.2); Carbon Dioxide 23 mmol/L (22-29); Chloride 107 mmol/L (96-108); Creatinine Clr Calc Pharmacy 147.6; Estimated Glomerular Filt Rate > 60; Glucose Random 98 mg/dL (60-115); Potassium 3.9 mmol/L (3.3-5.1); Sodium 138 mmol/L (135-145); Total Protein 7.1 g/dL (6.5-8.0)
[2025-02-18 10:53] LABS: HCG Quantitative < 2 mIU/mL
--- NOTE | 2025-02-18 10:53 | ED_ITS ---
HPI - Abdominal Pain General Chief Complaint: Abdominal Pain Stated Complaint: Chills, Right Lower Ab Pain, Dry Mouth/ Eyes Time Seen by Provider: 02/18/25 10:42 Source: patient Mode of arrival: ambulatory Limitations: no limitations History of Present Illness HPI narrative: This is a 34 years old female patient presented to the emergency department complaining of right lower quadrant abdominal pain she was seen in urgent care and sent here for evaluation. She denies any fever chills vomiting. MD elicited complaint: abdominal pain Pertinent past history: other (hemorrhoid) Onset (ago): day(s) (1) Pain Consistency: constant Location: RLQ Severity: mild Quality: cramping Radiation: none Migration to: no migration Exacerbating factors: nothing Related Data Previous Rx's ?Medication ?Instructions ?Recorded epinephrine 0.3 mg/0.3 mL 0.3 mg (0.3 mL) IM ONCE PRN 02/26/24 injection, auto-injector (EpiPen anaphylaxis 30 days #2 ea 2-Jett) albuterol sulfate 90 mcg/actuation 2 puff inhalation Q4-6H PRN 09/09/24 aerosol inhaler shortness of breath or wheezing #8.5 grams ibuprofen 600 mg tablet 600 mg PO Q6H PRN pain #14 tabs 09/09/24 hydrocortisone 1 % topical cream 1 appl WA DAILY 10 days #28.4 grams 12/31/24 with perineal applicator Allergies Allergy/AdvReac Type Severity Reaction Status Date / Time azithromycin Allergy Intermediate Diarrhea Verified 02/18/25 09:42 codeine Allergy Intermediate Shakiness Verified 02/18/25 09:42 bees Allergy Unknown Swelling Uncoded 02/18/25 09:42 hornet Allergy Unknown Swelling Uncoded 02/18/25 09:42 Review of Systems Constitutional: Reports no additional constitutional complaints Cardiovascular: Reports no additional cardiovascular complaints PMFSH Past Medical History Attestation statement: The following information was validated with the patient. Medical History Bleeding hemorrhoids Hemorrhoids Weight gain Hypothyroidism UTI (urinary tract infection) Morning after pill advice and prescription Screen for STD (sexually transmitted disease) Chest pain Multinodular thyroid Thyroid nodule Abnormal thyroid scan Encounter for IUD removal Contraceptive management Abdominal bloating IUD check up Complex ovarian cyst Pelvic cramping Encounter for IUD insertion Postprandial abdominal bloating Obese Recurrent UTI Family planning Bleeding hemorrhoids Generalized abdominal pain Obesity (BMI 30-39.9) Smoker Matthew's duct cyst Vaginal cyst Urethral diverticulum Hx of hematuria Family planning Screen for STD (sexually transmitted disease) COVID COVID-19 Dog bite Rash Cellulitis Headache Palpitation Neck pain Screening examination for infectious disease Heart palpitations control counseling History of cardiac disorder Depression Migraine Insomnia Abnormal laboratory test Arthritis Immune disorder Healthy adult History of leukocytosis Surgical History Hx of ultrasound guided needle biopsy History of delivery Family History Family History Mother Diabetes Maternal Grandmother Diabetes Sister HTN (hypertension) Maternal Uncle Thyroid cancer Social History Social History Housing: Apartment Alcohol intake: current Alcohol intake frequency: holidays/special occasions only Patient Tobacco Use Status: Former Tobacco user Tobacco use type: Cigarette Years Smoked: 10 years e-Cigarette/Vaping Use: Currently Using Second Hand Smoke Exposure: Yes Advance Directives: No Advance Directives Information Provided: Yes Do you have a plan to hurt others: No Plan service: No Current occupational status: unemployed Cognitive needs: No Hearing needs: No Vision needs: Yes Physical Exam ED Vital Signs: Vital Signs - 24 hr 02/18/25 09:37 02/18/25 10:58 Temperature 99.7 F Pulse Rate 84 85 Respiratory Rate 12 18 Blood Pressure 125/79 126/79 Pulse Oximetry 97 97 Oxygen Delivery Method Room Air Room Air BMI result Body Mass Index 40.6 No acute distress comfortable in the stretcher Const General: cooperative Nutritional Appearance: well nourished Orientation/consciousness: patient oriented x3 Limitations: no limitations HENMT Head: Yes normal to inspection Ears: hearing grossly normal bilaterally Throat: Yes posterior oropharynx normal Neck Neck: Yes normal visual inspection and Yes full ROM Chest Chest palpation & inspection: normal inspection of the chest Resp Effort & Inspection: normal respiratory effort Auscultation: clear to auscultation bilaterally Cardio Jugular venous distension: no JVD Rate: regular rate Rhythm: regular rhythm GI Other: Obese abdomen tenderness in the right side Palpation (GI): Soft to palpation, not firm, no guarding and not rigid Neuro General: patient oriented x3 Cranial nerves: Yes CN's II-XII intact bilaterally Course Reevaluation(s) Reevaluation #1: I was informed by RN that pt eloped Time: 13:36 Medical Decision Making Medical Decision Making [facility] Narrative: Patient is here with abdominal pain and differential diagnosis colitis diverticulitis viral illness we will check labs Differential Diagnosis Differential Diagnoses: The differential diagnosis associated with the presentation includes Colitis/diverticulitis/viral syndrome Lab Data [facility] Lab Attestation statement: I reviewed the patient's lab results. 02/18/25 10:11 02/18/25 10:11 Labs: Lab Results 02/18/25 Range/Units 10:11 WBC 11.5 H (4.8-10.8) X10*3/uL RBC 5.32 (4.20-5.50) X10*6/uL Hgb 15.4 (12.0-16.0) g/dl Hct 45.3 (37.0-47.0) % MCV 85.2 (80.0-98.0) fL MCH 28.9 (27.0-33.0) pg MCHC 34.0 (31.0-35.0) g/dl RDW 12.0 (11.0-16.0) % Plt Count 335 (160-400) X10*3/uL MPV 8.9 L (9.4-12.3) fL Immature Gran % (Auto) 0.5 H (0.0-0.4) % Neut % (Auto) 63.5 (45-73) % Lymph % (Auto) 29.1 (20-40) % [place] % (Auto) 5.8 (2-11) % Eos % (Auto) 0.7 (0-4) % Baso % (Auto) 0.4 (0-2) % Lymph # (Auto) 3.4 (1.2-4.9) X10*3/uL [place] # (Auto) 0.7 (0.1-1.2) X10*3/uL Eos # (Auto) 0.1 (0.0-0.4) X10*3/uL Baso # (Auto) 0.1 (0.0-0.2) X10*3/uL Abs Immat Gran (auto) 0.06 H (0.00-0.03) X10*3/uL Absolute Neuts (auto) 7.3 (2.0-8.3) x10*3/uL Absolute Nucleated RBC 0.000 (0.0-0.012) X10*3/uL Nucleated RBC % (auto) 0.0 (0.0-0.2) /100WBC Sodium 138 (135-145) mmol/L Potassium 3.9 (3.3-5.1) mmol/L Chloride 107 (96-108) mmol/L Carbon Dioxide 23 (22-29) mmol/L Anion Gap 12 (12-20) BUN 14 (9-16) mg/dL Creatinine 0.76 (0.5-1.4) mg/dL Estim Creat Clear Calc 147.6 Estimated GFR > 60 Random Glucose 98 (60-115) mg/dL Calcium 9.3 (8.4-10.2) mg/dL Total Bilirubin 0.7 (0.0-1.0) mg/dL AST 22 (5-31) U/L ALT 19 (0-31) U/L Alkaline Phosphatase 59 (39-117) U/L C-Reactive Protein 0.92 H (< or = 0.50) mg/dL Total Protein 7.1 (6.5-8.0) g/dL Albumin 3.8 (3.5-5.0) g/dL Beta HCG, Quant < 2 mIU/mL Discharge Plan Discharge Clinical Impression: Abdominal pain Qualifiers: Abdominal location: right lower quadrant Qualified Code(s): R10.31 - Right lower quadrant pain Patient Disposition: Elopement Prescriptions: No Action epinephrine [EpiPen 2-Jett] 0.3 mg/0.3 mL auto-injector 0.3 mg IM ONCE PRN (Reason: anaphylaxis) 30 Days Qty: 2 0RF albuterol sulfate 90 mcg/actuation HFA aerosol inhaler 2 puff inhalation Q4-6H PRN (Reason: shortness of breath or wheezing) Qty: 8.5 0RF ibuprofen 600 mg tablet 600 mg PO Q6H PRN (Reason: pain) Qty: 14 0RF hydrocortisone 1 % cream with perineal applicator 1 appl WA DAILY 10 Days Qty: 28.4 0RF Rx Instructions: Apply at night time Discharge Date/Time: 02/18/25 11:20 Print Language: Fijian
[2025-02-18 10:58] VITALS: BP 126/79; PULSE 85; RESP 18; O2SAT 97
[2025-02-18 11:08] LABS: C Reactive Protein 0.92 mg/dL (< or = 0.50)
--- NOTE | 2025-02-18 11:20 | PC.NURSE ---
pt was not found in the stretcher, hot car charger
== END 2025-02-18 11:20 | disposition left against medical advice (07) ==
LOC: HO.ED 10:54
PROVIDERS: Registered Nurse Emergency; Emergency Provider Emergency Medicine; PCP Physician Assistant
DX: R10.2 Pelvic and perineal pain (principal); R10.31 Right lower quadrant pain; Z87.891 Personal history of nicotine dependence
CPT/HCPCS: 36415; 80053; 84702; 85025; 86140; 99283

== ENCOUNTER 2025-03-03 10:47 | Outpatient (AMB) | payer OTHER, SELFPAY ==
--- NOTE | 2025-03-03 10:50 | MHC.OFFWIV ---
Intake Vital Signs 03/03/25 10:52 Weight 274 lb BP 132/84 Blood Pressure Location Rt brachial Position Sitting Pulse 123 H Pulse Source Pulse Oximeter Pulse Oximetry (%) 98 Oxygen Delivery Method Room Air Intake Visit Reasons: EP- Personal concerns will discuss with provider Intake Note: Patient here for body spasms that has been going on for almost 2 weeks. Patient Tobacco Use Status: Former Tobacco user Allergies azithromycin Allergy (Intermediate, Verified 03/03/25 10:54) Diarrhea codeine Allergy (Intermediate, Verified 03/03/25 10:54) Shakiness bees Allergy (Unknown, Uncoded 03/03/25 10:54) Swelling hornet Allergy (Unknown, Uncoded 03/03/25 10:54) Swelling Do you need a note to return to daycare/school/sports/work: No HPI HPI Comments History of Present Illness Details This is a 34-year-old female with a past medical history of hemorrhoids, IBS, anxiety, hypothyroidism and sleep disorder presenting for evaluation of intermittent ?body spasms? that she has ?all day long? for the past 2 weeks. Patient states the spasms may occur in her arm, her leg, her neck or abdomen and last from 1-5 minutes. Patient states that the spasms are not predominantly left-sided or right-sided and will often occur when sitting. Patient denies taking any new medications denies any recent injury or trauma, loss of consciousness or syncope. Patient has not seen her primary care provider for evaluation of these concerns. [facility] Medical History Bleeding hemorrhoids Hemorrhoids Weight gain Hypothyroidism UTI (urinary tract infection) Morning after pill advice and prescription Screen for STD (sexually transmitted disease) Chest pain Multinodular thyroid Thyroid nodule Abnormal thyroid scan Encounter for IUD removal Contraceptive management Abdominal bloating IUD check up Complex ovarian cyst Pelvic cramping Encounter for IUD insertion Postprandial abdominal bloating Obese Recurrent UTI Family planning Bleeding hemorrhoids Generalized abdominal pain Obesity (BMI 30-39.9) Smoker Matthew's duct cyst Vaginal cyst Urethral diverticulum Hx of hematuria Family planning Screen for STD (sexually transmitted disease) COVID COVID-19 Dog bite Rash Cellulitis Headache Palpitation Neck pain Screening examination for infectious disease Heart palpitations control counseling History of cardiac disorder Depression Migraine Insomnia Abnormal laboratory test Arthritis Immune disorder Healthy adult History of leukocytosis Surgical History Hx of ultrasound guided needle biopsy History of delivery Family History Mother Diabetes Maternal Grandmother Diabetes Sister HTN (hypertension) Maternal Uncle Thyroid cancer Social History Housing: Apartment Alcohol intake: current Alcohol intake frequency: holidays/special occasions only Patient Tobacco Use Status: Former Tobacco user Tobacco use type: Cigarette Years Smoked: 10 years e-Cigarette/Vaping Use: Currently Using Second Hand Smoke Exposure: Yes service: No Current occupational status: unemployed Cognitive needs: No Hearing needs: No Vision needs: Yes Female Reproductive History Menstrual Age of Menarche: 11 Review of Systems Const All systems reviewed & are unremarkable except as noted in HPI and below Denies chills, Denies fatigue and Denies fever(s) Eyes Reports no additional complaints, Denies change in vision and Denies diplopia ENT Reports no additional complaints Card Reports no additional complaints Resp Reports no additional complaints Reports no additional complaints Musc Details: body spasms Skin/Breast Reports system reviewed and no additional complaints, except as documented Neuro Details: body spasms Denies confusion and Denies memory loss Psych Reports no additional complaints, Denies anxiety, Denies confusion, Denies memory loss and Denies panic attacks Endo Reports no additional complaints and Denies fatigue Eliel/Lymph Reports no additional complaints Aller/Immun Reports no additional complaints Physical Exam Const General: cooperative, healthy appearing, comfortable, no acute distress, well developed, alert, awake and Physically active; No in distress, anxious, confusion or ill appearing Nutritional Appearance: obese Orientation/consciousness: patient oriented x3 and No confusion Limitations: no limitations HEENT Head: Yes normal to inspection and Yes normocephalic Ears: hearing grossly normal bilaterally and external ears normal Face and sinus: Yes normal facial exam Eyes General: appearance normal, both eyes and all related structures Visual Saucedo: normal visual saucedo by confrontation Alignment and Position: alignment normal Periorbital: periorbital findings normal Eyelids: Yes eyelids normal Conjunctivae: conjunctivae normal Sclerae: sclerae normal Corneas: corneas normal Pupils: Equal, round and reactive pupils present and Pupils normal by confrontation EOM: EOMs intact bilaterally and No Nystagmus present Direct Ophthalmoscopy: normal light reflex and no photophobia Cardio Rate: regular rate Rhythm: regular rhythm Skin General skin exam: no rashes or lesions noted Neuro General: patient oriented x3, gait normal, CN's II-XI intact bilaterally and No confusion Cranial nerves: Yes Equal, round and reactive pupils present and No Nystagmus present Cognition (Neuro): normal cognition Gait exam (Neuro): Normal gait present Motor exam (neuro): 5/5 motor strength present throughout, Pronator motor function not present, no tremor noted, no asterixis and Motor fasciculations not present Psych Appearance: grossly normal Mental Status: mental status grossly normal Insight: Good insight present (Psych) Judgement: Good judgement present (Psych) Assessment & Plan Assessment & Plan (1) Spasm: Comment: Patient is neurologically intact and in no acute distress. Upon re-evaluation the patient is not tachycardic. Patient has not exhibited spasms throughout this entire evaluation. Patient has a normal gait and is able to express the entire HPI without difficulty. No dysarthria or aphasia noted. Code(s): R25.2 - Cramp and spasm Plan: Patient is instructed to follow up with her primary care provider for further evaluation and outpatient referrals as he sees fit. Patient's presentation does not require urgent evaluation at this time. Coding Level of Care Code Est Pt Level 3 (89212) Diagnoses Spasm R25.2 Time Spent (min) 20
[2025-03-03 10:52] VITALS: BP 132/84; PULSE 123; O2SAT 98
--- OUTSIDE RECORDS SUMMARY | 2025-03-03 13:05 | XMS_ITS | Clinical Summary ---
Author Organization [facility] Address [address] [place] [address] Care Team Providers Care Vice President Of Customer Service Name Role Phone Unavailable Primary Care Provider [...]
== END 2025-03-03 11:28 | disposition home or self-care (01) ==
PROVIDERS: PCP Physician Assistant; Visit Provider Physician Assistant
DX: R25.2 Cramp and spasm (principal)

== ENCOUNTER → 2025-03-03 10:47 | Outpatient (BNVA) | payer OTHER, SELFPAY | PROVIDERS: PCP Physician Assistant; Visit Provider Physician Assistant | DX: R25.2 Cramp and spasm (principal) | CPT/HCPCS: 99212 ==

== ENCOUNTER 2025-04-27 08:47 | Outpatient (AMB) | payer OTHER, SELFPAY ==
--- OUTSIDE RECORDS SUMMARY | 2025-04-27 08:53 | XMS_ITS | Clinical Summary ---
Author Organization [facility] Address [address] [place] [address] Care Team Providers Care Clinical Lab Specialist Name Role Phone Unavailable Primary Care Provider Unavailabl e Social History Tobacco Use Types Packs/Day Years Used Date Smoking Tobacco: Never Assessed Comments Unknown Sex and Gender Information Value Date Recorded Sex Assigned at Not on file Legal Sex Female 6:58 PM EST Gender Identity Not on file Sexual Orientation [...]
[2025-04-27 08:54] VITALS: BP 100/70; PULSE 97; RESP 16; TEMP 36.7; O2SAT 97; BMI 26.3
--- NOTE | 2025-04-27 08:54 | AM.OFFWIN_ITS ---
Intake Vital Signs 04/27/25 08:54 Height 5 ft 9 in Weight 178 lb BMI 26.3 BP 100/70 Blood Pressure Location Rt brachial Position Sitting Respiration 16 Pulse 97 Pulse Source Pulse Oximeter Temp 98.0 F Temp Source Oral Pulse Oximetry (%) 97 Oxygen Delivery Method Room Air Intake Visit Reasons: EP Sore throat, sob, cough Intake Note: Pt is here today c/o sore throat, SOB and cough x2days Patient Tobacco Use Status: Former Tobacco user Allergies azithromycin Allergy (Intermediate, Verified 04/27/25 09:01) Diarrhea codeine Allergy (Intermediate, Verified 04/27/25 09:01) Shakiness bees Allergy (Unknown, Uncoded 04/27/25 09:) Swelling hornet Allergy (Unknown, Uncoded 04/27/25 09:) Swelling HPI HPI Comments History of Present Illness Details History of Present Illness - The patient is a 34 year old female pr esenting with symptoms including sore throat, shortness of breath, diarrhea, and pressure on the chest, persisting for approximately four days. - Symptoms initiated around four days ag o, paired with a borderline fever measured at 99.9?F. - Additionally, patient experiences rand om episodes of coughing and sensations of being off-balance. - Minimal reports of nausea; denies any episodes of vomiting. - Noticeable white coating visible on th e tongue. - Patient has used inhalers infrequently for seasonal allergies and ceased vaping three months previously. - History indicates recent indirect expo sure to an ill coworker, though details of the coworker's symptoms are unknown. - Reports sinus tenderness in the roman catholic area with occasional dry mouth but denies any unusual taste sensations or diagnosis of diabetes, despite familial predisposition. - She denies rashes, lesions, polyuria, polyphagia, or polydipsia. She denies sick contacts, smoking for the past 3 months, or travel. She denies abd pain, n/v/d, ear pain. Physical Exam General: Cooperative, healthy appearing, comfortable, no acute distress and well developed Orientation: Patient oriented x3 Head: Tenderness in the roman catholic area noted Ears: Hearing grossly normal bilaterally. TMs normal, no redness noted Nose: Normal external nose present Mouth: Thick white coating noted on the tongue. Face and sinus: Tenderness and pressure noted in sinus area, especially in the temporal region. Eyes: Appearance normal, both eyes and all related structures Neck: Normal visual inspection and Yes full ROM. No lymphadenopathy noted. Respiratory: Normal respiratory effort and able to speak in complete sentences. Clear to auscultation bilaterally Cardiovascular: Regular rate and rhythm. Normal S1 and S2 GI: Normal to inspection. Soft to palpation and nontender. No guarding noted. Skin: No rashes or lesions noted Neuro: Patient oriented x3, reports feeling off balance Extremities: Normal to inspection. Patient was informed and verbally consented to the use of an ambient scribe for clinic note documentation during this visit. [facility] Medical History Bleeding hemorrhoids Hemorrhoids Weight gain Hypothyroidism UTI (urinary tract infection) Morning after pill advice and prescription Screen for STD (sexually transmitted disease) Chest pain Multinodular thyroid Thyroid nodule Abnormal thyroid scan Encounter for IUD removal Contraceptive management Abdominal bloating IUD check up Complex ovarian cyst Pelvic cramping Encounter for IUD insertion Postprandial abdominal bloating Obese Recurrent UTI Family planning Bleeding hemorrhoids Generalized abdominal pain Obesity (BMI 30-39.9) Smoker Matthew's duct cyst Vaginal cyst Urethral diverticulum Hx of hematuria Family planning Screen for STD (sexually transmitted disease) COVID COVID-19 Dog bite Rash Cellulitis Headache Palpitation Neck pain Screening examination for infectious disease Heart palpitations control counseling History of cardiac disorder Depression Migraine Insomnia Abnormal laboratory test Arthritis Immune disorder Healthy adult History of leukocytosis Surgical History Hx of ultrasound guided needle biopsy History of delivery Family History Mother Diabetes Maternal Grandmother Diabetes Sister HTN (hypertension) Maternal Uncle Thyroid cancer Social History Housing: Apartment Alcohol intake: current Alcohol intake frequency: holidays/special occasions only Patient Tobacco Use Status: Former Tobacco user Tobacco use type: Cigarette Years Smoked: 10 years e-Cigarette/Vaping Use: Currently Using Second Hand Smoke Exposure: Yes service: No Current occupational status: unemployed Cognitive needs: No Hearing needs: No Vision needs: Yes Female Reproductive History Menstrual Age of Menarche: 11 Review of Systems Const All systems reviewed & are unremarkable except as noted in HPI and below Physical Exam Vital Signs: Last Vital Signs Temp 98.0 F 04/27/25 08:54 Pulse 97 04/27/25 08:54 Resp 16 04/27/25 08:54 BP 100/70 04/27/25 08:54 Pulse Ox 97 04/27/25 08:54 Oxygen Delivery Method Room Air 04/27/25 08:54 BMI result Body Mass Index 26.3 Results AMB Rapid Strep AMB Rapid Strep Negative Last Edit by Francisca Jaramillo CMA on 04/27/25 09:19 Results Reviewed Results Reviewed: Laboratory Last Values Strep Scn Rapid Clinic Negative 04/27/25 09:04 Assessment & Plan Assessment & Plan (1) Thrush: Code(s): B37.0 - Candidal stomatitis Plan: Most likely thrush Plan - Nystatin swish and swallow for 7 days - f/u with PCP (2) Sore throat (viral): Code(s): J02.8 - Acute pharyngitis due to other specified organisms; B97.89 - Other viral agents as the cause of diseases classified elsewhere Plan Most likely viral vs strep rapid in the office was negative Plan - Prescribe nystatin swish and swallow solution to treat oral thrush for seven days. - Perform COVID-19, influenza, and RSV testing to assess for possible viral infections contributing to respiratory symptoms. - Tylenol or Motrin as needed for pain - Throat lozengers as needed - Salt water gargles. - Diet as tolerated. - Advise follow-up with a primary care provider to monitor potential underlying health issues, considering family predisposition to diabetes. Orders: Orders AMB Rapid Strep Screen Today Z13.9 - Encounter for screening, unspecified SARS-CoV2/FLU/RSV Today R09.89 - Other specified symptoms and signs involving the circulatory and respiratory systems Medications: New nystatin administer 1/2 of dose in each side of the mouth 5 mL buccal qid 140 mL 0RF 7 days Coding Level of Care Code Est Pt Level 4 (95067) Diagnoses Thrush B37.0 Sore throat (viral) J02.8; B97.89
== END 2025-04-27 09:42 | disposition home or self-care (01) ==
PROVIDERS: PCP Physician Assistant; Visit Provider Physician Assistant Medical
DX: B37.0 Candidal stomatitis (principal); J02.9 Acute pharyngitis, unspecified

== ENCOUNTER 2025-04-27 08:47 | Outpatient (REF) | payer OTHER, SELFPAY ==
[2025-04-27 12:16] LABS: Influenza A PCR NEGATIVE (Negative); Influenza B PCR NEGATIVE (Negative); Resp Syncy Virus RNA Qual PCR NEGATIVE (Negative); SARS COV2 PCR INHOUSE NEGATIVE (Negative)
== END 2025-04-27 08:48 | disposition home or self-care (01) ==
LOC: HO.LNP 08:47
PROVIDERS: PCP Physician Assistant; Visit Provider Physician Assistant Medical
DX: B37.0 Candidal stomatitis (principal); R09.89 Other specified symptoms and signs involving the circulatory and respiratory systems; J02.8 Acute pharyngitis due to other specified organisms; B97.89 Other viral agents as the cause of diseases classified elsewhere
CPT/HCPCS: 0241U; 87880; 99212

== ENCOUNTER 2025-05-21 08:33 | Outpatient (REF) | payer OTHER, SELFPAY | END 2025-05-21 08:34 | disposition home or self-care (01) | LOC: HO.LAB 08:33 | PROVIDERS: PCP Physician Assistant; Visit Provider Obstetrics & Gynecology | DX: Z01.411 Encounter for gynecological examination (general) (routine) with abnormal findings (principal); Z11.3 Encounter for screening for infections with a predominantly sexual mode of transmission; R31.29 Other microscopic hematuria; N93.9 Abnormal uterine and vaginal bleeding, unspecified; Z20.2 Contact with and (suspected) exposure to infections with a predominantly sexual mode of transmission | CPT/HCPCS: 99395 ==

== ENCOUNTER 2025-05-21 08:33 | Outpatient (AMB) | payer OTHER, SELFPAY ==
--- OUTSIDE RECORDS SUMMARY | 2025-05-21 08:41 | XMS_ITS | Clinical Summary ---
Author Organization [facility] Address [address] [place] [address] Care Team Providers Care Manager Imaging Name Role Phone Unavailable Primary Care Provider [...]
--- NOTE | 2025-05-21 08:50 | A.OFFVIS_ITS ---
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 No complaints. Would like STD screen Last Pap/HPV was negative in 10/11 Urine dip in 09/11 showed microscopic hematuria, urine culture was negative PFSH Medical History Bleeding hemorrhoids Hemorrhoids Weight gain Hypothyroidism UTI (urinary tract infection) Morning after pill advice and prescription Screen for STD (sexually transmitted disease) Chest pain Multinodular thyroid Thyroid nodule Abnormal thyroid scan Encounter for IUD removal Contraceptive management Abdominal bloating IUD check up Complex ovarian cyst Pelvic cramping Encounter for IUD insertion Postprandial abdominal bloating Obese Recurrent UTI Family planning Bleeding hemorrhoids Generalized abdominal pain Obesity (BMI 30-39.9) Smoker Matthew's duct cyst Vaginal cyst Urethral diverticulum Hx of hematuria Family planning Screen for STD (sexually transmitted disease) COVID COVID-19 Dog bite Rash Cellulitis Headache Palpitation Neck pain Screening examination for infectious disease Heart palpitations control counseling History of cardiac disorder Depression Migraine Insomnia Abnormal laboratory test Arthritis Immune disorder Healthy adult History of leukocytosis Surgical History Hx of ultrasound guided needle biopsy History of delivery Family History Mother Diabetes Maternal Grandmother Diabetes Sister HTN (hypertension) Maternal Uncle Thyroid cancer Social History Housing: Apartment Alcohol intake: current Alcohol intake frequency: holidays/special occasions only Patient Tobacco Use Status: Former Tobacco user Tobacco use type: Cigarette Years Smoked: 10 years e-Cigarette/Vaping Use: Currently Using Second Hand Smoke Exposure: Yes service: No Current occupational status: unemployed Cognitive needs: No Hearing needs: No Vision needs: Yes Female Reproductive History Menstrual Age of Menarche: 11 Date of last menstrual period: 05/04/25 Date of last pap smear: 10/03/23 Review of Systems Const All systems reviewed & are unremarkable except as noted in HPI and below Card Reports as per HPI Resp Reports as per HPI GI Reports as per HPI and Reports no additional complaints Reports as per HPI Physical Exam Const General: cooperative, healthy appearing and comfortable Chest Chest palpation & inspection: normal inspection of the chest and normal palpation of entire chest wall Breast/axilla inspection: normal inspection of the breasts and normal inspection of the axillae Breast/axilla palpation: normal palpation of the breasts, normal palpation of the axillae and no axillary lymphadenopathy Resp Effort & Inspection: normal respiratory effort Auscultation: clear to auscultation bilaterally Percussion: percussion normal Cardio Palpation: normal PMI Rate: regular rate Rhythm: regular rhythm Heart sounds: no murmurs and no rubs Peripheral pulses: Peripheral pulses 2+ throughout GI Inspection: Yes normal to inspection Palpation (GI): Soft to palpation, nontender, no guarding, not rigid and No hepatosplenomegaly present Percussion: Yes normal to percussion Auscultation: normal bowel sounds Rectal Exam - Female: deferred General: Yes bladder normal to palpation External Female Exam: No lesion Speculum Exam - Vagina: normal appearance of the vagina, normal palpation, normal vaginal discharge and not erythematous Speculum Exam - Cervix: normal appearance of the cervix and normal palpation Bimanual exam- vagina & uterus: normal bimanual exam, normal palpation, uterine size normal, bladder normal to palpation, consistency normal and normal palpation Bimanual Exam- Adnexa, other: normal adnexae, no masses and no tenderness Assessment & Plan Assessment & Plan (1) Well woman exam: Code(s): Z01.419 - Encounter for gynecological examination (general) (routine) without abnormal findings Category: Medical Plan: Cotesting not indicated this year. Counseled the patient about the recommended dietary allowance of 1000 mg of Calcium & 600 IU of vitamin D. The patient was instructed to perform monthly self-breast exams and to schedule an annual exam in a year; All questions answered and the patient verbalized understanding. Instructed the patient to schedule annual exam in a year (2) Microscopic hematuria: Code(s): R31.29 - Other microscopic hematuria Category: Medical Plan: Urine dip showed microscopic hematuria, discussed with the patient the possible causes of microscopic hematuria including but not limited to: interstitial cystitis, polyps, stones, masses, urethral inflammatory processes and others. will proceed with CT abdomen/pelvis and urology referral. Instructions given the patient to schedule a 2 week urine dip follow-up appointment. All questions answered and the patient verbalized understanding. (3) Screen for STD (sexually transmitted disease): Code(s): Z11.3 - Encounter for screening for infections with a predominantly sexual mode of transmission Category: Medical Plan: STD screening tests done includes: BV panel for trichomonas, GC/CT will send patient for serology std screening for HIV, RPR, Hep b s Ag, HepC Ab. Instructions given the patient to schedule a follow-up appointment for repeat serology screen in 6 months for possible false negatives. Orders: Orders Hepatitis B Surface Antigen Today Z20.2 - Contact with and (suspected) exposure to infections with a predominantly sexual mode of transmission HIV Ab/Ag Today Z20.2 - Contact with and (suspected) exposure to infections with a predominantly sexual mode of transmission Hepatitis C Antibody Today Z20.2 - Contact with and (suspected) exposure to infections with a predominantly sexual mode of transmission Syphilis Screen Today Z20.2 - Contact with and (suspected) exposure to infections with a predominantly sexual mode of transmission CT abdomen pelvis wo/w IV con Today R31.29 - Other microscopic hematuria Referrals Urology Referral R31.29 - Other microscopic hematuria Coding Level of Care Code Est Pt Prev Care 18-39y(45957) Diagnoses Well woman exam Z01.419 Microscopic hematuria R31.29 Screen for STD (sexually transmitted disease) Z11.3
[2025-05-21 08:55] VITALS: BP 128/70; BMI 41.0
== END 2025-05-21 09:16 | disposition home or self-care (01) ==
LOC: HO.HWS 08:34
PROVIDERS: PCP Physician Assistant; Visit Provider Obstetrics & Gynecology
DX: Z01.419 Encounter for gynecological examination (general) (routine) without abnormal findings (principal); R31.29 Other microscopic hematuria; Z11.3 Encounter for screening for infections with a predominantly sexual mode of transmission
CPT/HCPCS: 99395; 99459

== ENCOUNTER 2025-05-21 09:43 | Outpatient (REF) | payer OTHER, SELFPAY ==
[2025-05-21 20:16] LABS: Bacterial Vaginosis PCR NEGATIVE (Negative); Candida Group PCR NOT DETECTED (Not Detect); Candida glab krusei PCR NOT DETECTED (Not Detect); Trichomonas vaginalis PCR NOT DETECTED (Not Detect)
[2025-05-21 21:40] LABS: CT PCR NOT DETECTED (Not Detect.); NG PCR NOT DETECTED (Not Detect.)
== END 2025-05-21 09:44 | disposition home or self-care (01) ==
LOC: HO.LNP 09:43
PROVIDERS: Visit Provider Obstetrics & Gynecology
DX: N93.9 Abnormal uterine and vaginal bleeding, unspecified (principal)
CPT/HCPCS: 81515; 87491; 87591

== ENCOUNTER 2025-06-16 10:49 | Outpatient (AMB) | payer OTHER, SELFPAY ==
--- NOTE | 2025-06-16 11:08 | AM.OFFWIN_ITS ---
Intake Vital Signs 06/16/25 11:09 Height 5 ft 9 in Weight 279 lb BMI 41.2 BP 104/72 Blood Pressure Location Rt brachial Position Sitting Pulse 93 Pulse Source Pulse Oximeter Temp 98.2 F Temp Source Oral Pulse Oximetry (%) 98 Oxygen Delivery Method Room Air Intake Visit Reasons: EP-sob, chest tightness Intake Note: presents with SOB, chest tightness and confusion for 4 days, felt popping in chest while breathing last night when laying down. Pt states a few co workers dx with pneumonia Patient Tobacco Use Status: Former Tobacco user Allergies azithromycin Allergy (Intermediate, Verified 06/16/25 11:10) Diarrhea codeine Allergy (Intermediate, Verified 06/16/25 11:10) Shakiness bees Allergy (Unknown, Uncoded 05/21/25 08:59) Swelling hornet Allergy (Unknown, Uncoded 05/21/25 08:59) Swelling Do you need a note to return to daycare/school/sports/work: Yes HPI HPI Comments History of Present Illness Details History - The patient is a 34-year-old female pr esenting with shortness of breath. - The shortness of breath has been prese nt for four days, with episodes severe enough to wake her from sleep. - She has experienced chest tightness an d occasional heart palpitations. - There is no history of asthma or COPD, and she does not currently smoke or vape. she used to vape previously. - She has a history of hypothyroidism, n ot currently managed with levothyroxine, with recent TSH levels reported as controlled. - The patient reports a history of pneum onia, and she has colleagues at work have it right now - She has undergone EKGs and Holter alyssa toring in the past due to heart palpitations, but no definitive cause has been identified. - She has an inhaler at home, she hasn't used it. Physical Exam General: Cooperative, healthy appearing, comfortable and no acute distress Orientation/consciousness: Patient oriented x3 Limitations: No limitations Head: Normal to inspection Ears: Hearing grossly normal bilaterally, external ears normal and TM's normal bilaterally Nose: Normal external nose present, Normal nares present and No nasal discharge present Face and sinus: Normal facial exam and Yes sinuses nontender Mouth: Normal oral and palatal mucosa present and moist mucous membranes Throat: Yes tonsils normal, Yes uvula midline. Posterior oropharynx erythema, no exudates Eyes: Appearance normal, both eyes and all related structures Neck: Normal visual inspection, full ROM Respiratory: Clear to auscultation bilaterally. Normal respiratory effort, able to speak in complete sentences, no respiratory distress, not tachypneic, no tripod positioning and no use of accessory muscles Cardiovascular: Regular rate and rhythm. Normal S1 and S2 Skin: No rashes or lesions noted Neuro: Patient oriented x3 Extremities: Normal to inspection and Yes no clubbing, cyanosis or edema PFSH Medical History Bleeding hemorrhoids Hemorrhoids Weight gain Hypothyroidism UTI (urinary tract infection) Morning after pill advice and prescription Screen for STD (sexually transmitted disease) Chest pain Multinodular thyroid Thyroid nodule Abnormal thyroid scan Encounter for IUD removal Contraceptive management Abdominal bloating IUD check up Complex ovarian cyst Pelvic cramping Encounter for IUD insertion Postprandial abdominal bloating Obese Recurrent UTI Family planning Bleeding hemorrhoids Generalized abdominal pain Obesity (BMI 30-39.9) Smoker Matthew's duct cyst Vaginal cyst Urethral diverticulum Hx of hematuria Family planning Screen for STD (sexually transmitted disease) COVID COVID-19 Dog bite Rash Cellulitis Headache Palpitation Neck pain Screening examination for infectious disease Heart palpitations control counseling History of cardiac disorder Depression Migraine Insomnia Abnormal laboratory test Arthritis Immune disorder Healthy adult History of leukocytosis Surgical History Hx of ultrasound guided needle biopsy History of delivery Family History Mother Diabetes Maternal Grandmother Diabetes Sister HTN (hypertension) Maternal Uncle Thyroid cancer Social History Housing: Apartment Alcohol intake: current Alcohol intake frequency: holidays/special occasions only Patient Tobacco Use Status: Former Tobacco user Tobacco use type: Cigarette Years Smoked: 10 years e-Cigarette/Vaping Use: Currently Using Second Hand Smoke Exposure: Yes service: No Current occupational status: unemployed Cognitive needs: No Hearing needs: No Vision needs: Yes Female Reproductive History Menstrual Age of Menarche: 11 Review of Systems Const All systems reviewed & are unremarkable except as noted in HPI and below Physical Exam Vital Signs: Last Vital Signs Temp 98.2 F 06/16/25 11:09 Pulse 93 06/16/25 11:09 BP 104/72 06/16/25 11:09 Pulse Ox 98 06/16/25 11:09 Oxygen Delivery Method Room Air 06/16/25 11:09 BMI result Body Mass Index 41.2 Assessment & Plan Assessment & Plan (1) Heart palpitations: Code(s): R00.2 - Palpitations Plan: Plan - VSS, pt well appearing and PE unremarkable. - A chest X-ray is recommended to evaluate for pneumonia due to atypical presentation. - Thyroid function tests, including TSH, are advised to assess current thyroid status with her heart palpitations. - work note for today Patient was informed and verbally consented to the use of an ambient scribe for clinic note documentation during this visit (2) Shortness of breath: Code(s): R06.02 - Shortness of breath Plan: as above Orders: Orders TSH reflex Free T4 Today R00.2 - Palpitations XR chest 2V Today R05.9 - Cough, unspecified, R06.02 - Shortness of breath Coding Level of Care Code Est Pt Level 4 (48221) Diagnoses Heart palpitations R00.2 Shortness of breath R06.02
[2025-06-16 11:09] VITALS: BP 104/72; PULSE 93; TEMP 36.8; O2SAT 98; BMI 41.2
--- OUTSIDE RECORDS SUMMARY | 2025-06-16 12:00 | XMS_ITS | Clinical Summary ---
Demographics Address 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 Not on daniel e 03/16/2023 Are you concerned about learning? Not on file 03/16/2023 No 03/16/2023 No 03/16/2023 Digital Access Answer Date Recorded No 04/14/2023 No 04/14/2023 No 04/14/2023 Reliable internet access at home? Not on file 04/14/2023 Device with a working camera? Not on file Comments Unknown Sex and Gender Information Value Date Recorded Sex Assigned at Not on file Legal Sex Female 9:26 AM EDT Gender Identity Not on file Sexual Orientation Not on file Plan of Treatment Health Maintenance Due Date Last Done Comments DEPRESSION SCREENING 2002 SMOKING Hx and SMOKELESS TOBACCO SCREENING 2003 HEPATITIS C SCREENING 2008 HIV ONE-TIME SCREENING (18-65 YEARS) 2008 PAP SMEAR 2011 Adult Td,Tdap Booster 01/30/2013 01/30/2003 COVID-19 VACCINE ( season) 2024 HIB VACCINES Completed 11/19/1993, 11/1992, 01/18/1992, Additional history exists HEPATITIS A VACCINES Aged Out No long er eligible based on patient's age to complete this topic MENINGOCOCCAL VACCINES (ACWY) Aged Out No longer eligible based on patient's age to complete this topic MENINGOCOCCAL VACCINES (B) Aged Out N o longer eligible based on patient's age to complete this topic PNEUMOCOCCAL VACCINES (0-49 years) Aged Out No longer eligible based on patient's age to complete this topic Medical Devices Not on file Insurance * Guarantor: Krupa Springer Account Type Relation to Patient Date of Phone Billing Address Personal/Family Self [address] [place] [address] [facility] * Guarantor: Krupa Springer Account Type Relation to Patient Date of Phone Billing Address Personal/Family Self [address] [place] [address] [facility] * Guarantor: Krupa Springer Account Type Relation to Patient Date of Phone Billing Address Personal/Family Self [address] [place] [address] [facility] [place] [address] [address] [place] [address] [facility] [address] [place] [address] [facility] [address] [place] [address] [facility] * Guarantor: Danielle Krupa Account Type Relation to Patient Date of Phone Billing Address Personal/Family Self [address] [place] [address] [facility] * Guarantor: Ole Springerrielle Account Type Relation to Patient Date of Phone Billing Address Personal/Family Self [address] [place] [facility] * Guarantor: Krupa Springer Account Type Relation to Patient Date of Phone Billing Address Personal/Family Self [address] [place] [facility] Care Teams Electrostatic Paint Operator Relationship Specialty Start Date End Date Unknown, Unknown, PCP - General 08/31/17 Additional Source Comments The information contained in this document represents components of the legal health record. It is not the complete legal health record.[facility]
--- OUTSIDE RECORDS SUMMARY | 2025-06-16 12:00 | XMS_ITS | Clinical Summary ---
Author Organization [facility] Address [address] [place] [address] Care Team Providers Care Supervisor Sewing Department Name Role Phone Unavailable Primary Care Provider [...]
== END 2025-06-16 12:40 | disposition home or self-care (01) ==
PROVIDERS: PCP Physician Assistant; Visit Provider Physician Assistant
DX: R00.2 Palpitations (principal); R06.02 Shortness of breath

== ENCOUNTER → 2025-06-16 10:49 | Outpatient (BNVA) | payer OTHER, SELFPAY | PROVIDERS: PCP Physician Assistant; Visit Provider Physician Assistant | DX: R06.02 Shortness of breath (principal); R00.2 Palpitations | CPT/HCPCS: 99212 ==

== ENCOUNTER 2025-06-22 11:29 | Outpatient (REF) | payer OTHER, SELFPAY ==
--- NOTE | ~2025-06-22 | XR_ITS ---
EXAMINATION: XR CHEST 2 VIEWS HISTORY: R05.9 - Cough, unspecified COMPARISON: Comparison is made with the prior examination dated 09/09/2024. FINDINGS: PA and lateral views of the chest are submitted. The lungs are expanded and clear. There is no pleural effusion, pneumothorax, or pulmonary vascular congestion. The heart is normal in size. The bones are intact. XR/XR chest 2V IMPRESSION: No acute cardiopulmonary abnormality. Electronically signed by: Lico Laird MD 06/22/2025 11:44 AM EDT
--- OUTSIDE RECORDS SUMMARY | 2025-06-22 12:21 | XMS_ITS | Clinical Summary ---
Demographics Address [address] [place] [address] Home Phone Preferred Language Bulgarian Marital Status Unknown Pentecostal Affiliation Unknown Race Unknown Ethnic Group or Author Organization [facility] Address [address] [place] [phone] Phone Care Team Providers Care Philosophy Instructor Name Role Phone Unknown, Unknown MD Primary [...] Self [address] [place] [address] [facility] * Guarantor: Krupa Springer Account Type Relation to Patient Date of Phone Billing Address Personal/Family Self [address] [place] [address] [facility] * Guarantor: Krupa Springer Account Type Relation to Patient Date of Phone Billing Address Personal/Family Self [address] [place] [address] [facility] [place] [address] [address] [place] [address] [facility] [facility] [address] [address] [place] [address] [facility] [facility] [address] [place] [address] [facility] * Guarantor: Danielle Krupa Account Type Relation to Patient Date of Phone Billing Address Personal/Family Self [address] [place] [address] [facility] * Guarantor: Ole Springerrielle Account Type Relation to Patient Date of Phone Billing Address Personal/Family Self [address] [place] [facility] * Guarantor: Krupa Springer Account Type Relation to Patient Date of Phone Billing Address Personal/Family Self [address] [place] [facility] Care Teams Philosophy Instructor Relationship Specialty Start Date End Date Unknown, Unknown, PCP - General 08/31/17 Additional Source Comments The information contained in this document represents components of the legal health record. It is not the complete legal health record.[facility]
--- OUTSIDE RECORDS SUMMARY | 2025-06-22 12:21 | XMS_ITS | Clinical Summary ---
Author Organization [facility] Address [address] [place] [address] Care Team Providers Care Truck Bench Mechanic Name Role Phone Unavailable Primary Care Provider [...]
[2025-06-22 13:45] LABS: Blood Urea Nitrogen 14 mg/dL (9-16); Estimated Glomerular Filt Rate 56
[2025-06-22 15:26] LABS: Free T4 (Free Thyroxine) 0.97 ng/dL (0.71-1.85)
[2025-06-23 08:16] LABS: HBsAGNum1 0.29 S/CO (0.00-0.99); HIV Num 1 0.06 S/CO (0.00-0.99); Hepatitis B Surface Antigen Negative (Negative); ~HepC Num1 0.13 S/CO (0.00-0.79); ~Hepatitis C Antibody Nonreactive (Nonreactive)
[2025-06-23 08:49] LABS: Syphilis Screen Nonreactive (Nonreactive)
== END 2025-06-22 11:30 | disposition home or self-care (01) ==
LOC: HO.HMGCX 11:29
PROVIDERS: PCP Physician Assistant; Referring Provider Physician Assistant; Visit Provider Obstetrics & Gynecology
DX: R05.9 Cough, unspecified (principal); R06.02 Shortness of breath; R00.2 Palpitations; R31.29 Other microscopic hematuria; Z20.2 Contact with and (suspected) exposure to infections with a predominantly sexual mode of transmission; Z11.3 Encounter for screening for infections with a predominantly sexual mode of transmission; Z11.4 Encounter for screening for human immunodeficiency virus [HIV]; Z11.59 Encounter for screening for other viral diseases
CPT/HCPCS: 36415; 71046; 82565; 84439; 84443; 84520; 86780; 86803; 87340; 87389

== ENCOUNTER → 2025-06-22 11:32 | Outpatient (BNV) | payer OTHER, SELFPAY | PROVIDERS: PCP Physician Assistant; Referring Provider Physician Assistant; Visit Provider Radiology Diagnostic Radiology | DX: R05.9 Cough, unspecified (principal) | CPT/HCPCS: 71046 ==

== ENCOUNTER 2025-06-24 10:09 | Outpatient (AMB) | payer OTHER, SELFPAY ==
[2025-06-24 10:10] VITALS: BP 120/86; PULSE 107; TEMP 36.8; O2SAT 96; BMI 41.2
--- NOTE | 2025-06-24 10:10 | MHC.OFFWIV ---
Intake Vital Signs 06/24/25 10:10 Height 5 ft 9 in Weight 279 lb BMI 41.2 BP 120/86 Blood Pressure Location Rt brachial Position Sitting Pulse 107 H Pulse Source Pulse Oximeter Temp 98.2 F Temp Source Oral Pulse Oximetry (%) 96 Oxygen Delivery Method Room Air Intake Visit Reasons: EP-lt arm pain Intake Note: presents with worsening left shoulder and bicep pain after having blood work done on that same arm 2 days ago Patient Tobacco Use Status: Former Tobacco user Allergies azithromycin Allergy (Intermediate, Verified 06/24/25 10:10) Diarrhea codeine Allergy (Intermediate, Verified 06/24/25 10:10) Shakiness bees Allergy (Unknown, Uncoded 05/21/25 08:59) Swelling hornet Allergy (Unknown, Uncoded 05/21/25 08:59) Swelling Medication List - Last Reconciled 06/24/25 by Lori Lizarraga MD Do you need a note to return to daycare/school/sports/work: Yes HPI EP-lt arm pain HPI Details History - The patient is a 34-year-old female presenting with left arm pain after a blood draw - Patient reports left arm pain starting two days ago following a blood draw on Sunday. - During the blood draw, the patient noted difficulty in finding a vein, and the public health internship had to adjust the needle, causing discomfort but no immediate shooting pain. - Post-draw, the arm was sore, which worsened by the next day, progressing upward, now radiating up the arm. - The arm pain is described as soreness to the touch, with difficulty moving or lifting objects due to pain, and pain alleviated when at rest. - Associated symptoms include a burning sensation localized at the biceps muscle area. - Previously diagnosed with hypothyroidism; recent lab work was intended to check thyroid function. - Patient reports longstanding issues with hematuria and is under follow-up for potential kidney-related complications. 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 Family History: - No family history of kidney problems reported. Medications - None currently taken by the patient, only ibuprofen every now and then, patient was advised to stop taking all NSAIDs. 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 [place] of Care - Referred to applications programmer analyst for kidney concerns. Patient Instructions - Avoid ibuprofen, Aleve, and Motrin due to kidney implications. - Consider Tylenol for pain relief, confirming the absence of ibuprofen in any formulation. - Expect contact from applications programmer analyst for further evaluation of kidney status. - I have sent few tablets of tramadol for her left arm pain located over bicep muscle Consultation note red in front of patient and biopsy report explained in simple terms Patient seems to understand but upset that it was not explained like that before Review of Systems General: No fever no chills neurological: No headaches no dizziness ear nose throat: No sore throat no hearing difficulty no ear pain cardiovascular: No syncope, no chest pain, no palpitations gastrointestinal: No vomiting or diarrhea endocrine: No polyuria polydipsia no heat intolerance genitourinary: No dysuria skin: No new complaints Physical Exam general: No acute distress HEENT: No acute findings neck: Supple respiratory system: Able to talk in full sentences gastrointestinal: No pain bowel sounds positive extremities: Left arm pain, sore, over bicep muscle with active flexion NETWORK FIREWALL ENGINEER: Alert awake oriented x3 motor sensory intact skin: Normal turgor [facility] Medical History Heart palpitations Bleeding hemorrhoids Hemorrhoids Weight gain Hypothyroidism UTI (urinary tract infection) Morning after pill advice and prescription Screen for STD (sexually transmitted disease) Chest pain Multinodular thyroid Thyroid nodule Abnormal thyroid scan Encounter for IUD removal Contraceptive management Abdominal bloating IUD check up Complex ovarian cyst Pelvic cramping Encounter for IUD insertion Postprandial abdominal bloating Obese Recurrent UTI Family planning Bleeding hemorrhoids Generalized abdominal pain Obesity (BMI 30-39.9) Smoker Matthew's duct cyst Vaginal cyst Urethral diverticulum Hx of hematuria Family planning Screen for STD (sexually transmitted disease) COVID COVID-19 Dog bite Rash Cellulitis Headache Palpitation Neck pain Screening examination for infectious disease control counseling History of cardiac disorder Depression Migraine Insomnia Abnormal laboratory test Arthritis Immune disorder Healthy adult History of leukocytosis Surgical History Hx of ultrasound guided needle biopsy History of delivery Family History Mother Diabetes Maternal Grandmother Diabetes Sister HTN (hypertension) Maternal Uncle Thyroid cancer Social History Housing: Apartment Alcohol intake: current Alcohol intake frequency: holidays/special occasions only Patient Tobacco Use Status: Former Tobacco user Tobacco use type: Cigarette Years Smoked: 10 years e-Cigarette/Vaping Use: Currently Using Second Hand Smoke Exposure: Yes service: No Current occupational status: unemployed Cognitive needs: No Hearing needs: No Vision needs: Yes Female Reproductive History Menstrual Age of Menarche: 11 Physical Exam Vital Signs: Last Vital Signs Temp 98.2 F 06/24/25 10:10 Pulse 107 H 06/24/25 10:10 BP 120/86 06/24/25 10:10 Pulse Ox 96 06/24/25 10:10 Oxygen Delivery Method Room Air 06/24/25 10:10 BMI result Body Mass Index 41.2 Assessment & Plan Assessment & Plan (1) Immune complex nephropathy: Code(s): N28.89 - Other specified disorders of kidney and ureter (2) Biceps muscle strain: Code(s): S46.219A - Strain of muscle, fascia and tendon of other parts of biceps, unspecified arm, initial encounter Qualifiers: Encounter type: initial encounter Laterality: left Qualified Code(s): S46.212A - Strain of muscle, fascia and tendon of other parts of biceps, left arm, initial encounter (3) Protein, urine, abnormal presence: Code(s): R80.9 - Proteinuria, unspecified Qualifiers: Isolated proteinuria type: with C3 glomerulonephritis Proteinuria type: isolated Qualified Code(s): N06.A - Isolated proteinuria with C3 glomerulonephritis (4) Other specified hypothyroidism: Code(s): E03.8 - Other specified hypothyroidism Plan History - The patient is a 34-year-old female presenting with left arm pain after a blood draw - Patient reports left arm pain starting two days ago following a blood draw on Sunday. - During the blood draw, the patient noted difficulty in finding a vein, and the public health internship had to adjust the needle, causing discomfort but no immediate shooting pain. - Post-draw, the arm was sore, which worsened by the next day, progressing upward, now radiating up the arm. - The arm pain is described as soreness to the touch, with difficulty moving or lifting objects due to pain, and pain alleviated when at rest. - Associated symptoms include a burning sensation localized at the biceps muscle area. - Previously diagnosed with hypothyroidism; recent lab work was intended to check thyroid function. - Patient reports longstanding issues with hematuria and is under follow-up for potential kidney-related complications. 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 Family History: - No family history of kidney problems reported. Medications - None currently taken by the patient, only ibuprofen every now and then, patient was advised to stop taking all NSAIDs. 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 [place] of Care - Referred to applications programmer analyst for kidney concerns. Patient Instructions - Avoid ibuprofen, Aleve, and Motrin due to kidney implications. - Consider Tylenol for pain relief, confirming the absence of ibuprofen in any formulation. - Expect contact from applications programmer analyst for further evaluation of kidney status. - I have sent few tablets of tramadol for her left arm pain located over bicep muscle Consultation note red in front of patient and biopsy report explained in simple terms Patient seems to understand but upset that it was not explained like that before Orders: Referrals Nephrology Referral N06.A - Isolated proteinuria with C3 glomerulonephritis, N28.89 - Other specified disorders of kidney and ureter Medications: New tramadol 50 mg PO BID PRN 10 tabs 0RF pain 5 days Coding Level of Care Code Est Pt Level 5 (00479) Diagnoses Immune complex nephropathy N28.89 Strain of left biceps muscle, initial encounter S46.212A Encounter type: initial encounter Laterality: left Isolated proteinuria with C3 glomerulonephritis N06.A Isolated proteinuria type: with C3 glomerulonephritis Proteinuria type: isolated Other specified hypothyroidism E03.8 Time Spent (min) 40 Comment Reviewing chart, Nephrology consultation, [id number], coordination of care
--- OUTSIDE RECORDS SUMMARY | 2025-06-24 10:42 | XMS_ITS | Clinical Summary ---
Demographics Address [address] [place] [address] Home Phone Preferred Language Uzbek Marital Status Unknown Hinduism Affiliation Unknown Race Unknown Ethnic Group or Author Organization [facility] Address [address] [place] [phone] Phone Care Team Providers Care Pressure Steamer Tender Name Role Phone Unknown, Unknown MD Primary [...] Self [address] [place] [address] [facility] * Guarantor: Krupa Springer Account Type Relation to Patient Date of Phone Billing Address Personal/Family Self [address] [place] [address] [facility] * Guarantor: Krupa Springer Account Type Relation to Patient Date of Phone Billing Address Personal/Family Self [address] [place] [address] [facility] [place] [address] [address] [place] [address] [facility] [address] [place] [address] [facility] [address] [place] [address] [facility] * Guarantor: Danielle Krupa Account Type Relation to Patient Date of Phone Billing Address Personal/Family Self [address] [place] [address] [facility] * Guarantor: Ole Springerrielle Account Type Relation to Patient Date of Phone Billing Address Personal/Family Self [address] [place] [facility] * Guarantor: Krupa Springer Account Type Relation to Patient Date of Phone Billing Address Personal/Family Self [address] [place] [facility] Care Teams Pressure Steamer Tender Relationship Specialty Start Date End Date Unknown, Unknown, PCP - General 08/31/17 Additional Source Comments The information contained in this document represents components of the legal health record. It is not the complete legal health record.[facility]
--- OUTSIDE RECORDS SUMMARY | 2025-06-24 10:42 | XMS_ITS | Clinical Summary ---
Author Organization [facility] Address [address] [place] [address] Care Team Providers Care Tobacco Grower Name Role Phone Unavailable Primary Care Provider [...]
== END 2025-06-24 11:27 | disposition home or self-care (01) ==
PROVIDERS: PCP Physician Assistant; Visit Provider Internal Medicine
DX: N28.89 Other specified disorders of kidney and ureter (principal); S46.212A Strain of muscle, fascia and tendon of other parts of biceps, left arm, initial encounter; N06 Isolated proteinuria with specified morphological lesion; E03.8 Other specified hypothyroidism

== ENCOUNTER → 2025-06-24 10:09 | Outpatient (BNVA) | payer OTHER, SELFPAY | PROVIDERS: PCP Physician Assistant; Visit Provider Internal Medicine | DX: S46.212A Strain of muscle, fascia and tendon of other parts of biceps, left arm, initial encounter (principal); M25.512 Pain in left shoulder; E03.8 Other specified hypothyroidism; N06 Isolated proteinuria with specified morphological lesion; N28.89 Other specified disorders of kidney and ureter; X58.XXXA Exposure to other specified factors, initial encounter; Y93.9 Activity, unspecified; Y92.9 Unspecified place or not applicable; Y99.9 Unspecified external cause status | CPT/HCPCS: 99212 ==

== ENCOUNTER 2025-07-07 14:08 | Outpatient (AMB) | payer OTHER, SELFPAY ==
[2025-07-07 14:14] VITALS: BP 120/76; PULSE 105; O2SAT 96; BMI 40.0
--- NOTE | 2025-07-07 14:14 | HO.NEPHOV_ITS ---
Vital Signs 07/07/25 14:14 Height 5 ft 9 in Weight 271 lb BMI 40.0 BP 120/76 Blood Pressure Location Lt brachial Position Sitting Pulse 105 H Pulse Source Pulse Oximeter Pulse Oximetry (%) 96 Oxygen Delivery Method Room Air Intake Visit Reasons: INP: Isolated proteinuria with C3 glomerulonephrit Plate Conditioner Required: No Accompanied by: Self / Same As Patient Allergies azithromycin Allergy (Intermediate, Verified 07/07/25 14:16) Diarrhea codeine Allergy (Intermediate, Verified 07/07/25 14:16) Shakiness bees Allergy (Unknown, Uncoded 05/21/25 08:59) Swelling hornet Allergy (Unknown, Uncoded 05/21/25 08:59) Swelling HPI Comments Details: The patient is a 34-year-old female presenting with proteinuria and hematuria, recently diagnosed with an autoimmune disorder affecting the kidneys . Symptoms began during 11 years ago and have persisted, with dark urine and frequent urination. She was seen by Dr. Ornelas in the past and was subsequently lost to follow- up. 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 It appears that she was not on any therapy. Not on any GEORGETTE inhibitors. History of Elisa's Thyroiditis causing fatigue and shortness of breath, leading to emergency visits. Reports hemorrhoids with bleeding, untreated surgically, and multinodular goiter, benign on biopsy. Abnormal uterine bleeding and muscle pain with brain fog noted. She has generalized fatigue and body aches. No specific arthralgias she has chronic dull back pain more on the right. No dysuria. No gross hematuria. No rash no petechiae. No miscarriage or blood clot SOCIAL HISTORY: - Employment: Works in [employer], constantly on feet, reports fatigue. - Substance Use: Occasional alcohol consumption and smoking, started recently due to stress. DIAGNOSTIC RESULTS: - Labs: Hemoglobin and platelets normal, thyroid level 4.02, ARAVIND negative for lupus. - Urine Test: Protein present on dipstick, dark urine noted. - Imaging: Chest X-ray normal, kidney ultrasound normal. [facility] Medical History Heart palpitations Bleeding hemorrhoids Hemorrhoids Weight gain Hypothyroidism UTI (urinary tract infection) Morning after pill advice and prescription Screen for STD (sexually transmitted disease) Chest pain Multinodular thyroid Thyroid nodule Abnormal thyroid scan Encounter for IUD removal Contraceptive management Abdominal bloating IUD check up Complex ovarian cyst Pelvic cramping Encounter for IUD insertion Postprandial abdominal bloating Obese Recurrent UTI Family planning Bleeding hemorrhoids Generalized abdominal pain Obesity (BMI 30-39.9) Smoker Matthew's duct cyst Vaginal cyst Urethral diverticulum Hx of hematuria Family planning Screen for STD (sexually transmitted disease) COVID COVID-19 Dog bite Rash Cellulitis Headache Palpitation Neck pain Screening examination for infectious disease control counseling History of cardiac disorder Depression Migraine Insomnia Abnormal laboratory test Arthritis Immune disorder Healthy adult History of leukocytosis Surgical History Hx of ultrasound guided needle biopsy History of delivery Family History Mother Diabetes Maternal Grandmother Diabetes Sister HTN (hypertension) Maternal Uncle Thyroid cancer Social History Housing: Apartment Alcohol intake: current Alcohol intake frequency: holidays/special occasions only Patient Tobacco Use Status: Former Tobacco user Tobacco use type: Cigarette Years Smoked: 10 years e-Cigarette/Vaping Use: Currently Using Second Hand Smoke Exposure: Yes service: No Current occupational status: unemployed Cognitive needs: No Hearing needs: No Vision needs: Yes Female Reproductive History Menstrual Age of Menarche: 11 Physical Exam Vital Signs: Last Vital Signs Pulse 105 H 07/07/25 14:14 BP 120/76 07/07/25 14:14 Pulse Ox 96 07/07/25 14:14 Oxygen Delivery Method Room Air 07/07/25 14:14 BMI result Body Mass Index 40.0 Comfortable Neck supple no JVD. Lungs entry equal no rales. Heart S1-S2 heard no gallop or rub. Abdomen soft nontender. Neuro alert awake oriented. No asterixis. Extremities no edema. Results Reviewed Nephrology Results: BUN, (9-16) 14 mg/dL 06/22/25 Creatinine, (0.5-1.4) 1.12 mg/dL 06/22/25 Assessment & Plan Assessment & Plan (1) Immune disorder: Code(s): D89.9 - Disorder involving the immune mechanism, unspecified Category: Medical (2) Protein, urine, abnormal presence: Code(s): R80.9 - Proteinuria, unspecified Category: Medical Qualifiers: Proteinuria type: isolated Isolated proteinuria type: with C3 glomerulonephritis Qualified Code(s): N06.A - Isolated proteinuria with C3 glomerulonephritis (3) Microscopic hematuria: Code(s): R31.29 - Other microscopic hematuria Category: Medical Plan Pleasant 34-year-old woman with increase BMI with proteinuria. Presumably she has C3 glomerulopathy. Status post kidney biopsy about 7 years ago. The recent serum creatinine was 1.12 with a EGFR of 57 mL/minute. Clinically she appears euvolemic at this time. Blood pressure is in the normal range. I have initiated workup for proteinuria/hematuria. Track down biopsy results from [facility] Ordered serological workup as outlined below. Based on the outcome of the results we will plan further therapy. If she has significant proteinuria she will benefit from GEORGETTE inhibitors. She might also need a repeat kidney biopsy based on the baseline investigations. In the meantime she will benefit from weight loss I have discussed smoking cessation. Returned to the clinic once the baseline workup is completed Orders: Orders Complement C3 Today D89.9 - Disorder involving the immune mechanism, unspecified Complement C4 Today D89.9 - Disorder involving the immune mechanism, unspecified Immunofixation Pnl, Serum Today D89.9 - Disorder involving the immune mechanism, unspecified Anti Glomerular Basement Memb Today D89.9 - Disorder involving the immune mechanism, unspecified Phospholipase A2 Receptor Pnl Today D89.9 - Disorder involving the immune mechanism, unspecified UA and rflx microscopic Today D89.9 - Disorder involving the immune mechanism, unspecified Creatinine Urine Today D89.9 - Disorder involving the immune mechanism, unspecified Immunofixation, Random Urine Today D89.9 - Disorder involving the immune mechanism, unspecified Lyme IgG/IgM w/reflex to WB Today M79.10 - Myalgia, unspecified site Myeloperoxidase Antibody Today D89.9 - Disorder involving the immune mechanism, unspecified Neutrophil Cytoplasma Ab Today D89.9 - Disorder involving the immune mechanism, unspecified Proteinase 3 PR3 Antibodies Today D89.9 - Disorder involving the immune mechanism, unspecified Scleroderma 70 Antibody Today D89.9 - Disorder involving the immune mechanism, unspecified Sm Sm/GAS LEAK INSPECTOR Antibodies Today D89.9 - Disorder involving the immune mechanism, unspecified Total Protein Urine Random Today D89.9 - Disorder involving the immune mechanism, unspecified Basic Metabolic Panel Today D89.9 - Disorder involving the immune mechanism, unspecified Coding Level of Care Code New Pt Level 4 (68059) Diagnoses Immune disorder D89.9 Isolated proteinuria with C3 glomerulonephritis N06.A Proteinuria type: isolated Isolated proteinuria type: with C3 glomerulonephritis Microscopic hematuria R31.29
--- OUTSIDE RECORDS SUMMARY | 2025-07-07 15:27 | XMS_ITS | Clinical Summary ---
Author Organization [facility] Address [address] [place] [address] Care Team Providers Care Veneer Sander Name Role Phone Unavailable Primary Care Provider [...] of 3 - 19+ 3-dose series) 2009 HPV Vaccines (1 - 3-dose SCD M series) 2017 COVID-19 Vaccine (2023-2 5 season) 2024 Pneumococcal Vaccine: Pediat lexi (0-5 Years) and At-Risk Patients (6 to 49 Years) Aged Out No longer eligible b ased on patient's age to complete this topic
--- OUTSIDE RECORDS SUMMARY | 2025-07-07 15:27 | XMS_ITS | Clinical Summary ---
Demographics Address [address] [place] [address] Home Phone Preferred Language Maltese Marital Status Unknown Scientologist Affiliation Unknown Race Unknown Ethnic Group or Author Organization [facility] Address [address] [place] [id number] Phone Care Team Providers Care Mergers And Acquisitions Associate Name Role Phone Unknown, Unknown MD Primary [...] Self [address] [place] [address] [facility] * Guarantor: Krupa Springer Account Type Relation to Patient Date of Phone Billing Address Personal/Family Self [address] [place] [address] [facility] * Guarantor: Krupa Springer Account Type Relation to Patient Date of Phone Billing Address Personal/Family Self [address] [place] [address] [facility] [address] [address] [place] [address] [facility] [address] [place] [address] [facility] [address] [address] [place] [address] [facility] * Guarantor: Danielle Krupa Account Type Relation to Patient Date of Phone Billing Address Personal/Family Self [address] [place] [address] [facility] * Guarantor: Ole Springerrielle Account Type Relation to Patient Date of Phone Billing Address Personal/Family Self [address] [place] [facility] * Guarantor: Krupa Springer Account Type Relation to Patient Date of Phone Billing Address Personal/Family Self [address] [place] [facility] Care Teams Mergers And Acquisitions Associate Relationship Specialty Start Date End Date Unknown, Unknown, PCP - General 08/31/17 Additional Source Comments The information contained in this document represents components of the legal health record. It is not the complete legal health record.[facility]
== END 2025-07-07 14:41 | disposition home or self-care (01) ==
LOC: HO.HKA 14:08
PROVIDERS: PCP Physician Assistant; Referring Provider Internal Medicine; Visit Provider Internal Medicine Hypertension Specialist
DX: D89.9 Disorder involving the immune mechanism, unspecified (principal); N06 Isolated proteinuria with specified morphological lesion; R31.29 Other microscopic hematuria
CPT/HCPCS: 99204

== ENCOUNTER 2025-07-07 14:08 | Outpatient (REF) | payer OTHER, SELFPAY ==
[2025-07-07 16:12] LABS: Appearance Urine Cloudy; Glucose Urine UA Negative (Negative); PH 6.0 (5.0-9.0); Specific Gravity - Urine 1.025 (1.005-1.025); UMIC TRIGGER UA YES
[2025-07-07 16:19] LABS: Anion Gap 13 (12-20); Blood Urea Nitrogen 13 mg/dL (9-16); Calcium 9.2 mg/dL (8.4-10.2); Carbon Dioxide 23 mmol/L (22-29); Chloride 107 mmol/L (96-108); Estimated Glomerular Filt Rate > 60; Potassium 3.9 mmol/L (3.3-5.1); Sodium 139 mmol/L (135-145)
[2025-07-07 16:53] LABS: Total Protein Urine Random 182 mg/dL (<12)
[2025-07-08 07:18] LABS: Lyme Abs Screen <0.90 index
[2025-07-08 15:04] LABS: Anti Glomerular Basement Memb <1.0 AI; Proteinase 3 PR3 Antibodies <1.0 AI; SM/Ribonucleoprotein Ab <1.0 NEG AI (<1.0 NEG); Smith Protein <1.0 NEG AI (<1.0 NEG)
[2025-07-09 08:35] LABS: Neutrophil Cyto Ab Screen NEGATIVE (NEGATIVE)
[2025-07-13 22:13] LABS: Phospholipase A2 IgG ELISA <4 RU/mL; Phospholipase A2 IgG IFA NEGATIVE (NEGATIVE)
== END 2025-07-07 14:09 | disposition home or self-care (01) ==
LOC: HO.LAB 14:08
PROVIDERS: PCP Physician Assistant; Referring Provider Internal Medicine; Visit Provider Internal Medicine Hypertension Specialist
DX: N06 Isolated proteinuria with specified morphological lesion (principal); D89.9 Disorder involving the immune mechanism, unspecified; R31.29 Other microscopic hematuria; M79.10 Myalgia, unspecified site; Z01.84 Encounter for antibody response examination
CPT/HCPCS: 80048; 81001; 82570; 82784; 83520; 84156; 86021; 86036; 86160; 86235; 86255; 86334; 86335; 86617; 86618; 99202

== ENCOUNTER 2025-07-27 15:57 | Outpatient (AMB) | payer OTHER, SELFPAY ==
--- NOTE | 2025-07-27 16:01 | MHC.PC.OV ---
Vital Signs 07/27/25 16:05 Height 5 ft 9 in Weight 275 lb 6 oz BMI 40.7 BP 110/70 Blood Pressure Location Lt brachial Position Sitting Pulse 102 H Pulse Source Pulse Oximeter Temp 97.5 F Temp Source Temporal Artery Scan Pulse Oximetry (%) 93 Oxygen Delivery Method Room Air Intake Visit Reasons: Reschedule Annual Exam Intake Note: Patient is here today for a physical. Occupational Therapist Rehab Manager Required: No Jig Hand: Not Required per policy Accompanied by: Self / Same As Patient Allergies azithromycin Allergy (Intermediate, Verified 07/27/25 16:14) Diarrhea codeine Allergy (Intermediate, Verified 07/27/25 16:14) Shakiness bees Allergy (Unknown, Uncoded 07/27/25 16:14) Swelling hornet Allergy (Unknown, Uncoded 07/27/25 16:14) Swelling Medication List - Last Reconciled 07/27/25 by Adams Pereira PA-C No Known Home Meds Tobacco use date assessed: 07/27/25 Dental Screening Dental Screen Date: 07/27/25 Did you have a dental visit in the last 12 months?: Yes Did you have a dental problem in the last 6 months where you did not have access to dental care?: No Was dental information given to patient?: Patient has dentist HPI Reschedule Annual Exam HPI Details Patient is a 34-year-old female here today for routine annual physical..? Patient has multiple somatic complaints today including weight gain, spasms in her temporal region and left side of her chest,, irritability.? At last visit we started pantoprazole, dicyclomine and ondansetron for her GI issues though seems to have side effects to all medications. Concerns--> Elisa's Hypothyroidism: Has followed up with endocrinology, seems to have had side effects to generic levothyroxine. Most recent TSH slightly elevated at 4.05. . Unfortunately still has not been able to lose much weight and attributes this to underlying medical condition or perhaps side effect thyroid medication. . .. Anxiety/ MDD:? Continues to suffer with both anxiety and depression. At this time not working. Not on any mental health medication as she has had side effects to many medications. .. Protein urea: Now followed by gymnastics coach or instructor, has had kidney biopsy in the past without significant findings. 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 GI issues--> interval history--> ? She continues to have abdominal pain and episodes of vomiting over the last 6 months. she reports that this time it is affecting her employment as she often needs to take breaks and is belching ? quite a bit.? She is often taking days off of work due to her continued abdominal pain and nausea.? She reports is taking a toll on her mental health and would like to see a mental health therapist. Patient now on disability and looking for new work. She did have an upper GI workup in 2022 which did show gastritis on EGD, did have a gastric emptying study which was normal. She did try PPI therapy though felt side effects. Did have colonoscopy in 2022 that did show 1 tubular adenoma polyp and needs repeat colonoscopy in 5 years. PLAN: She is willing to try an H2 pam in the morning on an empty stomach --> Tried many? different medications with her student specialist and last one was Linzess for chronic constipation though unfortunately? has left her? defecating much more frequently. Patient has had CT abdomen and pelvis along with x-ray abdomen in 2021 which were? unremarkable.? HAM SMOKER: DOes see a HAM SMOKER Vaccines: Up-to-date with COVID vaccine, needs Tdap (declines) Laboratory Tests 06/16/22 09/13/22 10/30/22 10:39 12:14 14:06 WBC 13.2 H RBC Hgb Creatinine Troponin I High Se ns < 3.5 TSH 2.67 Beta HCG, Quant Urine Protein 300 (3+) H Ur Leukocyte Maria Teresa ase IgA Total Tiss Transglutamin IgG <1.0 Tiss Transglutamin IgA <1.0 10/30/22 01/26/23 08/23/23 16:34 08:35 13:40 WBC 11.5 H RBC 5.50 Hgb Creatinine 0.87 Troponin I High Se ns TSH 2.99 Beta HCG, Quant < 2 Urine Protein 300 (3+) H Ur Leukocyte Maria Teresa ase Small (1+) H IgA Total Tiss Transglutamin IgG Tiss Transglutamin IgA 10/03/23 12/24/23 12/28/23 09:49 14:52 21:17 WBC RBC 5.22 Hgb 14.8 Creatinine 0.84 Troponin I High Se ns TSH 4.36 H 1.29 Beta HCG, Quant Urine Protein Ur Leukocyte Maria Teresa ase IgA Total Tiss Transglutamin IgG Tiss Transglutamin IgA 04/01/24 07/10/24 02/18/25 10:03 15:55 10:11 WBC 11.5 H RBC 5.32 Hgb Creatinine Troponin I High Se ns TSH 8.53 H 2.99 Beta HCG, Quant Urine Protein Ur Leukocyte Maria Teresa ase IgA Total Tiss Transglutamin IgG Tiss Transglutamin IgA 07/07/25 15:05 WBC RBC Hgb Creatinine 1.03 Troponin I High Se ns TSH Beta HCG, Quant Urine Protein Ur Leukocyte Maria Teresa ase IgA Total 432 H Tiss Transglutamin IgG Tiss Transglutamin IgA PFSH Medical History Heart palpitations Bleeding hemorrhoids Hemorrhoids Weight gain Hypothyroidism UTI (urinary tract infection) Morning after pill advice and prescription Screen for STD (sexually transmitted disease) Chest pain Multinodular thyroid Thyroid nodule Abnormal thyroid scan Encounter for IUD removal Contraceptive management Abdominal bloating IUD check up Complex ovarian cyst Pelvic cramping Encounter for IUD insertion Postprandial abdominal bloating Obese Recurrent UTI Family planning Bleeding hemorrhoids Generalized abdominal pain Obesity (BMI 30-39.9) Smoker Matthew's duct cyst Vaginal cyst Urethral diverticulum Hx of hematuria Family planning Screen for STD (sexually transmitted disease) COVID COVID-19 Dog bite Rash Cellulitis Headache Palpitation Neck pain Screening examination for infectious disease control counseling History of cardiac disorder Depression Migraine Insomnia Abnormal laboratory test Arthritis Immune disorder Healthy adult History of leukocytosis Surgical History Hx of ultrasound guided needle biopsy History of delivery Family History Mother Diabetes Maternal Grandmother Diabetes Sister HTN (hypertension) Maternal Uncle Thyroid cancer Social History Housing: Apartment Alcohol intake: current Alcohol intake frequency: holidays/special occasions only Patient Tobacco Use Status: Former Tobacco user Tobacco use type: Cigarette Years Smoked: 10 years e-Cigarette/Vaping Use: Former Use Second Hand Smoke Exposure: Yes service: No Current occupational status: unemployed Cognitive needs: No Hearing needs: No Vision needs: Yes Female Reproductive History Menstrual Age of Menarche: 11 Questionnaire PHQ-9 Over the last 2 weeks, how often have you been bothered by any of the following problems? 1. Little interest or pleasure in doing things: several days 2. Feeling down, depressed, or hopeless: several days 3. Trouble falling or staying asleep, or sleeping too much: several days 4. Feeling tired or having little energy: nearly every day 5. Poor appetite or overeating: several days 6. Feeling bad about yourself - or that you are a failure or have let yourself or your family down: not at all 7. Trouble concentrating on things, such as reading the newspaper or watching television: not at all 8. Moving or speaking so slowly that other people could have noticed. Or the opposite - being so fidgety or restless that you have been moving around a lot more than usual: several days 9. Thoughts that you would be better off or of hurting yourself in some way: not at all Total score: 8 Depression Screening Interpretation: Positive Depression Screening Follow-up: Existing condition and In treatment Depression Screening Done: Yes 04806 - PHQ-9 Billing: Yes Source: Developed by Drs. Lico Hutchinson, Citlali Mendoza, Frantz Rodas and colleagues, with an educational yaakov from [employer]. Thrive Questionnaire Date Thrive assessed: 07/27/25 I am a: Patient What is your living situation today?: I have a steady place to live Within the past 12 months, did the food you bought not last and you didn't have the money to get more?: Never true Within the past 12 months, did you worry whether your food would run out before you got money to buy more?: Never true Do you have trouble paying for medicines?: No Do you have trouble getting transportation to medical appointments?: No Do you have trouble paying your heating and electricity bill?: No Do you have trouble taking care of your child, family member or friend?: No Do you have trouble with day-to-day activities such as bathing, preparing meals, shopping, managing finances, etc.?: No Are you currently unemployed and looking for a job?: No Are you interested in more education?: No Please select the resources that you would like help with: None Currently or been in a relationship where the following occur: No concerns reported THRIVE Score: 0 AUDIT C Alcohol Use Questionnaire (AUDIT-C) 1. How often do you have a drink containing alcohol?: 2-4 times a month 2. How many drinks containing alcohol do you have on a typical day when you are drinking?: 5 or 6 3. How often do you have six or more drinks on one occasion?: Monthly Total Score: 6 HOWARD-7 AMB Questionnaire HOWARD-7 Date HOWARD - 7 assessed: 07/27/25 Feeling nervous, anxious, or on edge: 2 = More than half the days Not being able to stop or control worryin = Nearly every day Worrying too much about different things: 3 = Nearly every day Trouble relaxin = More than half the days Being so restless that it is hard to sit still: 1 = Several days Becoming easily annoyed or irritable: 3 = Nearly every day Feeling afraid as if something awful might happen: 2 = More than half the days Total HOWARD-7 score (0-4 normal; 5-9 mild; 10-14 moderate; 15-21 severe): 16 Source: Developed by Drs. Lico Hutchinson, Citlali Mendoza, Frantz Rodas and colleagues, with an educational yaakov from [employer]. HOWARD-7 Assessment Billing HOWARD-7 Assessment Tool: HOWARD-7 Assessment 96159 Physical exam (Primary Care) Vital Signs: Last Vital Signs Temp 97.5 F 07/27/25 16:05 Pulse 102 H 07/27/25 16:05 BP 110/70 07/27/25 16:05 Pulse Ox 93 07/27/25 16:05 Oxygen Delivery Method Room Air 07/27/25 16:05 BMI result Body Mass Index 40.7 BMI Assessment/Plan discussion: High BMI High, discussed plan: lifestyle, weight reduction, dietary and physical activity Tobacco/Smoking Status: Tobacco use Status Tobacco use date assessed 07/27/25 07/27/25 16:10 Patient Tobacco Use Status Former Tobacco user 07/27/25 16:08 Tobacco use type Cigarette 07/27/25 16:08 e-Cigarette/Vaping Use Former Use 07/27/25 16:10 PHQ-9: PHQ-9 Score PHQ-9: Total score 8 07/27/25 16:17 Depression Screening Interpretation: Positive Depression Screening Follow-up: Existing condition and In treatment Thrive Assessment: Date of Thrive Assessment Date Thrive assessed 07/27/25 07/27/25 16:10 Currently or been in a relationship where the following occur: No concerns reported Coding Level of Care Code Est Pt Prev Care 18-39y(15161) Diagnoses Annual physical exam Z00.00 Severe episode of recurrent major depressive disorder, without psychotic features F33.2 Psychotic features: without psychotic features Multinodular thyroid E04.2 Abdominal bloating 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 Class 3 obesity E66.813 Additional Codes HOWARD-7 Assessment Billing - HOWARD-7 Assessment Tool: HOWARD-7 Assessment 63508 ([id number]) PHQ-9 - 29482 - PHQ-9 Billing: Yes ([id number]) Assessment & Plan Assessment & Plan (1) Annual physical exam: Code(s): Z00.00 - Encounter for general adult medical examination without abnormal findings Category: Medical Plan: As per HPI (2) MDD (major depressive disorder), recurrent episode, severe: Code(s): F33.2 - Major depressive disorder, recurrent severe without psychotic features Category: Medical Qualifiers: Psychotic features: without psychotic features Qualified Code(s): F33.2 - Major depressive disorder, recurrent severe without psychotic features Plan: Patient's PHQ-9 score positive for depression which has been existing condition for her. She is not interested in mental health medication as there has been a lot of side effects with meds. (3) Multinodular thyroid: Code(s): E04.2 - Nontoxic multinodular goiter Category: Medical Plan: The patient has thyroid nodules and a history of Elisa's thyroiditis. Recent TSH levels were slightly elevated at 4.02. She previously took levothyroxine but discontinued due to concerns about potential side effects. (4) Abdominal bloating: Code(s): R14.0 - Abdominal distension (gaseous) Category: Medical Plan: The patient reports chronic nausea, occurring 95% of the day, associated with gastrointestinal discomfort. She has a history of gastritis and internal hemorrhoids, contributing to her symptoms. 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 A gymnastics coach or instructor has recommended a kidney biopsy due to low kidney function for her age. The patient is concerned about the frequency of CT scans and prefers MRI for further evaluation. (6) Class 3 obesity: Code(s): E66.813 - Obesity, class 3 Category: Medical Plan: Patient does understand her BMI is over 40 and has had a lot of difficulty losing weight. She reports she does not eat much and somewhat regularly exercises. She attributes her difficulty with losing weight on her Elisa's thyroid issue Orders: Orders Lipase 07/27/25 R10.13 - Epigastric pain Cortisol, Free 24Hr Urine 07/27/25 N28.1 - Cyst of kidney, acquired CT abdomen pelvis wo/w IV con 07/27/25 N28.1 - Cyst of kidney, acquired, R10.13 - Epigastric pain, R31.29 - Other microscopic hematuria Medications: New famotidine 40 mg PO DAILY 30 tabs 1RF 30 days R10.13 - Epigastric pain
[2025-07-27 16:05] VITALS: BP 110/70; PULSE 102; TEMP 36.4; O2SAT 93; BMI 40.7
--- OUTSIDE RECORDS SUMMARY | 2025-07-27 18:41 | XMS_ITS | Clinical Summary ---
Demographics Address [address] [place] [address] Home Phone Preferred Language Setswana Marital Status Unknown Adventist Affiliation Unknown Race Unknown Ethnic Group or Author Organization [facility] Address [address] [place] [phone] Phone Care Team Providers Care Addiction Psychiatrist Name Role Phone Unknown, Unknown MD Primary [...] SMEAR 2011 Adult Td,Tdap Booster 01/30/2013 01/30/2003 INFLUENZA VACCINE (#1) 2025 10/27/2020 COVID-19 VACCINE ( season) 2025 HIB VACCINES Completed 11/19/1993, 0511/1992, 01/18/1992, Additional history exists HEPATITIS A VACCINES [...] Self [address] [place] [address] [facility] * Guarantor: Krupa Springer Account Type Relation to Patient Date of Phone Billing Address Personal/Family Self [address] [place] [address] [facility] * Guarantor: Danielle Krupa Account Type Relation to Patient Date of Phone Billing Address Personal/Family Self [address] [place] [address] [facility] * Guarantor: Krupa Springer Account Type Relation to Patient Date of Phone Billing Address Personal/Family Self [address] [place] [address] [facility] * Guarantor: Krupa Springer Account Type Relation to Patient Date of Phone Billing Address Personal/Family Self [address] [place] [address] [facility] * Guarantor: Krupa Springer Account Type Relation to Patient Date of Phone Billing Address Personal/Family Self [address] [place] [address] [facility] [address] [place] [address] [facility] [facility] [address] [place] [facility] [address] [place] [address] [facility] Care Teams Addiction Psychiatrist Relationship Specialty Start Date End Date Unknown, Unknown, PCP - General 08/31/17 Additional Source Comments The information contained in this document represents components of the legal health record. It is not the complete legal health record.[facility]
--- OUTSIDE RECORDS SUMMARY | 2025-07-27 18:41 | XMS_ITS | Clinical Summary ---
Author Organization [facility] Address [address] [place] [address] Care Team Providers Care Cellophane Worker Name Role Phone Unavailable Primary Care Provider [...] series) 2017 COVID-19 Vaccine (2023-2 5 season) 2025 Pneumococcal Vaccine: Pediat lexi (0-5 Years) and At-Risk Patients (6 to 49 Years) Aged Out No longer eligible b ased on patient's age to complete this topic
== END 2025-07-27 17:04 | disposition home or self-care (01) ==
LOC: HO.HMCH 15:58
PROVIDERS: PCP Physician Assistant; Visit Provider Physician Assistant
DX: Z00.00 Encounter for general adult medical examination without abnormal findings (principal); F33.2 Major depressive disorder, recurrent severe without psychotic features; E66.813 Obesity, class 3; Z68.41 Body mass index [BMI] 40.0-44.9, adult; E04.2 Nontoxic multinodular goiter; R14.0 Abdominal distension (gaseous); N28.89 Other specified disorders of kidney and ureter

== ENCOUNTER → 2025-07-27 15:57 | Outpatient (BNVA) | payer OTHER, SELFPAY | PROVIDERS: PCP Physician Assistant; Visit Provider Physician Assistant | DX: Z00.00 Encounter for general adult medical examination without abnormal findings (principal); F33.2 Major depressive disorder, recurrent severe without psychotic features; E04.2 Nontoxic multinodular goiter; E06.3 Autoimmune thyroiditis; F41.9 Anxiety disorder, unspecified; R80.9 Proteinuria, unspecified; R14.0 Abdominal distension (gaseous); N28.89 Other specified disorders of kidney and ureter; E66.813 Obesity, class 3; R10.13 Epigastric pain; N28.1 Cyst of kidney, acquired; R31.29 Other microscopic hematuria; Z68.41 Body mass index [BMI] 40.0-44.9, adult | CPT/HCPCS: 96127; 99395 ==

== ENCOUNTER 2025-08-04 09:44 | Outpatient (AMB) | payer OTHER, SELFPAY ==
--- NOTE | 2025-08-04 09:48 | A.OFFVIS_ITS ---
Intake Visit Reasons: microscopic hematuria Intake Note: Patient is present for microscopic hematuria Urology Medication:none Antibiotic Allergy:azithromycin Blood Thinner:none Wheel Molder Required: No Allergies azithromycin Allergy (Intermediate, Verified 08/04/25 21:29) Diarrhea codeine Allergy (Intermediate, Verified 08/04/25 21:29) Shakiness bees Allergy (Unknown, Uncoded 08/04/25 21:29) Swelling hornet Allergy (Unknown, Uncoded 08/04/25 21:29) Swelling Medication List - Last Reconciled 08/04/25 by TRUDI Estrada- lisinopril 5 mg PO DAILY HPI Comments Details: Krupa is a very pleasant 34 year old female patient of Dr. Pereira. She has a past medical history of insomnia, migraines, abnormal uterine bleeding, left ovarian cysts, hypothyroidism, obesity, recurrent chronic urinary tract infections, GERD, bleeding hemorrhoids, chronic pain, chronic idiopathic constipation, depression, anxiety, and abdominal bloating. She presents to the office today for follow-up of her recurrent urinary tract infections, microscopic hematuria and ongoing lower urinary tract symptoms. In discussion w ith the patient today she reports having recently established nephrology care here at [facility] as she has been having ongoing issues with proteinuria in dark-colored urine. She discusses since her last office visit here 2 years ago she has been having ongoing intermittent episodes of bladder spasms and bladder pressure. She reports having recently followed up with her PCP and has a CT of the abdomen pending. In office urinalysis results reviewed with the patient today no microscopic hematuria noted however 2+ proteinuria. We did discussed at length potential causes of intermittent microscopic hematuria as well as lower urinary tract symptoms patient has been experiencing. We did discuss further treatment options and risks and benefits of these treatment options. Previous urine cultures are as follows: 01/10 E coli, 01/10 Strep agalactiae (Grp B) She discusses her frustration regarding her health in generalized fatigue. She also reports feeling she experiences pain to her bladder 1 holding minimal urination. She currently denies incontinence, gross/visible hematuria, dysuria, foul smelling urine, changes to urinary stream, fever, and or chills. She does report intermittent episodes of bilateral flank pain. Previous workup has included a retroperitoneal ultrasound 09/10 noting right kidney with 1.7 x 1.4 x 1.5 cm echogenic lesion in the upper pole of the right kidney. This corresponds to a partially fatty lesion in the upper pole of the right kidney on January 2022 CT scan and likely represents a benign angiomyolipoma. This measured 1.5 cm January 2022 and is not appreciably changed in size. No calculi or focal parenchymal lesions. No hydronephrosis. Left kidney with no calculi, lesions, and or hydronephrosis. The bladder is well distended and normal. Bilateral ureteral jets are demonstrated. Pre void bladder volume is approximately 200 mL. Postvoid bladder volume is approximately 5 mL. She discusses her reluctancy in taking medications She otherwise offers no other issues or concerns at this time. [facility] Medical History Heart palpitations Bleeding hemorrhoids Hemorrhoids Weight gain Hypothyroidism UTI (urinary tract infection) Morning after pill advice and prescription Screen for STD (sexually transmitted disease) Chest pain Multinodular thyroid Thyroid nodule Abnormal thyroid scan Encounter for IUD removal Contraceptive management Abdominal bloating IUD check up Complex ovarian cyst Pelvic cramping Encounter for IUD insertion Postprandial abdominal bloating Obese Recurrent UTI Family planning Bleeding hemorrhoids Generalized abdominal pain Obesity (BMI 30-39.9) Smoker Matthew's duct cyst Vaginal cyst Urethral diverticulum Hx of hematuria Family planning Screen for STD (sexually transmitted disease) COVID COVID-19 Dog bite Rash Cellulitis Headache Palpitation Neck pain Screening examination for infectious disease control counseling History of cardiac disorder Depression Migraine Insomnia Abnormal laboratory test Arthritis Immune disorder Healthy adult History of leukocytosis Surgical History Hx of ultrasound guided needle biopsy History of delivery Family History Mother Diabetes Maternal Grandmother Diabetes Sister HTN (hypertension) Maternal Uncle Thyroid cancer Social History Housing: Apartment Alcohol intake: current Alcohol intake frequency: holidays/special occasions only Patient Tobacco Use Status: Former Tobacco user Tobacco use type: Cigarette Years Smoked: 10 years e-Cigarette/Vaping Use: Former Use Second Hand Smoke Exposure: Yes service: No Current occupational status: unemployed Cognitive needs: No Hearing needs: No Vision needs: Yes Female Reproductive History Menstrual Age of Menarche: 11 Review of Systems Const Reports as per [facility] Eyes Reports no additional complaints ENT Reports no additional complaints Card Reports no additional complaints Resp Reports no additional complaints GI Reports as per [facility] Reports as per [facility] Musc Reports as per [facility] Neuro Reports as per [facility] Psych Reports as per [facility] Endo Reports as per [facility] Physical Exam Const General: cooperative, healthy appearing, comfortable, no acute distress, well developed, alert and awake Nutritional Appearance: overweight Orientation/consciousness: patient oriented x3 Limitations: no limitations HEENT Head: Yes normal to inspection, Yes normocephalic and Yes atraumatic Ears: hearing grossly normal bilaterally Eyes General: appearance normal, both eyes and all related structures Neck Neck: Yes normal visual inspection and Yes trachea midline Chest Chest palpation & inspection: normal inspection of the chest Resp Effort & Inspection: normal respiratory effort and able to speak in complete sentences Cardio Rate: regular rate GI Inspection: Yes normal to inspection General: Yes no CVA tenderness External Female Exam: normal external appearance and normal appearance of the u rethra Speculum Exam - Vagina: normal appearance of the vagina Back/Spine/Pelvis Back: no CVA tenderness Skin General skin exam: no rashes or lesions noted Neuro General: patient oriented x3 Extrem General: Yes normal to inspection Psych Appearance: grossly normal and well kempt Mental Status: mental status grossly normal Speech and movement: Normal speech and movement present and Clear speech present Affect: normal affect Attitude: cooperative Thought process: Normal thought process present Thought content: Normal thought content present Insight: Fair insight present (Psych) Judgement: Fair judgement present (Psych) Results AMB Urinalysis, Automated UA Leukoctes 15 Adeel/uL Last Edit by GABI Shin on 08/04/25 09:57 UA Nitrite Negative Last Edit by GABI Shin on 08/04/25 09:57 UA Urobilinogen 0.2 mg/dL Last Edit by GABI Shin on 08/04/25 09:5 7 UA Protein 100 mg/dL Last Edit by GABI Shin on 08/04/25 09:57 UA pH 6.0 Last Edit by GABI Shin on 08/04/25 09:57 UA Blood 0 Miguel/uL Last Edit by GABI Shin on 08/04/25 09:57 UA Specific [place] 1.020 Last Edit by GABI Shin on 08/04/25 09: 57 UA Ketone Negative Last Edit by GABI Shin on 08/04/25 09:57 UA Bilirubin 0 mg/dL Last Edit by GABI Shin on 08/04/25 09:57 UA Glucose 0 mg/dL Last Edit by GABI Shin on 08/04/25 09:57 Results Reviewed Results Reviewed: Laboratory Last Values Urine pH (Auto) 6.0 08/04/25 09:56 Specific [place] (Auto) 1.020 08/04/25 09:56 Urine Protein (Auto) 100 mg/dL 08/04/25 09:56 Glucose (UA)(Auto) 0 mg/dL 08/04/25 09:56 Urine Ketones (Auto) Negative 08/04/25 09:56 Urine Blood (Auto) 0 Miguel/uL 08/04/25 09:56 Urine Nitrite (Auto) Negative 08/04/25 09:56 Urine Bilirubin (Auto) 0 mg/dL 08/04/25 09:56 Urine Urobilinogen (Auto) 0.2 mg/dL 08/04/25 09:56 Leukocyte Esterase (Auto) 15 Adeel/uL 08/04/25 09:56 Assessment & Plan Assessment & Plan (1) Renal cyst: Code(s): N28.1 - Cyst of kidney, acquired Category: Medical (2) Microscopic hematuria: Code(s): R31.29 - Other microscopic hematuria Category: Medical (3) Sensation of pressure in bladder area: Code(s): R39.89 - Other symptoms and signs involving the genitourinary system Category: Medical (4) Bladder spasms: Code(s): N32.89 - Other specified disorders of bladder Category: Medical Plan In office urinalysis results reviewed with the patient today; as noted above. We did discussed potential causes of lower urinary tract symptoms patient is experiencing as well as further treatment options and risks and benefits of these treatment options. We also discussed intermittent microscopic hematuria versus persistent microscopic hematuria. All questions were answered. We discussed bladder triggers and irritants. Patient with pending CT; will await results We did discussed the importance of adequate hydration relation to lower urinary tract symptoms as well as overall health and well-being. Will schedule for in office cystoscopy. Follow-up per doctor's orders; or sooner with any issues, concerns, and or questions. Orders: Orders AMB Urinalysis Automated Today Z13.9 - Encounter for screening, unspecified Patient Instructions: The patient had an opportunity to ask questions regarding the treatment plan. All questions were answered. Physical exam, labs, and imaging were discussed and reviewed in detail. As well as risks, benefits, and discussion of treatment choices. No major barriers to understanding were identified. The patient expressed understanding and agreement with the above treatment plan. The patient was made aware they should contact our office by phone for worsening of their current condition, the appearance of new symptoms, or with any questions or concerns. Compliance is encouraged with any medications and follow up testing that is ordered. It is a privilege to be allowed the opportunity to participate in? your urological care.? Again, if you have any questions or concerns If you have any questions or concerns please do not hesitate to contact me. The office is [phone]. This note is constructed using voice recognition software. While every effort has been made to ensure accuracy business office coordinator errors may have been included. Yours sincerely, YOLI Estrada Coding Level of Care Code Est Pt Level 3 (01487) Complex EM visit Add On G2211 Diagnoses Renal cyst N28.1 Microscopic hematuria R31.29 Sensation of pressure in bladder area R39.89 Bladder spasms N32.89
--- OUTSIDE RECORDS SUMMARY | 2025-08-04 12:27 | XMS_ITS | Clinical Summary ---
Demographics Address [address] [place] [address] Home Phone Preferred Language Slovenian Marital Status Unknown Pentecostal Affiliation Unknown Race Unknown Ethnic Group or Author Organization [facility] Address [address] [place] [id number] Phone Care Team Providers Care Working Second Hand Name Role Phone Unknown, Unknown MD Primary [...] Self [address] [place] [address] [facility] * Guarantor: Krupa Springer Account Type Relation to Patient Date of Phone Billing Address Personal/Family Self [address] [place] [address] [facility] * Guarantor: Danielle Krupa Account Type Relation to Patient Date of Phone Billing Address Personal/Family Self [address] [place] [address] [facility] * Guarantor: Krupa Springer Account Type Relation to Patient Date of Phone Billing Address Personal/Family Self [address] [place] [address] [facility] * Guarantor: Krupa Springer Account Type Relation to Patient Date of Phone Billing Address Personal/Family Self [address] [place] [address] [facility] * Guarantor: Krupa Springer Account Type Relation to Patient Date of Phone Billing Address Personal/Family Self [address] [place] [address] [facility] [address] [place] [address] [facility] [address] [place], [place] [facility] [address] [place] [address] [facility] Care Teams Working Second Hand Relationship Specialty Start Date End Date Unknown, Unknown, PCP - General 08/31/17 Additional Source Comments The information contained in this document represents components of the legal health record. It is not the complete legal health record.[facility]
--- OUTSIDE RECORDS SUMMARY | 2025-08-04 12:27 | XMS_ITS | Clinical Summary ---
Author Organization [facility] Address [address] [place] [address] Care Team Providers Care Elevator Dispatcher Name Role Phone Unavailable Primary Care Provider [...]
== END 2025-08-04 10:35 | disposition home or self-care (01) ==
LOC: HO.HUSH 09:45
PROVIDERS: PCP Physician Assistant; Visit Provider Nurse Practitioner Family
DX: N28.1 Cyst of kidney, acquired (principal); R31.29 Other microscopic hematuria; R39.89 Other symptoms and signs involving the genitourinary system; N32.89 Other specified disorders of bladder; Z13.9 Encounter for screening, unspecified
CPT/HCPCS: 99213

== ENCOUNTER → 2025-08-04 09:44 | Outpatient (BNVA) | payer OTHER, SELFPAY | PROVIDERS: PCP Physician Assistant; Visit Provider Nurse Practitioner Family | DX: N06 Isolated proteinuria with specified morphological lesion (principal); D89.9 Disorder involving the immune mechanism, unspecified; R31.29 Other microscopic hematuria; N28.1 Cyst of kidney, acquired; R39.89 Other symptoms and signs involving the genitourinary system; N32.89 Other specified disorders of bladder | CPT/HCPCS: 81003; 99212 ==

== ENCOUNTER 2025-08-04 16:31 | Outpatient (AMB) | payer OTHER, SELFPAY ==
--- NOTE | 2025-08-04 16:31 | HO.NEPHOV_ITS ---
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 Symptoms began during 11 years ago and have persisted, with dark urine and frequent urination. She was seen by Dr. Ornelas in the past and was subsequently lost to follow- up. 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 It appears that she was not on any therapy. Not on any GEORGETTE inhibitors. History of Elisa's Thyroiditis causing fatigue and shortness of breath, leading to emergency visits. Reports hemorrhoids with bleeding, untreated surgically, and multinodular goiter, benign on biopsy. Abnormal uterine bleeding and muscle pain with brain fog noted. She has generalized fatigue and body aches. No specific arthralgias she has chronic dull back pain more on the right. No dysuria. No gross hematuria. No rash no petechiae. 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 - Substance Use: Occasional alcohol consumption and smoking, started recently due to stress. DIAGNOSTIC RESULTS: - Labs: Hemoglobin and platelets normal, thyroid level 4.02, ARAVIND negative for lupus. - Urine Test: Protein present on dipstick, dark urine noted. - Imaging: Chest X-ray normal, kidney ultrasound normal. 08/04/25 c/o Right flank pain on and off No dysuria URology work up in progress [facility] Medical History Heart palpitations Bleeding hemorrhoids Hemorrhoids Weight gain Hypothyroidism UTI (urinary tract infection) Morning after pill advice and prescription Screen for STD (sexually transmitted disease) Chest pain Multinodular thyroid Thyroid nodule Abnormal thyroid scan Encounter for IUD removal Contraceptive management Abdominal bloating IUD check up Complex ovarian cyst Pelvic cramping Encounter for IUD insertion Postprandial abdominal bloating Obese Recurrent UTI Family planning Bleeding hemorrhoids Generalized abdominal pain Obesity (BMI 30-39.9) Smoker Matthew's duct cyst Vaginal cyst Urethral diverticulum Hx of hematuria Family planning Screen for STD (sexually transmitted disease) COVID COVID-19 Dog bite Rash Cellulitis Headache Palpitation Neck pain Screening examination for infectious disease control counseling History of cardiac disorder Depression Migraine Insomnia Abnormal laboratory test Arthritis Immune disorder Healthy adult History of leukocytosis Surgical History Hx of ultrasound guided needle biopsy History of delivery Family History Mother Diabetes Maternal Grandmother Diabetes Sister HTN (hypertension) Maternal Uncle Thyroid cancer Social History Housing: Apartment Alcohol intake: current Alcohol intake frequency: holidays/special occasions only Patient Tobacco Use Status: Former Tobacco user Tobacco use type: Cigarette Years Smoked: 10 years e-Cigarette/Vaping Use: Former Use Second Hand Smoke Exposure: Yes service: No Current occupational status: unemployed Cognitive needs: No Hearing needs: No Vision needs: Yes Female Reproductive History Menstrual Age of Menarche: 11 Physical Exam Comfortable Neck supple no JVD. Lungs entry equal no rales. Heart S1-S2 heard no gallop or rub. Abdomen soft nontender. Neuro alert awake oriented. No asterixis. Extremities no edema. Results AMB Urinalysis, Automated UA Leukoctes 15 Adeel/uL Last Edit by GABI Shin on 08/04/25 09:57 UA Nitrite Negative Last Edit by GABI Shin on 08/04/25 09:57 UA Urobilinogen 0.2 mg/dL Last Edit by GABI Shin on 08/04/25 09:5 7 UA Protein 100 mg/dL Last Edit by AGBI hSin on 08/04/25 09:57 UA pH 6.0 Last Edit by [facility] on 08/04/25 09:57 UA Blood 0 Miguel/uL Last Edit by Cintia [facility]ir[facility] on 08/04/25 09:57 UA Specific [place] 1.020 Last Edit by GABI Shin on 08/04/25 09: 57 UA Ketone Negative Last Edit by GABI Shin on 08/04/25 09:57 UA Bilirubin 0 mg/dL Last Edit by [facility]ir[facility] on 08/04/25 09:57 UA Glucose 0 mg/dL Last Edit by Cintia Aguirre [facility] on 08/04/25 09:57 Results Reviewed Nephrology Results: Sodium, (135-145) 139 mmol/L 07/07/25 Potassium, (3.3-5.1) 3.9 mmol/L 07/07/25 Chloride, (96-108) 107 mmol/L 07/07/25 Carbon Dioxide, (22-29) 23 mmol/L 07/07/25 BUN, (9-16) 13 mg/dL 07/07/25 Creatinine, (0.5-1.4) 1.03 mg/dL 07/07/25 Calcium, (8.4-10.2) 9.2 mg/dL 07/07/25 Urine Protein, (Neg-Trace) 300 (3+) mg/dL H 07/07/25 Urine Creatinine 263.70 mg/dL 07/07/25 Assessment & Plan Assessment & Plan (1) Immune disorder: Code(s): D89.9 - Disorder involving the immune mechanism, unspecified Category: Medical (2) Protein, urine, abnormal presence: Code(s): R80.9 - Proteinuria, unspecified Category: Medical Qualifiers: Isolated proteinuria type: with C3 glomerulonephritis Proteinuria type: isolated Qualified Code(s): N06.A - Isolated proteinuria with C3 glomerulonephritis (3) Microscopic hematuria: Code(s): R31.29 - Other microscopic hematuria Category: Medical Plan Pleasant 34-year-old woman with increase BMI with proteinuria. Presumably she has C3 glomerulopathy. Status post kidney biopsy about 7 years ago. The recent serum creatinine was 1.12 with a EGFR of 57 mL/minute. Clinically she appears euvolemic at this time. Blood pressure is in the normal range. Creatinine is down to 1.03 she has proteinuria - about 690 mg she will benefit from GEORGETTE inhibitors. Started Lisinopril 5 mg Q HS Can titrate dose based on BP No absolute indication for a repeat kidney biopsy she will benefit from weight loss and smoking cessation. Follow up renal USG ordered Orders: Orders Total Protein Urine Random 6 Months N06.A - Isolated proteinuria with C3 glomerulonephritis Basic Metabolic Panel 6 Months N06.A - Isolated proteinuria with C3 glomerulonephritis US renal BI Today N06.A - Isolated proteinuria with C3 glomerulonephritis, N28.1 - Cyst of kidney, acquired Creatinine Urine 6 Months N06.A - Isolated proteinuria with C3 glomerulonephritis UA and rflx microscopic 6 Months N06.A - Isolated proteinuria with C3 glomerulonephritis Medications: New lisinopril 5 mg PO DAILY 30 tabs 3RF Coding Level of Care Code Est Pt Level 4 (81186) Diagnoses Immune disorder D89.9 Isolated proteinuria with C3 glomerulonephritis N06.A Isolated proteinuria type: with C3 glomerulonephritis Proteinuria type: isolated Microscopic hematuria R31.29
[2025-08-04 16:32] VITALS: BP 126/72; PULSE 95; O2SAT 98
== END 2025-08-04 16:49 | disposition home or self-care (01) ==
LOC: HO.HKA 16:32
PROVIDERS: PCP Physician Assistant; Visit Provider Internal Medicine Hypertension Specialist
DX: D89.9 Disorder involving the immune mechanism, unspecified (principal); N06 Isolated proteinuria with specified morphological lesion; R31.29 Other microscopic hematuria
CPT/HCPCS: 99214

== ENCOUNTER 2025-08-23 19:02 | Emergency (ER) | payer OTHER, SELFPAY ==
--- NOTE | 2025-08-23 19:06 | ED_ITS ---
HPI - General Adult General Chief complaint: General Medical Stated complaint: Accidently super glued L eye Time Seen by Provider: 08/23/25 20:39 History of Present Illness ED Provider: Aric ARNETT narrative: The patient is a 34-year-old woman who was dying her hair this evening. She accidentally got some of the dye into her left eye. Her left eye felt very irritated. She reached into a bag for some soothing eyedrops that she has. Accidentally she picked up a bottle of fingernail glue instead of the eyedrops that she thought she was going to use. She then put several drops of the glue into her left eye. The eye was then stuck shut. It was extremely uncomfortable. She feels like there is something scratching her eye. She came to the emergency room for evaluation of this problem. She was feeling fine earlier in the day. She does not wear contact lenses. Related Data Previous Rx's ?Medication ?Instructions ?Recorded lisinopril 5 mg tablet 5 mg PO DAILY #30 tabs 08/04 Allergies Allergy/AdvReac Type Severity Reaction Status Date / Time azithromycin Allergy Intermediate Diarrhea Verified 08/23/25 19:07 codeine Allergy Intermediate Shakiness Verified 08/23/25 19:07 bees Allergy Unknown Swelling Uncoded 08/23/25 19:07 hornet Allergy Unknown Swelling Uncoded 08/23/25 19:07 Review of Systems Review of Systems: Yes all other systems are reviewed and are negative [facility] Past Medical History Medical History Heart palpitations Bleeding hemorrhoids Hemorrhoids Weight gain Hypothyroidism UTI (urinary tract infection) Morning after pill advice and prescription Screen for STD (sexually transmitted disease) Chest pain Multinodular thyroid Thyroid nodule Abnormal thyroid scan Encounter for IUD removal Contraceptive management Abdominal bloating IUD check up Complex ovarian cyst Pelvic cramping Encounter for IUD insertion Postprandial abdominal bloating Obese Recurrent UTI Family planning Bleeding hemorrhoids Generalized abdominal pain Obesity (BMI 30-39.9) Smoker Matthew's duct cyst Vaginal cyst Urethral diverticulum Hx of hematuria Family planning Screen for STD (sexually transmitted disease) COVID COVID-19 Dog bite Rash Cellulitis Headache Palpitation Neck pain Screening examination for infectious disease control counseling History of cardiac disorder Depression Migraine Insomnia Abnormal laboratory test Arthritis Immune disorder Healthy adult History of leukocytosis Surgical History Hx of ultrasound guided needle biopsy History of delivery Family History Family History Mother Diabetes Maternal Grandmother Diabetes Sister HTN (hypertension) Maternal Uncle Thyroid cancer Social History Social History Housing: Apartment Alcohol intake: current Alcohol intake frequency: holidays/special occasions only Patient Tobacco Use Status: Former Tobacco user Tobacco use type: Cigarette Years Smoked: 10 years Smoked in Last 30 Days: No e-Cigarette/Vaping Use: Former Use Second Hand Smoke Exposure: Yes Advance Directives: No Advance Directives Information Provided: No Patient : No service: No Current occupational status: unemployed Cognitive needs: No Hearing needs: No Vision needs: Yes Physical Exam ED Vital Signs: Vital Signs - 24 hr 08/23/25 19:07 Temperature 98.2 F Pulse Rate 117 H Respiratory Rate 18 Blood Pressure 155/82 H Pulse Oximetry 97 Oxygen Delivery Method Room Air BMI result Body Mass Index 39.9 HENMT Other: The patient is a 34-year-old woman who was awake and alert. She looks uncomfortable. Her left eyelid would not open. There was some mild swelling to left upper eyelid. Eyes Other: The patient has left eye seemed to be glued shut. The patient was unable to open the eye. I attempted to open the eye but the eyelid was quite glued shut and there was a lot of glue on the patient's very long eyelashes. The left eyelid was mildly swollen. There was no erythema. After eventually being able to open the eye the left eye showed a round pupil with a great deal of conjunctival injection. The pupil was reactive to light. The pupils were equal. Extraocular movements are intact. In opening the eye it became apparent that there was a foreign body, a piece of hardened glue that had hardened between the inner aspect of the eyelids and the surface of the eye. This was removed. Slit-lamp exam revealed corneal irregularities. Fluorescein staining revealed several corneal abrasions on the lower half of the cornea. Negative Francois sign. Neck Neck: Yes normal visual inspection and Yes full ROM Resp Effort & Inspection: normal respiratory effort Neuro Other: The patient was awake and alert with a normal mental status. She moves her extremities normally and appropriately. Course Reevaluation(s) Reevaluation #1: 34 year old female presents to the ED with left eye pain. About 30 minutes ago, she was dying her hair and got some dye in her eyes and it began to burn. She went to grab eye drops out of her purse and accidentally grabbed her nail glue and put it in her left eye. It started to burn right away. Pain is 7/10. When she moves her right eye laterally or medially, it hurts her left eye. Medications Administered Discontinued Medications Generic Name Dose Route Start Last Admin Trade Name Freq PRN Reason Stop Dose Admin Fluorescein Sodium 1 strip 08/23/25 21:09 08/23/25 21:19 Fluorescein Sodium Strip EYE-LEFT 08/23/25 21:10 1 strip ONCE ONE Administration Tetracaine HCl 3 drop 08/23/25 20:42 08/23/25 21:07 Tetracaine Hcl/Pf 0.5% Oph Acthie 4 Ml Drops EYE-LEFT 08/23/25 20:43 3 drop ONCE ONE Administration Medical Decision Making Medical Decision Making [facility] Narrative: The patient is a 34-year-old female who accidentally put cyanoacrylate glue into her left eye and the eye was subsequently glued shut. At 1st I simply tried to pry the eyelids open. The patient found this very uncomfortable. However there was a very small area at the lateral canthus where the margins were not glued shut. I tried to apply some tetracaine through the small opening. I then used a Keke to bluntly open the lid. The patient found this uncomfortable but ultimately, proceeding in his stepwise fashion, I was gradually able to fully open the eye in stages. After about 5 or 6 stages the eyelids were fully from each other. As I was doing this it was apparent that there was foreign matter sitting on the surface of the eye. This was removed with a Keke clamps as well. The foreign matter seemed to be a piece of hardened glue. Once the eyelid was fully opened I was able to administer a good dose of tetracaine. I then examined the eye with the slit lamp. There is a lot of conjunctival injection. There were some corneal irregularities. The pupil seemed normal. Fluorescein staining showed a lot of corneal injury in the lower half of the cornea. Eyelid eversion revealed no retained foreign bodies. The patient was started on erythromycin ointment. She will be discharged to follow up with Ophthalmology tomorrow. Discharge Plan Discharge Clinical Impression: Corneal abrasion, left, Foreign body of left eyelid Patient Disposition: Home, Self-Care Instructions: Corneal Abrasion (ED) Additional Instructions: Please apply a ribbon of the erythromycin ointment to your left eye every 6 hours. You may use ibuprofen and acetaminophen as needed for pain. Please call Dr. Trammell's office in the morning for a follow up appointment tomorrow. Return to the emergency room if significantly worse. Prescriptions: No Action lisinopril 5 mg tablet 5 mg PO DAILY Qty: 30 3RF Referrals: Daniel Trammell [Physician, Ophthalmology] Print Language: Romansh
[2025-08-23 19:07] VITALS: BP 155/82; PULSE 117; RESP 18; TEMP 36.8; O2SAT 97; BMI 39.9
--- OUTSIDE RECORDS SUMMARY | 2025-08-23 19:23 | XMS_ITS | Clinical Summary ---
Demographics Address [address] [place] [address] Home Phone Preferred Language Mohawk Marital Status Unknown Buddhist Affiliation Unknown Race Unknown Ethnic Group or Author Organization [facility] Address [address] [place] [address] Phone Care Team Providers Care Vice President Fixed Income Name Role Phone Unknown, Unknown MD Primary [...] Self [address] [place] [address] [facility] * Guarantor: Krupa Springer Account Type Relation to Patient Date of Phone Billing Address Personal/Family Self [address] [place] [address] [facility] * Guarantor: Danielle Krupa Account Type Relation to Patient Date of Phone Billing Address Personal/Family Self [address] [place] [address] [facility] * Guarantor: Krupa Springer Account Type Relation to Patient Date of Phone Billing Address Personal/Family Self [address] [place] [address] [facility] * Guarantor: Krupa Springer Account Type Relation to Patient Date of Phone Billing Address Personal/Family Self [address] [place] [address] [facility] * Guarantor: Krupa Springer Account Type Relation to Patient Date of Phone Billing Address Personal/Family Self [address] [place] [address] [facility] [address] [place] [address] [facility] [address] [place] [facility] [address] [place] [address] [facility] Care Teams Vice President Fixed Income Relationship Specialty Start Date End Date Unknown, Unknown, PCP - General 08/31/17 Additional Source Comments The information contained in this document represents components of the legal health record. It is not the complete legal health record.[facility]
--- OUTSIDE RECORDS SUMMARY | 2025-08-23 19:23 | XMS_ITS | Clinical Summary ---
Author Organization [facility] Address [address] [place] [address] Care Team Providers Care Bingo Worker Name Role Phone Unavailable Primary Care [...] series) 2009 COVID-19 Vaccine (2023-2 5 season) 2025 HPV Vaccines (No Doses Required) Completed Pneumococcal Vaccine: Pediat lexi (0-5 Years) and At-Risk Patients (6 to 49 Years) Aged Out No longer eligible b ased on patient's age to complete this topic
[2025-08-23] MEDS: Tetracaine HCl/PF 0.5% Oph Sol 4 ML DROPS 3 DROP EYE-LEFT (21:07)
[2025-08-23] MEDS: Fluorescein Sodium STRIP 1 STRIP EYE-LEFT (21:19)
[2025-08-23] MEDS: Erythromycin Base 0.5% Oph Oin 1 GM TUBE 1 CM EYE-LEFT (21:50)
[2025-08-23 21:56] VITALS: BP 155/82; PULSE 94; RESP 18; TEMP 36.8; O2SAT 98
== END 2025-08-23 21:57 | disposition home or self-care (01) ==
PROVIDERS: Emergency Provider Emergency Medicine; PCP Physician Assistant
DX: S05.52XA Penetrating wound with foreign body of left eyeball, initial encounter (principal); H57.12 Ocular pain, left eye; T15.02XA Foreign body in cornea, left eye, initial encounter; W44.8XXA Other foreign body entering into or through a natural orifice, initial encounter; Y93.9 Activity, unspecified; Y92.9 Unspecified place or not applicable; Y99.8 Other external cause status; Z87.891 Personal history of nicotine dependence
CPT/HCPCS: 65222; 99283; 99284

== ENCOUNTER 2025-08-24 10:01 | Outpatient (AMB) | payer OTHER, SELFPAY ==
[2025-08-24 11:04] VITALS: BP 130/80; PULSE 102; TEMP 36.7; O2SAT 98; BMI 40.6
--- NOTE | 2025-08-24 11:04 | AM.OFFWIN_ITS ---
Intake Vital Signs 08/24/25 11:04 Height 5 ft 9 in Weight 275 lb BMI 40.6 BP 130/80 Blood Pressure Location Rt brachial Position Sitting Pulse 102 H Pulse Source Pulse Oximeter Temp 98.1 F Temp Source Oral Pulse Oximetry (%) 98 Oxygen Delivery Method Room Air Intake Visit Reasons: EP Left eye pain (car [phone]) Intake Note: pt presents with left eye swelling, redness since yesterday. accidentally put super glue in eye instead of eye drops Patient Tobacco Use Status: Former Tobacco user Allergies azithromycin Allergy (Intermediate, Verified 08/24/25 11:10) Diarrhea codeine Allergy (Intermediate, Verified 08/24/25 11:10) Shakiness bees Allergy (Unknown, Uncoded 08/23/25 19:07) Swelling hornet Allergy (Unknown, Uncoded 08/23/25 19:07) Swelling Do you need a note to return to daycare/school/sports/work: No HPI HPI Comments History of Present Illness Details 34 y/o Female patient who presents to hospital for special surgery walk in clinic with c/o left eye swelling and pain. Reports she accidentally put cyanoacrylate glue into her left eye and the eye was subsequently glued shut. She was seen and evaluated at [facility] yesterday and found to have corneal injury in the lower half of the cornea. She was discharged home on Erythemycin Ointmenr q6 hours and to f/u with her Eye Doctor. Unfortunately Dr. Trammell's Office is closed on Mondays. Pt has been using the Ontment as prescribed but feels like not working and continues to have Pain. Denies vision changes to the eye, but reports light sensitivity. [facility]LY [facility] Medical History Heart palpitations Bleeding hemorrhoids Hemorrhoids Weight gain Hypothyroidism UTI (urinary tract infection) Morning after pill advice and prescription Screen for STD (sexually transmitted disease) Chest pain Multinodular thyroid Thyroid nodule Abnormal thyroid scan Encounter for IUD removal Contraceptive management Abdominal bloating IUD check up Complex ovarian cyst Pelvic cramping Encounter for IUD insertion Postprandial abdominal bloating Obese Recurrent UTI Family planning Bleeding hemorrhoids Generalized abdominal pain Obesity (BMI 30-39.9) Smoker Matthew's duct cyst Vaginal cyst Urethral diverticulum Hx of hematuria Family planning Screen for STD (sexually transmitted disease) COVID COVID-19 Dog bite Rash Cellulitis Headache Palpitation Neck pain Screening examination for infectious disease control counseling History of cardiac disorder Depression Migraine Insomnia Abnormal laboratory test Arthritis Immune disorder Healthy adult History of leukocytosis Surgical History Hx of ultrasound guided needle biopsy History of delivery Family History Mother Diabetes Maternal Grandmother Diabetes Sister HTN (hypertension) Maternal Uncle Thyroid cancer Social History Housing: Apartment Alcohol intake: current Alcohol intake frequency: holidays/special occasions only Patient Tobacco Use Status: Former Tobacco user Tobacco use type: Cigarette Years Smoked: 10 years e-Cigarette/Vaping Use: Former Use Second Hand Smoke Exposure: Yes service: No Current occupational status: unemployed Cognitive needs: No Hearing needs: No Vision needs: Yes Female Reproductive History Menstrual Age of Menarche: 11 Review of Systems Const All systems reviewed & are unremarkable except as noted in HPI and below Physical Exam Vital Signs: Last Vital Signs Temp 98.1 F 08/24/25 11:04 Pulse 102 H 08/24/25 11:04 BP 130/80 08/24/25 11:04 Pulse Ox 98 08/24/25 11:04 Oxygen Delivery Method Room Air 08/24/25 11:04 BMI result Body Mass Index 40.6 Const General: no acute distress Nutritional Appearance: obese Orientation/consciousness: patient oriented x3 Eyes Eyelids: Yes eyelid abnormality (Left Eyelids swollen, red and TTP. Eyelashes with glue residue. ) Conjunctivae: conjunctival abnormal left conjunctival injection and discharge Corneas: corneas abnormal on the left abrasion Pupils: Equal, round and reactive pupils present EOM: EOMs intact bilaterally Neuro General: patient oriented x3, gait normal and moves all extremities Cranial nerves: Yes Equal, round and reactive pupils present Psych Speech and movement: Normal speech and movement present Affect: Anxious affect present Assessment & Plan Assessment & Plan (1) Corneal abrasion, left: Code(s): S05.02XA - Injury of conjunctiva and corneal abrasion without foreign body, left eye, initial encounter Qualifiers: Encounter type: initial encounter Qualified Code(s): S05.02XA - Injury of conjunctiva and corneal abrasion without foreign body, left eye, initial encounter Plan: Continue using Ointment as prescribed. Apply Ice with Eye patch - avoid direct light to the eye. May take Acetaminophen or NSAIDs for pain relief. F/U with Eye doctor tomorrow. Coding Level of Care Code Est Pt Level 4 (99139) Diagnoses Abrasion of left cornea, initial encounter S05.02XA Encounter type: initial encounter Time Spent (min) 20
--- OUTSIDE RECORDS SUMMARY | 2025-08-24 11:38 | XMS_ITS | Clinical Summary ---
Author Organization [facility] Address [address] [place] [address] Care Team Providers Care School Nurse Name Role Phone Unavailable Primary Care Provider [...]
--- OUTSIDE RECORDS SUMMARY | 2025-08-24 11:38 | XMS_ITS | Clinical Summary ---
Demographics Address [address] [place] [address] Home Phone Preferred Language Uzbek Marital Status Unknown Alevism Affiliation Unknown Race Unknown Ethnic Group or Author Organization [facility] Address [address] [place] [address] Phone Care Team Providers Care Client Customer Manager Name Role Phone Unknown, Unknown MD Primary [...] Self [address] [place] [address] [facility] * Guarantor: Krupa Springer Account Type Relation to Patient Date of Phone Billing Address Personal/Family Self [address] [place] [address] [facility] * Guarantor: Danielle Krupa Account Type Relation to Patient Date of Phone Billing Address Personal/Family Self [address] [place] [address] [facility] * Guarantor: Krupa Springer Account Type Relation to Patient Date of Phone Billing Address Personal/Family Self [address] [place] [address] [facility] * Guarantor: Krupa Springer Account Type Relation to Patient Date of Phone Billing Address Personal/Family Self [address] [place] [address] [facility] * Guarantor: Krupa Springer Account Type Relation to Patient Date of Phone Billing Address Personal/Family Self [address] [place] [address] [facility] [address] [place] [address] [facility] [address] [place], [place] [facility] [address] [place] [address] [facility] Care Teams Client Customer Manager Relationship Specialty Start Date End Date Unknown, Unknown, PCP - General 08/31/17 Additional Source Comments The information contained in this document represents components of the legal health record. It is not the complete legal health record.[facility]
== END 2025-08-24 11:47 | disposition home or self-care (01) ==
PROVIDERS: PCP Physician Assistant; Visit Provider Nurse Practitioner Family
DX: S05.02XA Injury of conjunctiva and corneal abrasion without foreign body, left eye, initial encounter (principal)

== ENCOUNTER → 2025-08-24 10:01 | Outpatient (BNVA) | payer OTHER, SELFPAY | PROVIDERS: PCP Physician Assistant; Visit Provider Nurse Practitioner Family | DX: S05.02XA Injury of conjunctiva and corneal abrasion without foreign body, left eye, initial encounter (principal); T75.89XA Other specified effects of external causes, initial encounter; Y93.9 Activity, unspecified; Y92.9 Unspecified place or not applicable; Y99.9 Unspecified external cause status | CPT/HCPCS: 99212 ==

== ENCOUNTER 2025-09-03 15:49 | Outpatient (REF) | payer OTHER, SELFPAY ==
--- NOTE | ~2025-09-03 | US_ITS ---
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 COMPARISON: Ultrasound on August 23, 2023. Abdomen/pelvis CT on February 09, 2022. TECHNIQUE: Real-time imaging of the kidneys. FINDINGS: RIGHT KIDNEY: 12.2 cm in sagittal length. The kidney is normal in size, contour, and echogenicity. Renal cortical thickness is normal. No calculi. Redemonstration of echogenic lesion in the upper pole of the kidney measuring 3.4 x 1.9 x 2.2 cm (prior measurements of 1.7 x 1.4 x 1.5 cm in 2022), which correlates with the probable angiomyolipoma seen on the prior CT study in 2021. Cyst in the upper pole measures 1.2 x 1.2 x 0.9 cm. No hydronephrosis. LEFT KIDNEY: 11.7 cm in sagittal length. The kidney is normal in size, contour, and echogenicity. Renal cortical thickness is normal. No calculi or focal parenchymal lesions. No hydronephrosis. US/US renal BI IMPRESSION: Mild interval increase in size of the presumed angiomyolipoma in the upper pole of the right kidney. Electronically signed by: Ricky Huntley MD 09/03/2025 05:21 PM EDT
--- OUTSIDE RECORDS SUMMARY | 2025-09-03 19:31 | XMS_ITS | Clinical Summary ---
Demographics Address [address] [place] [address] Home Phone Preferred Language Divehi Marital Status Unknown Uatsdin Affiliation Unknown Race Unknown Ethnic Group or Author Organization [facility] Address [address] [place] [phone] Phone Care Team Providers Care City Clerk Name Role Phone Unknown, Unknown MD Primary [...] Self [address] [place] [address] [facility] * Guarantor: Krupa Springer Account Type Relation to Patient Date of Phone Billing Address Personal/Family Self [address] [place] [address] [facility] * Guarantor: Danielle Krupa Account Type Relation to Patient Date of Phone Billing Address Personal/Family Self [address] [place] [address] [facility] * Guarantor: Krupa Springre Account Type Relation to Patient Date of Phone Billing Address Personal/Family Self [address] [place] [address] [facility] * Guarantor: Krupa Springer Account Type Relation to Patient Date of Phone Billing Address Personal/Family Self [address] [place] [address] [facility] * Guarantor: Krupa Springer Account Type Relation to Patient Date of Phone Billing Address Personal/Family Self [address] [place] [address] [place] [address] [facility] [address] [place], [place] [facility] [address] [place] [address] [facility] Care Teams City Clerk Relationship Specialty Start Date End Date Unknown, Unknown, PCP - General 08/31/17 Additional Source Comments The information contained in this document represents components of the legal health record. It is not the complete legal health record.[facility]
--- OUTSIDE RECORDS SUMMARY | 2025-09-03 19:31 | XMS_ITS | Clinical Summary ---
Author Organization [facility] Address [address] [place] [address] Care Team Providers Care Delphi Programmer Name Role Phone Unavailable Primary Care Provider [...]
== END 2025-09-03 15:50 | disposition home or self-care (01) ==
LOC: HO.US 15:49
PROVIDERS: PCP Physician Assistant; Visit Provider Internal Medicine Hypertension Specialist
DX: N06 Isolated proteinuria with specified morphological lesion (principal); N28.1 Cyst of kidney, acquired
CPT/HCPCS: 76775

== ENCOUNTER → 2025-09-03 15:52 | Outpatient (BNV) | payer OTHER, SELFPAY | PROVIDERS: PCP Physician Assistant; Visit Provider Radiology Body Imaging | DX: D17.71 Benign lipomatous neoplasm of kidney (principal) | CPT/HCPCS: 76775 ==

== ENCOUNTER 2025-09-11 08:13 | Outpatient (REF) | payer OTHER, SELFPAY ==
--- NOTE | ~2025-09-11 | CT_ITS ---
EXAMINATION: CT ABDOMEN AND PELVIS WITHOUT AND WITH CONTRAST CLINICAL INFORMATION: Microscopic hematuria. COMPARISON: CT abdomen and pelvis 02/09/2022. Correlation made with renal ultrasound 09/03/2025. TECHNIQUE: Multidetector volumetric imaging was performed of the abdomen and pelvis before and after the IV administration of 85 mL of Omnipaque 350 intravenous contrast. Sagittal and coronal reformatted images were obtained on the technologist's workstation. This CT examination was performed using dose optimization techniques as appropriate, variously including the following: *Automated exposure control *Adjustment of mA and/or kV according to patient size (this includes techniques or standardized protocols for targeted exams where dose is matched to indication/reason for exam; i.e. extremities or head) *Use of iterative reconstruction technique FINDINGS: LUNG BASES: Lung bases demonstrate minor discoid atelectasis in the right middle lobe. They are otherwise grossly clear. There are no effusions. The heart size is normal. No pericardial effusion. Normal GE junction. LIVER, GALLBLADDER, AND BILIARY TREE: The liver is normal in size, shape, and attenuation. No focal hepatic lesion or biliary ductal dilatation is present. The gallbladder is unremarkable with no evidence of radiopaque gallstones, gallbladder wall thickening, or obvious pericholecystic inflammatory changes. PANCREAS: Unremarkable SPLEEN: Unremarkable ADRENAL GLANDS: Unremarkable KIDNEYS AND URETERS: Right Kidney: There is a stable angiomyolipoma in the superior pole of the, measuring 2.1 x 1.9 x 3.1 cm (AP, TRV, CC). There are no calculi present. There is a 1.8 cm simple cyst in the posterior midpole. There is no hydronephrosis. The nephrogram is normal. There is normal excretion of contrast into the collecting system and ureter. There are no pyelocalyceal filling defects. No significant perinephric stranding. The ureter is normal in caliber and course throughout. Left Kidney: There are no calculi present. There is no hydronephrosis. There is mild scarring in the upper pole cortex. There are no masses or cysts. There is normal excretion of contrast into the collecting system and ureter. The nephrogram is normal. There are no pyelocalyceal filling defects. No significant perinephric stranding. The ureter is normal in caliber and course throughout. BLADDER: Normal. There are no masses and there is no wall thickening. There are no calculi. GASTROINTESTINAL TRACT: The stomach and duodenum appear normal. The small bowel is normal in caliber and course. No wall thickening or inflammation. Normal appendix is visualized. The colon is normal in caliber, course, without evidence of wall thickening or inflammation. There is is minor diverticulosis of the sigmoid. The rectum appears normal. PERITONEUM: There is no free air. There is no ascites. ABDOMINAL WALL: There is a tiny fat-containing periumbilical hernia. LYMPH NODES: There is no abnormal lymphadenopathy. VASCULAR: Normal in appearance. PELVIC VISCERA: The uterus and adnexa are unremarkable. OSSEOUS STRUCTURES: There are no suspicious lytic or blastic bone lesions. There is mild disc degeneration at L5-S1. CT/CT abdomen pelvis wo/w IV con IMPRESSION: 1. There is no urological calculus, suspicious mass lesion, or obstruction. 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 There is a 1.8 cm simple cyst in the midpole of the right kidney. 2. Normal urinary bladder. 3. There is mild diverticulosis of the sigmoid colon. There is no evidence of acute diverticulitis. Electronically signed by: Paul Mccarty MD 09/11/2025 09:36 AM EDT
[2025-09-11] MEDS: iohexoL 350 MG/ML 100 ML INFUS..BTL IV (09:13)
== END 2025-09-11 08:14 | disposition home or self-care (01) ==
LOC: HO.CT 08:13
PROVIDERS: PCP Physician Assistant; Visit Provider Physician Assistant
DX: N28.1 Cyst of kidney, acquired (principal); R31.29 Other microscopic hematuria; R10.13 Epigastric pain
CPT/HCPCS: 74178; Q9967

== ENCOUNTER → 2025-09-11 08:15 | Outpatient (BNV) | payer OTHER, SELFPAY | PROVIDERS: PCP Physician Assistant; Visit Provider Radiology Diagnostic Radiology | DX: R31.29 Other microscopic hematuria (principal) | CPT/HCPCS: 74178 ==

== ENCOUNTER 2025-09-22 10:03 | Outpatient (AMB) | payer OTHER, SELFPAY ==
[2025-09-22 10:14] VITALS: BP 100/78; PULSE 97; TEMP 36.3; O2SAT 82; BMI 40.5
--- NOTE | 2025-09-22 10:14 | A.OFFPC_ITS ---
Vital Signs 09/22/25 10:14 Height 5 ft 9 in Weight 274 lb 6 oz BMI 40.5 BP 100/78 Blood Pressure Location Lt brachial Position Sitting Pulse 97 Pulse Source Pulse Oximeter Temp 97.3 F Temp Source Temporal Artery Scan Pulse Oximetry (%) 82 L Oxygen Delivery Method Room Air Intake Visit Reasons: discuss ct scan/breathing issues Intake Note: Patient is here today for a physical. Wheat And Oats Flake Miller Required: No Ssn/Ssbn Assistant Navigator: Not Required per policy Accompanied by: Self / Same As Patient Allergies azithromycin Allergy (Intermediate, Verified 09/22/25 10:30) Diarrhea codeine Allergy (Intermediate, Verified 09/22/25 10:30) Shakiness bees Allergy (Unknown, Uncoded 09/22/25 10:30) Swelling hornet Allergy (Unknown, Uncoded 09/22/25 10:30) Swelling Medication List - Last Reconciled 09/22/25 by Adams Pereira PA-C erythromycin 0.5 inches ophthalmic (eye) QID lisinopril 5 mg PO DAILY Tobacco use date assessed: 09/22/25 Dental Screening Dental Screen Date: 09/22/25 Did you have a dental visit in the last 12 months?: Yes Did you have a dental problem in the last 6 months where you did not have access to dental care?: No Was dental information given to patient?: Patient has dentist HPI discuss ct scan/breathing issues HPI Details Patient is a 34-year-old female here today for follow-up visit. Worsening shortness of breath: She reports progressively worsening shortness of breath over the last 3-4 months, which occurs with exertion and also at rest. For the last two months, she has also experienced a constant popping or crackling sensation in her chest, which is most prominent when lying down at night. Symptoms are worse when lying on her back and are somewhat relieved by lying on her left side. An incidental finding on a recent CT scan showed atelectasis in the right lung. The patient has had multiple visits to urgent care and the emergency room for these symptoms, where chest x-rays were performed and her lungs were noted to sound clear, but no definitive treatment was given. She has a history of vaping, which she quit 8-9 months ago, and notes her symptoms paradoxically worsened after cessation. She also smokes cigarettes occasionally, about one or two per month, but has not had one in three weeks. Elisa's: The patient has a complex medical history, including Elisa's thyroiditis, and feels many of her chronic symptoms, such as constant fatigue, are related to this. She was previously on thyroid medication but stopped as her labs were normal and she felt no symptomatic improvement. [facility] Medical History Heart palpitations Bleeding hemorrhoids Hemorrhoids Weight gain Hypothyroidism UTI (urinary tract infection) Morning after pill advice and prescription Screen for STD (sexually transmitted disease) Chest pain Multinodular thyroid Thyroid nodule Abnormal thyroid scan Encounter for IUD removal Contraceptive management Abdominal bloating IUD check up Complex ovarian cyst Pelvic cramping Encounter for IUD insertion Postprandial abdominal bloating Obese Recurrent UTI Family planning Bleeding hemorrhoids Generalized abdominal pain Obesity (BMI 30-39.9) Smoker Matthew's duct cyst Vaginal cyst Urethral diverticulum Hx of hematuria Family planning Screen for STD (sexually transmitted disease) COVID COVID-19 Dog bite Rash Cellulitis Headache Palpitation Neck pain Screening examination for infectious disease control counseling History of cardiac disorder Depression Migraine Insomnia Abnormal laboratory test Arthritis Immune disorder Healthy adult History of leukocytosis Surgical History Hx of ultrasound guided needle biopsy History of delivery Family History Mother Diabetes Maternal Grandmother Diabetes Sister HTN (hypertension) Maternal Uncle Thyroid cancer Social History Housing: Apartment Alcohol intake: current Alcohol intake frequency: holidays/special occasions only Patient Tobacco Use Status: Former Tobacco user Tobacco use type: Cigarette Years Smoked: 10 years e-Cigarette/Vaping Use: Former Use Second Hand Smoke Exposure: Yes service: No Current occupational status: employed and unemployed Current occupation: [employer] Cognitive needs: No Hearing needs: No Vision needs: Yes Female Reproductive History Menstrual Age of Menarche: 11 Questionnaire PHQ-9 Over the last 2 weeks, how often have you been bothered by any of the following problems? 1. Little interest or pleasure in doing things: several days 2. Feeling down, depressed, or hopeless: several days 3. Trouble falling or staying asleep, or sleeping too much: several days 4. Feeling tired or having little energy: nearly every day 5. Poor appetite or overeating: several days 6. Feeling bad about yourself - or that you are a failure or have let yourself or your family down: not at all 7. Trouble concentrating on things, such as reading the newspaper or watching television: not at all 8. Moving or speaking so slowly that other people could have noticed. Or the opposite - being so fidgety or restless that you have been moving around a lot more than usual: several days 9. Thoughts that you would be better off or of hurting yourself in some way: not at all Total score: 8 Depression Screening Interpretation: Positive Depression Screening Follow-up: Existing condition and In treatment Depression Screening Done: Yes Source: Developed by Drs. Lico Hutchinson, Citlali Mendoza, Frantz Rodas and colleagues, with an educational yaakov from [employer]. Thrive Questionnaire Date Thrive assessed: 09/22/25 I am a: Patient What is your living situation today?: I have a steady place to live Within the past 12 months, did the food you bought not last and you didn't have the money to get more?: Never true Within the past 12 months, did you worry whether your food would run out before you got money to buy more?: Never true Do you have trouble paying for medicines?: No Do you have trouble getting transportation to medical appointments?: No Do you have trouble paying your heating and electricity bill?: No Do you have trouble taking care of your child, family member or friend?: No Do you have trouble with day-to-day activities such as bathing, preparing meals, shopping, managing finances, etc.?: No Are you currently unemployed and looking for a job?: No Are you interested in more education?: No Please select the resources that you would like help with: None Currently or been in a relationship where the following occur: No concerns reported THRIVE Score: 0 AUDIT C Alcohol Use Questionnaire (AUDIT-C) 1. How often do you have a drink containing alcohol?: 2-4 times a month 2. How many drinks containing alcohol do you have on a typical day when you are drinking?: 5 or 6 3. How often do you have six or more drinks on one occasion?: Monthly Total Score: 6 HOWARD-7 AMB Questionnaire HOWARD-7 Date HOWARD - 7 assessed: 09/22/25 Feeling nervous, anxious, or on edge: 2 = More than half the days Not being able to stop or control worryin = Nearly every day Worrying too much about different things: 3 = Nearly every day Trouble relaxin = More than half the days Being so restless that it is hard to sit still: 1 = Several days Becoming easily annoyed or irritable: 3 = Nearly every day Feeling afraid as if something awful might happen: 2 = More than half the days Total HOWARD-7 score (0-4 normal; 5-9 mild; 10-14 moderate; 15-21 severe): 16 Source: Developed by Drs. Lico Hutchinson, Citlali Mendoza, Frantz Rodas and colleagues, with an educational yaakov from [employer]. Review of Systems Const Denies headache(s) Eyes Denies loss of vision ENT Denies vertigo, Denies dizziness, Denies headache(s) and Denies sore throat Card Denies chest pain, Denies leg edema, Denies lightheadedness and Reports dyspnea on exertion Resp Reports cough, Denies hemoptysis, Reports dyspnea on exertion and Denies wheezing GI Denies abdominal pain, Denies melena, Denies constipation, Denies diarrhea and Denies vomiting Denies urinary frequency, Denies dysuria and Denies urinary urgency Musc Denies arthralgias, Denies joint swelling, Denies numbness and Denies tingling Neuro Denies Abnormal speech present, Denies behavioral changes, Denies vertigo, Denies dizziness, Denies headache(s), Denies loss of vision, Denies memory loss, Denies numbness and Denies tingling Psych Denies anxiety, Denies behavioral changes, Denies depression, Denies memory loss and Denies panic attacks Eliel/Lymph Denies easy bleeding and Denies easy bruising Aller/Immun Denies wheezing Physical exam (Primary Care) Vital Signs: Last Vital Signs Temp 97.3 F 09/22/25 10:14 Pulse 97 09/22/25 10:14 BP 100/78 09/22/25 10:14 Pulse Ox 82 L 09/22/25 10:14 Oxygen Delivery Method Room Air 09/22/25 10:14 BMI result Body Mass Index 40.5 Tobacco/Smoking Status: Tobacco use Status Tobacco use date assessed 09/22/25 09/22/25 10:25 Patient Tobacco Use Status Former Tobacco user 09/22/25 10:25 Tobacco use type Cigarette 09/22/25 10:25 e-Cigarette/Vaping Use Former Use 09/22/25 10:25 PHQ-9: PHQ-9 Score PHQ-9: Total score 8 09/22/25 10:36 Depression Screening Interpretation: Positive Depression Screening Follow-up: Existing condition and In treatment Thrive Assessment: Date of Thrive Assessment Date Thrive assessed 09/22/25 09/22/25 10:25 Currently or been in a relationship where the following occur: No concerns reported Const General: healthy appearing, no acute distress, alert and awake Nutritional Appearance: well nourished Orientation/consciousness: oriented to person, oriented to place and oriented to time HENMT Ears: TM's normal bilaterally General nose exam: Normal nasal mucous membranes and turbinates present Eyes Conjunctivae: conjunctivae normal Sclerae: sclerae normal Pupils: Equal, round and reactive pupils present Neck Neck: Yes no lymphadenopathy and Yes no JVD Thyroid: Thyroid normal Carotids: no bruits Resp Effort & Inspection: normal respiratory effort and not tachypneic Auscultation: no crackles, no rales, no rhonchi and no wheezes Cardio Rate: regular rate Rhythm: regular rhythm Heart sounds: no murmurs and normal S1 and S2 GI Palpation (GI): Soft to palpation, nontender, no hepatomegaly and no splenomegaly Auscultation: normal bowel sounds Skin General skin exam: no rashes or lesions noted and dry skin Neuro General: oriented to person, oriented to place and oriented to time Cranial nerves: Yes Equal, round and reactive pupils present Speech: No Abnormal speech present Gait exam (Neuro): Normal gait present Motor exam (neuro): no tremor noted Extrem Right upper extremity: full ROM Left upper extremity: full ROM Right lower extremity: full ROM; no edema Left lower extremity: full ROM; no edema Psych Mental Status: mental status grossly normal Speech and movement: Normal speech and movement present Affect: normal affect Attitude: cooperative Thought process: Normal thought process present Coding Level of Care Code Est Pt Level 4 (95992) Diagnoses Atelectasis of right lung J98.11 Multinodular thyroid E04.2 Assessment & Plan Assessment & Plan (1) Atelectasis of right lung: Code(s): J98.11 - Atelectasis Category: Medical Plan: Unclear etiology to patient's right lung atelectasis at this point. Does not appear to be in any respiratory distress at this time. She does have hypoxia noted with SpO2 set today though her nails are painted. We will further evaluate the patient's worsening dyspnea and right lung atelectasis, a multi-faceted diagnostic and therapeutic plan will be initiated. A referral will be placed to Pulmonology for expert consultation and possible further testing, such as pulmonary function tests. A dedicated CT of the chest will be ordered to obtain a more detailed image of the lungs. To screen for a possible pulmonary embolism, a D-dimer blood test will be ordered. For symptomatic management, a prescription for a maintenance inhaler will be sen t to the pharmacy to help reduce inflammation and open the airways. Additionally, a one-week course of a diuretic will be prescribed to assess if removing potential fluid from the lungs provides relief. The patient is also advised to try wlhp-[id number] Mucinex to help liquefy and expectorate any potential trapped mucus. (2) Multinodular thyroid: Code(s): E04.2 - Nontoxic multinodular goiter Category: Medical Plan: To address her complex chronic history, a referral will be placed to a new supervisor electronics inspection, Dr. Goetz, for a thorough re-evaluation of her Elisa's thyroiditis and hormonal status. To be thorough in the workup for an underlying autoimmune cause, a specific blood test for lupus, an jwuj-nzsyza-uhbvziml DNA antibody, will be ordered along with her other blood work. Orders: Orders D Dimer High Sensitivity Today J98.11 - Atelectasis Anti DNA DS Antibody Today J98.11 - Atelectasis Referrals Endocrinology Referral E03.9 - Hypothyroidism, unspecified, E04.2 - Nontoxic multinodular goiter Pulmonology Referral J98.11 - Atelectasis Medications: New fluticasone propion-salmeterol 115-21 mcg/actuation (Advair HFA) 2 puffs inhalation BID 12 grams 0RF 30 days J98.11 - Atelectasis furosemide (Lasix) 20 mg PO DAILY 7 tabs 0RF 7 days J98.11 - Atelectasis
--- OUTSIDE RECORDS SUMMARY | 2025-09-22 11:41 | XMS_ITS | Clinical Summary ---
Demographics Address [address] [place] [address] Home Phone Preferred Language Luxembourgish Marital Status Unknown Church Affiliation Unknown Race Unknown Ethnic Group or Author Organization [facility] Address [address] [place] [id number] Phone Care Team Providers Care Bank President Name Role Phone Unknown, Unknown MD Primary [...] ( season) 2025 HIB VACCINES Completed 11/19/1993, 050 11/1992, 01/18/1992, Additional history exists HEPATITIS A [...] Self [address] [place] [address] [facility] * Guarantor: Krupa Springer Account Type Relation to Patient Date of Phone Billing Address Personal/Family Self [address] [place] [address] [facility] * Guarantor: Danielle Krupa Account Type Relation to Patient Date of Phone Billing Address Personal/Family Self [address] [place] [address] [facility] * Guarantor: Krupa Springer Account Type Relation to Patient Date of Phone Billing Address Personal/Family Self [address] [place] [address] [facility] * Guarantor: Krupa Springer Account Type Relation to Patient Date of Phone Billing Address Personal/Family Self [address] [place] [address] [facility] * Guarantor: Krupa Springer Account Type Relation to Patient Date of Phone Billing Address Personal/Family Self [address] [place] [address] [facility] [address] [place] [address] [facility] [address] [place] [facility] [address] [place] [address] [facility] Care Teams Bank President Relationship Specialty Start Date End Date Unknown, Unknown, PCP - General 08/31/17 Additional Source Comments The information contained in this document represents components of the legal health record. It is not the complete legal health record.[facility]
--- OUTSIDE RECORDS SUMMARY | 2025-09-22 11:41 | XMS_ITS | Clinical Summary ---
Author Organization [facility] Address [address] [place] [address] Care Team Providers Care Outreach Liaison Name Role Phone Unavailable Primary Care Provider [...]
== END 2025-09-22 12:41 | disposition home or self-care (01) ==
LOC: HO.HMCH 10:03
PROVIDERS: PCP Physician Assistant; Visit Provider Physician Assistant
DX: J98.11 Atelectasis (principal); E04.2 Nontoxic multinodular goiter

== ENCOUNTER 2025-09-22 10:03 | Outpatient (REF) | payer OTHER, SELFPAY ==
[2025-09-22 12:14] LABS: D Dimer High Sensitivity < 150 NG/ML
== END 2025-09-22 10:04 | disposition home or self-care (01) ==
LOC: HO.LAB 10:03
PROVIDERS: PCP Physician Assistant; Visit Provider Physician Assistant
DX: J98.11 Atelectasis (principal); R06.02 Shortness of breath; E06.3 Autoimmune thyroiditis; E04.2 Nontoxic multinodular goiter
CPT/HCPCS: 36415; 85379; 86225; 99212

== ENCOUNTER 2025-09-29 13:50 | Outpatient (AMB) | payer OTHER, SELFPAY ==
--- NOTE | 2025-09-29 13:54 | MHC.OFFVIS ---
Intake Visit Reasons: Cysto/CT Intake Note: Patient is present for Cystoscopy for microscopic hematuria Urology Medication:none Antibiotic Allergy:azithromycin Blood Thinner:none Imaging done : CT 09/11/25 Sports Broadcasting Internship Required: No Accompanied by: Self / Same As Patient Allergies azithromycin Allergy (Intermediate, Verified 10/05/25 12:10) Diarrhea codeine Allergy (Intermediate, Verified 10/05/25 12:10) Shakiness bees Allergy (Unknown, Uncoded 09/22/25 10:30) Swelling hornet Allergy (Unknown, Uncoded 09/22/25 10:30) Swelling HPI Comments Details: Patti is a pleasant female. She is seen for the following urologic conditions - recurring UTI Re-presented in July 2025 Seen by nurse practitioner and recommendation for cystoscopy Prior therapy with Levaquin 5 days then daily Macrobid for 3 months Cystoscopy today. Normal emptying. Normal looking bladder. 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 Klebsiella, Enterococcus, Bladder ultrasound emptying PFSH Medical History Heart palpitations Bleeding hemorrhoids Hemorrhoids Weight gain Hypothyroidism UTI (urinary tract infection) Morning after pill advice and prescription Screen for STD (sexually transmitted disease) Chest pain Multinodular thyroid Thyroid nodule Abnormal thyroid scan Encounter for IUD removal Contraceptive management Abdominal bloating IUD check up Complex ovarian cyst Pelvic cramping Encounter for IUD insertion Postprandial abdominal bloating Obese Recurrent UTI Family planning Bleeding hemorrhoids Generalized abdominal pain Obesity (BMI 30-39.9) Smoker Matthew's duct cyst Vaginal cyst Urethral diverticulum Hx of hematuria Family planning Screen for STD (sexually transmitted disease) COVID COVID-19 Dog bite Rash Cellulitis Headache Palpitation Neck pain Screening examination for infectious disease control counseling History of cardiac disorder Depression Migraine Insomnia Abnormal laboratory test Arthritis Immune disorder Healthy adult History of leukocytosis Surgical History Hx of ultrasound guided needle biopsy History of delivery Family History Mother Diabetes Maternal Grandmother Diabetes Sister HTN (hypertension) Maternal Uncle Thyroid cancer Social History Housing: Apartment Alcohol intake: current Alcohol intake frequency: holidays/special occasions only Patient Tobacco Use Status: Former Tobacco user Tobacco use type: Cigarette Years Smoked: 10 years e-Cigarette/Vaping Use: Former Use Second Hand Smoke Exposure: Yes service: No Current occupational status: employed and unemployed Current occupation: [employer]) Cognitive needs: No Hearing needs: No Vision needs: Yes Female Reproductive History Menstrual Age of Menarche: 11 Office Procedures Cystoscopy Consent Discussed risk and benefit or proposed procedure with the patient. Information consent for procedure given to the patient. Discussed technical aspects, risks, benefits and alternatives in full. Addressed all of the patient's questions and concerns regarding the procedure. The patient demonstrated knowledge and understanding. They wish to proceed with this procedure. Preparation The patient was prepped in the usual manner. A radiography technician was present and in the room. Genitalia was prepped with betadine solution in a sterile manner. Lidocaine Jelly 2% was placed into the urethra and 16Fr flexible Olympus cystoscope was inserted into the meatus after adequate lubrication. Procedure Meatus normal Urethra normal Bladder examination with retroflexion of cystoscope Bladder Orifices normal shape and position Trigone normal Bladder Capacity Normal Trabeculations Grade 0 Cellule Formation None Diverticulum Formation None Mucosal Erythema None Bladder Tumor None [id number] DISPOSABLE SCOPE URO-G FLEXIBLE SCOPE Procedure code (CPT) selection complete Office Meds lidocaine HCl 2 % mucosal jelly in applicator Performing Provider: Miles Kenney MD [place] [facility] Administered by: Sarita Joseph RN on 09/29/25 14:24 Dose Route Admin Location Dispensed Lot Number Expiration Date [facility] Lead Based Paint Technician 10 mL intra-urethral 10 mL nitrofurantoin monohydrate/macrocrystals 100 mg capsule Performing Provider: Miles Kenney MD Performing [place] [facility] Administered by: Sarita Joseph RN on 09/29/25 14:24 Dose Route Admin Location Dispensed Lot Number Expiration Date [place] Lead Based Paint Technician 100 mg PO 1 cap Results AMB Urinalysis, Automated UA Leukoctes 0 Adeel/uL Last Edit by GABI Nobles on 09/29/25 14:13 UA Nitrite Negative Last Edit by Vikki Colon, CCMA on 09/29/25 14:13 UA Urobilinogen 0.2 mg/dL Last Edit by Vikki Colon, [facility] on 09/29/25 14:13 UA Protein 100 mg/dL Last Edit by Vikki Colon, [facility] on 09/29/25 14:13 UA pH 6.0 Last Edit by Vikki Colon, [facility] on 09/29/25 14:13 UA Blood 10 Miguel/uL Last Edit by Vikki Colon, [facility] on 09/29/25 14:13 UA Specific Madison 1.025 Last Edit by Vikki Colon, [facility] on 09/29/25 14:13 UA Ketone Negative Last Edit by Vikki Colon, [facility] on 09/29/25 14:13 UA Bilirubin 0 mg/dL Last Edit by Vikki Colon, [facility] on 09/29/25 14:13 UA Glucose 0 mg/dL Last Edit by Vikki Colon, [facility] on 09/29/25 14:13 Results Reviewed Results Reviewed: Laboratory Last Values Urine pH (Auto) 6.0 09/29/25 14:12 Specific Madison (Auto) 1.025 09/29/25 14:12 Urine Protein (Auto) 100 mg/dL 09/29/25 14:12 Glucose (UA)(Auto) 0 mg/dL 09/29/25 14:12 Urine Ketones (Auto) Negative 09/29/25 14:12 Urine Blood (Auto) 10 Miguel/uL 09/29/25 14:12 Urine Nitrite (Auto) Negative 09/29/25 14:12 Urine Bilirubin (Auto) 0 mg/dL 09/29/25 14:12 Urine Urobilinogen (Auto) 0.2 mg/dL 09/29/25 14:12 Leukocyte Esterase (Auto) 0 Adeel/uL 09/29/25 14:12 Assessment & Plan Assessment & Plan (1) Chronic UTI (urinary tract infection): Code(s): N39.0 - Urinary tract infection, site not specified Category: Medical Plan Follow-up nurse-practitioner six-month Orders: Orders AMB Cystoscopy 09/29/25 R31.29 - Other microscopic hematuria Patient Instructions: This note is constructed using voice recognition software. While every effort has been made to ensure accuracy occupational hygienist errors may have been included. Imaging studies, laboratory and physical exam results were discussed and reviewed in detail. No major barriers to patient understanding were identified. An opportunity to ask questions regarding the treatment plan was provided. All questions were answered. The patient expressed understanding and agreement with the above treatment plan. The patient is aware they should contact our office by phone for worsening of their current condition or the appearance of new urologic symptoms. Compliance is encouraged with any medications and followup testing that is ordered. It is a privilege to participate in the urologic care of your patient. If you have any questions or concerns regarding treatment for the above conditions, or other urologic issues, please do not hesitate to contact me. The office telephone contact is [phone]. Sincerely, Dr Miles Kenney MD, [facility] Compassionate Specialist Care for the Genitourinary System Coding Level of Care Code Est Pt Level 3 (05628) Diagnoses Chronic UTI (urinary tract infection) N39.0 CPT Codes Cystoscopy - CPT: 67203-Stzvcqaism ([id number])
--- OUTSIDE RECORDS SUMMARY | 2025-09-29 15:27 | XMS_ITS | Clinical Summary ---
Author Organization [facility] Address [address] [place] [address] Care Team Providers Care Pulpwood Dealer Name Role Phone Unavailable Primary Care Provider [...]
--- OUTSIDE RECORDS SUMMARY | 2025-09-29 15:27 | XMS_ITS | Clinical Summary ---
Demographics Address [address] [place] [address] Home Phone Preferred Language Telugu Marital Status Unknown Uatsdin Affiliation Unknown Race Unknown Ethnic Group or Author Organization [facility] Address [address] [place] [phone] Phone Care Team Providers Care Sales Office Assistant Name Role Phone Unknown, Unknown MD Primary [...] Self [address] [place] [address] [facility] * Guarantor: Krupa Springer Account Type Relation to Patient Date of Phone Billing Address Personal/Family Self [address] [place] [address] [facility] * Guarantor: Danielle Krupa Account Type Relation to Patient Date of Phone Billing Address Personal/Family Self [address] [place] [address] [facility] * Guarantor: Krupa Springer Account Type Relation to Patient Date of Phone Billing Address Personal/Family Self [address] [place] [address] [facility] * Guarantor: Krupa Springer Account Type Relation to Patient Date of Phone Billing Address Personal/Family Self [address] [place] [address] [facility] * Guarantor: Krupa Springer Account Type Relation to Patient Date of Phone Billing Address Personal/Family Self [address] [place] [address] [facility] [place] [address] [facility] [place] [place] [facility] [address] [place] [address] [facility] Care Teams Sales Office Assistant Relationship Specialty Start Date End Date Unknown, Unknown, PCP - General 08/31/17 Additional Source Comments The information contained in this document represents components of the legal health record. It is not the complete legal health record.[facility]
== END 2025-09-29 15:21 | disposition home or self-care (01) ==
LOC: HO.HUSH 13:51
PROVIDERS: PCP Physician Assistant; Visit Provider Urology
DX: R31.29 Other microscopic hematuria (principal)
CPT/HCPCS: 52000

== ENCOUNTER → 2025-09-29 13:50 | Outpatient (BNVA) | payer OTHER, SELFPAY | PROVIDERS: PCP Physician Assistant; Visit Provider Urology | DX: N39.0 Urinary tract infection, site not specified (principal) | CPT/HCPCS: 52000 ==

== ENCOUNTER 2025-10-05 11:39 | Outpatient (AMB) | payer OTHER, SELFPAY ==
[2025-10-05 12:09] VITALS: BP 110/70; PULSE 94; TEMP 37; O2SAT 96; BMI 40.5
--- NOTE | 2025-10-05 12:09 | AM.OFFWIN_ITS ---
Intake Vital Signs 10/05/25 12:09 Height 5 ft 9 in Weight 274 lb BMI 40.5 BP 110/70 Blood Pressure Location Lt brachial Position Sitting Pulse 94 Pulse Source Pulse Oximeter Temp 98.6 F Temp Source Oral Pulse Oximetry (%) 96 Oxygen Delivery Method Room Air Intake Visit Reasons: EP Abdominal pain 3 days [phone] Intake Note: pt is here for abd pain ,vomiting for 3 days Patient Tobacco Use Status: Former Tobacco user Allergies azithromycin Allergy (Intermediate, Verified 10/05/25 12:10) Diarrhea codeine Allergy (Intermediate, Verified 10/05/25 12:10) Shakiness bees Allergy (Unknown, Uncoded 09/22/25 10:30) Swelling hornet Allergy (Unknown, Uncoded 09/22/25 10:30) Swelling Medication List - Last Reconciled 10/05/25 by Melodie Lr NP fluticasone propion-salmeterol 115-21 mcg/actuation (Advair HFA) 2 puffs inhalation BID 30 days metoclopramide HCl (Reglan) 5 mg PO Q6H ondansetron 8 mg PO Q8H Do you need a note to return to daycare/school/sports/work: Yes HPI HPI Comments History of Present Illness Details 34-year-old female presents to the walk- in clinic with abdominal pain and cramping associated with nausea, vomiting, and diarrhea x 3 days. States symptoms started gradually and have been persistent. Denies fevers, chills, headaches, dizziness. Has not taken any OTC medications. Denies any recent diet changes, new medications, travel, sick contacts, or suspicious food intake. She follows with GI for chronic Constipation with abdominal bloating and hemorrhoids. No known history of IBD or celiac disease. No blood in stool. No urinary symptoms. No recent antibiotic use. [facility] Medical History Heart palpitations Bleeding hemorrhoids Hemorrhoids Weight gain Hypothyroidism UTI (urinary tract infection) Morning after pill advice and prescription Screen for STD (sexually transmitted disease) Chest pain Multinodular thyroid Thyroid nodule Abnormal thyroid scan Encounter for IUD removal Contraceptive management Abdominal bloating IUD check up Complex ovarian cyst Pelvic cramping Encounter for IUD insertion Postprandial abdominal bloating Obese Recurrent UTI Family planning Bleeding hemorrhoids Generalized abdominal pain Obesity (BMI 30-39.9) Smoker Matthew's duct cyst Vaginal cyst Urethral diverticulum Hx of hematuria Family planning Screen for STD (sexually transmitted disease) COVID COVID-19 Dog bite Rash Cellulitis Headache Palpitation Neck pain Screening examination for infectious disease control counseling History of cardiac disorder Depression Migraine Insomnia Abnormal laboratory test Arthritis Immune disorder Healthy adult History of leukocytosis Surgical History Hx of ultrasound guided needle biopsy History of delivery Family History Mother Diabetes Maternal Grandmother Diabetes Sister HTN (hypertension) Maternal Uncle Thyroid cancer Social History Housing: Apartment Alcohol intake: current Alcohol intake frequency: holidays/special occasions only Patient Tobacco Use Status: Former Tobacco user Tobacco use type: Cigarette Years Smoked: 10 years e-Cigarette/Vaping Use: Former Use Second Hand Smoke Exposure: Yes service: No Current occupational status: employed and unemployed Current occupation: [employer] Cognitive needs: No Hearing needs: No Vision needs: Yes Female Reproductive History Menstrual Age of Menarche: 11 Review of Systems Const All systems reviewed & are unremarkable except as noted in HPI and below Physical Exam Vital Signs: Last Vital Signs Temp 98.6 F 10/05/25 12:09 Pulse 94 10/05/25 12:09 BP 110/70 10/05/25 12:09 Pulse Ox 96 10/05/25 12:09 Oxygen Delivery Method Room Air 10/05/25 12:09 BMI result Body Mass Index 40.5 Const General: no acute distress Nutritional Appearance: obese Orientation/consciousness: patient oriented x3 Resp Effort & Inspection: normal respiratory effort Cardio Rate: regular rate GI Other: Soft, mildly tender diffusely, no rebound/guarding, normoactive bowel sounds, no distention. Neuro General: patient oriented x3, gait normal and moves all extremities Psych Speech and movement: Normal speech and movement present Assessment & Plan Assessment & Plan (1) Gastritis: Code(s): K29.70 - Gastritis, unspecified, without bleeding Plan: Differential: Viral vs. food-borne gastroenteritis, IBS flare, medication intol erance (less likely), early IBD flare (less likely without blood, weight loss, fever). Encourage oral hydration with electrolyte solutions (Pedialyte, Gatorade). Bergen diet as tolerated (BRAT-type guidance). Ondansetron 4 mg ODT q6?8h PRN nausea/vomiting. Loperamide may be used PRN - warned it cause Constipation. Return or ER if persistent vomiting, inability to hydrate, bloody stool, severe abdominal pain, high fever, signs of dehydration, or worsening symptoms. Continue GI follow-up for her chronic diarrhea with constipation and hemorrhoids. If symptoms persist >72 more hours or worsen, will consider stool studies. Medications: New ondansetron 8 mg PO Q8H 20 tabs 0RF K29.70 - Gastritis, unspecified, without bleeding metoclopramide HCl (Reglan) 5 mg PO Q6H 20 tabs 0RF K29.70 - Gastritis, unspecified, without bleeding Coding Level of Care Code Est Pt Level 4 (19701) Diagnoses Gastritis K29.70 Time Spent (min) 20
== END 2025-10-05 13:23 | disposition home or self-care (01) ==
PROVIDERS: PCP Physician Assistant; Visit Provider Nurse Practitioner Family
DX: K29.70 Gastritis, unspecified, without bleeding (principal)

== ENCOUNTER → 2025-10-05 11:39 | Outpatient (BNVA) | payer OTHER, SELFPAY | PROVIDERS: PCP Physician Assistant; Visit Provider Nurse Practitioner Family | DX: K29.70 Gastritis, unspecified, without bleeding (principal) | CPT/HCPCS: 99212 ==

== ENCOUNTER 2025-11-09 11:51 | Outpatient (AMB) | payer OTHER, SELFPAY ==
--- NOTE | 2025-11-09 12:21 | MHC.OFFWIV ---
Intake Vital Signs 11/09/25 12:22 Height 5 ft 9 in Weight 278 lb BMI 41.0 BP 116/80 Blood Pressure Location Rt brachial Position Sitting Pulse 94 Pulse Source Pulse Oximeter Temp 97.8 F Temp Source Oral Pulse Oximetry (%) 98 Oxygen Delivery Method Room Air Intake Visit Reasons: EP severe acid reflux ([phone]) Car Intake Note: Pt presents with c/o burping and burning from chest to throat for a couple weeks and worsening swelling from throat to chest over the last couple days and reports difficulty eating. States she last ate around 8:30am; she ate sausage. Patient Tobacco Use Status: Former Tobacco user Allergies azithromycin Allergy (Intermediate, Verified 11/09/25 12:21) Diarrhea codeine Allergy (Intermediate, Verified 11/09/25 12:21) Shakiness bees Allergy (Unknown, Uncoded 11/09/25 12:21) Swelling hornet Allergy (Unknown, Uncoded 11/09/25 12:21) Swelling Medication List - Last Reconciled 11/09/25 by Melodie Lr NP famotidine 20 mg PO BEDTIME fluticasone propion-salmeterol 115-21 mcg/actuation (Advair HFA) 2 puffs inhalation BID 30 days metoclopramide HCl (Reglan) 5 mg PO Q6H omeprazole 20 mg PO BID ondansetron 8 mg PO Q8H Do you need a note to return to daycare/school/sports/work: Yes HPI HPI Comments History of Present Illness Details 34 y/o female patient presents to the walk-in clinic with complaints of excessive burping and burning sensation from the mid-chest to the throat for the past 2 weeks. Patient reports symptoms have worsened over the last couple of days and are now associated with difficulty eating. States that every time she eats, it feels like something is stuck in her throat. Last oral intake was around 8:30 AM today, when she was only able to eat a sausage. Patient reports a history of intermittent acid reflux, but states this episode feels different. She has been taking Tums with no relief. Reports sensation of throat narrowing after eating and occasional shortness of breath associated with symptoms. Denies choking episodes. Reports she follows with GI for constipation and hemorrhoids. States she had an upper endoscopy a few years ago that was reportedly normal. Denies fevers, chills, nausea, vomiting, chest pain, hematemesis, melena, or unintentional weight loss. [facility] Medical History Heart palpitations Bleeding hemorrhoids Hemorrhoids Weight gain Hypothyroidism UTI (urinary tract infection) Morning after pill advice and prescription Screen for STD (sexually transmitted disease) Chest pain Multinodular thyroid Thyroid nodule Abnormal thyroid scan Encounter for IUD removal Contraceptive management Abdominal bloating IUD check up Complex ovarian cyst Pelvic cramping Encounter for IUD insertion Postprandial abdominal bloating Obese Recurrent UTI Family planning Bleeding hemorrhoids Generalized abdominal pain Obesity (BMI 30-39.9) Smoker Matthew's duct cyst Vaginal cyst Urethral diverticulum Hx of hematuria Family planning Screen for STD (sexually transmitted disease) COVID COVID-19 Dog bite Rash Cellulitis Headache Palpitation Neck pain Screening examination for infectious disease control counseling History of cardiac disorder Depression Migraine Insomnia Abnormal laboratory test Arthritis Immune disorder Healthy adult History of leukocytosis Surgical History Hx of ultrasound guided needle biopsy History of delivery Family History Mother Diabetes Maternal Grandmother Diabetes Sister HTN (hypertension) Maternal Uncle Thyroid cancer Social History Housing: Apartment Alcohol intake: current Alcohol intake frequency: holidays/special occasions only Patient Tobacco Use Status: Former Tobacco user Tobacco use type: Cigarette Years Smoked: 10 years e-Cigarette/Vaping Use: Former Use Second Hand Smoke Exposure: Yes service: No Current occupational status: employed and unemployed Current occupation: [employer] Cognitive needs: No Hearing needs: No Vision needs: Yes Female Reproductive History Menstrual Age of Menarche: 11 Review of Systems Const All systems reviewed & are unremarkable except as noted in HPI and below Physical Exam Vital Signs: Last Vital Signs Temp 97.8 F 11/09/25 12:22 Pulse 94 11/09/25 12:22 BP 116/80 11/09/25 12:22 Pulse Ox 98 11/09/25 12:22 Oxygen Delivery Method Room Air 11/09/25 12:22 BMI result Body Mass Index 41.0 Const General: no acute distress Nutritional Appearance: obese Orientation/consciousness: patient oriented x3 HEENT Other: Oropharynx clear, no visible swelling or erythema, airway patent. General nose exam: Normal external nose present Face and sinus: Yes normal facial exam and Yes sinuses nontender Mouth: tongue normal (Large Tongue) Neck Neck: Yes normal visual inspection, Yes full ROM and Yes trachea midline Lymphatic: lymphadenopathy Resp Effort & Inspection: normal respiratory effort Cardio Rate: regular rate Neuro General: patient oriented x3 and moves all extremities Psych Speech and movement: Normal speech and movement present Assessment & Plan Assessment & Plan (1) GERD (gastroesophageal reflux disease): Code(s): K21.9 - Gastro-esophageal reflux disease without esophagitis Qualifiers: Esophagitis presence: without esophagitis Qualified Code(s): K21.9 - Gastro-esophageal reflux disease without esophagitis Plan: Start PPI therapy (e.g., Omeprazole 20 mg BID) Educated patient on red flag symptoms including worsening shortness of breath, inability to swallow. Recommended soft/bland diet; avoid spicy, acidic, fried foods, caffeine, alcohol Advised small, frequent meals and avoid lying down within 2?3 hours after eating Discontinue Tums if ineffective. Follow up with PCP and GI as soon as possible. Medications: New omeprazole 20 mg PO BID 60 caps 0RF K21.9 - Gastro-esophageal reflux disease without esophagitis famotidine 20 mg PO BEDTIME 30 tabs 0RF K21.9 - Gastro-esophageal reflux disease without esophagitis Coding Level of Care Code Est Pt Level 4 (67140) Diagnoses Gastroesophageal reflux disease without esophagitis K21.9 Esophagitis presence: without esophagitis Time Spent (min) 20
[2025-11-09 12:22] VITALS: BP 116/80; PULSE 94; TEMP 36.6; O2SAT 98; BMI 41.0
--- OUTSIDE RECORDS SUMMARY | 2025-11-09 15:08 | XMS_ITS | Clinical Summary ---
Demographics Address [address] [place] [address] Home Phone Preferred Language Romanian Marital Status Unknown Rastafarian Affiliation Unknown Race Unknown Ethnic Group or Author Organization [facility] Address [address] [place] [id number] Phone Care Team Providers Care Airborne And Air Delivery Specialist Name Role Phone Unknown, Unknown MD Primary [...] Self [address] [place] [address] [facility] * Guarantor: Krupa Springer Account Type Relation to Patient Date of Phone Billing Address Personal/Family Self [address] [place] [address] [facility] * Guarantor: Danielle Krupa Account Type Relation to Patient Date of Phone Billing Address Personal/Family Self [address] [place] [address] [facility] * Guarantor: Krupa Springer Account Type Relation to Patient Date of Phone Billing Address Personal/Family Self [address] [place] [address] [facility] * Guarantor: Krupa Springer Account Type Relation to Patient Date of Phone Billing Address Personal/Family Self [address] [place] [address] [facility] * Guarantor: Krupa Springer Account Type Relation to Patient Date of Phone Billing Address Personal/Family Self [address] [place] [address] [facility] [address] [address] [place] [address] [facility] [address] [place], [place] [facility] [address] [place] [address] [facility] Care Teams Airborne And Air Delivery Specialist Relationship Specialty Start Date End Date Unknown, Unknown, PCP - General 08/31/17 Additional Source Comments The information contained in this document represents components of the legal health record. It is not the complete legal health record.[facility]
--- OUTSIDE RECORDS SUMMARY | 2025-11-09 15:08 | XMS_ITS | Clinical Summary ---
Author Organization [facility] Address [address] [place] [address] Care Team Providers Care Mill Attendant Name Role Phone Unavailable Primary Care Provider [...] - 19+ 3-dose series) 2009 COVID-19 Vaccine (2024-2 6 season) 2025 HPV Vaccines (No Doses Required) Completed Pneumococcal Vaccine: Pediat lexi (0-5 Years) and At-Risk Patients (6 to 49 Years) Aged Out No longer eligible b ased on patient's age to complete this topic
== END 2025-11-09 13:16 | disposition home or self-care (01) ==
PROVIDERS: PCP Physician Assistant; Visit Provider Nurse Practitioner Family
DX: K21.9 Gastro-esophageal reflux disease without esophagitis (principal)

== ENCOUNTER → 2025-11-09 11:51 | Outpatient (BNVA) | payer OTHER, SELFPAY | PROVIDERS: PCP Physician Assistant; Visit Provider Nurse Practitioner Family | DX: K21.9 Gastro-esophageal reflux disease without esophagitis (principal) | CPT/HCPCS: 99212 ==

== ENCOUNTER 2025-11-16 14:27 | Outpatient (REF) | payer OTHER, SELFPAY ==
[2025-11-16 15:43] LABS: MANUAL DIFF FLAG NO
[2025-11-16 16:44] LABS: Hematocrit 47.5 % (37.0-47.0); Hemoglobin 15.5 g/dl (12.0-16.0); Imm Gran Abs Auto 0.15 X10*3/uL (0.00-0.03); Imm Gran Pct Auto 1.0 % (0.0-0.4); Lymphocytes Absolute Auto 4.5 X10*3/uL (1.2-4.9); Mean Corpuscular HGB Conc 32.6 g/dl (31.0-35.0); Mean Corpuscular Hemoglobin 28.4 pg (27.0-33.0); Mean Corpuscular Volume 87.0 fL (80.0-98.0); NRBC Abs Auto 0.000 X10*3/uL (0.0-0.012); NRBC Pct Auto 0.0 /100WBC (0.0-0.2); Platelet Count 374 X10*3/uL (160-400); Red Blood Count 5.46 X10*6/uL (4.20-5.50); White Blood Count 14.9 X10*3/uL (4.8-10.8)
[2025-11-17 23:23] LABS: Class Alternaria alternata 0; Class Aspergillus fumigatus 0; Class Bermuda Grass 0; Class Birch 0; Class Cat Dander 0; Class Cladosporium herbarum 0; Class Cockroach 0; Class Common Ragweed 0; Class Cottonwood 0; Class Derm. pterony 0; Class Dermatophagoides farinae 0; Class Dog Dander 0; Class Elm 0; Class Maple Box Elder 0; Class Mountain Cedar 0; Class Mouse Urine Protein 0; Class Mugwort 0; Class Oak 0; Class Penicillium crysogenum 0; Class Rough Pigweed 0; Class Sheep Sorrel 0; Class Sycamore 0; Class Timothy Grass 0; Class Walnut Tree 0; Class White Ash 0; Class White Mulberry 0; D002 - IgE D farinae <0.10 kU/L; E001 - IgE Cat Dander <0.10 kU/L; E005 - IgE Dog Dander <0.10 kU/L; G006 - IgE Timothy Grass <0.10 kU/L; I006-IgE Cockroach, German <0.10 kU/L; M002 - IgE Cladosporium herbar <0.10 kU/L; M003 - IgE Aspergillus fumigat <0.10 kU/L; M006 - IgE Alternaria alternat <0.10 kU/L; T001 IgE Maple/Box Elder <0.10 kU/L; T006 - IgE Cedar, Mountain <0.10 kU/L; T007 - IgE Oak, White <0.10 kU/L; T008 IgE Elm, American <0.10 kU/L; T010 - IgE Walnut <0.10 kU/L; T011 - IgE Maple Leaf Sycamore <0.10 kU/L; T014 - IgE Cottonwood <0.10 kU/L; T015 - IgE Ash, White <0.10 kU/L; T070 - IgE White Mulberry <0.10 kU/L; W001 - IgE Ragweed, Short <0.10 kU/L; W006 - IgE Mugwort <0.10 kU/L; W014 IgE Pigweed, Common <0.10 kU/L; W018 IgE Sheep Sorrel <0.10 kU/L
== END 2025-11-16 14:28 | disposition home or self-care (01) ==
LOC: HO.LAB 14:27
PROVIDERS: PCP Physician Assistant; Referring Provider Physician Assistant; Visit Provider Nurse Practitioner Family
DX: R06.00 Dyspnea, unspecified (principal); Z91.09 Other allergy status, other than to drugs and biological substances; R05.9 Cough, unspecified; J98.11 Atelectasis; Z79.899 Other long term (current) drug therapy
CPT/HCPCS: 82785; 85025; 86003; 99202

== ENCOUNTER 2025-11-16 14:27 | Outpatient (AMB) | payer OTHER, SELFPAY ==
[2025-11-16 14:33] VITALS: BP 110/80; PULSE 103; O2SAT 97; BMI 40.9
--- NOTE | 2025-11-16 14:33 | MHC.OFFVIS ---
Vital Signs 11/16/25 14:33 Height 5 ft 9 in Weight 276 lb 10.882 oz BMI 40.9 BP 110/80 Blood Pressure Location Lt brachial Position Sitting Pulse 103 H Pulse Source Pulse Oximeter Pulse Oximetry (%) 97 Oxygen Delivery Method Room Air Intake Visit Reasons: Atelectasis Snap Attacher Required: No Flyer Repairer: Flyer Repairer offered & declined Allergies azithromycin Allergy (Intermediate, Verified 11/16/25 14:36) Diarrhea codeine Allergy (Intermediate, Verified 11/16/25 14:36) Shakiness bees Allergy (Unknown, Uncoded 11/16/25 14:36) Swelling hornet Allergy (Unknown, Uncoded 11/16/25 14:36) Swelling HPI Comments Details: Krupa is a pleasant 34 year old female, former less than 10 pack year history, quit approximately 9 months ago presenting for evaluation of worsening shortness of breath, referred by PCP. She reports her symptoms started about three months ago and have been progressively worsening. Symptoms include dyspnea to the point where she cannot keep up with others at her job, a crackling sound ( pop rocks ) on exhalation, primarily when lying down, a sensation of mucus while breathing, and intermittent wheezing. She reports a random, intermittent cough, sometimes occurring in spells, which is associated with a scratching sensation in her throat. She has been coughing up yellow mucus, mostly in the mornings. Associated symptoms include chills without fever, hot flashes, intermittent lightheadedness, and palpitations, for which she has had reportedly multiple negative cardiology workups. She also notes symptoms suggestive of allergic rhinitis, including constantly blowing her nose, post-nasal drip, and increased eye discharge in the morning for the past six months. Recently, she has developed new-onset snoring, sometimes waking herself or being woken by her son, and wakes with a severely dry mouth. She has no personal history of asthma but has nephews with the condition. Prior HST 08/2024 negative for YANN. She was prescribed an Advair inhaler in September but has been using it only as needed, fearing long-term side effects, and notes some improvement in her breathing during acute episodes. She was not rinsing her mouth after use and has subsequently developed a white coating on her tongue, consistent with oral thrush. Her social history is significant for smoking a half-pack of cigarettes daily from age 13 to 20, followed by a period of abstinence, and then vaping nicotine for three years. She quit all tobacco and nicotine products nine months ago. 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 She has had a dog for five years, but acquired a Uatsdin parrot 10 months ago, and there is an ongoing mice infestation in her apartment. Pulmonology History - No prior diagnosis of asthma. - History of smoking from age 13 to 20, approximately half a pack per day. - History of vaping nicotine for 3 years, with cessation 9 months ago. - Reports worsening dyspnea, crackles, and cough over the past 3 months. - Abdominal CT scan in August 2023 showed atelectasis. - Negative home sleep study performed over a year ago. [facility] Medical History Heart palpitations Bleeding hemorrhoids Hemorrhoids Weight gain Hypothyroidism UTI (urinary tract infection) Morning after pill advice and prescription Screen for STD (sexually transmitted disease) Chest pain Multinodular thyroid Thyroid nodule Abnormal thyroid scan Encounter for IUD removal Contraceptive management Abdominal bloating IUD check up Complex ovarian cyst Pelvic cramping Encounter for IUD insertion Postprandial abdominal bloating Obese Recurrent UTI Family planning Bleeding hemorrhoids Generalized abdominal pain Obesity (BMI 30-39.9) Smoker Matthew's duct cyst Vaginal cyst Urethral diverticulum Hx of hematuria Family planning Screen for STD (sexually transmitted disease) COVID COVID-19 Dog bite Rash Cellulitis Headache Palpitation Neck pain Screening examination for infectious disease control counseling History of cardiac disorder Depression Migraine Insomnia Abnormal laboratory test Arthritis Immune disorder Healthy adult History of leukocytosis Surgical History Hx of ultrasound guided needle biopsy History of delivery Family History Mother Diabetes Maternal Grandmother Diabetes Sister HTN (hypertension) Maternal Uncle Thyroid cancer Social History Housing: Apartment Alcohol intake: current Alcohol intake frequency: holidays/special occasions only Patient Tobacco Use Status: Former Tobacco user Tobacco use type: Cigarette Years Smoked: 10 years e-Cigarette/Vaping Use: Former Use Second Hand Smoke Exposure: Yes service: No Current occupational status: employed and unemployed Current occupation: [email or web address] Cognitive needs: No Hearing needs: No Vision needs: Yes Female Reproductive History Menstrual Age of Menarche: 11 Review of Systems Narrative Review of Systems - Constitutional: Reports chills, hot flashes, and generalized tiredness. Denies fevers. - Eyes: Reports increased eye discharge in the mornings for the past 6 months. - ENT: Reports postnasal drip, constantly blowing her nose, a sore tongue, dry mouth, and a burning sensation in her throat. Also reports a scratching sensation in the throat that provokes coughing. - Respiratory: Reports progressively worsening dyspnea over 3 months, intermittent wheezing, and crackling sounds on exhalation when supine. Reports intermittent coughing spells and production of yellow sputum in the morning. Also reports feeling unable to take a full, deep breath. Denies chest congestion. - Cardiovascular: Reports palpitations. - Neurological: Reports episodes of lightheadedness. - Sleep: Reports new onset of snoring, waking with a severely dry mouth, and waking up gasping for breath. ENT Reports Normal hearing present Neuro Reports Normal hearing present Physical Exam Vital Signs: Last Vital Signs Pulse 103 H 11/16/25 14:33 BP 110/80 11/16/25 14:33 Pulse Ox 97 11/16/25 14:33 Oxygen Delivery Method Room Air 11/16/25 14:33 BMI result Body Mass Index 40.9 Const General: cooperative, healthy appearing, comfortable, no acute distress, well developed and alert Nutritional Appearance: obese Orientation/consciousness: patient oriented x3 Limitations: no limitations HEENT Other: White plaques consistent with oral candidiasis are present on the tongue. Head: Yes normal to inspection, Yes normocephalic and Yes atraumatic Ears: hearing grossly normal bilaterally and external ears normal Eyes General: appearance normal, both eyes and all related structures Eyelids: Yes eyelids normal Sclerae: sclerae normal EOM: EOMs intact bilaterally Neck Neck: Yes normal visual inspection and Yes no lymphadenopathy Lymphatic: no lymphadenopathy noted Chest Chest palpation & inspection: normal inspection of the chest Resp Effort & Inspection: normal respiratory effort, able to speak in complete sentences, no audible wheezes, no cough, no stridor, not tachypneic, no tripod positioning and no use of accessory muscles Auscultation: diminished lung sounds Cardio Jugular venous distension: no JVD Rate: regular rate Rhythm: regular rhythm Skin Other: warm, dry General skin exam: no rashes or lesions noted Neuro General: patient oriented x3 Cranial nerves: Yes Normal hearing present Cognition (Neuro): normal cognition Gait exam (Neuro): Normal gait present Extrem General: Yes normal to inspection, Yes capillary refill normal, Yes no clubbing, cyanosis or edema and Yes no pedal edema Psych Appearance: grossly normal and well kempt Speech and movement: Normal speech and movement present and Clear speech present Affect: normal affect Attitude: cooperative Thought process: Normal thought process present Thought content: Normal thought content present Insight: Good insight present (Psych) Judgement: Good judgement present (Psych) Assessment & Plan Assessment & Plan (1) Dyspnea: Code(s): R06.00 - Dyspnea, unspecified Category: Medical (2) Cough: Code(s): R05.9 - Cough, unspecified Category: Medical (3) Atelectasis of right lung: Code(s): J98.11 - Atelectasis Category: Medical (4) Environmental allergies: Code(s): Z91.09 - Other allergy status, other than to drugs and biological substances Category: Medical Plan Discussed with the patient that her symptoms are highly suggestive of asthma, which can develop at any age. Explained that her partial symptom relief with Advair supports this but clarified that it is a preventative medication that should be used daily, not as needed. Will treat for oral thrush, explained is a common side effect from her inhaler when the mouth is not rinsed, and discussed treatment with Nystatin swish and swallow. Instructed her to restart Advair 2 inhalations BID, only after the thrush improves and emphasized the importance of rinsing, gargling, or brushing her teeth after each use to prevent recurrence. We discussed her bronchitic symptoms and will prescribe, Doxycycline, to treat a likely bacterial infection. We reviewed potential environmental triggers for her asthma, including her work exposures, a home mice infestation, and particularly her new pet bird. Outlined the diagnostic plan, which includes comprehensive allergy blood testing, a formal breathing test (PFTs), and a repeat chest CT to assess for resolution vs stability of noted atelectasis on prior abdominal CT, ordered by PCP. Reviewed the risks and side effects of the medications, and the patient verbalized understanding and agreement with the plan. A follow-up is scheduled for 6-8 weeks to review all results, with instructions to call sooner if needed. All questions were answered and patient is in agreement of plan. Patient Instructions - You have been prescribed Nystatin, a liquid medicine for the thrush (yeast infection) in your mouth. Use it four times a day for seven days. Swish it in your mouth for as long as possible, then swallow it. - You have been prescribed an antibiotic called Doxycycline for a possible chest infection. Take one pill in the morning and one in the evening for 7 days. Do not drink alcohol while taking this medicine. - Once the thrush in your mouth starts to get better, begin using your Advair inhaler every day. Take two puffs in the morning and two puffs in the evening. This is a maintenance medication to prevent symptoms. - To prevent the thrush from returning, it is very important to rinse your mouth with water, gargle, or brush your teeth every time you use the Advair inhaler. - A refill for your Advair inhaler has been sent to your pharmacy. - Please go for blood work to test for allergies and check your blood counts. - Our office will call you to schedule a breathing test (Pulmonary Function Test). - Remember to attend your chest CT scan appointment on December 05. - At home, practice taking slow, deep breaths and holding them. Also, try to make yourself cough forcefully to help clear mucus from your lungs. - Schedule a follow-up appointment in about 6-8 weeks. Patient was informed and verbally consented to the use of an ambient scribe for clinic note documentation during this visit. Orders: Orders Immunoglobulin E Today Z91.09 - Other allergy status, other than to drugs and biological substances Resp Allergy Profile Region I Today Z91.09 - Other allergy status, other than to drugs and biological substances Other [place] [facility] [place] Z91.09 - Other allergy status, other than to drugs and biological substances PFT pulmonary function test Today R06.00 - Dyspnea, unspecified Complete Blood Count Auto Diff Today Z91.09 - Other allergy status, other than to drugs and biological substances Medications: New nystatin administer 1/2 of dose in each side of the mouth swish and swallow 400,000 units (4 mL) buccal QID 112 mL 0RF 7 days doxycycline hyclate 100 mg PO BID 14 caps 0RF Refilled fluticasone propion-salmeterol 115-21 mcg/actuation (Advair HFA) 2 puffs inhalation BID 12 grams 3RF 30 days J98.11 - Atelectasis Coding Level of Care Code New Pt Level 4 (49146) Diagnoses Dyspnea R06.00 Cough R05.9 Atelectasis of right lung J98.11 Environmental allergies Z91.09
--- OUTSIDE RECORDS SUMMARY | 2025-11-16 16:50 | XMS_ITS | Clinical Summary ---
Demographics Address [address] [place] [address] Home Phone Preferred Language Belarusian Marital Status Unknown Jewish Affiliation Unknown Race Unknown Ethnic Group or Author Organization [facility] Address [address] [place] [phone] Phone Care Team Providers Care Thread Reeler Name Role Phone Unknown, Unknown MD Primary [...] Self [address] [place] [address] [facility] * Guarantor: Krupa Springer Account Type Relation to Patient Date of Phone Billing Address Personal/Family Self [address] [place] [address] [facility] * Guarantor: Danielle Krupa Account Type Relation to Patient Date of Phone Billing Address Personal/Family Self [address] [place] [address] [facility] * Guarantor: Krupa Springer Account Type Relation to Patient Date of Phone Billing Address Personal/Family Self [address] [place] [address] [facility] * Guarantor: Krupa Springer Account Type Relation to Patient Date of Phone Billing Address Personal/Family Self [address] [place] [address] [facility] * Guarantor: Krupa Springer Account Type Relation to Patient Date of Phone Billing Address Personal/Family Self [address] [place] [address] [facility] [address] [place] [address] [facility] [place], [place] [facility] [address] [place] [address] [facility] Care Teams Thread Reeler Relationship Specialty Start Date End Date Unknown, Unknown, PCP - General 08/31/17 Additional Source Comments The information contained in this document represents components of the legal health record. It is not the complete legal health record.[facility]
--- OUTSIDE RECORDS SUMMARY | 2025-11-16 16:50 | XMS_ITS | Clinical Summary ---
Author Organization [facility] Address [address] [place] [address] Care Team Providers Care Biomedical Electronics Technician Name Role Phone Unavailable Primary Care Provider [...]
== END 2025-11-16 15:18 | disposition home or self-care (01) ==
LOC: HO.HPS 14:28
PROVIDERS: PCP Physician Assistant; Referring Provider Physician Assistant; Visit Provider Nurse Practitioner Family
DX: R06.00 Dyspnea, unspecified (principal); R05.9 Cough, unspecified; J98.11 Atelectasis; Z91.09 Other allergy status, other than to drugs and biological substances
CPT/HCPCS: 99204

== ENCOUNTER 2025-11-18 09:00 | Outpatient (REF) | payer OTHER, SELFPAY ==
--- NOTE | 2025-11-18 09:08 | PFT_ITS ---
Flows: FEV1: 81 % of predicted at 2.87 L FVC: 74 % of predicted at 3.18 L FEV1/FVC: 90 % Bronchodilator response: Present in small to medium airways only Volumes: Total lung capacity: 73 % of predicted at 4.32 L Residual volume: 77 % of predicted at 1.09 L Slow vital capacity: 71 % of predicted at 3.23 L Expiratory reserve volume: 28 % of predicted at 0.43 L Diffusion capacity: Normal Impression: Moderate restrictive ventilatory defect with bronchodilator response present in small to medium airways only. Decreased expiratory reserve volume suggests extrathoracic restriction likely secondary to abdominal obesity. MTDD
--- OUTSIDE RECORDS SUMMARY | 2025-11-18 09:09 | XMS_ITS | Clinical Summary ---
Demographics Address [address] [place] [address] Home Phone Preferred Language Slovak Marital Status Unknown Anglican Affiliation Unknown Race Unknown Ethnic Group or Author Organization [facility] Address [address] [place] [phone] Phone Care Team Providers Care Lead Custodian Name Role Phone Unknown, Unknown MD Primary [...] Self [address] [place] [address] [facility] * Guarantor: Krupa Springer Account Type Relation to Patient Date of Phone Billing Address Personal/Family Self [address] [place] [address] [facility] * Guarantor: Danielle Krupa Account Type Relation to Patient Date of Phone Billing Address Personal/Family Self [address] [place] [address] [facility] * Guarantor: Krupa Springer Account Type Relation to Patient Date of Phone Billing Address Personal/Family Self [address] [place] [address] [facility] * Guarantor: Krupa Springer Account Type Relation to Patient Date of Phone Billing Address Personal/Family Self [address] [place] [address] [facility] * Guarantor: Krupa Springer Account Type Relation to Patient Date of Phone Billing Address Personal/Family Self [address] [place] [address] [facility] [place] [address] [facility] [address] [place] [facility] [place] [address] [facility] Care Teams Lead Custodian Relationship Specialty Start Date End Date Unknown, Unknown, PCP - General 08/31/17 Additional Source Comments The information contained in this document represents components of the legal health record. It is not the complete legal health record.[facility]
--- OUTSIDE RECORDS SUMMARY | 2025-11-18 09:09 | XMS_ITS | Clinical Summary ---
Author Organization [facility] Address [address] [place] [address] Care Team Providers Care Skidway Man Name Role Phone Unavailable Primary Care Provider [...]
[2025-11-18 09:39] VITALS: PULSE 90
== END 2025-11-18 09:01 | disposition home or self-care (01) ==
LOC: HO.RESP 09:00
PROVIDERS: PCP Physician Assistant; Visit Provider Nurse Practitioner Family
DX: R06.00 Dyspnea, unspecified (principal)
CPT/HCPCS: 94060; 94640; 94727; 94729

== ENCOUNTER → 2025-11-18 09:08 | Outpatient (BNV) | payer OTHER, SELFPAY | PROVIDERS: PCP Physician Assistant; Visit Provider Internal Medicine Pulmonary Disease | DX: R06.00 Dyspnea, unspecified (principal) | CPT/HCPCS: 94060; 94727; 94729 ==